=== PATIENT | female | born 1955 ===

== ENCOUNTER 2018-03-27 14:50 | Inpatient (IN) | payer MEDICAID ==
[2018-03-27] MEDS ORDERED: Albuterol-Ipratrop 3 mg / 0.5 (3 ml) UD IH STA (15:29)
[2018-03-27] MEDS ORDERED: Nitroglycerin 2% Ointment Foilpak UD TOP STA (15:33)
--- NOTE | 2018-03-27 15:37 | ED PDOC ---
Arrival/HPI - General Chief Complaint: Abdominal Pain Time Seen by Provider: 03/27/18 15:20 Historian: Patient, EMS - Critical Care Critical Care Minutes: 30 minutes - History of Present Illness Time/Duration: Other (last night) Symptom Onset: Gradual Symptom Course: Worsening Quality: Pressure, Tightness Severity Level: Severe Activities at Onset: Rest Associated Symptoms (Text): 03/27/18 15:35 Patient complains of severe worsening shortness of breath since last night accompanied by pressure-like epigastric abdominal pain. Patient believes this is related to a hernia. No diaphoresis. No dizziness or lightheadedness. No nausea or vomiting. She is in severe distress. She is tachypneic and tachycardic with accessory muscle use and retractions. Morbidly obese. Past Medical History - Infectious Disease Hx of Infectious Diseases: None - Tetanus Immunization Tetanus Immunization: Unknown - Cardiac Hx Cardiac Disorders: Yes Hx Congestive Heart Failure: Yes Hx Hypertension: Yes Hx Peripheral Edema: Yes - Pulmonary Hx Respiratory Disorders: Yes Other/Comment: CHF - Neurological Hx Neurological Disorder: No - HEENT Hx HEENT Disorder: No - Renal Hx Renal Disorder: No - Endocrine/Metabolic Hx Endocrine Disorders: Yes Hx Diabetes Mellitus Type 2: Yes - Hematological/Oncological Hx Blood Disorders: No - Integumentary Hx Dermatological Disorder: No - Musculoskeletal/Rheumatological Hx Musculoskeletal Disorders: Yes Hx Arthritis: Yes Hx Falls: Yes - Gastrointestinal Hx Gastrointestinal Disorders: No - Genitourinary/Gynecological Hx Genitourinary Disorders: No - Psychiatric Hx Psychophysiologic Disorder: Yes Hx Anxiety: Yes Hx Depression: Yes Hx Substance Use: No - Surgical History Hx Appendectomy: Yes Hx Cholecystectomy: Yes - Suicidal Assessment Feels Threatened In Home Enviroment: No Family/Social History - Physician Review Nursing Documentation Reviewed: Yes Family/Social History: Unknown Family HX Smoking Status: Former Smoker Hx Alcohol Use: No Hx Substance Use: No Allergies/Home Meds Allergies/Adverse Reactions: Allergies No Known Allergies Allergy (Verified 03/27/18 15:07) Home Medications: Home Meds Medication Instructions Recorded Confirmed Aspirin [Aspir 81] 81 mg PO DAILY 04/27/13 03/27/18 Carvedilol [Coreg] 25 mg PO BID 04/27/13 03/27/18 Potassium [Potassimin] 20 mg PO DAILY 04/27/13 03/27/18 Spironolactone 25 mg PO BID 04/27/13 03/27/18 Review of Systems - Review of Systems Systems not reviewed;Unavailable: Respiratory Distress Physical Exam Vital Signs Temp Pulse Resp BP Pulse Ox 03/27/18 17:45 87 18 172/96 H 95 03/27/18 17:17 92 H 155/94 H 03/27/18 16:50 18 173/108 H 03/27/18 15:53 193/125 H 03/27/18 15:09 98.6 F 103 H 23 175/126 H 90 L Temperature: Afebrile Blood Pressure: Hypertensive Pulse: Tachycardic Respiratory Rate: Tachypneic Appearance: Positive for: Non-Toxic, Ill-Appearing, Uncomfortable, Other (obese) Pain Distress: Mild Mental Status: Positive for: Alert and Oriented X 3 - Systems Exam Head: Present: Atraumatic, Normocephalic Pupils: Present: PERRL Extroacular Muscles: Present: EOMI Conjunctiva: Present: Normal Mouth: Present: Moist Mucous Membranes Pharnyx: No: ERYTHEMA, EXUDATE, TONSILS ENLARGED Respiratory/Chest: Present: Respiratory Distress, Accessory Muscle Use, Decreased Breath Sounds, Rales, Retracting, Rhonchi, Tachypneic Cardiovascular: Present: Regular Rate and Rhythm, Normal S1, S2, Tachycardic. No: Murmurs Abdomen: No: Tenderness, Distention, Peritoneal Signs, Rebound, Guarding Upper Extremity: Present: Normal Inspection. No: Cyanosis, Edema Lower Extremity: Present: Normal Inspection. No: Edema Neurological: Present: GCS=15, CN II-XII Intact, Speech Normal, Motor Func Grossly Intact Skin: Present: Warm, Dry, Normal Color. No: Rashes Psychiatric: Present: Alert, Oriented x 3, Normal Insight, Normal Concentration Medical Decision Making ED Course and Treatment: 03/27/18 15:37 EKG showed sinus tachycardia rate approximately 105 with LVH and no acute ST or T-wave changes 03/27/18 15:47 Patient adamantly refuses ABG. 03/27/18 18:[address] chest. She states she has had before and she is afraid. I discussed in detail with the patient that if she had a pulmonary embolus she could potentially from this problem. She does not care and still refuses the CT scan. I explained a VQ scan to her and she also refuses to have a VQ scan done. She is awake alert and able to make such a decision. - Lab Interpretations Lab Results: 03/27/18 16:08 03/27/18 16:08 Lab Results 03/27/18 16:15: Urine Color Yellow, Urine Appearance Clear, Urine pH 6.5, Ur Specific [place] 1.020, Urine Protein 100 H, Urine Glucose (UA) Negative, Urine Ketones Negative, Urine Blood Trace-intact H, Urine Nitrate Negative, Urine Bilirubin Negative, Urine Urobilinogen 0.2, Ur Leukocyte Esterase Negative, Urine RBC 1 - 3, Urine WBC 0 - 2, Ur Epithelial Cells 3 - 4, Urine Bacteria Few 03/27/18 16:08: Sodium 142, Potassium 4.3, Chloride 98, Carbon Dioxide 31, Anion Gap 16, BUN 15, Creatinine 0.7, Est GFR ( Amer) > 60, Est GFR (Non- Af Amer) > 60, Random Glucose 120 H, Calcium 9.6, Magnesium 2.1, Total Bilirubin 0.8, AST 30, ALT 27, Alkaline Phosphatase 71, Lactate Dehydrogenase 592, Total Creatine Kinase 52, Troponin I 0.03, NT-Pro-B Natriuret Pep 3940 H, Total Protein 8.2, Albumin 4.6, Globulin 3.6, Albumin/Globulin Ratio 1.3, Lipase 60 03/27/18 16:08: PT 12.1, INR 1.06, APTT 31.1, D-Dimer, Quantitative 1108 H 03/27/18 16:08: WBC 13.4 H, RBC 5.04, Hgb 15.2, Hct 45.7, MCV 90.7, MCH 30.2, MCHC 33.3, RDW 13.9, Plt Count 249, MPV 12.2 H, Gran % 78.4 H, Lymph % (Auto) 14.7 L, [place] % (Auto) 6.1 H, Eos % (Auto) 0.5 L, Baso % (Auto) 0.3, Gran # 10.50 H, Lymph # (Auto) 2.0, [place] # (Auto) 0.8 H, Eos # (Auto) 0.1, Baso # (Auto ) 0.04 - RAD Interpretation Radiology Orders: 03/27/18 15:29 CHEST PORTABLE [RAD] Stat Chest one view shows cardiomegaly and CHF. Bill Hiker: ED Physician - Medication Orders Current Medication Orders: Discontinued Medications Albuterol/Ipratropium (Duoneb 3 Mg/0.5 Mg (3 Ml) Ud) 3 ml IH STAT STA Stop: 03/27/18 15:30 Last Admin: 03/27/18 15:43 Dose: 3 ml Aspirin (Aspirin Chewable) 324 mg PO ONCE ONE Stop: 03/27/18 15:34 Last Admin: 03/27/18 15:43 Dose: Furosemide (Lasix) 60 mg IVP STAT STA Stop: 03/27/18 15:30 Last Admin: 03/27/18 15:53 Dose: 60 mg MAR Blood Pressure Document 03/27/18 15:53 SF (Rec: 03/27/18 15:53 SF [id number]) Blood Pressure Blood Pressure (100/60-150/90 mm Hg) 193/125 IVP Administration Document 03/27/18 15:53 SF (Rec: 03/27/18 15:53 SF [id number]) Charges for Administration # of IVP Administrations 1 Metoprolol Tartrate (Lopressor) 5 mg IVP STAT STA Stop: 03/27/18 16:50 Last Admin: 03/27/18 17:17 Dose: 5 mg IVP Administration Document 03/27/18 17:17 [facility] [place] (Rec: 03/27/18 17:17 [id number] Charges for Administration # of IVP Administrations 1 MAR Pulse and Blood Pressure Document 03/27/18 17:17 LM (Rec: 03/27/18 17:17 [id number]) Pulse Pulse Rate (60-90 beats/min) 92 Blood Pressure Blood Pressure (100/60-150/90 mm Hg) 155/94 Nitroglycerin (Nitro-Bid 2% Oint) 1 ea TOP STAT STA Stop: 03/27/18 15:34 Last Admin: 03/27/18 15:44 Dose: 1 ea Disposition/Present on Arrival - Present on Arrival Any Indicators Present on Arrival: No History of DVT/PE: No History of Uncontrolled Diabetes: No Urinary Catheter: No History of Decub. Ulcer: No History Surgical Site Infection Following: None - Disposition Have Diagnosis and Disposition been Completed?: Yes Diagnosis: Congestive heart failure, Hypertension, Chest pain, Elevated troponin, Acute dyspnea, Hypoxia, Tachycardia, Leukocytosis, Obesity Disposition: HOSPITALIZED Disposition Time: 16:55 Patient Plan: Admission, Telemetry Patient Problems: Current Active Problems Problem Status Onset Acute dyspnea Acute Chest pain Acute Congestive heart failure Acute Elevated troponin Acute Hypertension Acute Hypoxia Acute Leukocytosis Acute Obesity Acute Tachycardia Acute Condition: SERIOUS
[2018-03-27] MEDS ORDERED: Aspirin 325 mg EC Tablets PO ONE (15:41)
--- NOTE | 2018-03-27 15:48 | RAD ---
HISTORY: sob COMPARISON: No prior. FINDINGS: LUNGS: Technically limited due to patient body habitus. No infiltrate. PLEURA: No significant pleural effusion identified, no pneumothorax apparent. CARDIOVASCULAR: Normal. OSSEOUS STRUCTURES: No significant abnormalities. VISUALIZED UPPER ABDOMEN: Normal. OTHER FINDINGS: None. IMPRESSION: No active disease.
[2018-03-27 16:27] LABS: BASO # 0.04 K/mm3 (0.0-2.0); BASO % 0.3 % (0.0-3.0); EOS # 0.1 (0.0-0.7); EOS % 0.5 % (1.5-5.0); GRAN # 10.5 (1.4-6.5); GRAN % 78.4 % (50.0-68.0); HEMOGLOBIN 15.2 g/dL (12.0-16.0); LYMPH % 14.7 % (22.0-35.0); MEAN CELL VOLUME 90.7 fl (80.0-105.0); MEAN CORPUSCULAR HEMOGLOBIN 30.2 pg (25.0-35.0); MEAN CORPUSCULAR HGB CONC 33.3 g/dl (31.0-37.0); MEAN PLATELET VOLUME 12.2 fl (7.0-11.0); MONO # 0.8 (0.1-0.6); MONO % 6.1 % (1.0-6.0); RBC 5.04 10^6/uL (3.5-6.1); RED CELL DISTRIBUTION WIDTH 13.9 % (11.5-14.5); WHITE BLOOD COUNT 13.4 10^3/ul (4.5-11.0)
[2018-03-27 16:31] LABS: ALB/GLOB RATIO 1.3 (1.1-1.8); ALBUMIN 4.6 g/dL (3.0-4.8); CALCIUM 9.6 mg/dL (8.4-10.5); GFR AFRICAN-AMERICAN > 60; GFR NON-AFRICAN AMERICAN > 60; LIPASE 60 U/L (23-300)
[2018-03-27 16:32] LABS: INR 1.06 (0.93-1.08); PARTIAL THROMBOPLASTIN TIME 31.1 Seconds (25.1-36.5); PROTHROMBIN TIME 12.1 SECONDS (9.4-12.5)
[2018-03-27 16:34] LABS: ALT/SGPT 27 U/L (7-56); AST/SGOT 30 U/L (14-36); BLOOD UREA NITROGEN 15 mg/dL (7-21)
[2018-03-27 16:41] LABS: B-TYPE NATRIURETIC PEPTIDE 3940 pg/mL (0-450); TROPONIN I 0.03 ng/mL
[2018-03-27 16:43] LABS: PH,URINE 6.5 (4.7-8.0); URINE BILIRUBIN NEGATIVE (NEGATIVE); URINE BLOOD TRACE-INTACT (NEGATIVE); URINE GLUCOSE (UA) NEGATIVE (NEGATIVE); URINE LEUKOCYTE ESTERASE NEGATIVE Leu/uL (NEGATIVE); URINE PROTEIN 100 mg/dL (<30 mg/dL); URINE UROBILINOGEN 0.2 E.U./dL (<1 E.U./dL)
[2018-03-27 16:44] LABS: URINE APPEARANCE CLEAR (CLEAR); URINE COLOR YELLOW (YELLOW)
[2018-03-27] MEDS ORDERED: Metoprolol 1 mg/ml Inj IVP STA (16:49)
[2018-03-27 16:58] LABS: URINE BACTERIA FEW (NEG); URINE WBC 0 - 2 /hpf (0-6)
[2018-03-27] MEDS ORDERED: Iohexol 350 MG/100 ML VIAL ONE (17:25)
[2018-03-27 19:47] LABS: HDL CHOLESTEROL 43 mg/dL (29-60)
[2018-03-27 19:58] LABS: LDL CHOLESTEROL 113 mg/dL (0-129)
[2018-03-27 20:04] LABS: FREE T4 1.21 ng/dL (0.78-2.19)
--- NOTE | 2018-03-27 20:13 | CP.PCM.HP ---
<Cb Salazar - Last Filed: 03/27/18 19:24> History of Present Illness - History of Present Illness History of Present Illness: CC: Shortness of breath, chest pain HPI: Patient is a 62 yo F with PMH of HTN, DM, hypothyroidism, chronic systolic CHF, dilated cardiomyopathy, and TIA presents to the ED due to shortness of breath and chest pain for the past day. Patient states that the chest pain started last night around 9 pm last night, which is located mid-sternal, pressure-like, constant, but does not radiate. Patient denies prior occurrences or any inciting activities that caused the chest pain. Patient also complains of increasing shortness of breath during this period. At baseline, patient is unable to walk one block without becoming short of breath and requires 2 pillows at night to sleep. Patient is also complaining of a dry cough. Patient denies n/v/d, abdominal pain, fever, chills, LOMBARDI, dizziness, dysuria, hematuria, or heat/cold intolerance. PMD: Mihir Cardio: Althea PMH: HTN, DM, hypothyroidism, chronic systolic CHF, dilated cardiomyopathy, and TIA Surg: C-sections x4, appendectomy, tonsillectomy All: NKDA SH: Former smoker (3 cig/day for 15 yrs), quit 6 years ago; Denied EtOH or illicit drug use FHx: Mother, , h/o DM; Father, unknown Medications: Lasix 20 mg daily Venlafaxine 37.5 daily Ambien 5 mg HS Valsartan 160 mg daily Coreg 25 mg daily Present on Admission - Present on Admission Any Indicators Present on Admission: No Review of Systems - Review of Systems All systems: reviewed and no additional remarkable complaints except (12 point ROS reviewed and is negative other than what is stated in HPI.) Past Patient History - Infectious Disease Hx of Infectious Diseases: None - Tetanus Immunizations Tetanus Immunization: Unknown - Past Social History Smoking Status: Former Smoker - CARDIAC Hx Cardiac Disorders: Yes Hx Congestive Heart Failure: Yes Hx Hypertension: Yes Hx Peripheral Edema: Yes - PULMONARY Hx Respiratory Disorders: Yes Other/Comment: CHF - NEUROLOGICAL Hx Neurological Disorder: No - HEENT Hx HEENT Problems: No - RENAL Hx Chronic Kidney Disease: No - ENDOCRINE/METABOLIC Hx Endocrine Disorders: Yes Hx Diabetes Mellitus Type 2: Yes - HEMATOLOGICAL/ONCOLOGICAL Hx Blood Disorders: No - INTEGUMENTARY Hx Dermatological Problems: No - MUSCULOSKELETAL/RHEUMATOLOGICAL Hx Musculoskeletal Disorders: Yes Hx Arthritis: Yes Hx Falls: Yes - GASTROINTESTINAL Hx Gastrointestinal Disorders: No - GENITOURINARY/GYNECOLOGICAL Hx Genitourinary Disorders: No - PSYCHIATRIC Hx Psychophysiologic Disorder: Yes Hx Anxiety: Yes Hx Depression: Yes Hx Substance Use: No - SURGICAL HISTORY Hx Appendectomy: Yes Hx Cholecystectomy: Yes Meds Allergies/Adverse Reactions: Allergies Allergy/AdvReac Type Severity Reaction Status Date / Time No Known Allergies Allergy Verified 03/27/18 21:10 Physical Exam - Constitutional Appears: No Acute Distress - Head Exam Head Exam: ATRAUMATIC, NORMAL INSPECTION, NORMOCEPHALIC - Eye Exam Eye Exam: EOMI, Normal appearance, PERRL - ENT Exam ENT Exam: Mucous Membranes Moist, Normal Exam - Neck Exam Neck exam: Positive for: Normal Inspection - Respiratory Exam Respiratory Exam: Clear to Auscultation Bilateral. absent: Decreased Breath Sounds, Rales, Rhonchi, Wheezes - Cardiovascular Exam Cardiovascular Exam: RRR, +S1, +S2. absent: Bradycardia, Tachycardia, Diastolic murmur, Gallop, JVD, Rubs, Systolic Murmur Additional comments: LE edema 3+/4 - GI/Abdominal Exam GI & Abdominal Exam: Soft, Tenderness (epigastric). absent: Distended, Firm, Guarding, Mass, Rebound - Extremities Exam Extremities exam: Positive for: normal capillary refill, pedal edema, pedal pulses present. Negative for: joint swelling, tenderness - Back Exam Back exam: NORMAL INSPECTION - Neurological Exam Neurological exam: Alert, CN II-XII Intact, Oriented x3 - Psychiatric Exam Psychiatric exam: Normal Affect, Normal Mood - Skin Skin Exam: Dry, Intact, Normal Color, Warm Results - Vital Signs Recent Vital Signs: Last Vital Signs Temp 98.1 F 03/27/18 18:30 Pulse 85 03/27/18 18:30 Resp 18 03/27/18 18:30 BP 166/97 H 03/27/18 18:30 Pulse Ox 92 L 03/27/18 18:30 - Labs Result Diagrams: 03/27/18 16:08 03/27/18 16:08 Assessment & Plan - Assessment and Plan (Free Text) Assessment: 62 yo F with PMH of HTN, DM, hypothyroidism, dilated cardiomyopathy, and TIA presents to [facility] [place] for chest pain and shortness of breath. Admitted for evaluation and treatment for acute systolic CHF exacerbation. Plan: 1. Acute systolic CHF exacerbation - BNP 3940 - Pt currently refusing ABG - Echo (2012) showed EF of 27.9%, 4 chamber dilation, mild-mod MR/TR/AR - Echo ordered - Head of bed 30 degrees - Strict I's and O's - Daily weights - Lasix 40 mg IVP BID - Coreg 25 mg PO BID - Losartan 100 mg PO daily - Cardio consulted 2. Chest pain r/o ACS - EKG showed sinus tachycardia at rate of 105, LVH, no acute ST-T wave changes - CXR showed no active disease - Troponin 0.03, will trend x2 - AM EKG ordered - TSH, A1c, Lipid profile ordered - ASA 81 mg po daily - Cardio consulted 3. Elevated D-Dimer - D-Dimer 1108 - [place] Criteria 1.5 points, low risk for PE - Patient refusing CTA at this time 3. LE edema/swelling - Likely 2/2 to CHF - B/L LE venous duplex ordered to r/o DVT 4. HTN - Cont Losartan and Coreg 5. DM - Hold Metoformin - ISS-low - Accuchecks ACHS 6. H/o Hypothyroidism - Thyroid studies ordered GI/DVT PPx - Protonix - Heparin Pt seen and discussed in detail with Dr. Pack. Lars Salazar, PGY2 <Tere Pack - Last Filed: 03/28/18 16:25> Results - Vital Signs Recent Vital Signs: Last Vital Signs Temp 97.7 F 03/28/18 12:00 Pulse 68 03/28/18 14:00 Resp 18 03/28/18 12:00 BP 140/92 H 03/28/18 12:00 Pulse Ox 95 03/28/18 09:00 - Labs Result Diagrams: 03/28/18 04:20 03/28/18 04:20 Labs: Laboratory Results - last 24 hr 03/27/18 03/27/18 03/27/18 18:00 18:00 21:38 WBC RBC Hgb Hct MCV MCH MCHC RDW Plt Count MPV Sodium Potassium Chloride Carbon Dioxide Anion Gap BUN Creatinine Est GFR ( Amer) Est GFR (Non-Af Amer) POC Glucose (mg/dL) Random Glucose Calcium Phosphorus Magnesium Total Bilirubin AST ALT Alkaline Phosphatase Troponin I 0.05 D Total Protein Albumin Globulin Albumin/Globulin Ratio Triglycerides 150 Cholesterol 182 LDL Cholesterol Direct 113 HDL Cholesterol 43 Free T4 1.21 Total T3 1.12 TSH 3rd Generation 0.24 L 03/27/18 03/28/18 03/28/18 21:51 04:20 04:20 WBC 9.2 D RBC 4.92 Hgb 14.7 Hct 45.7 MCV 92.9 MCH 29.9 MCHC 32.2 RDW 14.4 Plt Count 206 MPV 12.1 H Sodium 143 Potassium 3.7 Chloride 98 Carbon Dioxide 37 H Anion Gap 12 BUN 16 Creatinine 0.7 Est GFR ( Amer) > 60 Est GFR (Non-Af Amer) > 60 POC Glucose (mg/dL) 172 H Random Glucose 121 H Calcium 9.4 Phosphorus 4.8 H Magnesium 2.0 Total Bilirubin 0.9 AST 24 ALT 33 Alkaline Phosphatase 60 Troponin I 0.05 Total Protein 7.5 Albumin 4.1 Globulin 3.4 Albumin/Globulin Ratio 1.2 Triglycerides Cholesterol LDL Cholesterol Direct HDL Cholesterol Free T4 Total T3 TSH 3rd Generation 03/28/18 03/28/18 07:31 11:27 WBC RBC Hgb Hct MCV MCH MCHC RDW Plt Count MPV Sodium Potassium Chloride Carbon Dioxide Anion Gap BUN Creatinine Est GFR ( Amer) Est GFR (Non-Af Amer) POC Glucose (mg/dL) 112 H 128 H Random Glucose Calcium Phosphorus Magnesium Total Bilirubin AST ALT Alkaline Phosphatase Troponin I Total Protein Albumin Globulin Albumin/Globulin Ratio Triglycerides Cholesterol LDL Cholesterol Direct HDL Cholesterol Free T4 Total T3 TSH 3rd Generation Attending/Attestation - Attestation I have personally seen and examined this patient.: Yes I have fully participated in the care of the patient.: Yes I have reviewed all pertinent clinical information: Yes Notes (Text): Patient seen and examined by me at 6:00PM 03/27/18 with resident at bedside. Case including physical assessment and plan discussed with resident. Agree with above with following additions/changes. Patient is a 62-year-old female with past medical history significant for essential hypertension, type 2 diabetes, hypothyroidism (patient is not taking any medications), chronic systolic CHF, dilated cardiomyopathy, and TIA the presents to emergency room with chest pain and shortness of breath. She states that she is feeling short of breath for approximately one month. She states that she is short of breath at rest and with exertion. She is only able to ambulate a short distance. She sleeps on 2 pillows and is unable to lie flat. Patient does not use home oxygen. She states that she started to have pressure- like midsternal chest pain last night. She states the pain is intermittent and does not radiate. She denies associated diaphoresis or nausea. No vomiting. Patient feels much better in the emergency room after receiving Lasix. She states that the oxygen via nasal cannula is also helping. No headaches or dizziness. No nausea, vomiting, or abdominal pain. No fevers or chills. No dysuria. No diarrhea or constipation. 14 point review of systems reviewed by me. Please see HPI. All other systems are negative. Home medications reviewed with patient by me. Physical exam: Gen: Patient is awake and alert sitting up in bed in no acute distress HEENT: Normocephalic atraumatic, extraocular muscles intact, pupils equal reactive, oropharynx is pink and moist, no pharyngeal erythema or exudate appreciated, neck is supple. Hearing grossly intact. Ears and nose externally unremarkable. Cardiovascular: Normal rhythm, normal S1-S2, no murmurs rubs or gallops appreciated Pulmonary: Normal respiratory effort. Decreased breath sounds. Scattered crackles. No rhonchi or wheezing appreciated Gastrointestinal: Soft, obese abdomen, positive mild epigastric tenderness, nondistended, positive bowel sounds all 4 quadrants, no guarding Musculoskeletal: Moves all extremities, no calf tenderness, no CVA tenderness Central nervous system: AAO 3 Dermatologic: Skin warm and dry Assessment and plan: Patient is a 62-year-old female that presented to emergency room with chest pain and shortness of breath. She found to have acute on current systolic CHF exacerbation and elevated d-dimer. 1. Acute on chronic systolic CHF exacerbation. 2-D echo in 2012 showed an EF of 27.9%. BNP elevated Repeat 2-D echo. Consult cardiology, follow-up recommendations. Strict I's and O's. Monitor daily weights. Place on Lasix 40 mg IV twice a day. Continue home spironolactone, Coreg and losartan. O2 via nasal cannula as needed. Monitor on telemetry. 2. Chest pain. Rule out acute coronary syndrome. Follow up 2-D echo. Heart aortic consult a follow-up recommendations. Continue aspirin and Coreg. Follow- up TSH, hemoglobin A1c, and lipid panel. Monitor serial troponins. Monitor on telemetry 3. Elevated d-dimer. Patient is refusing CTA. Importance of having this test done discussed at length with patient. Patient still refusing. We'll check lower extremity Dopplers to rule out DVT. 4. Bilateral lower extremity edema. Likely secondary to CHF. Placed on Lasix 40 mg IV twice a day. Follow-up lower extremity Dopplers to rule out DVT. 5. Essential hypertension. Continue Coreg and losartan. 6. Type 2 diabetes, [id number]. Place on insulin sliding scale. Diabetic Diet. Monitor Accu-Cheks. Patient counseled on diet and exercise. Follow-up hemoglobin A1c 7. History of hypothyroidism. Patient states that she stopped her medication because she did not want to take too many medications. Importance of compliance of medications discussed in detail with patient. Check TSH, free T4, and T3. 8. Leukocytosis. Likely reactive. No signs of infection. No indication for antibiotics. Follow up repeat labs in a.m. 9. GI and DVT prophylaxis. Protonix and heparin 5000 units subcutaneous every 8 hours 10. Patient is a full code Case was discussed in detail with the patient and electromedical service engineer regarding current diagnosis and treatment plan
[2018-03-27 20:18] LABS: T3 1.12 ng/mL (0.97-1.69)
[2018-03-27] MEDS: Insulin Reg-LOW-Coverage SC SCH (22:00)
[2018-03-27 22:16] VITALS: BMI 44.9
[2018-03-27] MEDS ORDERED: Pneumococcal 23-Valent Vaccine IM ONE (22:16)
[2018-03-28 04:45] LABS: HEMOGLOBIN 14.7 g/dL (12.0-16.0); MEAN CELL VOLUME 92.9 fl (80.0-105.0); MEAN CORPUSCULAR HEMOGLOBIN 29.9 pg (25.0-35.0); MEAN CORPUSCULAR HGB CONC 32.2 g/dl (31.0-37.0); MEAN PLATELET VOLUME 12.1 fl (7.0-11.0); RBC 4.92 10^6/uL (3.5-6.1); RED CELL DISTRIBUTION WIDTH 14.4 % (11.5-14.5); WHITE BLOOD COUNT 9.2 10^3/ul (4.5-11.0)
[2018-03-28 04:46] LABS: ALB/GLOB RATIO 1.2 (1.1-1.8); ALBUMIN 4.1 g/dL (3.0-4.8); ALT/SGPT 33 U/L (7-56); AST/SGOT 24 U/L (14-36); BLOOD UREA NITROGEN 16 mg/dL (7-21); CALCIUM 9.4 mg/dL (8.4-10.5); GFR AFRICAN-AMERICAN > 60; GFR NON-AFRICAN AMERICAN > 60
[2018-03-28 04:58] LABS: TROPONIN I 0.05 ng/mL
[2018-03-28] MEDS: Pantoprazole 40 mg EC Tab PO SCH (05:14)
[2018-03-28] MEDS: Insulin Reg-LOW-Coverage SC SCH ×4 (07:34→21:49)
--- NOTE | 2018-03-28 09:16 | CARD ---
APPROVED REPORT EKG Measurement Heart [id number] <Conclusion> Sinus tachycardia Biatrial enlargement Left axis deviation PRWP LVH STTW changes c/w ischemia No change
--- NOTE | 2018-03-28 16:27 | CP.PCM.PN ---
<Nena Yip L - Last Filed: 03/28/18 19:53> Subjective - Date & Time of Evaluation Date of Evaluation: 03/28/18 Time of Evaluation: 07:00 - Subjective Subjective: No acute events overnight. States that her chest pain and shortness of breath has improved. Denies abdominal pain, diarrhea/constipation, urinary urgency. Patient also expressed concern about CTA. States she cannot lie flat as this exacerbates her shortness of breath. Objective - Vital Signs/Intake and Output Vital Signs (last 24 hours): Temp Pulse Resp BP Pulse Ox 97.7 F 68 18 140/92 H 95 03/28/18 12:00 03/28/18 14:00 03/28/18 12:00 03/28/18 12:00 03/28/18 09:00 Intake and Output: 03/28/18 03/28/18 06:59 18:59 Intake Total 360 Balance 360 - Medications Medications: Current Medications Aspirin (Ecotrin) 81 mg PO DAILY [facility] Last Admin: 03/28/18 09:24 Dose: 81 mg Carvedilol (Coreg) 25 mg PO BID [facility] Last Admin: 03/28/18 09:24 Dose: 25 mg Furosemide (Lasix) 40 mg IVP BID [facility] Last Admin: 03/28/18 09:23 Dose: 40 mg Heparin Sodium (Porcine) (Heparin) 5,000 units SC Q8 [facility] PRN Reason: Protocol Last Admin: 03/28/18 14:54 Dose: 5,000 units Insulin Human Regular (Humulin R Low) 0 units SC ACHS [facility] PRN Reason: Protocol Last Admin: 03/28/18 11:43 Dose: Not Given Losartan Potassium (Cozaar) 100 mg PO DAILY [facility] Last Admin: 03/28/18 09:24 Dose: 100 mg Pantoprazole Sodium (Protonix Ec Tab) 40 mg PO 0600 [facility] Last Admin: 03/28/18 05:14 Dose: 40 mg Spironolactone (Aldactone) 25 mg PO DAILY [facility] - Labs Labs: 03/28/18 04:20 03/28/18 04:20 PT 12.1 SECONDS (9.4-12.5) 03/27/18 16:08 INR 1.06 (0.93-1.08) 03/27/18 16:08 APTT 31.1 Seconds (25.1-36.5) 03/27/18 16:08 - Additional Findings Additional findings: - Constitutional Appears: No Acute Distress - Head Exam Head Exam: ATRAUMATIC, NORMAL INSPECTION, NORMOCEPHALIC - Eye Exam Eye Exam: EOMI, Normal appearance, PERRL - ENT Exam ENT Exam: Mucous Membranes Moist, Normal Exam - Neck Exam Neck exam: Positive for: Normal Inspection - Respiratory Exam Respiratory Exam: Clear to Auscultation Bilateral. absent: Decreased Breath Sounds, Rales, Rhonchi, Wheezes - Cardiovascular Exam Cardiovascular Exam: RRR, +S1, +S2. absent: Bradycardia, Tachycardia, Diastolic murmur, Gallop, JVD, Rubs, Systolic Murmur Additional comments: LE edema 1+/4 - GI/Abdominal Exam GI & Abdominal Exam: Soft, Tenderness (epigastric). absent: Distended, Firm, Guarding, Mass, Rebound - Extremities Exam Extremities exam: Positive for: normal capillary refill, pedal edema, pedal pulses present. Negative for: joint swelling, tenderness - Back Exam Back exam: NORMAL INSPECTION - Neurological Exam Neurological exam: Alert, CN II-XII Intact, Oriented x3 - Psychiatric Exam Psychiatric exam: Normal Affect, Normal Mood - Skin Skin Exam: Dry, Intact, Normal Color, Warm Assessment and Plan - Assessment and Plan (Free Text) Assessment: Acute on chronic systolic CHF exacerbation - BNP 3940 - Echo (2012) showed EF of 27.9%, 4 chamber dilation, mild-mod MR/TR/AR - Echo results pending - Head of bed 30 degrees - Strict I's and O's - Daily weights - Lasix 40 mg IVP BID - Coreg 25 mg PO BID - Losartan 100 mg PO daily - Cardio consulted - Patient improving clinically Chest pain r/o ACS - Resolving - EKG showed sinus tachycardia at rate of 105, LVH, no acute ST-T wave changes - CXR showed no active disease - Troponin 0.05 x 2 - TSH low, T3/T4 normal - A1c ordered - Lipid profile normal - Continue ASA 81 mg po daily - Cardio consulted Elevated D-Dimer - D-Dimer 1108 - Wells Criteria 1.5 points, low risk for PE - Spoke to patient regarding importance of CTA. Still refusing at this time. Will attempt V/Q scan. LE edema/swelling - Resolving - Likely 2/2 to CHF - B/L LE venous duplex ordered to r/o DVT HTN - Continue Losartan and Coreg DM - POC glucose 112 this morning - Hold Metformin - ISS-low - Accuchecks ACHS Hypothyroidism - TSH low, T3/T4 normal GI/DVT PPx - Protonix - Heparin Patient seen and discussed with Dr. Ramone Yip PGY 1 <Tere Pack R - Last Filed: 03/28/18 21:07> Objective - Vital Signs/Intake and Output Vital Signs (last 24 hours): Temp Pulse Resp BP Pulse Ox 98.2 F 73 20 141/90 95 03/28/18 17:31 03/28/18 18:00 03/28/18 17:31 03/28/18 17:43 03/28/18 09:00 Intake and Output: 03/28/18 03/29/18 18:59 06:59 Intake Total 1180 Balance 1180 - Medications Medications: Current Medications Aspirin (Ecotrin) 81 mg PO DAILY [facility] Last Admin: 03/28/18 09:24 Dose: 81 mg Carvedilol (Coreg) 25 mg PO BID [facility] Last Admin: 03/28/18 17:43 Dose: 25 mg Furosemide (Lasix) 40 mg IVP BID [facility] Last Admin: 03/28/18 17:43 Dose: 40 mg Heparin Sodium (Porcine) (Heparin) 5,000 units SC Q8 [facility] PRN Reason: Protocol Last Admin: 03/28/18 14:54 Dose: 5,000 units Insulin Human Regular (Humulin R Low) 0 units SC ACHS [facility] PRN Reason: Protocol Last Admin: 03/28/18 17:13 Dose: Not Given Losartan Potassium (Cozaar) 100 mg PO DAILY [facility] Last Admin: 03/28/18 09:24 Dose: 100 mg Pantoprazole Sodium (Protonix Ec Tab) 40 mg PO 0600 [facility] Last Admin: 03/28/18 05:14 Dose: 40 mg Spironolactone (Aldactone) 25 mg PO DAILY [facility] - Labs Labs: 03/28/18 04:20 03/28/18 04:20 PT 12.1 SECONDS (9.4-12.5) 03/27/18 16:08 INR 1.06 (0.93-1.08) 03/27/18 16:08 APTT 31.1 Seconds (25.1-36.5) 07/06/18 16:08 Attending/Attestation - Attestation I have personally seen and examined this patient.: Yes I have fully participated in the care of the patient.: Yes I have reviewed all pertinent clinical information, including history, physical exam and plan: Yes Notes (Text): Patient seen and examined by me at 11:15AM with resident at bedside. Case including physical assessment and plan discussed with resident. Agree with above with following additions/changes. Patient states she is feeling better today. Shortness of breath improved. Patient states she feels like "the liquid has come off of me." Patient feels less swollen. Chest pain has resolved. Patient continues to refuse CTA of chest. Importance discussed again. Patient still refusing. No headaches or dizziness. No nausea, vomiting, or abdominal pain. No fevers or chills. No dysuria. No diarrhea or constipation. Physical exam: Gen: Patient is awake and alert sitting up in bed in no acute distress HEENT: Normocephalic atraumatic, extraocular muscles intact, pupils equal reactive, oropharynx is pink and moist, no pharyngeal erythema or exudate appreciated, neck is supple. Cardiovascular: Normal rhythm, normal S1-S2, no murmurs rubs or gallops appreciated, positive lower extremity pitting edema. Pulmonary: Normal respiratory effort. Decreased breath sounds. No rhonchi, rales , or wheezing appreciated Gastrointestinal: Soft, obese abdomen, nontender, nondistended, positive bowel sounds all 4 quadrants, no guarding Musculoskeletal: Moves all extremities, no calf tenderness, Central nervous system: AAO 3 Dermatologic: Skin warm and dry Assessment and plan: Patient is a 62-year-old female that presented to emergency room with chest pain and shortness of breath. She found to have acute on current systolic CHF exacerbation and elevated d-dimer. 1. Acute on chronic systolic CHF exacerbation. Improving. Pending 2-D echo results. Cardiology consulted, recommendations appreciated. Patient refusing cardiac cath. Continue strict I's and O's. Continue to monitor daily weights. Continue Lasix 40 mg IV twice a day. Continue spironolactone, Coreg and losartan. O2 via nasal cannula as needed. Continue to monitor on telemetry 2. Chest pain. Rule out acute coronary syndrome. 2d echo results pending. Troponins within normal limits. Cardiology following, recommendations appreciated. Patient refusing cardiac cath. Continue aspirin and Coreg. TSH within normal limits. hemoglobin A1c pending. Lipid panel within normal limits. Continue to monitor on telemetry 3. Elevated d-dimer. Patient continues to refuse CTA. Importance of having this test done discussed again at length with patient. Patient still refusing. Pending lower extremity Dopplers results to rule out DVT. 4. Bilateral lower extremity edema. Likely secondary to CHF. Improving. Continue Lasix 40 mg IV twice a day. Follow-up lower extremity Doppler results. 5. Essential hypertension. Continue Coreg and losartan. 6. Type 2 diabetes, [id number]. Continue insulin sliding scale. Continue diabetic diet. Cotinue to monitor Accu-Cheks. Patient counseled on diet and exercise. Follow-up hemoglobin A1c 7. History of hypothyroidism. Patient states that she stopped her medication because she did not want to take too many medications. Importance of compliance of medications discussed in detail with patient. Check TSH and Free T4 within normal limits. 8. Leukocytosis. Resolved. Likely reactive. 9. GI and DVT prophylaxis. Protonix and heparin 5000 units subcutaneous every 8 hours 10. Patient is a full code Case was discussed in detail with the patient and director medical economics regarding current diagnosis and treatment plan
--- NOTE | 2018-03-28 20:32 | CON ---
DATE: 03/28/2018 CARDIOLOGY CONSULTATION REASON FOR CONSULTATION: Exacerbation of congestive heart failure. HISTORY OF PRESENT ILLNESS: The patient is a 62-year-old female who presented because of shortness of breath and bilateral leg swelling. The patient is being followed by a truck jumper at , who advised her cardiac catheterization, but she refused. The patient is unaware of any history of heart attack in the past. SOCIAL HISTORY: The patient is a former smoker. MEDICATIONS: Coreg 25 mg once a day, Cozaar 100 mg once a day, aspirin 81 mg once a day, heparin 5000 units subcutaneous every 8 hours, Lasix 40 mg intravenous twice a day, Protonix 40 mg p.o. once a day. REVIEW OF SYSTEMS: No fever or chills. The patient complained of productive cough. PHYSICAL EXAMINATION: GENERAL: The patient is a middle-aged female who is mildly tachypneic, but does not appear to be in acute distress. VITAL SIGNS: Blood pressure 141/81, heart rate 66, respirations 18, temperature 98. HEENT: Normocephalic. CHEST: Bibasilar rales. HEART: S1 and S2 regular. ABDOMEN: Mild ascites. EXTREMITIES: 2+ pitting edema. DIAGNOSTIC STUDIES: EKG revealed sinus tachycardia at rate 104, biatrial enlargement, left axis deviation, poor R wave progression, ST-T wave changes consistent with ischemia. Chest x-ray revealed cardiomegaly, right lower lobe infiltrate. Preliminary review of the echocardiographic study revealed severely depressed ejection fraction which was measured at 20%. LABORATORY DATA: Today's hemoglobin and hematocrit, white count and platelet count are within normal limit. Today's SMA-7 is within normal limits except for glucose of 121 and carbon dioxide of 37. Three sets of troponins are 0.03, 0.05, and 0.05. ProBNP is 3940. Lipid profile is within normal limit. TSH level is 0.24. ASSESSMENT: 1. Exacerbation of congestive heart failure. 2. Consider right lower lobe pneumonia. 3. Hypertension. 4. Morbid obesity. RECOMMENDATIONS: Continue IV Lasix at 40 mg twice a day, subcutaneous heparin 5000 units every 8 hours, Cozaar 100 mg once a day, Coreg 25 mg twice a day. I will start Aldactone at 25 mg orally once a day. The patient refuses the idea of cardiac catheterization. Marcial Rice MD [facility] # [id number]
[2018-03-29] MEDS: Pantoprazole 40 mg EC Tab PO SCH (05:00)
[2018-03-29 06:07] LABS: HEMOGLOBIN 14.3 g/dL (12.0-16.0); MEAN CORPUSCULAR HEMOGLOBIN 29.4 pg (25.0-35.0); MEAN CORPUSCULAR HGB CONC 32.3 g/dl (31.0-37.0); MEAN PLATELET VOLUME 11.9 fl (7.0-11.0); RBC 4.87 10^6/uL (3.5-6.1); RED CELL DISTRIBUTION WIDTH 13.8 % (11.5-14.5); WHITE BLOOD COUNT 8.5 10^3/ul (4.5-11.0)
[2018-03-29 06:24] LABS: ALB/GLOB RATIO 1.2 (1.1-1.8); ALT/SGPT 33 U/L (7-56); AST/SGOT 29 U/L (14-36); BLOOD UREA NITROGEN 21 mg/dL (7-21); CALCIUM 8.7 mg/dL (8.4-10.5); GFR AFRICAN-AMERICAN > 60; GFR NON-AFRICAN AMERICAN > 60
[2018-03-29] MEDS: Insulin Reg-LOW-Coverage SC SCH ×4 (07:30→21:17)
--- NOTE | 2018-03-29 08:22 | CARD ---
APPROVED REPORT EXAM: Two-dimensional and M-mode echocardiogram with Doppler and color Doppler. Other Information Quality : FairRhythm : INDICATION Congestive Heart Failure 2D DIMENSIONS IVSd1.2 (0.7-1.1cm)LVDd6.2 (3.9-5.9cm) PWd1.2 (0.7-1.1cm)LVDs5.6 (2.5-4.0cm) FS (%) 9.5 %LVEF (%)20.0 (>50%) M-Mode DIMENSIONS Left Atrium (MM)4.70 (2.5-4.0cm)Aortic Root3.20 (2.2-3.7cm) Aortic Cusp Exc.1.60 (1.5-2.0cm) Aortic Valve AoV Peak Yackpmaj314.0cm/Tim P 1/2 [id number] Mitral Valve MV E Wccfzlbp75.8cm/sMV A Gtjgbixb50.5cm/sE/A ratio1.2 TDI Lateral E' Peak V4.14cm/sMedial E' Peak V3.14cm/sE/Lateral E'23.1 E/Medial E'30.5 Tricuspid Valve TR Peak Iqnekqbo085mn/sRAP [id number] Peak Gr.41mmHg [id number] LEFT VENTRICLE The Left Ventricle is moderately dilated. There is normal left ventricular wall thickness. Left ventricle systolic function is severely impaired. The Ejection Fraction is -20%. There is severe global hypokinesis. RIGHT VENTRICLE The right ventricle is normal size. ATRIA The left atrium is moderately dilated. The right atrium is borderline dilated. The interatrial septum is intact with no evidence for an atrial septal defect. AORTIC VALVE The aortic valve is normal in structure. There is moderate aortic regurgitation. MITRAL VALVE The mitral valve is normal in structure. Mitral regurgitation is mild. TRICUSPID VALVE The tricuspid valve is normal in structure. There is mild tricuspid regurgitation. There is moderate pulmonary hypertension. PULMONIC VALVE The pulmonic valve is not well visualized. GREAT VESSELS The aortic root is normal in size. PERICARDIAL EFFUSION There is no pericardial effusion. <Conclusion> The Left Ventricle is moderately dilated. There is normal left ventricular wall thickness. Left ventricle systolic function is severely impaired. The Ejection Fraction is -20%. There is severe global hypokinesis. There is moderate aortic regurgitation. Mitral regurgitation is mild. There is mild tricuspid regurgitation. There is moderate pulmonary hypertension.
--- NOTE | 2018-03-29 13:52 | RAD ---
HISTORY: Pneumonia. COMPARISON: 03/27/2018. TECHNIQUE: Chest PA and lateral FINDINGS: LUNGS: No active pulmonary disease. PLEURA: No significant pleural effusion identified. No pneumothorax apparent. CARDIOVASCULAR: Cardiomegaly. No evidence of acute, significant cardiovascular disease. OSSEOUS STRUCTURES: No significant abnormalities. VISUALIZED UPPER ABDOMEN: Normal. OTHER FINDINGS: None. IMPRESSION: No active disease. No significant interval change compared to the prior examination(s).
--- NOTE | 2018-03-29 14:04 | CP.PCM.PN ---
<Nena Yip L - Last Filed: 03/29/18 15:21> Subjective - Date & Time of Evaluation Date of Evaluation: 03/29/18 Time of Evaluation: 07:00 - Subjective Subjective: No acute events overnight. Patient resting comfortably this morning. States continuous improvement in shortness of breath. Admit to some epigastric discomfort which is associated with meals. She also states a sensation of food being "stuck." Denies chest pain, N/V, changes in bowel movements, urinary urgency. Objective - Vital Signs/Intake and Output Vital Signs (last 24 hours): Temp Pulse Resp BP Pulse Ox 98.2 F 69 17 124/80 97 03/29/18 12:00 03/29/18 12:00 03/29/18 12:00 03/29/18 12:00 03/29/18 05:48 Intake and Output: 03/29/18 03/29/18 06:59 18:59 Intake Total 1560 Balance 1560 - Medications Medications: Current Medications Aspirin (Ecotrin) 81 mg PO DAILY [facility] Last Admin: 03/29/18 10:14 Dose: 81 mg Carvedilol (Coreg) 25 mg PO BID [facility] Last Admin: 03/29/18 10:14 Dose: 25 mg Furosemide (Lasix) 40 mg IVP BID [facility] Last Admin: 03/29/18 10:13 Dose: 40 mg Heparin Sodium (Porcine) (Heparin) 5,000 units SC Q8 [facility] PRN Reason: Protocol Last Admin: 03/29/18 05:01 Dose: Not Given Insulin Human Regular (Humulin R Low) 0 units SC ACHS [facility] PRN Reason: Protocol Last Admin: 03/29/18 11:33 Dose: Not Given Losartan Potassium (Cozaar) 100 mg PO DAILY [facility] Last Admin: 03/29/18 10:14 Dose: 100 mg Pantoprazole Sodium (Protonix Ec Tab) 40 mg PO 0600 [facility] Last Admin: 03/29/18 05:00 Dose: 40 mg Spironolactone (Aldactone) 25 mg PO DAILY [facility] Last Admin: 03/29/18 10:14 Dose: 25 mg - Labs Labs: 03/29/18 06:00 03/29/18 06:00 PT 12.1 SECONDS (9.4-12.5) 03/27/18 16:08 INR 1.06 (0.93-1.08) 03/27/18 16:08 APTT 31.1 Seconds (25.1-36.5) 03/27/18 16:08 - Additional Findings Additional findings: - Constitutional Appears: No Acute Distress - Head Exam Head Exam: ATRAUMATIC, NORMAL INSPECTION, NORMOCEPHALIC - Eye Exam Eye Exam: EOMI, Normal appearance, PERRL - ENT Exam ENT Exam: Mucous Membranes Moist, Normal Exam - Neck Exam Neck exam: Positive for: Normal Inspection - Respiratory Exam Respiratory Exam: Bibasilar crackles. absent: Decreased Breath Sounds, Rales, Rhonchi, Wheezes - Cardiovascular Exam Cardiovascular Exam: RRR, +S1, +S2. absent: Bradycardia, Tachycardia, Diastolic murmur, Gallop, JVD, Rubs, Systolic Murmur Additional comments: LE edema 1+/4 - GI/Abdominal Exam GI & Abdominal Exam: Soft, Tenderness (epigastric). absent: Distended, Firm, Guarding, Mass, Rebound - Extremities Exam Extremities exam: Positive for: normal capillary refill, pedal edema, pedal pulses present. Negative for: joint swelling, tenderness - Back Exam Back exam: NORMAL INSPECTION - Neurological Exam Neurological exam: Alert, CN II-XII Intact, Oriented x3 - Psychiatric Exam Psychiatric exam: Normal Affect, Normal Mood - Skin Skin Exam: Dry, Intact, Normal Color, Warm Assessment and Plan - Assessment and Plan (Free Text) Assessment: Patient is a 62 yo female admitted for workup and management of SOB likely secondary to acute systolic CHF, chest pain. Plan: Acute on chronic systolic CHF exacerbation - BNP 3940 - ECHO shows EF 20%, severe global hypokinesis, mild MR/TR, mod AR/pulmonary hypertension - ECHO from 2012 showed EF 27.9%, 4 chamber dilation, mild-mod MR/TR/AR - Head of bed 30 degrees - Strict I's and O's - Daily weights - Lasix 40 mg IVP BID - Coreg 25 mg PO BID - Losartan 100 mg PO daily - Cardio consulted. Recommended continuation of lasix, heparin, cozaar, and coreg and addition of aldactone - Patient improving clinically - Physical therapy consulted Chest pain r/o ACS - Resolving - EKG showed sinus tachycardia at rate of 105, LVH, no acute ST-T wave changes - CXR showed no active disease - Troponin 0.05 x 2 - TSH low, T3/T4 normal - A1c 6.6 - Lipid profile normal - Continue ASA 81 mg po daily - Cardio consulted. Recs appreciated. Per Dr. Barton statin is not indicated at this time. Elevated D-Dimer - D-Dimer 1108 - Wells Criteria 1.5 points, low risk for PE - Spoke to patient regarding importance of CTA. Still refusing at this time. Will attempt V/Q scan. Epigastric pain - Likely due to gastroesophageal reflux disease - GI consulted, Dr. Vang - Continue protonix LE edema/swelling - Resolving - Likely 2/2 to CHF - B/L LE venous duplex shows negative DVT bilaterally HTN - Continue losartan, coreg, lasix, cozaar, aldactone DM - POC glucose 119 this morning - Hold Metformin - ISS-low - Accuchecks ACHS Hypothyroidism - TSH low, T3/T4 normal GI/DVT PPx - Protonix - Heparin Patient seen and discussed with Dr. Ramone Yip PGY 1 <Tere Pack R - Last Filed: 03/29/18 16:33> Objective - Vital Signs/Intake and Output Vital Signs (last 24 hours): Temp Pulse Resp BP Pulse Ox 98.2 F 69 17 124/80 97 03/29/18 12:00 03/29/18 12:00 03/29/18 12:00 03/29/18 12:00 03/29/18 05:48 Intake and Output: 03/29/18 03/29/18 06:59 18:59 Intake Total 1560 Balance 1560 - Medications Medications: Current Medications Aspirin (Ecotrin) 81 mg PO DAILY [facility] Last Admin: 03/29/18 10:14 Dose: 81 mg Carvedilol (Coreg) 25 mg PO BID [facility] Last Admin: 03/29/18 10:14 Dose: 25 mg Furosemide (Lasix) 40 mg IVP BID [facility] Last Admin: 03/29/18 10:13 Dose: 40 mg Heparin Sodium (Porcine) (Heparin) 5,000 units SC Q8 [facility] PRN Reason: Protocol Last Admin: 03/29/18 14:10 Dose: Not Given Insulin Human Regular (Humulin R Low) 0 units SC ACHS [facility] PRN Reason: Protocol Last Admin: 03/29/18 11:33 Dose: Not Given Losartan Potassium (Cozaar) 100 mg PO DAILY [facility] Last Admin: 03/29/18 10:14 Dose: 100 mg Pantoprazole Sodium (Protonix Ec Tab) 40 mg PO 0600 [facility] Last Admin: 03/29/18 05:00 Dose: 40 mg Spironolactone (Aldactone) 25 mg PO DAILY [facility] Last Admin: 03/29/18 10:14 Dose: 25 mg - Labs Labs: 03/29/18 06:00 03/29/18 06:00 PT 12.1 SECONDS (9.4-12.5) 03/27/18 16:08 INR 1.06 (0.93-1.08) 03/27/18 16:08 APTT 31.1 Seconds (25.1-36.5) 03/27/18 16:08 Attending/Attestation - Attestation I have personally seen and examined this patient.: Yes I have fully participated in the care of the patient.: Yes I have reviewed all pertinent clinical information, including history, physical exam and plan: Yes Notes (Text): Patient seen and examined by me at 09:30AM with resident at bedside. Case including physical assessment and plan discussed with resident. Agree with above with following additions/changes. Patient states she is feeling okay. States she was unable to sleep overnight. Patient states that she normally sleeps during the day. Shortness of breath improved. Patient states that she is feeling chest pressure and points to her epigastric region whenever she eats. She states she feels like "the food is not going all the way down." Patient denies chest pain. Patient continues to refuse CTA of chest. No headaches or dizziness. No nausea, vomiting, or abdominal pain. No fevers or chills. No dysuria. No diarrhea or constipation. Physical exam: Gen: Patient is awake and alert sitting up in bed in no acute distress HEENT: Normocephalic atraumatic, extraocular muscles intact, pupils equal reactive, oropharynx is pink and moist, no pharyngeal erythema or exudate appreciated, neck is supple. Cardiovascular: Normal rhythm, normal S1-S2, no murmurs rubs or gallops appreciated, improved lower extremity pitting edema. Pulmonary: Normal respiratory effort. Decreased breath sounds. No rhonchi or wheezing appreciated. Mild crackles at bases. Gastrointestinal: Soft, obese abdomen, nontender, nondistended, positive bowel sounds all 4 quadrants, no guarding Musculoskeletal: Moves all extremities, no calf tenderness Central nervous system: AAO 3 Dermatologic: Skin warm and dry Assessment and plan: Patient is a 62-year-old female that presented to emergency room with chest pain and shortness of breath. She found to have acute on current systolic CHF exacerbation and elevated d-dimer. 1. Acute on chronic systolic CHF exacerbation. Continues to improve. 2-D echo per merchandising consultant shows left ventricle moderately dilated, left ventricular systolic function severely impaired, ejection fraction approximately 20%, severe global hypokinesis, moderate pulmonary hypertension. Cardiology following , recommendations appreciated. Patient refusing cardiac cath. Continue strict I' s and O's. Continue to monitor daily weights. Continue Lasix 40 mg IV twice a day. Continue spironolactone, Coreg and losartan. O2 via nasal cannula as needed. Continue to monitor on telemetry 2. Dysphagia. Patient complaining of chest pressure after eating food. Feels the food is not going all the way down. GI consult, follow-up recommendations. Continue Protonix. 3. Chest pain. 2-D echo as above. Troponins within normal limits. Cardiology following, recommendations appreciated. Patient refusing cardiac cath. Continue aspirin and Coreg. TSH slightly low, however free T4 and total T3 within normal limits. Hemoglobin A1c 6.6. Lipid panel within normal limits. Continue to monitor on telemetry 4. Elevated d-dimer. Patient continues to refuse CTA. Pending lower extremity Dopplers results to rule out DVT. 5. Bilateral lower extremity edema. Likely secondary to CHF. Improving. Continue Lasix 40 mg IV twice a day. Follow-up lower extremity Doppler results. 6. Essential hypertension. Continue Coreg and losartan. 7. Type 2 diabetes, [id number]. Continue insulin sliding scale. Continue diabetic diet. Continue to monitor Accu-Cheks. Patient counseled on diet and exercise. Hemoglobin A1c 6.6 8. History of hypothyroidism. Patient states that she stopped her medication because she did not want to take too many medications. Importance of compliance of medications discussed in detail with patient. TSH slightly low, however free T4 and total T3 within normal limits. 9. Leukocytosis. Resolved. Likely reactive. 10. GI and DVT prophylaxis. Protonix and heparin 5000 units subcutaneous every 8 hours 11. Patient is a full code Case was discussed in detail with the patient and emergency medical service coordinator regarding current diagnosis and treatment plan
--- NOTE | 2018-03-29 15:47 | PN ---
DATE: 03/29/2018 FOLLOWUP SUBJECTIVE: The patient's shortness of breath and leg swelling have improved. PHYSICAL EXAMINATION: VITAL SIGNS: Blood pressure 124/80, heart rate 69, temperature 98.2, respirations 17. HEENT: Normocephalic. CHEST: Minimal basal rhonchi. HEART: S1 and S2 regular. ABDOMEN: Soft. EXTREMITIES: Improved leg edema. LABORATORY DATA: Today's hemoglobin and hematocrit, white count and platelet count are within normal limit. Today's SMA-7 is within normal limit except for glucose of 126, chloride 95, CO2 of 35. Echocardiography study revealed ejection fraction was measured at 20% with severe global hypokinesis, moderate aortic insufficiency and moderate pulmonary hypertension. ASSESSMENT: 1. Cardiomyopathy. 2. Right lower lobe pneumonia. 3. Hypertension. 4. Morbid obesity. RECOMMENDATIONS: Continue Aldactone 25 mg once a day, Coreg 25 mg twice a day, Cozaar 100 mg once a day, aspirin 81 mg once a day, subcutaneous heparin 5000 units every 8 hours, Lasix 40 mg intravenously twice a day. The patient was advised cardiac catheterization; however, at this time she refuses this idea. Marcial Rice MD
[2018-03-30] MEDS: Pantoprazole 40 mg EC Tab PO SCH (05:30)
[2018-03-30 05:37] VITALS: O2SAT 95
[2018-03-30 06:20] LABS: HEMOGLOBIN 15.5 g/dL (12.0-16.0); MEAN CELL VOLUME 90.7 fl (80.0-105.0); MEAN CORPUSCULAR HGB CONC 33.1 g/dl (31.0-37.0); MEAN PLATELET VOLUME 12.1 fl (7.0-11.0); RBC 5.16 10^6/uL (3.5-6.1); RED CELL DISTRIBUTION WIDTH 13.7 % (11.5-14.5); WHITE BLOOD COUNT 8.2 10^3/ul (4.5-11.0)
[2018-03-30 06:37] LABS: ALB/GLOB RATIO 1.2 (1.1-1.8); ALBUMIN 4.3 g/dL (3.0-4.8); ALT/SGPT 30 U/L (7-56); AST/SGOT 26 U/L (14-36); BLOOD UREA NITROGEN 22 mg/dL (7-21); CALCIUM 9.1 mg/dL (8.4-10.5); GFR AFRICAN-AMERICAN > 60; GFR NON-AFRICAN AMERICAN > 60
--- NOTE | 2018-03-30 07:06 | CP.PCM.CON ---
<Valdemar Dueñas - Last Filed: 03/30/18 09:48> History of Present Illness - History of Present Illness History of Present Illness: PGY-4 GI Fellow Consult Note Mrs. Gómez is a 62 yo Hisp Female with h/o Systolic CHF, HTN, DM, Hypothyroid admitted for decompensated CHF. GI consulted for sensation of items stuck in throat when swallowing. Patient states that about a year ago she noticed that she intermittently feels as though certain pills are "slow to move" in her throat when swallowing. When asked about certain pills she reports that she feels as though potassium causes her some occasional trouble. However, she denies any trouble with swallowing food or water. She cannot identify any precipitating or alleviating factors.Furthermore, she states that she has not felt the sensation of any pills getting stuck for the last several days. She denies any h/o food impaction, EGDs/CSPY, melena, hematochezia nor weight loss. 12 point ROS negative other than stated above MHx Systolic CHF, Dilated Cardiomyopathy (with last EF 20%) DM2 HTN HLD Hypothyroid TIA SurgHx Appendectomy, Tonsillectomy, C-sectionx4 Meds Zolpidem Venlafaxine Valsartan Furosemide Carvedilol ASA FamHx M: DM SocHx: Former smoker, Denied EtOH and Illicits All: NKDA Past Patient History - Infectious Disease Hx of Infectious Diseases: None - Tetanus Immunizations Tetanus Immunization: Unknown - Past Social History Smoking Status: Former Smoker - CARDIAC Hx Cardiac Disorders: Yes Hx Circulatory Problems: Yes Hx Congestive Heart Failure: Yes Hx Hypertension: Yes Hx Peripheral Edema: Yes - PULMONARY Hx Respiratory Disorders: Yes (USED TO SMOKE CIGARETTES 3 CIG A DAY FOR 15 YRS.) - NEUROLOGICAL Hx Neurological Disorder: No - HEENT Hx HEENT Problems: No - RENAL Hx Chronic Kidney Disease: No - ENDOCRINE/METABOLIC Hx Endocrine Disorders: Yes Hx Diabetes Mellitus Type 2: Yes - HEMATOLOGICAL/ONCOLOGICAL Hx Blood Disorders: No - INTEGUMENTARY Hx Dermatological Problems: No - MUSCULOSKELETAL/RHEUMATOLOGICAL Hx Musculoskeletal Disorders: Yes Hx Arthritis: Yes Hx Falls: Yes - GASTROINTESTINAL Hx Gastrointestinal Disorders: Yes (APPENDECTOMY,TONSILLECTOMY) Hx Gall Bladder Disease: Yes (CHOLEYCYSTECTOMY) - GENITOURINARY/GYNECOLOGICAL Hx Genitourinary Disorders: No - PSYCHIATRIC Hx Psychophysiologic Disorder: Yes Hx Anxiety: Yes Hx Depression: Yes Hx Substance Use: No - SURGICAL HISTORY Hx Surgeries: Yes (TONSILLECTOMY,C SECTIONS X 4) Hx Appendectomy: Yes Hx Cholecystectomy: Yes Meds Allergies/Adverse Reactions: Allergies Allergy/AdvReac Type Severity Reaction Status Date / Time No Known Allergies Allergy Verified 03/27/18 21:10 - Medications Medications: Current Medications Aspirin (Ecotrin) 81 mg PO DAILY [facility] Last Admin: 03/29/18 10:14 Dose: 81 mg Carvedilol (Coreg) 25 mg PO BID [facility] Last Admin: 03/29/18 17:24 Dose: 25 mg Furosemide (Lasix) 40 mg IVP BID [facility] Last Admin: 03/29/18 17:24 Dose: 40 mg Heparin Sodium (Porcine) (Heparin) 5,000 units SC Q8 [facility] PRN Reason: Protocol Last Admin: 03/30/18 05:26 Dose: Not Given Insulin Human Regular (Humulin R Low) 0 units SC ACHS [facility] PRN Reason: Protocol Last Admin: 03/29/18 21:17 Dose: Not Given Losartan Potassium (Cozaar) 100 mg PO DAILY [facility] Last Admin: 03/29/18 10:14 Dose: 100 mg Pantoprazole Sodium (Protonix Ec Tab) 40 mg PO 0600 [facility] Last Admin: 03/30/18 05:30 Dose: 40 mg Spironolactone (Aldactone) 25 mg PO DAILY [facility] Last Admin: 03/29/18 10:14 Dose: 25 mg Physical Exam - Constitutional Appears: No Acute Distress, Chronically Ill - Head Exam Head Exam: ATRAUMATIC, NORMOCEPHALIC - Eye Exam Eye Exam: EOMI. absent: Scleral icterus - ENT Exam ENT Exam: Mucous Membranes Dry, Normal External Ear Exam - Neck Exam Additional comments: Soft, round palpable mass under R mandible (chronic for years per pt) - Respiratory Exam Respiratory Exam: Clear to Auscultation Bilateral. absent: Accessory Muscle Use , Prolonged Expiratory Phase - Cardiovascular Exam Cardiovascular Exam: RRR. absent: Systolic Murmur - GI/Abdominal Exam GI & Abdominal Exam: Normal Bowel Sounds, Soft. absent: Bruit, Distended, Firm , Guarding, Rigid, Tenderness - Rectal Exam Rectal Exam: Deferred - Neurological Exam Neurological exam: Alert, CN II-XII Intact, Oriented x3 - Psychiatric Exam Psychiatric exam: Normal Affect, Normal Mood - Skin Skin Exam: Dry, Normal Color Results - Vital Signs Recent Vital Signs: Last Vital Signs Temp 98.0 F 03/30/18 05:36 Pulse 75 03/30/18 05:36 Resp 20 03/30/18 05:36 BP 123/81 03/30/18 05:36 Pulse Ox 95 03/30/18 05:36 - Labs Result Diagrams: 03/30/18 05:30 03/30/18 05:30 Labs: Laboratory Results - last 24 hr 03/27/18 03/28/18 03/29/18 18:00 21:44 07:26 WBC RBC Hgb Hct MCV MCH MCHC RDW Plt Count MPV Sodium Potassium Chloride Carbon Dioxide Anion Gap BUN Creatinine Est GFR ( Amer) Est GFR (Non-Af Amer) POC Glucose (mg/dL) 141 H 119 H Random Glucose Hemoglobin A1c 6.6 H Calcium Phosphorus Magnesium Total Bilirubin AST ALT Alkaline Phosphatase Total Protein Albumin Globulin Albumin/Globulin Ratio 03/29/18 03/29/18 03/29/18 11:16 15:52 21:13 WBC RBC Hgb Hct MCV MCH MCHC RDW Plt Count MPV Sodium Potassium Chloride Carbon Dioxide Anion Gap BUN Creatinine Est GFR ( Amer) Est GFR (Non-Af Amer) POC Glucose (mg/dL) 96 99 111 H Random Glucose Hemoglobin A1c Calcium Phosphorus Magnesium Total Bilirubin AST ALT Alkaline Phosphatase Total Protein Albumin Globulin Albumin/Globulin Ratio 03/30/18 03/30/18 05:30 05:30 WBC 8.2 RBC 5.16 Hgb 15.5 Hct 46.8 MCV 90.7 MCH 30.0 MCHC 33.1 RDW 13.7 Plt Count 243 MPV 12.1 H Sodium 143 Potassium 3.8 Chloride 95 L Carbon Dioxide 39 H Anion Gap 13 BUN 22 H Creatinine 0.9 Est GFR ( Amer) > 60 Est GFR (Non-Af Amer) > 60 POC Glucose (mg/dL) Random Glucose 122 H Hemoglobin A1c Calcium 9.1 Phosphorus 4.2 Magnesium 2.0 Total Bilirubin 0.8 AST 26 ALT 30 Alkaline Phosphatase 64 Total Protein 8.0 Albumin 4.3 Globulin 3.7 Albumin/Globulin Ratio 1.2 Assessment & Plan - Assessment and Plan (Free Text) Assessment: 62 yo Hisp Female with Systolic CHF, HTN, DM complaining of intermittent sensation of pills getting stuck with swallowing. Intermittent Dysphagia: Pt gestures to area around suprasternal notch suggestive of upper esophageal dysphagia. However, pt denies any symptoms with food or water but rather with pills that are known to be larger and difficult to swallow such as potassium pills. Reassuringly, pt denies any h/o weight loss , melena nor hematochezia. Symtoms possible related to candidada esophagitis given pt a diabetic. Plan: Continue to treat decompensated CHF as you are No acute indications for EGD at this time as pt tolerated PO w/o difficulty Plan to see patient as outpatient with Dr. Vang Pt seen and examined with Dr. Vang <Alejandro Vang - Last Filed: 03/30/18 19:05> Results - Vital Signs Recent Vital Signs: Last Vital Signs Temp 98.2 F 03/30/18 12:00 Pulse 75 03/30/18 12:00 Resp 19 03/30/18 12:00 BP 126/87 03/30/18 12:00 Pulse Ox 95 03/30/18 05:36 - Labs Result Diagrams: 03/30/18 05:30 03/30/18 05:30 Labs: Laboratory Results - last 24 hr 03/29/18 03/29/18 03/30/18 15:52 21:13 05:30 WBC 8.2 RBC 5.16 Hgb 15.5 Hct 46.8 MCV 90.7 MCH 30.0 MCHC 33.1 RDW 13.7 Plt Count 243 MPV 12.1 H Sodium Potassium Chloride Carbon Dioxide Anion Gap BUN Creatinine Est GFR ( Amer) Est GFR (Non-Af Amer) POC Glucose (mg/dL) 99 111 H Random Glucose Calcium Phosphorus Magnesium Total Bilirubin AST ALT Alkaline Phosphatase Total Protein Albumin Globulin Albumin/Globulin Ratio 03/30/18 03/30/18 05:30 11:13 WBC RBC Hgb Hct MCV MCH MCHC RDW Plt Count MPV Sodium 143 Potassium 3.8 Chloride 95 L Carbon Dioxide 39 H Anion Gap 13 BUN 22 H Creatinine 0.9 Est GFR ( Amer) > 60 Est GFR (Non-Af Amer) > 60 POC Glucose (mg/dL) 107 Random Glucose 122 H Calcium 9.1 Phosphorus 4.2 Magnesium 2.0 Total Bilirubin 0.8 AST 26 ALT 30 Alkaline Phosphatase 64 Total Protein 8.0 Albumin 4.3 Globulin 3.7 Albumin/Globulin Ratio 1.2 Attending/Attestation - Attestation I have personally seen and examined this patient.: Yes I have fully participated in the care of the patient.: Yes I have reviewed all pertinent clinical information: Yes Notes (Text): 03/30/18 19:04 This is a 62 year old Female with Systolic CHF, HTN, DM complaining of intermittent sensation of pills getting stuck with swallowing intermittently. May have component of lisa due to DM - can get outpatient EGD once cardiac issues have resolved.
--- NOTE | 2018-03-30 07:53 | CP.PCM.PN ---
Objective - Vital Signs/Intake and Output Vital Signs (last 24 hours): Temp Pulse Resp BP Pulse Ox 98.0 F 75 20 123/81 95 03/30/18 05:36 03/30/18 05:36 03/30/18 05:36 03/30/18 05:36 03/30/18 05:36 Intake and Output: 03/30/18 03/30/18 06:59 18:59 Intake Total 360 Output Total 1200 Balance -840 - Medications Medications: Current Medications Aspirin (Ecotrin) 81 mg PO DAILY [facility] Last Admin: 03/29/18 10:14 Dose: 81 mg Carvedilol (Coreg) 25 mg PO BID [facility] Last Admin: 03/29/18 17:24 Dose: 25 mg Furosemide (Lasix) 40 mg IVP BID [facility] Last Admin: 03/29/18 17:24 Dose: 40 mg Heparin Sodium (Porcine) (Heparin) 5,000 units SC Q8 [facility] PRN Reason: Protocol Last Admin: 03/30/18 05:26 Dose: Not Given Insulin Human Regular (Humulin R Low) 0 units SC ACHS [facility] PRN Reason: Protocol Last Admin: 03/29/18 21:17 Dose: Not Given Losartan Potassium (Cozaar) 100 mg PO DAILY [facility] Last Admin: 03/29/18 10:14 Dose: 100 mg Pantoprazole Sodium (Protonix Ec Tab) 40 mg PO 0600 [facility] Last Admin: 03/30/18 05:30 Dose: 40 mg Spironolactone (Aldactone) 25 mg PO DAILY [facility] Last Admin: 03/29/18 10:14 Dose: 25 mg - Labs Labs: 03/30/18 05:30 03/30/18 05:30 PT 12.1 SECONDS (9.4-12.5) 03/27/18 16:08 INR 1.06 (0.93-1.08) 03/27/18 16:08 APTT 31.1 Seconds (25.1-36.5) 03/27/18 16:08
[2018-03-30] MEDS: Insulin Reg-LOW-Coverage SC SCH ×2 (08:24→12:35)
--- NOTE | 2018-03-30 09:37 | US ---
HISTORY: Leg pain and swelling. Evaluate for DVT PHYSICIAN(S): Dom Mcfarland MD. TECHNIQUE: Duplex sonography and color-flow Doppler with graded compression were used to evaluate the deep venous systems of both lower extremities. The lower femoral veins and tibial veins are not well seen due to body habitus and edema. FINDINGS: The visualized deep venous systems of both lower extremities are sonographically normal and compressible. Normal wave forms and augmentation are seen. There is no sonographic evidence for deep venous thrombosis in the visualized segments of both lower extremities. IMPRESSION: No sonographic evidence for deep venous thrombosis in the visualized segments of both lower extremities. Very limited study.
[2018-03-30 12:33] VITALS: BP 126/87; PULSE 75; RESP 19; TEMP 98.2
[2018-03-30] MEDS ORDERED: Potassium Chloride 20 mEq ER Tab PO ONE (13:00)
--- NOTE | 2018-03-30 13:13 | CP.PCM.DIS ---
Addendum entered and electronically signed by Nena Yip DO 03/30/18 19:36: On discharge exam, patient physical is as follows: - Constitutional Appears: No Acute Distress - Head Exam Head Exam: ATRAUMATIC, NORMAL INSPECTION, NORMOCEPHALIC - Eye Exam Eye Exam: EOMI, Normal appearance, PERRL - ENT Exam ENT Exam: Mucous Membranes Moist, Normal Exam - Neck Exam Neck exam: Positive for: Normal Inspection - Respiratory Exam Respiratory Exam: Clear to auscultation bilaterally. absent: Decreased Breath Sounds, Rales, Rhonchi, Wheezes - Cardiovascular Exam Cardiovascular Exam: RRR, +S1, +S2. absent: Bradycardia, Tachycardia, Diastolic murmur, Gallop, JVD, Rubs, Systolic Murmur - GI/Abdominal Exam GI & Abdominal Exam: Soft, nontender with no organomegaly. absent: Distended, Firm, Guarding, Mass, Rebound - Extremities Exam Extremities exam: Positive for: normal capillary refill, pedal edema, pedal pulses present. Negative for: joint swelling, tenderness - Back Exam Back exam: NORMAL INSPECTION - Neurological Exam Neurological exam: Alert, CN II-XII Intact, Oriented x3 - Psychiatric Exam Psychiatric exam: Normal Affect, Normal Mood - Skin Skin Exam: Dry, Intact, Normal Color, Warm Original Note: <Nena Yip - Last Filed: 03/30/18 19:22> Provider - Provider Date of Admission: 03/27/18 16:50 Attending physician: Oracio Rubalcava MD Primary care physician: Nancy Ash DO Time Spent in preparation of Discharge (in minutes): 45 Diagnosis - Discharge Diagnosis (1) Acute exacerbation of CHF (congestive heart failure) Status: Acute Priority: High (2) Chest pain Status: Resolved Priority: High (3) History of diabetes mellitus Status: Chronic Priority: Medium (4) History of hypertension Status: Chronic Priority: Medium (5) History of hypothyroidism Status: Chronic Priority: Medium (6) History of TIA (transient ischemic attack) Status: Resolved Priority: Medium Hospital Course - Lab Results Lab Results: Most Recent Lab Values WBC 8.2 10^3/ul (4.5-11.0) 03/30/18 05:30 RBC 5.16 10^6/uL (3.5-6.1) 03/30/18 05:30 Hgb 15.5 g/dL (12.0-16.0) 03/30/18 05:30 Hct 46.8 % (36.0-48.0) 03/30/18 05:30 MCV 90.7 fl (80.0-105.0) 03/30/18 05:30 MCH 30.0 pg (25.0-35.0) 03/30/18 05:30 MCHC 33.1 g/dl (31.0-37.0) 03/30/18 05:30 RDW 13.7 % (11.5-14.5) 03/30/18 05:30 Plt Count 243 10^3/uL (120.0-450.0) 03/30/18 05:30 MPV 12.1 fl (7.0-11.0) H 03/30/18 05:30 Gran % 78.4 % (50.0-68.0) H 03/27/18 16:08 Lymph % (Auto) 14.7 % (22.0-35.0) L 03/27/18 16:08 [place] % (Auto) 6.1 % (1.0-6.0) H 03/27/18 16:08 Eos % (Auto) 0.5 % (1.5-5.0) L 03/27/18 16:08 Baso % (Auto) 0.3 % (0.0-3.0) 03/27/18 16:08 Gran # 10.50 (1.4-6.5) H 03/27/18 16:08 Lymph # (Auto) 2.0 (1.2-3.4) 03/27/18 16:08 [place] # (Auto) 0.8 (0.1-0.6) H 03/27/18 16:08 Eos # (Auto) 0.1 (0.0-0.7) 03/27/18 16:08 Baso # (Auto) 0.04 K/mm3 (0.0-2.0) 03/27/18 16:08 PT 12.1 SECONDS (9.4-12.5) 03/27/18 16:08 INR 1.06 (0.93-1.08) 03/27/18 16:08 APTT 31.1 Seconds (25.1-36.5) 03/27/18 16:08 D-Dimer, Quantitative 1108 ng/mL (0-243) H 03/27/18 16:08 Sodium 143 mmol/L (132-148) 03/30/18 05:30 Potassium 3.8 mmol/L (3.6-5.0) 03/30/18 05:30 Chloride 95 mmol/L (98-107) L 03/30/18 05:30 Carbon Dioxide 39 mmol/L (21-33) H 03/30/18 05:30 Anion Gap 13 (10-20) 03/30/18 05:30 BUN 22 mg/dL (7-21) H 03/30/18 05:30 Creatinine 0.9 mg/dl (0.7-1.2) 03/30/18 05:30 Est GFR ( Amer) > 60 03/30/18 05:30 Est GFR (Non-Af Amer) > 60 03/30/18 05:30 POC Glucose (mg/dL) 107 mg/dL (65-110) 03/30/18 11:13 Random Glucose 122 mg/dL (70-110) H 03/30/18 05:30 Hemoglobin A1c 6.6 % (4.2-6.5) H 03/27/18 18:00 Calcium 9.1 mg/dL (8.4-10.5) 03/30/18 05:30 Phosphorus 4.2 mg/dL (2.5-4.5) 03/30/18 05:30 Magnesium 2.0 mg/dL (1.7-2.2) 03/30/18 05:30 Total Bilirubin 0.8 mg/dL (0.2-1.3) 03/30/18 05:30 AST 26 U/L (14-36) 03/30/18 05:30 ALT 30 U/L (7-56) 03/30/18 05:30 Alkaline Phosphatase 64 U/L (38-126) 03/30/18 05:30 Lactate Dehydrogenase 592 U/L (333-699) 03/27/18 16:08 Total Creatine Kinase 52 U/L (35-230) 03/27/18 16:08 Troponin I 0.05 ng/mL 03/28/18 04:20 NT-Pro-B Natriuret Pep 3940 pg/mL (0-450) H 03/27/18 16:08 Total Protein 8.0 g/dL (5.8-8.3) 03/30/18 05:30 Albumin 4.3 g/dL (3.0-4.8) 03/30/18 05:30 Globulin 3.7 gm/dL 03/30/18 05:30 Albumin/Globulin Ratio 1.2 (1.1-1.8) 03/30/18 05:30 Triglycerides 150 mg/dL (35-160) 03/27/18 18:00 Cholesterol 182 mg/dL (130-200) 03/27/18 18:00 LDL Cholesterol Direct 113 mg/dL (0-129) 03/27/18 18:00 HDL Cholesterol 43 mg/dL (29-60) 03/27/18 18:00 Lipase 60 U/L (23-300) 03/27/18 16:08 Free T4 1.21 ng/dL (0.78-2.19) 03/27/18 18:00 Total T3 1.12 ng/mL (0.97-1.69) 03/27/18 18:00 TSH 3rd Generation 0.24 mIU/mL (0.46-4.68) L 03/27/18 18:00 Urine Color Yellow (YELLOW) 03/27/18 16:15 Urine Appearance Clear (CLEAR) 03/27/18 16:15 Urine pH 6.5 (4.7-8.0) 03/27/18 16:15 Ur Specific [place] 1.020 (1.005-1.035) 03/27/18 16:15 Urine Protein 100 mg/dL (<30 mg/dL) H 03/27/18 16:15 Urine Glucose (UA) Negative mg/dL (NEGATIVE) 03/27/18 16:15 Urine Ketones Negative mg/dL (NEGATIVE) 03/27/18 16:15 Urine Blood Trace-intact (NEGATIVE) H 03/27/18 16:15 Urine Nitrate Negative (NEGATIVE) 03/27/18 16:15 Urine Bilirubin Negative (NEGATIVE) 03/27/18 16:15 Urine Urobilinogen 0.2 E.U./dL (<1 E.U./dL) 03/27/18 16:15 Ur Leukocyte Esterase Negative Tio/uL (NEGATIVE) 03/27/18 16:15 Urine RBC 1 - 3 /hpf (0-2) 03/27/18 16:15 Urine WBC 0 - 2 /hpf (0-6) 03/27/18 16:15 Ur Epithelial Cells 3 - 4 /hpf (0-5) 03/27/18 16:15 Urine Bacteria Few (NEG) 03/27/18 16:15 - Hospital Course Hospital Course: 62 yo F with PMH of HTN, DM, hypothyroidism, dilated cardiomyopathy, and TIA presents to [facility] for chest pain and shortness of breath. She was admitted for evaluation and treatment for acute systolic CHF exacerbation in addition to her chest pain and elevated d-dimer on labs. She was treated with Lasix 40 mg IVP BID, Coreg 25 mg PO BID, Losartan 100 mg PO dailly. Cardiology was consulted. Echocardiogram was ordered which showed global hypokinesis, EF of 20%, moderate AR, mild MR/TR, right ventricular systolic pressure of 51. Cardiac catheterization was offered however patient refused. Aldactone and low dose of digoxin were started in addition to patient's home medications. To rule out ACS, patient had EKG done in ED which showed sinus tachy at rate of 105, LVH, no acute ST-T wave changes. Troponins were 0.05 x2. CXR showed no active disease. TSH was low, T3/T4 were normal. Hgba1c was 6.6. Lipid profile within normal limits. Per cardiology consult, statin was not indicated at this time. The patient also had an elevated d-dimer level of 1108. Per Well's criteria of 1.5 points, there was low risk for PE. Venous dopplers were negative for DVT bilaterally. The patient was advised on importance of CTA; however patient refused imaging. Patient also complained of epigastric discomfort during her admission. GI was consulted, stated no acute indications for EGD at the time as patient tolerated oral intake without difficulty. Patient was advised to follow up outpatient with Dr. Vang. Patient was medically optimized for discharge and advised to take medications as instructed and asked to follow up with her PMD within a week. Patient was also advised to come back to the ED if symptoms return. Discharge Exam - Head Exam Head Exam: ATRAUMATIC, NORMOCEPHALIC Discharge Plan - Discharge Medications Prescriptions: Digoxin [Lanoxin] 0.25 mg PO 1400 14 Days tab Spironolactone [Aldactone] 25 mg PO DAILY 14 Days tab - Follow Up Plan Condition: SERIOUS Disposition: HOME/ ROUTINE Instructions: Heart Failure, Adult, Chest Pain Additional Instructions: Patient Instructions: Take medications as prescribed. You have been started digoxin and aldactone. Follow up with primary care physician Dr. Ash and fancy needleworker Dr. Wesley within three to five days from discharge. Return to the emergency room for evaluation of intractable headache, fever, chills, dizziness, chest pain, shortness of breath, abdominal pain, nausea, vomiting, diarrhea, constipation, and urinary symptoms. Referrals: Alejandro Vang MD [Medical Doctor] - Brandt Wesley MD [Medical Doctor] - Nancy Ash DO [Primary Care Provider] - <Oracio Rubalcava - Last Filed: 03/31/18 14:15> Provider - Provider Date of Admission: 03/27/18 16:50 Attending physician: Oracio Rubalcava MD Primary care physician: Nancy Ash DO Hospital Course - Lab Results Lab Results: Most Recent Lab Values WBC 8.2 10^3/ul (4.5-11.0) 03/30/18 05:30 RBC 5.16 10^6/uL (3.5-6.1) 03/30/18 05:30 Hgb 15.5 g/dL (12.0-16.0) 03/30/18 05:30 Hct 46.8 % (36.0-48.0) 03/30/18 05:30 MCV 90.7 fl (80.0-105.0) 03/30/18 05:30 MCH 30.0 pg (25.0-35.0) 03/30/18 05:30 MCHC 33.1 g/dl (31.0-37.0) 03/30/18 05:30 RDW 13.7 % (11.5-14.5) 03/30/18 05:30 Plt Count 243 10^3/uL (120.0-450.0) 03/30/18 05:30 MPV 12.1 fl (7.0-11.0) H 03/30/18 05:30 Gran % 78.4 % (50.0-68.0) H 03/27/18 16:08 Lymph % (Auto) 14.7 % (22.0-35.0) L 03/27/18 16:08 [place] % (Auto) 6.1 % (1.0-6.0) H 03/27/18 16:08 Eos % (Auto) 0.5 % (1.5-5.0) L 03/27/18 16:08 Baso % (Auto) 0.3 % (0.0-3.0) 03/27/18 16:08 Gran # 10.50 (1.4-6.5) H 03/27/18 16:08 Lymph # (Auto) 2.0 (1.2-3.4) 03/27/18 16:08 [place] # (Auto) 0.8 (0.1-0.6) H 03/27/18 16:08 Eos # (Auto) 0.1 (0.0-0.7) 03/27/18 16:08 Baso # (Auto) 0.04 K/mm3 (0.0-2.0) 03/27/18 16:08 PT 12.1 SECONDS (9.4-12.5) 03/27/18 16:08 INR 1.06 (0.93-1.08) 03/27/18 16:08 APTT 31.1 Seconds (25.1-36.5) 03/27/18 16:08 D-Dimer, Quantitative 1108 ng/mL (0-243) H 03/27/18 16:08 Sodium 143 mmol/L (132-148) 03/30/18 05:30 Potassium 3.8 mmol/L (3.6-5.0) 03/30/18 05:30 Chloride 95 mmol/L (98-107) L 03/30/18 05:30 Carbon Dioxide 39 mmol/L (21-33) H 03/30/18 05:30 Anion Gap 13 (10-20) 03/30/18 05:30 BUN 22 mg/dL (7-21) H 03/30/18 05:30 Creatinine 0.9 mg/dl (0.7-1.2) 03/30/18 05:30 Est GFR ( Amer) > 60 03/30/18 05:30 Est GFR (Non-Af Amer) > 60 03/30/18 05:30 POC Glucose (mg/dL) 107 mg/dL (65-110) 03/30/18 11:13 Random Glucose 122 mg/dL (70-110) H 03/30/18 05:30 Hemoglobin A1c 6.6 % (4.2-6.5) H 03/27/18 18:00 Calcium 9.1 mg/dL (8.4-10.5) 03/30/18 05:30 Phosphorus 4.2 mg/dL (2.5-4.5) 03/30/18 05:30 Magnesium 2.0 mg/dL (1.7-2.2) 03/30/18 05:30 Total Bilirubin 0.8 mg/dL (0.2-1.3) 03/30/18 05:30 AST 26 U/L (14-36) 03/30/18 05:30 ALT 30 U/L (7-56) 03/30/18 05:30 Alkaline Phosphatase 64 U/L (38-126) 03/30/18 05:30 Lactate Dehydrogenase 592 U/L (333-699) 03/27/18 16:08 Total Creatine Kinase 52 U/L (35-230) 03/27/18 16:08 Troponin I 0.05 ng/mL 03/28/18 04:20 NT-Pro-B Natriuret Pep 3940 pg/mL (0-450) H 03/27/18 16:08 Total Protein 8.0 g/dL (5.8-8.3) 03/30/18 05:30 Albumin 4.3 g/dL (3.0-4.8) 03/30/18 05:30 Globulin 3.7 gm/dL 03/30/18 05:30 Albumin/Globulin Ratio 1.2 (1.1-1.8) 03/30/18 05:30 Triglycerides 150 mg/dL (35-160) 03/27/18 18:00 Cholesterol 182 mg/dL (130-200) 03/27/18 18:00 LDL Cholesterol Direct 113 mg/dL (0-129) 03/27/18 18:00 HDL Cholesterol 43 mg/dL (29-60) 03/27/18 18:00 Lipase 60 U/L (23-300) 03/27/18 16:08 Free T4 1.21 ng/dL (0.78-2.19) 03/27/18 18:00 Total T3 1.12 ng/mL (0.97-1.69) 03/27/18 18:00 TSH 3rd Generation 0.24 mIU/mL (0.46-4.68) L 03/27/18 18:00 Urine Color Yellow (YELLOW) 03/27/18 16:15 Urine Appearance Clear (CLEAR) 03/27/18 16:15 Urine pH 6.5 (4.7-8.0) 03/27/18 16:15 Ur Specific [place] 1.020 (1.005-1.035) 03/27/18 16:15 Urine Protein 100 mg/dL (<30 mg/dL) H 03/27/18 16:15 Urine Glucose (UA) Negative mg/dL (NEGATIVE) 03/27/18 16:15 Urine Ketones Negative mg/dL (NEGATIVE) 03/27/18 16:15 Urine Blood Trace-intact (NEGATIVE) H 03/27/18 16:15 Urine Nitrate Negative (NEGATIVE) 03/27/18 16:15 Urine Bilirubin Negative (NEGATIVE) 03/27/18 16:15 Urine Urobilinogen 0.2 E.U./dL (<1 E.U./dL) 03/27/18 16:15 Ur Leukocyte Esterase Negative Tio/uL (NEGATIVE) 03/27/18 16:15 Urine RBC 1 - 3 /hpf (0-2) 03/27/18 16:15 Urine WBC 0 - 2 /hpf (0-6) 03/27/18 16:15 Ur Epithelial Cells 3 - 4 /hpf (0-5) 03/27/18 16:15 Urine Bacteria Few (NEG) 03/27/18 16:15 Attending/Attestation - Attestation I have personally seen and examined this patient.: Yes I have fully participated in the care of the patient.: Yes I have reviewed all pertinent clinical information, including history, physical exam and plan: Yes Notes (Text): 03/31/18 14:07 Attending note; Patient seen and examined with resident. Denies any chest pain, shortness of breath. No signs of volume overload noted. Patient is a 62-year-old female admitted with shortness of breath. 1. Acute on chronic systolic CHF exacerbation. Resolved. Currently no shortness of breath. Ambulating without difficulty. Leg swelling improved. Echo showed left ventricle moderately dilated, left ventricular systolic function severely impaired, ejection fraction approximately 20%, severe global hypokinesis, moderate pulmonary hypertension. Cardiology evaluation appreciated. Patient refusing cardiac cath. 2. Dysphagia. Patient complaining of chest pressure after eating food. GI evaluation appreciated. Continue Protonix. Follow-up with Dr. Vang as outpatient. 3. Elevated d-dimer. Patient continues to refuse CTA. Doppler is negative for DVT. Patient is not tachycardic or hypoxic now. Low WElls score. 4. Essential hypertension. Continue Coreg and losartan. Started on digoxin and Aldactone. 5. Elevated blood sugar with hemoglobin A1c of 6.6. Started on carbohydrate restricted diet. She will be discharged home today. Patient wants to follow-up with her primary fancy needleworker Dr. Schmidt. Case was discussed in detail with the patient regarding current diagnosis and treatment plan. Upon discharge the patient will follow-up with PMD Dr. Ash. 03/31/18 14:15
[2018-03-30] MEDS ORDERED: Digoxin 250 mcg (0.25 mg) Tab PO SCH (14:00)
[2018-03-30 14:11] VITALS: PULSE 72
--- NOTE | 2018-03-30 16:49 | PN ---
DATE: 03/30/2018 REASON FOR THE CONSULTATION AND FOLLOWUP: Cardiac evaluation, cardiomyopathy, admitted with right lower lobe pneumonia, hypertension and morbid obesity. SUBJECTIVE: The patient denies any chest pain, shortness of breath or any palpitation. OBJECTIVE: GENERAL: Not in any apparent distress. VITAL SIGNS: Temperature afebrile, heart rate 89, blood pressure 121/67. HEENT: PERRLA. Extraocular muscles intact. NECK: Supple. No carotid bruit. No thyromegaly. CHEST: Clear to auscultation. HEART: S1 and S2 regular. ABDOMEN: Soft. EXTREMITIES: Clubbing and cyanosis negative. LABORATORY DATA: Blood workup as follows: WBC 8.2, hemoglobin 15.3, hematocrit 46.8, platelet count 243. Chemistry shows sodium 143, potassium , chloride 95, carbon dioxide 39, anion gap of 13, BUN 22, creatinine 0.9. IMPRESSION: A 62-year-old female with past medical history of cardiomyopathy, hypertension, admitted with right lower lobe pneumonia, morbid obesity. The patient is being followed by Dr. Wesley. Cardiac catheterization was offered by them, but the patient refused cardiac catheterization. Discussed this morning, again the patient does not want cardiac catheterization. Treat medically. Upon discharge, the patient will follow up with Dr. Wesley. Continue carvedilol 25 mg twice a day, continue Aldactone 25 mg daily, continue baby aspirin, continue deep venous thrombosis prophylaxis, continue Lasix. Start low dose of angiotensin-converting enzyme as blood pressure and kidney function is tolerated. As mentioned, the patient had echocardiography on 03/28/2018 that shows ejection fraction 20%, left ventricular systolic function severely impaired. Moderately dilated left ventricle, inferior global hypokinesis, moderate aortic regurgitation, mild mitral regurgitation, mild tricuspid regurgitation, right ventricular systolic pressure of 51. Discussed in length with the patient that coronary anatomy because of severely decreased left ventricular function, the patient does not want cardiac catheterization. It was offered also by Dr. Wesley. So, we will adjust the medication and upon discharge, the patient will be followed with Dr. Wesley. In the interim, continue spironolactone, continue diuretics, continue losartan, angiotensin receptor [place] inhibitor, continue Coreg, continue baby aspirin. We will add low dose of digoxin and discontinue telemetry. The patient is okay to be discharged. Upon followup, the patient will be followed up with Dr. Wesley. Thank you, Dr. Maldonado, for providing us the opportunity in taking care of the patient, Bren Gómez. Lizz Harrell MD
== END 2018-03-30 16:45 | disposition home or self-care (01) | DRG 127 ==
LOC: ED 14:50 → ERH 16:50 → 2RNO 18:29 → 2RSO 03-28 06:44
PROVIDERS: ADMIT Hospitalist; ATTEND Internal Medicine
DX: I11.0 Hypertensive heart disease with heart failure (principal); I42.0 Dilated cardiomyopathy; I08.3 Combined rheumatic disorders of mitral, aortic and tricuspid valves; I50.23 Acute on chronic systolic (congestive) heart failure; E03.9 Hypothyroidism, unspecified; E11.9 Type 2 diabetes mellitus without complications; I27.20 Pulmonary hypertension, unspecified; R13.10 Dysphagia, unspecified; E66.01 Morbid (severe) obesity due to excess calories; E78.5 Hyperlipidemia, unspecified; Z86.73 Personal history of transient ischemic attack (TIA), and cerebral infarction without residual deficits; Z79.82 Long term (current) use of aspirin; Z87.891 Personal history of nicotine dependence

== ENCOUNTER 2018-06-25 09:03 | Inpatient (IN) | payer MEDICAID ==
[2018-06-25 09:03] VITALS: PULSE 72
[2018-06-25] MEDS ORDERED: Amiodarone 150 mg/D5W 100 ml 150 MG/100 ML BAG IVPB ONE (09:16)
[2018-06-25] MEDS ORDERED: Amiodarone 360 mg/D5W 200 ml 360 MG/200 ML BAG IV ONE ×2 (09:20→15:00)
[2018-06-25 09:26] LABS: BASO # 0.02 K/mm3 (0.0-2.0); BASO % 0.2 % (0.0-3.0); EOS # 0.1 (0.0-0.7); GRAN # 7.57 (1.4-6.5); GRAN % 65.1 % (50.0-68.0); HEMOGLOBIN 15.3 g/dL (12.0-16.0); LYMPH # 3.3 (1.2-3.4); MEAN CELL VOLUME 93.9 fl (80.0-105.0); MEAN CORPUSCULAR HEMOGLOBIN 30.1 pg (25.0-35.0); MEAN CORPUSCULAR HGB CONC 32.1 g/dl (31.0-37.0); MEAN PLATELET VOLUME 12.3 fl (7.0-11.0); MONO # 0.7 (0.1-0.6); MONO % 5.7 % (1.0-6.0); RBC 5.08 10^6/uL (3.5-6.1); RED CELL DISTRIBUTION WIDTH 14.2 % (11.5-14.5); WHITE BLOOD COUNT 11.6 10^3/ul (4.5-11.0)
[2018-06-25 09:33] LABS: INR 1.1; PARTIAL THROMBOPLASTIN TIME 27.3 Seconds (25.1-36.5); PROTHROMBIN TIME 12.7 SECONDS (9.4-12.5)
[2018-06-25 09:35] LABS: ALB/GLOB RATIO 1.2 (1.1-1.8); ALBUMIN 4.3 g/dL (3.0-4.8); ALT/SGPT 31 U/L (7-56); AST/SGOT 32 U/L (14-36); BLOOD UREA NITROGEN 21 mg/dL (7-21); CALCIUM 9.1 mg/dL (8.4-10.5); GFR NON-AFRICAN AMERICAN > 60
[2018-06-25 09:37] LABS: ARTERIAL BLOOD GAS HEMOGLOBIN 14.2 g/dL (11.7-17.4); ARTERIAL BLOOD GAS O2 CAPACITY 19.1 mL/dl (16-24); ARTERIAL BLOOD GAS O2 CONTENT 16.8 ML/dl (15-23); ARTERIAL BLOOD GAS PCO2 55 mm/Hg (35-45); ARTERIAL BLOOD GAS PH 7.23 (7.35-7.45); ARTERIAL BLOOD GAS TCO2 24.7 mmol.L (22-28)
[2018-06-25 09:48] LABS: B-TYPE NATRIURETIC PEPTIDE 5280 pg/mL (0-450); TROPONIN I 0.05 ng/mL
--- NOTE | 2018-06-25 09:55 | ED PDOC ---
Arrival/HPI - General Chief Complaint: Cardiac Arrest Time Seen by Provider: 06/25/18 09:12 Historian: Patient (patient called ems complaining of chest pain prior to cardi ac arrest), Family, EMS - Critical Care Critical Care Minutes: 90 minutes - History of Present Illness Narrative History of Present Illness (Text): 62 y/o F w/PMH of diabetes, HTN, COPD and atrial fibrillation brought into the ED via ambulance after witnessed cardiac arrest prior to arrival. Per EMS, the patient was on the bus when she felt unwell and dyspneic, sustaining a syncopal episode. She was found to be in an initial rhythm of PEA with compressions started immediately. Epinephrine was given and an IO was placed in the right tibia. She was also given 4 aspirin and intubated prior to arrival. After 2 minutes of CPR and one round of epinephrine give, ROSC was obtained. A more complete HPI was unable to be obtained due to patient's clinical condition Time/Duration: Prior to Arrival Symptom Onset: Sudden Symptom Course: Unchanged Severity Level: Severe Context: Passenger Past Medical History - Provider Review Nursing Documentation Reviewed: Yes - Travel History Have you recently traveled outside [place] w/in the past 3 mons?: No - Infectious Disease Hx of Infectious Diseases: None - Tetanus Immunization Tetanus Immunization: Unknown - Cardiac Hx Congestive Heart Failure: Yes Hx Hypertension: Yes - Pulmonary Hx Respiratory Disorders: Yes (USED TO SMOKE CIGARETTES 3 CIG A DAY FOR 15 YRS.) - Neurological HX Cerebrovascular Accident: Yes (TIA) - HEENT Hx HEENT Disorder: No - Renal Hx Renal Disorder: No - Endocrine/Metabolic Hx Diabetes Mellitus Type 2: Yes Hx Hypothyroidism: Yes - Hematological/Oncological Hx Blood Disorders: No - Integumentary Hx Dermatological Disorder: No - Musculoskeletal/Rheumatological Hx Arthritis: Yes - Gastrointestinal Hx Gastrointestinal Disorders: Yes (APPENDECTOMY,TONSILLECTOMY) Hx Gall Bladder Disease: Yes (CHOLEYCYSTECTOMY) - Genitourinary/Gynecological Hx Genitourinary Disorders: No - Psychiatric Hx Psychophysiologic Disorder: Yes Hx Anxiety: Yes Hx Depression: Yes Hx Substance Use: No - Surgical History Hx Appendectomy: Yes Hx Cholecystectomy: Yes - Suicidal Assessment Feels Threatened In Home Enviroment: No Family/Social History - Physician Review Nursing Documentation Reviewed: Yes Family/Social History: No Known Family HX Smoking Status: Former Smoker Hx Alcohol Use: No Hx Substance Use: No Allergies/Home Meds Allergies/Adverse Reactions: Allergies No Known Allergies Allergy (Verified 06/25/18 14:47) Home Medications: Home Meds Medication Instructions Recorded Confirmed RX: Aspirin [Aspir 81] 81 mg PO DAILY 04/27/13 03/27/18 RX: Carvedilol [Coreg] 25 mg PO BID 04/27/13 03/27/18 RX: Furosemide [Lasix] 40 mg PO DAILY 03/27/18 03/27/18 RX: Valsartan [Diovan] 160 mg PO DAILY 03/27/18 03/27/18 RX: Venlafaxine [Effexor] 37.5 mg PO DAILY 03/27/18 03/27/18 RX: Zolpidem [Ambien] 5 mg PO HS 03/27/18 03/27/18 Review of Systems - Physician Review All systems were reviewed & negative as marked: Yes - Review of Systems Respiratory: SOB (Family notes pt has been feeling unwell for last couple of days with SOB). absent: Normal Cardiovascular: Chest Pain (As per EMS, pt called complaining of chest pain prior to cardiac arrest). absent: Normal Endocrine: Diaphoresis (As per EMS, pt diaphoretic). absent: Normal Physical Exam - Physical Exam Narrative Physical Exam (Text): PE limited due to patient's condition. Physical Exam Limitations: Clinical Condition Vital Signs Reviewed: Yes Vital Signs Temp Pulse Resp BP Pulse Ox 06/25/18 09:35 65 20 112/69 98 06/25/18 09:20 98.6 F 75 20 139/103 H 98 06/25/18 09:05 91 H 20 139/103 H 97 Blood Pressure: Hypertensive (at 139/103) Pulse: Tachycardic (at 91) Respiratory Rate: Normal Appearance: Positive for: Other (Intubated. Sedated. ) Mental Status: Positive for: other (Intubated). No: Alert and Oriented X 3 Finger Stick Blood Glucose: 284 - Systems Exam Head: Present: Atraumatic, Other (Intubated) Pupils: Present: Sluggish Conjunctiva: Present: Normal Respiratory/Chest: Present: Clear to Auscultation (equal breath sounds bilaterally), Good Air Exchange. No: Respiratory Distress, Accessory Muscle Use Cardiovascular: Present: Peripheal Pulses Present, Tachycardic Abdomen: No: Tenderness, Distention, Peritoneal Signs Back: Present: Normal Inspection Upper Extremity: Present: Normal Inspection. No: Cyanosis, Edema Lower Extremity: Present: Other (IO in right tibia ). No: Normal Inspection, Edema Neurological: Present: Other (Intubated & sedated) Skin: Present: Warm, Dry, Normal Color. No: Rashes Psychiatric: No: Alert, Oriented x 3 Medical Decision Making ED Course and Treatment: 06/25/18 10:08 Impression: 62 year old female who was brought in to the emergency department via ambulance after witnessed cardiac arrest prior to arrival, PEA. Differential Diagnosis included but are not limited to: - PE - STEMI - Intracranial hemorrhage - Hyperkalemia Plan: -- ABG -- CT of cervical spine w/o contrast -- CT of chest, abd, pelvis w/IV contrast only -- CT of head w/o contrast -- EKG -- Labs -- Initiation of Hypothermia protocol --Cardiology consult -- CBC (with differential) -- Partial thromboplastin -- Prothrombin time -- Nexterone -- Urinalysis -- Reassess and disposition Prior Visits: Notes and results from previous visits were reviewed. Patient was last seen in the emergency department on 03/27/18 for severe worsening shortness of breath since the previous night, accompanied by pressure-like epigastric abdominal pain. Attempt at cardiac catherization was pursued, but patient adamantly refused at this time. She was discharged form the hospital on 03/30/18, diagnosed with acute on chronic CHF with ejection fraction of 20%. Progress Notes: 06/25/18 09:09 Dr. Harrell(interventional cardiology) at the bedside who requests CTH to be performed prior to transfer to the laboratory animal caretaker. He requests another [facility] to be called once patient has a repeat EKG performed. Spoke to Dr. Shi(environmental remediation consultant)who requests patient to be worked up and to update him on the results. Spoke to family who states patient has been feeling unwell for last couple of days with shortness of breath. CTH performed & reviewed by me showing no evidence of intracranial hemorrhage. CT c/a/p pending. Discussed case with Dr. Harrell who requests patient to be brought to the laboratory animal caretaker and to [facility]act [facility]. 06/25/18 12:[address] Fernandez(hospitalist) who accepts the patient under his service. Will initiate hypothermia protocol with ice packs and cooled IVF fluids per environmental remediation consultant request. -- - Critical Care Critical Care Minutes: 75 minutes - Lab Interpretations Lab Results: 06/25/18 09:15 06/25/18 09:15 Lab Results 06/25/18 09:16: pCO2 55 H, pO2 53.0 L, HCO3 23.0, ABG pH 7.23 L, ABG Total CO2 24.7, ABG O2 Saturation 88.0 L, ABG O2 Content 16.8, ABG Base Excess -5.3 L, ABG Hemoglobin 14.2, ABG Carboxyhemoglobin 3.4 H, POC ABG HHb (Measured) 11.5 H, ABG Methemoglobin 0.5, ABG O2 Capacity 19.1, Hgb O2 Saturation 84.5 L, FiO2 50.0 06/25/18 09:15: Sodium 139, Potassium 3.9, Chloride 99, Carbon Dioxide 24, Anion Gap 19, BUN 21, Creatinine 0.9, Est GFR ( Amer) > 60, Est GFR (Non-Af Amer) > 60, Random Glucose 291 H, Calcium 9.1, Total Bilirubin 0.7, AST 32, ALT 31, Alkaline Phosphatase 79, Troponin I Pending, NT-Pro-B Natriuret Pep Pending, Total Protein 7.8, Albumin 4.3, Globulin 3.5, Albumin/Globulin Ratio 1.2 06/25/18 09:15: PT 12.7 H, INR 1.10, APTT 27.3 06/25/18 09:15: WBC 11.6 H D, RBC 5.08, Hgb 15.3, Hct 47.7, MCV 93.9 D, MCH 30.1, MCHC 32.1, RDW 14.2, Plt Count 213, MPV 12.3 H, Gran % 65.1, Lymph % (Auto) 28.0, [place] % (Auto) 5.7, Eos % (Auto) 1.0 L, Baso % (Auto) 0.2, Gran # 7.57 H, Lymph # (Auto) 3.3, [place] # (Auto) 0.7 H, Eos # (Auto) 0.1, Baso # (Auto) 0.02 - RAD Interpretation Narrative RAD Interpretations (Text): CT of chest, abd, pelvis reviewed by radiologist, shows: Dictator : Edi Nicholas MD Report Date : 06/25/2018 11:38:02 FINDINGS: CT CHEST WITH CONTRAST: LUNGS: There is dense consolidation and atelectasis in the left upper lobe medially. There is volume loss with mild mediastinal shift to the left. There is no obvious endobronchial lesion. Minimal consolidation is seen at both lung bases posteriorly. MEDIASTINUM: Unremarkable. Normal caliber aorta and pulmonary arterial trunk. No aortic dissection. Moderate to severe cardiomegaly there is vascular crowding around the left hilum. There is no evidence of pulmonary embolus or aortic dissection. Findings were discussed with Dr. Reed. LYMPH NODES: Unremarkable. PLEURA: Unremarkable. No pneumothorax. No pleural fluid. BONES: Unremarkable. OTHER FINDINGS: None. CT ABDOMEN AND PELVIS: LIVER: Unremarkable. No gross lesion or ductal dilatation. GALLBLADDER AND BILE DUCTS: There is some fluid around the gallbladder. Possible cholecystitis. PANCREAS: Unremarkable. No gross lesion or ductal dilatation. SPLEEN: Unremarkable. ADRENALS: Unremarkable. No mass. KIDNEYS AND URETERS: Unremarkable. No hydronephrosis. No solid mass. VASCULATURE: Unremarkable. No aortic aneurysm. BOWEL: Unremarkable. No obstruction. No gross mural thickening. APPENDIX: Normal appendix. PERITONEUM: Unremarkable. No free fluid. No free air. LYMPH NODES: Unremarkable. No enlarged lymph nodes. BLADDER: Unremarkable. REPRODUCTIVE: Unremarkable. BONES: No acute fracture. OTHER FINDINGS: None. IMPRESSION: Left upper lobe atelectasis and consolidation with volume loss in the left lung. No evidence of pulmonary embolus or dissection. Fluid surrounding the gallbladder, possible cholecystitis. CT of head reviewed by radiologist, shows: Dictator : Edi Nicholas MD Report Date : 06/25/2018 11:53:08 FINDINGS: HEMORRHAGE: No intracranial hemorrhage. BRAIN: No mass effect or edema. No atrophy or chronic microvascular ischemic changes. VENTRICLES: Unremarkable. No hydrocephalus. CALVARIUM: Unremarkable. PARANASAL SINUSES: Unremarkable as visualized. No significant inflammatory changes. MASTOID AIR CELLS: Unremarkable as visualized. No inflammatory changes. OTHER FINDINGS: None. IMPRESSION: No acute findings X-Ray of chest reviewed by radiologist, shows: Dictator : Mendy Ruffin MD Report Date : 06/25/2018 10:25:32 FINDINGS: Endotracheal tube terminates 3.5 cm proximal to the alexandra. LUNGS: There is diffuse haziness in the right lung. There is multifocal linear atelectasis in the right lung. PLEURA: No significant pleural effusion identified, no pneumothorax apparent. CARDIOVASCULAR: Again seen is severe cardiomegaly OSSEOUS STRUCTURES: No significant abnormalities. VISUALIZED UPPER ABDOMEN: Normal. OTHER FINDINGS: None. IMPRESSION: Severe cardiomegaly and layering pleural effusions/pulmonary edema in the right lung. CT of cervical spine reviewed by radiologist, shows: Dictator : Edi Nicholas MD Report Date : 06/25/2018 11:55:27 FINDINGS: VERTEBRAE: No fracture. Normal alignment. No destructive bony lesion. DISCS/SPINAL CANAL/NEURAL FORAMINA: No significant central canal or neural foraminal stenosis. Discs heights are grossly preserved. PARASPINAL SOFT TISSUES: Unremarkable. OTHER FINDINGS: None. IMPRESSION: No acute findings. Radiology Orders: 06/25/18 09:14 CHEST PORTABLE [RAD] Stat 06/25/18 09:16 CERVICAL SPINE W/O CONTRAST [CT] Stat HEAD W/O CONTRAST [CT] Stat 06/25/18 09:29 CHEST,ABD,PEL W/IV CONT ONLY [CT] Stat Education Associate: Radiologist - EKG Interpretation EKG Interpretation (Text): 06/25/18 EKG 1: Rhythm: Sinus Tachycardia Rate:[address] depressions seen V5-V6. Interpretation: T-wave inversions in V2, V5, V6, Lead I and AVL. EKG 2: Rate : 103 BPM Rhythm : Sinus tachycardia Interpretation : ST depressions in V4-V6. T-wave inversions in AVL. Left axis deviation. EKG 3: EKG: Ordered, reviewed, and independently interpreted the EKG. Rate : 75 BPM Interpretation : Normal sinus rhythm. Prolonged QT waves. T-wave inversion in AVL. Interpreted by ED Physician: Yes Type: 12 lead EKG - Medication Orders Current Medication Orders: Discontinued Medications Amiodarone HCl/Dextrose (Nexterone 150 Mg In Dextrose 100 Ml (Premix)) 150 mg in 100 mls @ 600 mls/hr IVPB ONCE ONE; Protocol Stop: 06/25/18 09:25 Last Admin: 06/25/18 09:20 Dose: 600 mls/hr eMAR Start Stop Document 06/25/18 09:20 VIC (Rec: 06/25/18 09:34 VIC [id number]) Intravenous Solution Start Date 06/25/18 Start Time 09:20 End Date 06/25/18 End time 09:30 Total Infusion Time 10 - Scribe Statement The provider has reviewed the documentation as recorded by the Scribe Jacinda Hays All medical record entries made by the Scribe were at my direction and person ally dictated by me. I have reviewed the chart and agree that the record accurately reflects my personal performance of the history, physical exam, medical decision making, and the department course for this patient. I have also personally directed, reviewed, and agree with the discharge instructions and disposition. Disposition/Present on Arrival - Present on Arrival Any Indicators Present on Arrival: No History of DVT/PE: No History of Uncontrolled Diabetes: No Urinary Catheter: No History of Decub. Ulcer: No History Surgical Site Infection Following: None - Disposition Have Diagnosis and Disposition been Completed?: Yes Diagnosis: Cardiopulmonary arrest with successful resuscitation Disposition: HOSPITALIZED Disposition Time: 12:10 Patient Plan: Admission, ICU Condition: CRITICAL
--- NOTE | 2018-06-25 10:27 | RAD ---
Date of service: 06/25/2018 HISTORY: Cardiac arrest, ETT placement COMPARISON: 03/29/2018 FINDINGS: Endotracheal tube terminates 3.5 cm proximal to the alexandra. LUNGS: There is diffuse haziness in the right lung. There is multifocal linear atelectasis in the right lung. PLEURA: No significant pleural effusion identified, no pneumothorax apparent. CARDIOVASCULAR: Again seen is severe cardiomegaly OSSEOUS STRUCTURES: No significant abnormalities. VISUALIZED UPPER ABDOMEN: Normal. OTHER FINDINGS: None. IMPRESSION: Severe cardiomegaly and layering pleural effusions/pulmonary edema in the right lung.
[2018-06-25] MEDS ORDERED: Propofol 10 mg/ml 1,000 MG/100 ML VIAL ONE (11:14)
[2018-06-25] MEDS ORDERED: Heparin25000 units/250ml 1/2NS 25,000 UNITS/250 ML BAG IV SCH (11:30)
--- NOTE | 2018-06-25 11:40 | CT ---
Date of service: 06/25/2018 PROCEDURE: CT Chest, Abdomen and Pelvis with intravenous contrast HISTORY: s/p cardiac arrest COMPARISON: None available. TECHNIQUE: IV dose administered: 150 cc of Omni 350 Radiation dose: Total exam DLP = 1715 mGy-cm. This CT exam was performed using one or more of the following dose reduction techniques: Automated exposure control, adjustment of the mA and/or kV according to patient size, and/or use of iterative reconstruction technique. FINDINGS: CT CHEST WITH CONTRAST: LUNGS: There is dense consolidation and atelectasis in the left upper lobe medially. There is volume loss with mild mediastinal shift to the left. There is no obvious endobronchial lesion. Minimal consolidation is seen at both lung bases posteriorly. MEDIASTINUM: Unremarkable. Normal caliber aorta and pulmonary arterial trunk. No aortic dissection. Moderate to severe cardiomegaly there is vascular crowding around the left hilum. There is no evidence of pulmonary embolus or aortic dissection. Findings were discussed with Dr. Reed. LYMPH NODES: Unremarkable. PLEURA: Unremarkable. No pneumothorax. No pleural fluid. BONES: Unremarkable. OTHER FINDINGS: None. CT ABDOMEN AND PELVIS: LIVER: Unremarkable. No gross lesion or ductal dilatation. GALLBLADDER AND BILE DUCTS: There is some fluid around the gallbladder. Possible cholecystitis. PANCREAS: Unremarkable. No gross lesion or ductal dilatation. SPLEEN: Unremarkable. ADRENALS: Unremarkable. No mass. KIDNEYS AND URETERS: Unremarkable. No hydronephrosis. No solid mass. VASCULATURE: Unremarkable. No aortic aneurysm. BOWEL: Unremarkable. No obstruction. No gross mural thickening. APPENDIX: Normal appendix. PERITONEUM: Unremarkable. No free fluid. No free air. LYMPH NODES: Unremarkable. No enlarged lymph nodes. BLADDER: Unremarkable. REPRODUCTIVE: Unremarkable. BONES: No acute fracture. OTHER FINDINGS: None. IMPRESSION: Left upper lobe atelectasis and consolidation with volume loss in the left lung. No evidence of pulmonary embolus or dissection. Fluid surrounding the gallbladder, possible cholecystitis.
[2018-06-25 11:41] LABS: URINE BILIRUBIN NEGATIVE (NEGATIVE); URINE BLOOD MODERATE (NEGATIVE); URINE GLUCOSE (UA) 100 mg/dL (NEGATIVE); URINE LEUKOCYTE ESTERASE NEGATIVE Leu/uL (NEGATIVE); URINE PROTEIN >=300 mg/dL (<30 mg/dL); URINE UROBILINOGEN 0.2 E.U./dL (<1 E.U./dL)
[2018-06-25 11:42] LABS: URINE APPEARANCE CLEAR (CLEAR); URINE COLOR YELLOW (YELLOW)
[2018-06-25] MEDS: levETIRAcetam 500mg IVPB 500 MG/100 ML BAG IVPB SCH ×2 (11:42→21:51)
[2018-06-25] MEDS: DOBUTamine 500mg/250ml D5W 500 MG/250 ML BAG IV PRN (11:43)
[2018-06-25] MEDS: Propofol 10 mg/ml 1,000 MG/100 ML VIAL IV PRN ×2 (11:44→21:46)
[2018-06-25] MEDS ORDERED: cefTRIAXone 1 gm 1 GM/100 ML BAG IVPB SCH (11:45)
[2018-06-25 11:53] LABS: URINE BACTERIA MANY (NEG); URINE FINE GRANULAR CAST 0 - 2 /hpf (0-2); URINE HYALINE CAST 0 - 2 /hpf; URINE RBC 20 - 25 /hpf (0-2)
[2018-06-25 11:54] LABS: URINE AMORPHOUS SEDIMENT FEW; URINE COARSE GRANULAR CAST TRACE /hpf (0-2)
--- NOTE | 2018-06-25 11:54 | CT ---
Date of service: 06/25/2018 PROCEDURE: CT HEAD WITHOUT CONTRAST. HISTORY: s/p cardiac arrest COMPARISON: None available. TECHNIQUE: Axial computed tomography images were obtained through the head/brain without intravenous contrast. Radiation dose: Total exam DLP = 987 mGy-cm. This CT exam was performed using one or more of the following dose reduction techniques: Automated exposure control, adjustment of the mA and/or kV according to patient size, and/or use of iterative reconstruction technique. FINDINGS: HEMORRHAGE: No intracranial hemorrhage. BRAIN: No mass effect or edema. No atrophy or chronic microvascular ischemic changes. VENTRICLES: Unremarkable. No hydrocephalus. CALVARIUM: Unremarkable. PARANASAL SINUSES: Unremarkable as visualized. No significant inflammatory changes. MASTOID AIR CELLS: Unremarkable as visualized. No inflammatory changes. OTHER FINDINGS: None. IMPRESSION: No acute findings
--- NOTE | 2018-06-25 11:58 | CT ---
Date of service: 06/25/2018 PROCEDURE: CT Cervical Spine without contrast HISTORY: s/p cardiac arrest COMPARISON: None available. TECHNIQUE: Axial computed tomography images were obtained of the cervical spine without the use of intravenous contrast. Coronal and sagittal reformatted images were created and reviewed. Radiation dose: Total exam DLP = 635 mGy-cm. This CT exam was performed using one or more of the following dose reduction techniques: Automated exposure control, adjustment of the mA and/or kV according to patient size, and/or use of iterative reconstruction technique. FINDINGS: VERTEBRAE: No fracture. Normal alignment. No destructive bony lesion. DISCS/SPINAL CANAL/NEURAL FORAMINA: No significant central canal or neural foraminal stenosis. Discs heights are grossly preserved. PARASPINAL SOFT TISSUES: Unremarkable. OTHER FINDINGS: None. IMPRESSION: No acute findings
[2018-06-25 12:05] LABS: ARTERIAL BLOOD GAS HCO3 24.9 mmol/L (21-28); ARTERIAL BLOOD GAS O2 SAT 94.6 % (95-98); ARTERIAL BLOOD GAS PCO2 53 mm/Hg (35-45); ARTERIAL BLOOD GAS PH 7.28 (7.35-7.45); ARTERIAL BLOOD GAS TCO2 26.5 mmol.L (22-28)
--- NOTE | 2018-06-25 12:36 | RAD ---
Date of service: 06/25/2018 HISTORY: NGT placement COMPARISON: No prior. FINDINGS: LUNGS: Left upper lobe infiltrate. PLEURA: No significant pleural effusion identified, no pneumothorax apparent. CARDIOVASCULAR: Normal. OSSEOUS STRUCTURES: No significant abnormalities. VISUALIZED UPPER ABDOMEN: Normal. OTHER FINDINGS: None. IMPRESSION: Endotracheal tube and nasogastric tube in satisfactory position
--- NOTE | 2018-06-25 13:06 | CP.PCM.HP ---
Addendum entered and electronically signed by SaeedFionaDO 06/25/18 16:46: Under plan Flagyl was discontinued Heparin currently on hold Valsartan Dc'ed; Waqar intitaited Nimbex started Original Note: <Fiona Tipton - Last Filed: 06/25/18 15:21> History of Present Illness - History of Present Illness History of Present Illness: PGY-1 H&P for Dr. Fernandez's service HPI: Patient is a 62 yo female with PMH of systolic CHF, HTN, DM, COPD, AFib who presents to hospital s/p cardiac arrest. Patient currently sedated/intubated making information difficult to obtain. Most information was collected by chart review. Patient was at home when she experienced chest pain and called EMS. By the time of arrival of EMS patient was noted to be pulseless and diaphoretic. Patient was found to have PEA. Patient was given 4 aspirins and CPR was started. ROSC was obtained after 2 minutes of chest compressions and patient was intubat ed in the field. No epinephrine was obtained. 12 point ROS unable to collect as patient is sedated/intubated s/p cardiac arrest. PMH: HTN, DM, hypothyroidism, chronic systolic CHF, dilated cardiomyopathy, and TIA Surg: C-sections x4, appendectomy, tonsillectomy All: NKDA SH: Former smoker (3 cig/day for 15 yrs), quit 6 years ago; Denied EtOH or illicit drug use FHx: Mother, , h/o DM; Father, unknown Medications: Lasix 20 mg daily, Venlafaxine 37.5 daily, Ambien 5 mg HS, Valsartan 160 mg daily, Coreg 25 mg daily PMD: Mihir Cardio: [place] Present on Admission - Present on Admission Any Indicators Present on Admission: No Review of Systems - Review of Systems Review of Systems: 12 point ROS limited as patient sedated/intubated Past Patient History - Infectious Disease Hx of Infectious Diseases: None - Tetanus Immunizations Tetanus Immunization: Unknown - Past Social History Smoking Status: Former Smoker - CARDIAC Hx Congestive Heart Failure: Yes Hx Hypertension: Yes - PULMONARY Hx Respiratory Disorders: Yes (USED TO SMOKE CIGARETTES 3 CIG A DAY FOR 15 YRS.) - NEUROLOGICAL HX Cerebrovascular Accident: Yes (TIA) - HEENT Hx HEENT Problems: No - RENAL Hx Chronic Kidney Disease: No - ENDOCRINE/METABOLIC Hx Diabetes Mellitus Type 2: Yes Hx Hypothyroidism: Yes - HEMATOLOGICAL/ONCOLOGICAL Hx Blood Disorders: No - INTEGUMENTARY Hx Dermatological Problems: No - MUSCULOSKELETAL/RHEUMATOLOGICAL Hx Arthritis: Yes - GASTROINTESTINAL Hx Gastrointestinal Disorders: Yes (APPENDECTOMY,TONSILLECTOMY) Hx Gall Bladder Disease: Yes (CHOLEYCYSTECTOMY) - GENITOURINARY/GYNECOLOGICAL Hx Genitourinary Disorders: No - PSYCHIATRIC Hx Psychophysiologic Disorder: Yes Hx Anxiety: Yes Hx Depression: Yes Hx Substance Use: No - SURGICAL HISTORY Hx Appendectomy: Yes Hx Cholecystectomy: Yes Meds Allergies/Adverse Reactions: Allergies Allergy/AdvReac Type Severity Reaction Status Date / Time No Known Allergies Allergy Verified 06/25/18 14:47 Physical Exam - Constitutional Appears: Non-toxic, No Acute Distress - Head Exam Head Exam: NORMAL INSPECTION, NORMOCEPHALIC - Eye Exam Eye Exam: EOMI, Normal appearance. absent: Nystagmus, Scleral icterus - ENT Exam ENT Exam: Mucous Membranes Moist - Respiratory Exam Respiratory Exam: Clear to Auscultation Bilateral, NORMAL BREATHING PATTERN. absent: Rales, Rhonchi, Wheezes - Cardiovascular Exam Cardiovascular Exam: REGULAR RHYTHM, +S1, +S2 - GI/Abdominal Exam GI & Abdominal Exam: Normal Bowel Sounds. absent: Firm, Rigid - Extremities Exam Extremities exam: Positive for: normal inspection, pedal edema - Neurological Exam Additional comments: patient sedated and intubated slight gag reflex - Skin Skin Exam: Intact, Normal Color Results - Vital Signs Recent Vital Signs: Last Vital Signs Temp 98.6 F 06/25/18 09:20 Pulse 88 06/25/18 12:30 Resp 20 06/25/18 12:30 BP 149/108 H 06/25/18 12:30 Pulse Ox 98 06/25/18 12:30 - Labs Result Diagrams: 06/25/18 09:15 06/25/18 09:15 Labs: Laboratory Results - last 24 hr 06/25/18 06/25/18 06/25/18 09:15 09:15 09:15 WBC 11.6 H D RBC 5.08 Hgb 15.3 Hct 47.7 MCV 93.9 D MCH 30.1 MCHC 32.1 RDW 14.2 Plt Count 213 MPV 12.3 H Gran % 65.1 Lymph % (Auto) 28.0 [place] % (Auto) 5.7 Eos % (Auto) 1.0 L Baso % (Auto) 0.2 Gran # 7.57 H Lymph # (Auto) 3.3 [place] # (Auto) 0.7 H Eos # (Auto) 0.1 Baso # (Auto) 0.02 PT 12.7 H INR 1.10 APTT 27.3 pCO2 pO2 HCO3 ABG pH ABG Total CO2 ABG O2 Saturation ABG O2 Content ABG Base Excess ABG Hemoglobin ABG Carboxyhemoglobin POC ABG HHb (Measured) ABG Methemoglobin ABG O2 Capacity ABG Potassium Hgb O2 Saturation Glucose Lactate Mechanical Rate FiO2 Tidal Volume PEEP Sodium 139 Potassium 3.9 Chloride 99 Carbon Dioxide 24 Anion Gap 19 BUN 21 Creatinine 0.9 Est GFR ( Amer) > 60 Est GFR (Non-Af Amer) > 60 Random Glucose 291 H Calcium 9.1 Total Bilirubin 0.7 AST 32 ALT 31 Alkaline Phosphatase 79 Troponin I 0.05 NT-Pro-B Natriuret Pep 5280 H Total Protein 7.8 Albumin 4.3 Globulin 3.5 Albumin/Globulin Ratio 1.2 Arterial Blood Potassium Urine Color Urine Appearance Urine pH Ur Specific [place] Urine Protein Urine Glucose (UA) Urine Ketones Urine Blood Urine Nitrate Urine Bilirubin Urine Urobilinogen Ur Leukocyte Esterase Urine RBC Urine WBC Ur Epithelial Cells Amorphous Sediment Urine Bacteria Hyaline Casts Fine Granular Casts Coarse Granular Casts Urine Other 06/25/18 06/25/18 06/25/18 09:16 11:21 12:02 WBC RBC Hgb Hct MCV MCH MCHC RDW Plt Count MPV Gran % Lymph % (Auto) [place] % (Auto) Eos % (Auto) Baso % (Auto) Gran # Lymph # (Auto) [place] # (Auto) Eos # (Auto) Baso # (Auto) PT INR APTT pCO2 55 H 53 H pO2 53.0 L 66.0 L HCO3 23.0 24.9 ABG pH 7.23 L 7.28 L ABG Total CO2 24.7 26.5 ABG O2 Saturation 88.0 L 94.6 L ABG O2 Content 16.8 ABG Base Excess -5.3 L -2.6 L ABG Hemoglobin 14.2 ABG Carboxyhemoglobin 3.4 H POC ABG HHb (Measured) 11.5 H ABG Methemoglobin 0.5 ABG O2 Capacity 19.1 ABG Potassium 4.2 Hgb O2 Saturation 84.5 L Glucose 284 H Lactate 2.2 H Mechanical Rate 20 FiO2 50.0 100.0 Tidal Volume 400 PEEP 5 Sodium 134.0 Potassium Chloride 101.0 Carbon Dioxide Anion Gap BUN Creatinine Est GFR ( Amer) Est GFR (Non-Af Amer) Random Glucose Calcium Total Bilirubin AST ALT Alkaline Phosphatase Troponin I NT-Pro-B Natriuret Pep Total Protein Albumin Globulin Albumin/Globulin Ratio Arterial Blood Potassium 4.2 Urine Color Yellow Urine Appearance Clear Urine pH 6.0 Ur Specific [place] 1.020 Urine Protein >=300 H Urine Glucose (UA) 100 H Urine Ketones Negative Urine Blood Moderate H Urine Nitrate Negative Urine Bilirubin Negative Urine Urobilinogen 0.2 Ur Leukocyte Esterase Negative Urine RBC 20 - 25 Urine WBC 1 - 3 Ur Epithelial Cells 6 - 8 Amorphous Sediment Few Urine Bacteria Many Hyaline Casts 0 - 2 Fine Granular Casts 0 - 2 Coarse Granular Casts Trace H Urine Other Uyeast Assessment & Plan - Assessment and Plan (Free Text) Assessment: Patient is a 62 yo female with PMH of systolic CHF, HTN, DM, COPD, AFib who presents to hospital s/p cardiac arrest. Patient currently intubated/sedated. Cardiac cath pending Plan: Cardiac Arrest Cardio Consult- Dr. Harrell- recommendations appreciated Neuro Consult- Dr. Yee- Video EEG am; MRI brain; Aspirin 325mg rectally; likely anoxic brain injury ICU consult- Dr. Lopez- Keppra 500mg EKG- sinus tachycardia with T wave inversions CT head no acute findings Cardiac Cath pending Dobutamine; Heparin drip Patient intubated with ET tube; NG tube; Propofol drip; ABG shows primary respiratory acidosis Aspirin 81 NG NS @ 100mls/hr Lipitor 80mg Dig level pending; Echo pending Cholecystitis ID consulted- Dr. Savage- recommendations appreciated CT abd/pelvis- Possible cholecystitis Cxray- severe cardiomegaly, layering pleural effusions/pulmonary edema in the right lung Bedside U/S pending Zosyn and Flagyl Aspiration Pneumonia ID consulted- recs appreciated Zosyn and Flagyl PNA studies pending Bcx, Ucx, Sputum cx pending Leukocytosis noted; Repeat CMP in AM HTN Coreg 25mg NG daily Valsartan 160mg NG daily DM2 ISS low dose ACHS Hx of COPD Patient currently vented RR- 16; TV- 400; Peep- 5; FiO2- 50 PPx GI ppx- Protonix 40mg IVP daily DVT ppx- Heparin Drip <Lizz Fernandez - Last Filed: 06/26/18 07:46> Results - Vital Signs Recent Vital Signs: Last Vital Signs Temp 92.8 F L 06/26/18 06:18 Pulse 58 L 06/26/18 06:18 Resp 20 06/26/18 06:54 BP 181/112 H 06/26/18 06:16 Pulse Ox 100 06/26/18 06:54 - Labs Result Diagrams: 06/26/18 05:30 06/26/18 00:05 Labs: Laboratory Results - last 24 hr 06/25/18 06/25/18 06/25/18 09:15 09:15 09:15 WBC 11.6 H D RBC 5.08 Hgb 15.3 Hct 47.7 MCV 93.9 D MCH 30.1 MCHC 32.1 RDW 14.2 Plt Count 213 MPV 12.3 H Gran % 65.1 Lymph % (Auto) 28.0 [place] % (Auto) 5.7 Eos % (Auto) 1.0 L Baso % (Auto) 0.2 Gran # 7.57 H Lymph # (Auto) 3.3 [place] # (Auto) 0.7 H Eos # (Auto) 0.1 Baso # (Auto) 0.02 PT 12.7 H INR 1.10 APTT 27.3 pCO2 pO2 HCO3 ABG pH ABG Total CO2 ABG O2 Saturation ABG O2 Content ABG Base Excess ABG Hemoglobin ABG Carboxyhemoglobin POC ABG HHb (Measured) ABG Methemoglobin ABG O2 Capacity ABG Potassium VBG pH VBG pCO2 VBG HCO3 VBG Total CO2 VBG O2 Sat (Calc) VBG Base Excess VBG Potassium Hgb O2 Saturation Glucose Lactate Mechanical Rate FiO2 Tidal Volume PEEP Sodium 139 Potassium 3.9 Chloride 99 Carbon Dioxide 24 Anion Gap 19 BUN 21 Creatinine 0.9 Est GFR ( Amer) > 60 Est GFR (Non-Af Amer) > 60 POC Glucose (mg/dL) Random Glucose 291 H Calcium 9.1 Phosphorus Magnesium Total Bilirubin 0.7 AST 32 ALT 31 Alkaline Phosphatase 79 Troponin I 0.05 NT-Pro-B Natriuret Pep 5280 H Total Protein 7.8 Albumin 4.3 Globulin 3.5 Albumin/Globulin Ratio 1.2 Procalcitonin Arterial Blood Potassium Venous Blood Potassium Urine Color Urine Appearance Urine pH Ur Specific [place] Urine Protein Urine Glucose (UA) Urine Ketones Urine Blood Urine Nitrate Urine Bilirubin Urine Urobilinogen Ur Leukocyte Esterase Urine RBC Urine WBC Ur Epithelial Cells Amorphous Sediment Urine Bacteria Hyaline Casts Fine Granular Casts Coarse Granular Casts Urine Other Digoxin 06/25/18 06/25/18 06/25/18 09:16 11:21 12:02 WBC RBC Hgb Hct MCV MCH MCHC RDW Plt Count MPV Gran % Lymph % (Auto) [place] % (Auto) Eos % (Auto) Baso % (Auto) Gran # Lymph # (Auto) [place] # (Auto) Eos # (Auto) Baso # (Auto) PT INR APTT pCO2 55 H 53 H pO2 53.0 L 66.0 L HCO3 23.0 24.9 ABG pH 7.23 L 7.28 L ABG Total CO2 24.7 26.5 ABG O2 Saturation 88.0 L 94.6 L ABG O2 Content 16.8 ABG Base Excess -5.3 L -2.6 L ABG Hemoglobin 14.2 ABG Carboxyhemoglobin 3.4 H POC ABG HHb (Measured) 11.5 H ABG Methemoglobin 0.5 ABG O2 Capacity 19.1 ABG Potassium 4.2 VBG pH VBG pCO2 VBG HCO3 VBG Total CO2 VBG O2 Sat (Calc) VBG Base Excess VBG Potassium Hgb O2 Saturation 84.5 L Glucose 284 H Lactate 2.2 H Mechanical Rate 20 FiO2 50.0 100.0 Tidal Volume 400 PEEP 5 Sodium 134.0 Potassium Chloride 101.0 Carbon Dioxide Anion Gap BUN Creatinine Est GFR ( Amer) Est GFR (Non-Af Amer) POC Glucose (mg/dL) Random Glucose Calcium Phosphorus Magnesium Total Bilirubin AST ALT Alkaline Phosphatase Troponin I NT-Pro-B Natriuret Pep Total Protein Albumin Globulin Albumin/Globulin Ratio Procalcitonin Arterial Blood Potassium 4.2 Venous Blood Potassium Urine Color Yellow Urine Appearance Clear Urine pH 6.0 Ur Specific [place] 1.020 Urine Protein >=300 H Urine Glucose (UA) 100 H Urine Ketones Negative Urine Blood Moderate H Urine Nitrate Negative Urine Bilirubin Negative Urine Urobilinogen 0.2 Ur Leukocyte Esterase Negative Urine RBC 20 - 25 Urine WBC 1 - 3 Ur Epithelial Cells 6 - 8 Amorphous Sediment Few Urine Bacteria Many Hyaline Casts 0 - 2 Fine Granular Casts 0 - 2 Coarse Granular Casts Trace H Urine Other Uyeast Digoxin 06/25/18 06/25/18 06/25/18 13:33 16:15 16:50 WBC RBC Hgb Hct MCV MCH MCHC RDW Plt Count MPV Gran % Lymph % (Auto) [place] % (Auto) Eos % (Auto) Baso % (Auto) Gran # Lymph # (Auto) [place] # (Auto) Eos # (Auto) Baso # (Auto) PT INR APTT pCO2 42 pO2 62.0 L HCO3 26.6 ABG pH 7.41 ABG Total CO2 27.9 ABG O2 Saturation 94.5 L ABG O2 Content ABG Base Excess 1.7 ABG Hemoglobin ABG Carboxyhemoglobin POC ABG HHb (Measured) ABG Methemoglobin ABG O2 Capacity ABG Potassium 3.3 L VBG pH VBG pCO2 VBG HCO3 VBG Total CO2 VBG O2 Sat (Calc) VBG Base Excess VBG Potassium Hgb O2 Saturation Glucose 134 H Lactate 1.4 Mechanical Rate 30 FiO2 80.0 Tidal Volume 400 PEEP 10 Sodium 137.0 Potassium Chloride 103.0 Carbon Dioxide Anion Gap BUN Creatinine Est GFR ( Amer) Est GFR (Non-Af Amer) POC Glucose (mg/dL) 184 H Random Glucose Calcium Phosphorus Magnesium Total Bilirubin AST ALT Alkaline Phosphatase Troponin I NT-Pro-B Natriuret Pep Total Protein Albumin Globulin Albumin/Globulin Ratio Procalcitonin 0.22 Arterial Blood Potassium 3.3 L Venous Blood Potassium Urine Color Urine Appearance Urine pH Ur Specific [place] Urine Protein Urine Glucose (UA) Urine Ketones Urine Blood Urine Nitrate Urine Bilirubin Urine Urobilinogen Ur Leukocyte Esterase Urine RBC Urine WBC Ur Epithelial Cells Amorphous Sediment Urine Bacteria Hyaline Casts Fine Granular Casts Coarse Granular Casts Urine Other Digoxin 06/25/18 06/25/18 06/25/18 16:50 16:50 16:50 WBC RBC Hgb Hct MCV MCH MCHC RDW Plt Count MPV Gran % Lymph % (Auto) [place] % (Auto) Eos % (Auto) Baso % (Auto) Gran # Lymph # (Auto) [place] # (Auto) Eos # (Auto) Baso # (Auto) PT INR APTT pCO2 pO2 52 HCO3 ABG pH ABG Total CO2 ABG O2 Saturation ABG O2 Content ABG Base Excess ABG Hemoglobin ABG Carboxyhemoglobin POC ABG HHb (Measured) ABG Methemoglobin ABG O2 Capacity ABG Potassium VBG pH 7.39 VBG pCO2 47.0 VBG HCO3 28.5 H VBG Total CO2 29.9 H VBG O2 Sat (Calc) 89.4 H VBG Base Excess 2.8 H VBG Potassium 3.6 Hgb O2 Saturation Glucose 136 H Lactate 1.6 Mechanical Rate FiO2 21.0 Tidal Volume PEEP Sodium 138.0 138 Potassium 3.7 Chloride 101.0 101 Carbon Dioxide 26 Anion Gap 15 BUN 22 H Creatinine 0.9 Est GFR ( Amer) > 60 Est GFR (Non-Af Amer) > 60 POC Glucose (mg/dL) Random Glucose 138 H Calcium 9.0 Phosphorus 3.6 Magnesium 1.9 Total Bilirubin 0.6 AST 38 H ALT 39 Alkaline Phosphatase 69 Troponin I 0.08 D NT-Pro-B Natriuret Pep Total Protein 7.5 Albumin 4.2 Globulin 3.3 Albumin/Globulin Ratio 1.2 Procalcitonin Arterial Blood Potassium Venous Blood Potassium 3.6 Urine Color Urine Appearance Urine pH Ur Specific [place] Urine Protein Urine Glucose (UA) Urine Ketones Urine Blood Urine Nitrate Urine Bilirubin Urine Urobilinogen Ur Leukocyte Esterase Urine RBC Urine WBC Ur Epithelial Cells Amorphous Sediment Urine Bacteria Hyaline Casts Fine Granular Casts Coarse Granular Casts Urine Other Digoxin < 0.4 L 06/25/18 06/25/18 06/25/18 17:32 21:21 22:40 WBC 15.5 H D RBC 4.70 Hgb 14.3 Hct 42.5 MCV 90.4 D MCH 30.4 MCHC 33.6 RDW 14.2 Plt Count 99 L MPV 12.8 H Gran % 87.3 H Lymph % (Auto) 5.6 L [place] % (Auto) 7.0 H Eos % (Auto) 0.0 L Baso % (Auto) 0.1 Gran # 13.50 H Lymph # (Auto) 0.9 L [place] # (Auto) 1.1 H Eos # (Auto) 0.0 Baso # (Auto) 0.01 PT INR APTT pCO2 pO2 HCO3 ABG pH ABG Total CO2 ABG O2 Saturation ABG O2 Content ABG Base Excess ABG Hemoglobin ABG Carboxyhemoglobin POC ABG HHb (Measured) ABG Methemoglobin ABG O2 Capacity ABG Potassium VBG pH VBG pCO2 VBG HCO3 VBG Total CO2 VBG O2 Sat (Calc) VBG Base Excess VBG Potassium Hgb O2 Saturation Glucose Lactate Mechanical Rate FiO2 Tidal Volume PEEP Sodium Potassium Chloride Carbon Dioxide Anion Gap BUN Creatinine Est GFR ( Amer) Est GFR (Non-Af Amer) POC Glucose (mg/dL) 130 H 135 H Random Glucose Calcium Phosphorus Magnesium Total Bilirubin AST ALT Alkaline Phosphatase Troponin I NT-Pro-B Natriuret Pep Total Protein Albumin Globulin Albumin/Globulin Ratio Procalcitonin Arterial Blood Potassium Venous Blood Potassium Urine Color Urine Appearance Urine pH Ur Specific [place] Urine Protein Urine Glucose (UA) Urine Ketones Urine Blood Urine Nitrate Urine Bilirubin Urine Urobilinogen Ur Leukocyte Esterase Urine RBC Urine WBC Ur Epithelial Cells Amorphous Sediment Urine Bacteria Hyaline Casts Fine Granular Casts Coarse Granular Casts Urine Other Digoxin 06/25/18 06/26/18 06/26/18 23:22 00:05 03:37 WBC RBC Hgb Hct MCV MCH MCHC RDW Plt Count MPV Gran % Lymph % (Auto) [place] % (Auto) Eos % (Auto) Baso % (Auto) Gran # Lymph # (Auto) [place] # (Auto) Eos # (Auto) Baso # (Auto) PT INR APTT pCO2 pO2 HCO3 ABG pH ABG Total CO2 ABG O2 Saturation ABG O2 Content ABG Base Excess ABG Hemoglobin ABG Carboxyhemoglobin POC ABG HHb (Measured) ABG Methemoglobin ABG O2 Capacity ABG Potassium VBG pH VBG pCO2 VBG HCO3 VBG Total CO2 VBG O2 Sat (Calc) VBG Base Excess VBG Potassium Hgb O2 Saturation Glucose Lactate Mechanical Rate FiO2 Tidal Volume PEEP Sodium 137 Potassium 3.8 Chloride 97 L Carbon Dioxide 29 Anion Gap 15 BUN 20 Creatinine 0.8 Est GFR ( Amer) > 60 Est GFR (Non-Af Amer) > 60 POC Glucose (mg/dL) 150 H 132 H Random Glucose 134 H Calcium 8.8 Phosphorus 4.6 H Magnesium 1.8 Total Bilirubin AST ALT Alkaline Phosphatase Troponin I NT-Pro-B Natriuret Pep Total Protein Albumin Globulin Albumin/Globulin Ratio Procalcitonin Arterial Blood Potassium Venous Blood Potassium Urine Color Urine Appearance Urine pH Ur Specific [place] Urine Protein Urine Glucose (UA) Urine Ketones Urine Blood Urine Nitrate Urine Bilirubin Urine Urobilinogen Ur Leukocyte Esterase Urine RBC Urine WBC Ur Epithelial Cells Amorphous Sediment Urine Bacteria Hyaline Casts Fine Granular Casts Coarse Granular Casts Urine Other Digoxin 06/26/18 06/26/18 06/26/18 05:29 05:30 06:00 WBC 17.9 H RBC 4.90 Hgb 15.1 Hct 44.7 MCV 91.2 MCH 30.8 MCHC 33.8 RDW 14.3 Plt Count 180 MPV 12.5 H Gran % 84.5 H Lymph % (Auto) 4.2 L [place] % (Auto) 11.2 H Eos % (Auto) 0.0 L Baso % (Auto) 0.1 Gran # 15.17 H Lymph # (Auto) 0.8 L [place] # (Auto) 2.0 H Eos # (Auto) 0.0 Baso # (Auto) 0.01 PT INR APTT pCO2 29 L pO2 151.0 H HCO3 22.6 ABG pH 7.50 H ABG Total CO2 23.5 ABG O2 Saturation 99.7 H ABG O2 Content 21.8 ABG Base Excess 0.6 ABG Hemoglobin 15.8 ABG Carboxyhemoglobin 1.5 POC ABG HHb (Measured) 0.3 ABG Methemoglobin 1.1 ABG O2 Capacity 21.9 ABG Potassium VBG pH VBG pCO2 VBG HCO3 VBG Total CO2 VBG O2 Sat (Calc) VBG Base Excess VBG Potassium Hgb O2 Saturation 97.1 Glucose Lactate Mechanical Rate FiO2 80.0 Tidal Volume PEEP Sodium Potassium Chloride Carbon Dioxide Anion Gap BUN Creatinine Est GFR ( Amer) Est GFR (Non-Af Amer) POC Glucose (mg/dL) 161 H Random Glucose Calcium Phosphorus Magnesium Total Bilirubin AST ALT Alkaline Phosphatase Troponin I NT-Pro-B Natriuret Pep Total Protein Albumin Globulin Albumin/Globulin Ratio Procalcitonin Arterial Blood Potassium Venous Blood Potassium Urine Color Urine Appearance Urine pH Ur Specific [place] Urine Protein Urine Glucose (UA) Urine Ketones Urine Blood Urine Nitrate Urine Bilirubin Urine Urobilinogen Ur Leukocyte Esterase Urine RBC Urine WBC Ur Epithelial Cells Amorphous Sediment Urine Bacteria Hyaline Casts Fine Granular Casts Coarse Granular Casts Urine Other Digoxin Attending/Attestation - Attestation I have personally seen and examined this patient.: Yes I have fully participated in the care of the patient.: Yes I have reviewed all pertinent clinical information: Yes Notes (Text): 06/26/18 07:37 Medical record note made by the resident after discussion with my direction and input after the patient was personally seen and examined by me. I have reviewed the chart and agree that the record accurately reflects by personal performance of the history, physical exam, data review, and medical decision-making, in the course for the patient. I have also personally directed the plan of care. 62 yrs old female with PMH of CHF with systolic dysfunction EF 17%, HTN, DM, COPD,Proxysmal AF and Obesity with SP Cardiac arrest, SP CPR by EMS.Patient is intubated. EKG showed LVH with ST changes.CT scan of head is negative for acute infarct or bleeding.Chest CT showed Possible Pneumonia. Patient has been evaluated by Cardiology and is scheduled to go for cardiac cath, on ASA/Metoprolol/Statin and IV heparin. Patient is On IV antibiotics for possible Aspiration Pneumonia.Patient is going to be started on Hypothermic Protocol. Case was discussed with ICU attending. Prognosis is guarded. 06/26/18 07:40
[2018-06-25] MEDS: Insulin Reg-MEDIUM-Coverage SC SCH ×3 (13:55→21:51)
[2018-06-25] MEDS ORDERED: Insulin Regular 1 UNITS/0.01 ML ML ONE (13:56)
[2018-06-25] MEDS ORDERED: Lidocaine 2% PF (10 ml) Amp ONE (14:31)
[2018-06-25] MEDS ORDERED: Heparin 2,000 ML IV ONE (14:32)
[2018-06-25] MEDS ORDERED: Eptifibatide 20 mg/10mL Inj IVP ONE (14:32)
[2018-06-25] MEDS ORDERED: Iodixanol 320 MG/ML 200 ML BOTTLE IV ONE (14:32)
[2018-06-25] MEDS ORDERED: Iohexol 350mgl/ml 50 ML ONE (14:32)
[2018-06-25] MEDS ORDERED: Iodixanol 320 MG/ML 100 ML BOTTLE IV ONE (14:32)
--- NOTE | 2018-06-25 14:32 | CP.PCM.CON ---
History of Present Illness - History of Present Illness History of Present Illness: Neurology consult dictated. Chart reviewed and patient examined. A/P: Patient is on diprivan and currently only has a brisk gag, no corneals, no gag, no dolls eyes. She is not posturing at this time. no gtc activity noted. She may have and most likely does have anoxic brain injury. Plan: 1. video eeg am. 2. MRI brain when stable, as she may have had a massive stroke in addition. 3. aspirin 325 mg po rectally. Thank you for consulting neurology Dr. jimenez Past Patient History - Infectious Disease Hx of Infectious Diseases: None - Tetanus Immunizations Tetanus Immunization: Unknown - Past Social History Smoking Status: Former Smoker - CARDIAC Hx Congestive Heart Failure: Yes Hx Hypertension: Yes - PULMONARY Hx Respiratory Disorders: Yes (USED TO SMOKE CIGARETTES 3 CIG A DAY FOR 15 YRS.) - NEUROLOGICAL HX Cerebrovascular Accident: Yes (TIA) - HEENT Hx HEENT Problems: No - RENAL Hx Chronic Kidney Disease: No - ENDOCRINE/METABOLIC Hx Diabetes Mellitus Type 2: Yes Hx Hypothyroidism: Yes - HEMATOLOGICAL/ONCOLOGICAL Hx Blood Disorders: No - INTEGUMENTARY Hx Dermatological Problems: No - MUSCULOSKELETAL/RHEUMATOLOGICAL Hx Arthritis: Yes - GASTROINTESTINAL Hx Gastrointestinal Disorders: Yes (APPENDECTOMY,TONSILLECTOMY) Hx Gall Bladder Disease: Yes (CHOLEYCYSTECTOMY) - GENITOURINARY/GYNECOLOGICAL Hx Genitourinary Disorders: No - PSYCHIATRIC Hx Psychophysiologic Disorder: Yes Hx Anxiety: Yes Hx Depression: Yes Hx Substance Use: No - SURGICAL HISTORY Hx Appendectomy: Yes Hx Cholecystectomy: Yes Meds Allergies/Adverse Reactions: Allergies Allergy/AdvReac Type Severity Reaction Status Date / Time No Known Allergies Allergy Verified 06/25/18 11:37 - Medications Medications: Current Medications Atorvastatin Calcium (Lipitor) 80 mg PO DIN LYNDA Dobutamine HCl/Dextrose (Dobutamine/Dextrose 5% 500mg/250ml) 500 mg in 250 mls @ 7.62 mls/hr IV .Q24H PRN; Protocol PRN Reason: TITRATE PER PROTOCOL Last Admin: 06/25/18 11:43 Dose: 2 mcg/kg/min, 7.62 mls/hr Propofol (Diprivan) 1,000 mg in 100 mls @ 3.81 mls/hr IV .Q24H PRN; Protocol PRN Reason: TITRATE PER MD ORDER Last Admin: 06/25/18 11:44 Dose: 5 mcg/kg/min, 3.81 mls/hr Heparin Sodium/Sodium Chloride (Heparin 28842 Units/250ml 1/2 Normal Saline) 25,000 units in 250 mls @ 15.241 mls/hr IV .[id number] LYNDA; Protocol Last Admin: 06/25/18 11:30 Dose: Not Given Levetiracetam (Keppra 500mg Ivpb) 500 mg in 100 mls @ 400 mls/hr IVPB Q12 LYNDA Last Admin: 06/25/18 11:42 Dose: 400 mls/hr Ceftriaxone Sodium (Rocephin 1 Gram Ivpb) 1 gm in 100 mls @ 100 mls/hr IVPB DAILY LYNDA; Protocol Last Admin: 06/25/18 12:31 Dose: 100 mls/hr Doxycycline Hyclate 100 mg/ (Sodium Chloride) 100 mls @ 100 mls/hr IVPB Q12 LYNDA; Protocol Last Admin: 06/25/18 13:28 Dose: 100 mls/hr Insulin Human Regular (Humulin R Med) 0 units SC Q2H LYNDA; Protocol Last Admin: 06/25/18 13:55 Dose: 1 unit Pantoprazole Sodium (Protonix Inj) 40 mg IVP DAILY LYNDA Last Admin: 06/25/18 12:31 Dose: 40 mg Results - Vital Signs Recent Vital Signs: Last Vital Signs Temp 98.6 F 06/25/18 09:20 Pulse 83 06/25/18 13:30 Resp 20 06/25/18 13:30 BP 159/107 H 06/25/18 13:30 Pulse Ox 96 06/25/18 13:30 - Labs Result Diagrams: 06/25/18 09:15 06/25/18 09:15 Labs: Laboratory Results - last 24 hr 06/25/18 06/25/18 06/25/18 09:15 09:15 09:15 WBC 11.6 H D RBC 5.08 Hgb 15.3 Hct 47.7 MCV 93.9 D MCH 30.1 MCHC 32.1 RDW 14.2 Plt Count 213 MPV 12.3 H Gran % 65.1 Lymph % (Auto) 28.0 Pope % (Auto) 5.7 Eos % (Auto) 1.0 L Baso % (Auto) 0.2 Gran # 7.57 H Lymph # (Auto) 3.3 Pope # (Auto) 0.7 H Eos # (Auto) 0.1 Baso # (Auto) 0.02 PT 12.7 H INR 1.10 APTT 27.3 pCO2 pO2 HCO3 ABG pH ABG Total CO2 ABG O2 Saturation ABG O2 Content ABG Base Excess ABG Hemoglobin ABG Carboxyhemoglobin POC ABG HHb (Measured) ABG Methemoglobin ABG O2 Capacity ABG Potassium Hgb O2 Saturation Glucose Lactate Mechanical Rate FiO2 Tidal Volume PEEP Sodium 139 Potassium 3.9 Chloride 99 Carbon Dioxide 24 Anion Gap 19 BUN 21 Creatinine 0.9 Est GFR ( Amer) > 60 Est GFR (Non-Af Amer) > 60 POC Glucose (mg/dL) Random Glucose 291 H Calcium 9.1 Total Bilirubin 0.7 AST 32 ALT 31 Alkaline Phosphatase 79 Troponin I 0.05 NT-Pro-B Natriuret Pep 5280 H Total Protein 7.8 Albumin 4.3 Globulin 3.5 Albumin/Globulin Ratio 1.2 Arterial Blood Potassium Urine Color Urine Appearance Urine pH Ur Specific [place] Urine Protein Urine Glucose (UA) Urine Ketones Urine Blood Urine Nitrate Urine Bilirubin Urine Urobilinogen Ur Leukocyte Esterase Urine RBC Urine WBC Ur Epithelial Cells Amorphous Sediment Urine Bacteria Hyaline Casts Fine Granular Casts Coarse Granular Casts Urine Other 06/25/18 06/25/18 06/25/18 09:16 11:21 12:02 WBC RBC Hgb Hct MCV MCH MCHC RDW Plt Count MPV Gran % Lymph % (Auto) Pope % (Auto) Eos % (Auto) Baso % (Auto) Gran # Lymph # (Auto) Pope # (Auto) Eos # (Auto) Baso # (Auto) PT INR APTT pCO2 55 H 53 H pO2 53.0 L 66.0 L HCO3 23.0 24.9 ABG pH 7.23 L 7.28 L ABG Total CO2 24.7 26.5 ABG O2 Saturation 88.0 L 94.6 L ABG O2 Content 16.8 ABG Base Excess -5.3 L -2.6 L ABG Hemoglobin 14.2 ABG Carboxyhemoglobin 3.4 H POC ABG HHb (Measured) 11.5 H ABG Methemoglobin 0.5 ABG O2 Capacity 19.1 ABG Potassium 4.2 Hgb O2 Saturation 84.5 L Glucose 284 H Lactate 2.2 H Mechanical Rate 20 FiO2 50.0 100.0 Tidal Volume 400 PEEP 5 Sodium 134.0 Potassium Chloride 101.0 Carbon Dioxide Anion Gap BUN Creatinine Est GFR ( Amer) Est GFR (Non-Af Amer) POC Glucose (mg/dL) Random Glucose Calcium Total Bilirubin AST ALT Alkaline Phosphatase Troponin I NT-Pro-B Natriuret Pep Total Protein Albumin Globulin Albumin/Globulin Ratio Arterial Blood Potassium 4.2 Urine Color Yellow Urine Appearance Clear Urine pH 6.0 Ur Specific [place] 1.020 Urine Protein >=300 H Urine Glucose (UA) 100 H Urine Ketones Negative Urine Blood Moderate H Urine Nitrate Negative Urine Bilirubin Negative Urine Urobilinogen 0.2 Ur Leukocyte Esterase Negative Urine RBC 20 - 25 Urine WBC 1 - 3 Ur Epithelial Cells 6 - 8 Amorphous Sediment Few Urine Bacteria Many Hyaline Casts 0 - 2 Fine Granular Casts 0 - 2 Coarse Granular Casts Trace H Urine Other Uyeast 06/25/18 13:33 WBC RBC Hgb Hct MCV MCH MCHC RDW Plt Count MPV Gran % Lymph % (Auto) Pope % (Auto) Eos % (Auto) Baso % (Auto) Gran # Lymph # (Auto) Pope # (Auto) Eos # (Auto) Baso # (Auto) PT INR APTT pCO2 pO2 HCO3 ABG pH ABG Total CO2 ABG O2 Saturation ABG O2 Content ABG Base Excess ABG Hemoglobin ABG Carboxyhemoglobin POC ABG HHb (Measured) ABG Methemoglobin ABG O2 Capacity ABG Potassium Hgb O2 Saturation Glucose Lactate Mechanical Rate FiO2 Tidal Volume PEEP Sodium Potassium Chloride Carbon Dioxide Anion Gap BUN Creatinine Est GFR ( Amer) Est GFR (Non-Af Amer) POC Glucose (mg/dL) 184 H Random Glucose Calcium Total Bilirubin AST ALT Alkaline Phosphatase Troponin I NT-Pro-B Natriuret Pep Total Protein Albumin Globulin Albumin/Globulin Ratio Arterial Blood Potassium Urine Color Urine Appearance Urine pH Ur Specific [place] Urine Protein Urine Glucose (UA) Urine Ketones Urine Blood Urine Nitrate Urine Bilirubin Urine Urobilinogen Ur Leukocyte Esterase Urine RBC Urine WBC Ur Epithelial Cells Amorphous Sediment Urine Bacteria Hyaline Casts Fine Granular Casts Coarse Granular Casts Urine Other
[2018-06-25] MEDS ORDERED: Midazolam 2 MG/2 ML VIAL ONE (14:40)
[2018-06-25 15:22] VITALS: BMI 40.9
[2018-06-25] MEDS ORDERED: Influenza Vaccine 60 mcg/0.5 mL SYR (4YR UP) IM ONE (15:22)
[2018-06-25] MEDS ORDERED: Pneumococcal 23-Valent Vaccine IM ONE (15:22)
--- NOTE | 2018-06-25 15:27 | CARD ---
APPROVED REPORT Date of service: 06/25/2018 EKG Measurement Heart [id number] <Conclusion> Normal sinus rhythm Left atrial enlargement Left axis deviation Left ventricular hypertrophy with repolarization abnormality Prolonged QT Abnormal ECG
[2018-06-25] MEDS ORDERED: Sodium Chloride 0.9% 1,000 ML IV SCH ×2 (15:45→15:56)
[2018-06-25] MEDS ORDERED: Piperacillin/Tazobact 3.375 gm 100 ML IVPB STA (15:58)
[2018-06-25] MEDS ORDERED: metroNIDAZOLE IV 500 mg/100 ml 500 MG/100 ML BAG IVPB SCH (16:00)
--- NOTE | 2018-06-25 16:03 | CARD ---
APPROVED REPORT Date of service: 06/25/2018 EKG Measurement Heart [id number] [id number] <Conclusion> Sinus tachycardia Biatrial enlargement Left axis deviation Left ventricular hypertrophy with repolarization abnormality Abnormal ECG
[2018-06-25] MEDS ORDERED: Cisatracurium Besylate 200 MG in Sodium Chloride 0.9% 250 ML IV PRN (16:05)
[2018-06-25] MEDS ORDERED: Insulin Reg-LOW-Coverage SC SCH (16:30)
[2018-06-25 16:51] LABS: ARTERIAL BLOOD GAS HCO3 26.6 mmol/L (21-28); ARTERIAL BLOOD GAS O2 SAT 94.5 % (95-98); ARTERIAL BLOOD GAS PCO2 42 mm/Hg (35-45); ARTERIAL BLOOD GAS PH 7.41 (7.35-7.45); ARTERIAL BLOOD GAS TCO2 27.9 mmol.L (22-28)
[2018-06-25 16:55] LABS: VENOUS BLOOD GAS BASE EXCESS 2.8 mmol/L (0.0-2.0); VENOUS BLOOD GAS PO2 52 mm/Hg (30-55); VENOUS BLOOD PH 7.39 (7.32-7.43)
--- NOTE | 2018-06-25 16:58 | CPOSTOP ---
DATE: 06/25/2018 CARDIOVASCULAR LAB POST PROCEDURE NOTE DICTATING PHYSICIAN: Lizz Harrell MD FIBER ARTIST: Michelle reproduction technician. TYPE OF ANESTHESIA: The patient is on ventilator, on propofol drip. PRE-PROCEDURE DIAGNOSES: Cardiogenic shock, rule out ST-segment myocardial infarction, the patient collapsed, possible ventricular tachycardia and ventricular fibrillation. PROCEDURE PERFORMED: Left heart catheterization. FINDINGS: 1. Mild nonobstructive coronary artery disease, limited only to mid circumflex 60%-70%. 2. Severely decreased LV function, ejection fraction 15%-20%. FINAL DIAGNOSIS: Nonischemic cardiomyopathy. VASCULAR ACCESS SITE: Right femoral groin. CLOSURE DEVICE: Angio-Seal. TOTAL RADIATION DOSE: 6123.5 milligray unit. TOTAL FLUORO TIME: 1.8 minute. Lizz Harrell MD
[2018-06-25 17:10] LABS: ALB/GLOB RATIO 1.2 (1.1-1.8); ALBUMIN 4.2 g/dL (3.0-4.8); ALT/SGPT 39 U/L (7-56); AST/SGOT 38 U/L (14-36); BLOOD UREA NITROGEN 22 mg/dL (7-21); GFR NON-AFRICAN AMERICAN > 60
[2018-06-25 17:16] LABS: TROPONIN I 0.08 ng/mL
--- NOTE | 2018-06-25 17:26 | CARD ---
APPROVED REPORT Date of service: 06/25/2018 EXAM: Two-dimensional and M-mode echocardiogram with Doppler and color Doppler. INDICATION CARDIAC ARREST 2D DIMENSIONS Left Atrium (2D)5.7 (1.6-4.0cm)IVSd1.4 (0.7-1.1cm) LVDd7.0 (3.9-5.9cm)PWd1.4 (0.7-1.1cm) LVDs6.4 (2.5-4.0cm)FS (%) 8.1 % LVEF (%)17.1 (>50%) M-Mode DIMENSIONS Aortic Root2.80 (2.2-3.7cm)Aortic Cusp Exc.2.10 (1.5-2.0cm) Aortic Valve AoV Peak Hzxrhkwm814.0cm/Flakita Peak GR.7mmHg Mitral Valve MV E Yykdxtaf33.0cm/sMV A Asouztte60.4cm/sE/A ratio1.2 TDI E/Lateral E'0.0E/Medial E'0.0 Tricuspid Valve TR Peak Fepcfbhz677se/sRAP [id number] Peak Gr.56mmHg [id number] LEFT VENTRICLE The Left Ventricle is severely dilated. There is mild concentric left ventricular hypertrophy. The systolic function is severely impaired. There is global hypokinesis of the left ventricle. Transmitral Doppler flow pattern is Grade I-abnormal relaxation pattern. No left ventricle thrombus noted on this study. RIGHT VENTRICLE The right ventricle is mildly dilated. There is normal right ventricular wall thickness. Systolic function is moderately reduced. ATRIA The left atrium is severely dilated. The right atrium is moderately dilated. AORTIC VALVE The aortic valve is mildly thickened. There is moderate aortic regurgitation. There is no aortic valvular stenosis. MITRAL VALVE The mitral valve is mildly thickened. Mitral regurgitation is moderate. There is no mitral valve stenosis. TRICUSPID VALVE The tricuspid valve is normal in structure. There is moderate tricuspid regurgitation. There is severe pulmonary hypertension. PULMONIC VALVE The pulmonary valve is normal in structure. There is no pulmonic valvular regurgitation. GREAT VESSELS The aortic root is normal in size. The IVC is dilated. PERICARDIAL EFFUSION There is no pericardial effusion. <Conclusion> The Left Ventricle is severely dilated. There is mild concentric left ventricular hypertrophy. The systolic function is severely impaired. There is global hypokinesis of the left ventricle. Transmitral Doppler flow pattern is Grade I-abnormal relaxation pattern. No left ventricle thrombus noted on this study. There is moderate aortic regurgitation. Mitral regurgitation is moderate. There is moderate tricuspid regurgitation. There is severe pulmonary hypertension.
--- NOTE | 2018-06-25 18:46 | CARD ---
APPROVED REPORT Date of service: 06/25/2018 Procedure(s) performed: Left Heart Catheterization HISTORY The patient is a 62 year-old female with a history of : most recent EF: 20%. (EF Method: Echocardiogram), previous CHF, previous CVA remote >= 2 weeks, diabetes mellitus with oral treatment , hypertension , cerebrovascular disease , Admitted after Cardiac arrest S/p Intubated, Vt/ Vfib, Resuusscitaed, intubated initial EKG on tele tranmission ST elevation as Per ER Physician, Brought to Senior Instrumentation Engineer as Code STEMI after CT scan of Head and Chest.. INDICATION The indication(s) include : STEMI . CASE TECHNIQUE The patient was brought salvage to the Cardiac Catheterization Laboratory in a fasting state and was prepped and draped in a sterile manner. The right femoral groin was infiltrated with 2% Lidocaine subcutaneous anesthesia. A 6 Fr x 11 cm Nupur sheath was inserted into the right femoral artery without difficulty. Coronary angiography was performed using coronary diagnostic catheters. The left coronary system was accessed and visualized with a Diagnostic , 6F JL4 CATH DXT 100 CM catheter. The right coronary system was accessed and visualized with a Diagnostic ,6F JR 4 CATH DXT 100 CM catheter. The left ventricle was accessed and visualized with a 6F PIGTAIL 145 CATH DXT 110 CM catheter. Left ventricular/Aortic Valve gradient assessed on pullback. Left ventriculogram was performed in T[place] projection. Closure device was deployed with a 6 Fr Angio-Seal without any complications. The patient tolerated the procedure well and there were no complications associated with the procedure. Vessel Analysis The patient's coronary anatomy is right dominant. The left main coronary artery is a large size vessel with intimal irregularities and without significant stenosis. The left main bifurcates to the left anterior descending and circumflex. The left anterior descending artery is a large size vessel with diffuse calcification noted throughout this vessel and without significant stenosis. The first diagonal branch is a small size vessel with diffuse calcification noted throughout this vessel and without significant stenosis. The second diagonal branch is a small size vessel with diffuse calcification noted throughout this vessel and without significant stenosis. The circumflex artery is a large size vessel with diffuse calcification noted throughout this vessel and without significant stenosis. There is a 60-70% stenosis in the mid segment. The first obtuse marginal branch is a small size vessel with diffuse calcification noted throughout this vessel and without significant stenosis. The second obtuse marginal branch is a medium size vessel with diffuse calcification noted throughout this vessel and without significant stenosis. The right coronary artery is a medium size vessel with diffuse calcification noted throughout this vessel and without significant stenosis. There is a 30-40% stenosis in the mid segment. The right posterior descending artery is a medium size vessel with diffuse calcification noted throughout this vessel and without significant stenosis. The right posterolateral branch is a medium size vessel with diffuse calcification noted throughout this vessel and without significant stenosis. Left Ventricle The left ventricle is enlarged in size with severely decreased contractility. Non-Ischemic cardiomyopathy. The left ventricular ejection fraction is estimated to be 15-20%. The left ventricular end diastolic pressure is 30 mmHg. Conclusion Non obstructive CAD limited to Mid Cx 60-70% very large calibre vessel Non ishemic CMP EF-15-20%, EDP-30 mmof hg Recommendations Aggressive Medical Therapy Weight Loss Reduction Program Neuro Eval, wean off Vent as tolerated Once stable Consider AICD in 3-6 months if EF remains less than 35%. Consider EP Eval if Neurogically remains intact. Cc; Lizz Fernandez MD
[2018-06-25] MEDS ORDERED: Amiodarone 360 mg/D5W 200 ml 360 MG/200 ML BAG IV SCH (19:45)
--- NOTE | 2018-06-25 21:55 | PCM.EEG ---
Electroencephalogram Report - Electroencephalogram Report Procedure Date: 06/25/18 Interpretation: Video EEg so far is flat, with no normal rhythms, no seizures, no interictal epileptiform dischages, no seizures. There is no normal background, just ekg artifact. Impression: EEG for >6 hours showing no normal cerebral activity. This could be a reflection of deep sedation , or be secondary to profound anoxic encephalopathy.
[2018-06-25] MEDS: metroNIDAZOLE IV 500 mg/100 ml 500 MG/100 ML BAG IVPB SCH (22:03)
[2018-06-25 23:13] LABS: BASO # 0.01 K/mm3 (0.0-2.0); BASO % 0.1 % (0.0-3.0); GRAN # 13.5 (1.4-6.5); GRAN % 87.3 % (50.0-68.0); HEMOGLOBIN 14.3 g/dL (12.0-16.0); LYMPH # 0.9 (1.2-3.4); LYMPH % 5.6 % (22.0-35.0); MEAN CELL VOLUME 90.4 fl (80.0-105.0); MEAN CORPUSCULAR HEMOGLOBIN 30.4 pg (25.0-35.0); MEAN CORPUSCULAR HGB CONC 33.6 g/dl (31.0-37.0); MEAN PLATELET VOLUME 12.8 fl (7.0-11.0); MONO # 1.1 (0.1-0.6); RBC 4.7 10^6/uL (3.5-6.1); RED CELL DISTRIBUTION WIDTH 14.2 % (11.5-14.5); WHITE BLOOD COUNT 15.5 10^3/ul (4.5-11.0)
--- NOTE | 2018-06-25 23:32 | CON ---
DATE: 06/25/2018 HISTORY OF PRESENT ILLNESS: This is a 62-year-old lady, ex-smoker, with severe left ventricular systolic dysfunction, hypertension, who first presented to [facility] ER after witnessed cardiac arrest. Initially, the patient was at her home and called EMS due to her abrupt onset of chest pain. No more history about quality, location, aggravating or alleviating factors of the chest pain available, as the patient now is intubated and unresponsive. As per available records, cardiac arrest rhythm was non shockable. The patient had ROSC within a few minutes after initiation of CPR and epinephrine. The patient received aspirin on the field prior to collapsing and losing pulse. As per family members at bedside, the patient was feeling unwell with shortness of breath for a few days prior to the episode. Upon admission to ER, the patient had dennis CT of the entire body, which revealed no acute intracranial pathology and no cervical fracture. CT chest showed left upper lobe and lingular atelectasis with some bibasilar consolidation. No PE was observed. No intra-abdominal catastrophe was followed; however, some pericholecystic fluid with some gallbladder dilatation was found. Of note, no LFT abnormalities or bilirubinemia was also found on the patient's labs. No fever, no leukocytosis reported. No nausea, no vomiting, no diarrhea, no constipation. PAST MEDICAL HISTORY: Hypertension, COPD, atrial fibrillation, diabetes mellitus, left ventricular systolic dysfunction. FAMILY HISTORY: Noncontributory. SOCIAL HISTORY: The patient is ex-smoker; however, no alcohol or illicit drug abuse. ALLERGIES: NKDA. MEDICATIONS AT HOME: Ambien, Effexor, Diovan, spironolactone, Lasix, digoxin, Coreg, aspirin. REVIEW OF SYSTEMS: Review of 12-organ system other than mentioned in history of present illness is negative. PHYSICAL EXAMINATION: VITAL SIGNS: Blood pressure 146/86, heart rate 68, respiratory rate 20, oxygen saturation 96%. ENT: Head and neck atraumatic. LUNGS: Decreased breath sounds bilaterally. HEART: Regular rate and rhythm. S1, S2 distant. ABDOMEN: Soft, nontender, nondistended. MUSCULOSKELETAL: Trace bilateral pedal and ankle edema. NEUROLOGICAL: The patient is not moving all extremities. Some myoclonic movement noted. PSYCHIATRIC: The patient is not responsive to painful or touch stimuli. LABORATORY DATA: WBC 11.6, hemoglobin 15.3, platelet count 213. Eosinophils 1. Sodium 139, potassium 3.9, chloride 99, carbon dioxide 24, BUN 21, creatinine 0.9, glucose 291. ProBNP 5280. Troponin 0.05, albumin 4.3. INR 1.10. ABG showed pH 7.23, pCO2 55, pO2 53. Chest x-ray showed severe cardiomegaly, pleural effusion/pulmonary edema in the right lung. ASSESSMENT AND PLAN: This is a 62-year-old lady who presented with cardiac arrest with non-shockable rhythm with return of spontaneous circulation within a few minutes after initiation of advanced cardiac life support/cardiopulmonary resuscitation with subsequent druze of relative hemodynamic stability. Neuro: CT head did not reveal any intracranial pathology. No intracerebral hemorrhage. Myoclonic movements of the tongue suspicious for anoxic brain injury. The patient will be started on propofol, Keppra. Neurology consult will be called. Continuous EEG monitoring started. We will proceed with therapeutic hypothermia protocol, maintaining temperature between 34 -36 degrees Celsius. Pulmonary: The patient has some left upper and mid lobe atelectasis of unclear etiology. No endobronchial lesion observed on the CT scan (discussed with Dr. Smith). We will proceed with protective lung ventilation strategy, maintaining tidal volume 4-8 mL per predicted body weight and plateau pressure less than 30 cm of water to avoid ventilator induced lung injury. We will waork with higher PEEP/FiO2 ratio, which hopefully allow to open up NOVA and Lingula. We will continue with conservative fluid (after hypothermia protocol completes, otherwise IVF will continue to compensate for autodiuresis during hypothermia phase) and oxygen management. Daily sedation and weaning vacation. Head of bed elevated >35 degrees. Oral hygiene. Maintain ph 7.35-7.45 Cardiovascular: The patient experienced cardiac arrest. Bedside echocardiogram revealed significantly depressed ejection fraction (?10%) which is worse comparing with previous echocardiogram done in March this year (20%). We will proceed with formal echocardiogram to better visualize and assess right and left ventricle. Cardiology, Dr. Harrell, is on board and we will proceed with cardiac catheterization. The patient will be started on dobutamine, aspirin and Plavix, statins will be initiated. Afterload reduction will be provided with positive pressure ventilation as well as propofol. Once weaned off of ionotropic support, beta-blockers will be considered. GI: The patient will be n.p.o until completion of hypothermia phase. GI prophylaxis will be instituted. ID: The patient had some pericholecystic fluid and mild leukocytosis. We will proceed with therapeutic hypothermia. We will be having lower threshold for initiation of empiric antibiotics. I will start with ceftriaxone. Blood, urine, sputum culture will be sent. Urine for Legionella and streptococcal antigen will be sent as well. Procalcitonin will be ordered. ID consult will be requested. Endocrine: We will proceed with Accu-Chek every 2 hours with medium protocol coverage. We will maintain blood glucose within 140-180 range according to NICE sugar trial. We will proceed with therapeutic hypothermia. Maintain euvolemia, euglycemia, normothermia and oxygen saturation more than 90%. ccm time 40 min Steve Reed MD GARETH
[2018-06-26 01:04] LABS: BLOOD UREA NITROGEN 20 mg/dL (7-21); CALCIUM 8.8 mg/dL (8.4-10.5); GFR NON-AFRICAN AMERICAN > 60
--- NOTE | 2018-06-26 01:46 | CON ---
DATE: 06/25/2018 SERVICE: Cardiology. REASON FOR CONSULTATION: Elevation for code STEMI. BRIEF CLINICAL HISTORY: This is a 62-year-old female with past medical history significant for congestive heart failure, possibly hypertension, diabetes, COPD, history of paroxysmal atrial fibrillation who presented to the hospital status post cardiac arrest, intubated, brought here. According to ER physician, initial EKG looks like one aftershock with ST elevation. The patient was resuscitated for approximately, JULIETA was in 4 to 10 minutes or may be less as per ER physician. I was called to evaluate for code STEMI and take to the pathology laboratory director. The patient was intubated. No further information obtained. Only the information obtained from the chart or from the daughter who was not much aware of the details of the patient. She does not know who is the primary care physician and know what the current medications at that time. PAST MEDICAL HISTORY: Significant for hypertension, diabetes, possibly COPD, and CHF. On previous consultation, the patient was seen by Dr. Rice. At that time, they found that the patient has a history of CHF, history of hypertension, history of morbid obesity. The patient is being followed by [facility] calibration engineer and cath was advised as per daughter, but the patient refused. Previous electronic record shows that the patient has a history of diabetes, hypertension, hypothyroidism, chronic systolic dysfunction, heart failure. SOCIAL HISTORY: Denies any smoking. Denies any history of alcohol abuse. PAST SURGICAL HISTORY: Significant for , appendectomy, tonsillectomy. ALLERGIES: NO KNOWN DRUG ALLERGY. CURRENT MEDICATIONS: The patient was taking Ambien, Effexor, valsartan, Diovan, spironolactone, Lasix, digoxin, carvedilol, and aspirin. PREVIOUS CARDIAC WORKUP: The patient had echocardiography, 03/28/2018 that revealed moderately dilated left ventricle, ejection fraction 20%, severe global hypokinesis, moderate aortic regurgitation, mild mitral regurgitation, mild tricuspid regurgitation, moderate pulmonary hypertension. REVIEW OF SYSTEMS: As per HPI. PHYSICAL EXAMINATION VITAL SIGNS: As follows: Height of the patient 5 feet 6 inches, weight of the patient 253 pounds, body mass index 40.9 kg per sq m. Rest of the vitals: Temperature afebrile, heart rate 74, blood pressure 150/90. HEENT: PERRLA. Extraocular muscles intact. NECK: Supple. No carotid bruit or thyromegaly. CHEST: Clear to auscultation. HEART: S1 and S2 regular. ABDOMEN: Soft. EXTREMITIES: Clubbing and cyanosis negative. LABORATORY DATA: WBC 11.6, hemoglobin 15.3, hematocrit 47.7, platelet count 213. Chemistry shows sodium 139, potassium 3.9, chloride 99, carbon dioxide 24, anion gap of 19, BUN 21, creatinine 0.9. BNP 5280. Troponin 0.01. EKG showed normal sinus, left atrial enlargement, left axis deviation. No acute ST-T changes noted. IMPRESSION: A 62-year-old female with possibly history of diabetes, hypertension, hyperlipidemia, cardiomyopathy, admitted after collapse, initial transmitted EKG according to ER physician, looks like ST elevation, who was revived and now the patient is JULIETA, awaiting to go CAT scan. Discussed with the family, agreed. We will proceed for cardiac catheterization with code ST-elevation myocardial infarction, but we will get a CAT scan of the chest and CAT scan of the head. Discussed with occ ther, Dr. Reed. Agreed to do the CAT scan before we take to the pathology laboratory director. Should the patient with intracerebral bleed, we will not give anticoagulation if needed during the catheterization and angioplasty. Further management depending upon the cardiac catheterization and after the CAT scan of the head and chest will done. Overall, the patient's condition is critical, prognosis is extremely guarded. We will follow with you. Thank you, Dr. Fernandez, for providing us the opportunity in taking care of the patient, Bren Gómez. Lizz Harrell MD
--- NOTE | 2018-06-26 02:31 | CON ---
DATE: 06/24/2018 NEUROLOGY CONSULT NOTE HISTORY OF PRESENT ILLNESS: A 62-year-old woman who complained of chest pain at approximately 8 o'clock this morning. She has a past medical history of diabetes, hypertension, COPD, in atrial fibrillation. She was brought into the emergency room via ambulance after she was found down on the ground, noted to be in cardiac arrest, TIA and intubated on the field. EMS notes that the patient complained of chest pain, was speaking clearly and upon EMS arrival patient went to cardiac arrest. After EMS patient was diaphoretic. Vital signs on initial presentation were 129/108 blood pressure, pulse rate 88, respiratory rate 20, O2 sat 98, but that up from 80% when she first tried. She was intubated, given CPR and given four aspirin in the filed. After starting to make the CPR pulse was started. Patient was placed on sedation. Neurology consult was called. Apparently the family says the patient was short of breath for several days before presentation. No further history is noted. REVIEW OF SYSTEMS: Not possible secondary to the patient's level of consciousness. PAST MEDICAL HISTORY: TIA in the past, diabetes type 2, hypothyroidism, hypertension. PAST SURGICAL HISTORY: Appendectomy, tonsillectomy, cholecystectomy. FAMILY HISTORY: Patient is , has several children. SOCIAL HISTORY: Use to smoke three cigarettes a day for 15 years. Alcohol use is not known. ALLERGIES: THERE ARE NO KNOWN DRUG ALLERGIES. PHYSICAL EXAMINATION: GENERAL: On exam, patient is intubated and sedated. She has reactive pupils, 2 mm, diminished to light. There is no doll's eyes. There is no corneal. However, on trying to lift a gag, the patient did move her arms bilaterally; however, she was not posturing, reflexes are 2+ in upper and lower bilaterally, there is spontaneous movement, there is verbal output. MEDICATIONS: She is on following medications at home. Aspirin 81 mg daily, carvedilol 25 mg twice a day, Lasix 40 mg daily, Diovan 160 mg daily, Tamoxifen 37.5 mg daily, Ambien 5 mg every night. LABORATORY DATA: Patient is currently going to cardiac cath. CAT scan of the head is normal with no stroke or hemorrhage noted. Chest x-ray shows no findings. IMPRESSION: This is a 62-year-old woman status post cardiac arrest, anoxic encephalopathy. At present, there is no clinical seizure activity noted. She is moving to gag reflex, and there is no posturing noted. However, she is on sedation at present. Currently, she is going for cardiac catheterization. It is possible that she still does have anoxic encephalopathy. PLAN: 1. Video EEG 24 hours in the morning. 2. Continue aspirin. 3. MRI of the brain when patient is stable. Thank you for consulting Neurology. Jazmyne Yee MD
[2018-06-26] MEDS: metroNIDAZOLE IV 500 mg/100 ml 500 MG/100 ML BAG IVPB SCH ×3 (05:45→21:09)
[2018-06-26] MEDS: Insulin Reg-MEDIUM-Coverage SC SCH ×12 (05:47→23:12)
[2018-06-26 06:18] LABS: ARTERIAL BLOOD GAS HCO3 22.6 mmol/L (21-28); ARTERIAL BLOOD GAS HEMOGLOBIN 15.8 g/dL (11.7-17.4); ARTERIAL BLOOD GAS O2 CAPACITY 21.9 mL/dl (16-24); ARTERIAL BLOOD GAS O2 CONTENT 21.8 ML/dl (15-23); ARTERIAL BLOOD GAS O2 SAT 99.7 % (95-98); ARTERIAL BLOOD GAS PCO2 29 mm/Hg (35-45); ARTERIAL BLOOD GAS TCO2 23.5 mmol.L (22-28)
[2018-06-26 06:32] LABS: BASO # 0.01 K/mm3 (0.0-2.0); BASO % 0.1 % (0.0-3.0); GRAN # 15.17 (1.4-6.5); GRAN % 84.5 % (50.0-68.0); HEMOGLOBIN 15.1 g/dL (12.0-16.0); LYMPH # 0.8 (1.2-3.4); LYMPH % 4.2 % (22.0-35.0); MEAN CELL VOLUME 91.2 fl (80.0-105.0); MEAN CORPUSCULAR HEMOGLOBIN 30.8 pg (25.0-35.0); MEAN CORPUSCULAR HGB CONC 33.8 g/dl (31.0-37.0); MEAN PLATELET VOLUME 12.5 fl (7.0-11.0); MONO % 11.2 % (1.0-6.0); PLATELET COUNT 180 10^3/uL (120.0-450.0); RED CELL DISTRIBUTION WIDTH 14.3 % (11.5-14.5); WHITE BLOOD COUNT 17.9 10^3/ul (4.5-11.0)
[2018-06-26 07:40] LABS: ALB/GLOB RATIO 1.1 (1.1-1.8); ALBUMIN 3.7 g/dL (3.0-4.8); ALT/SGPT 28 U/L (7-56); AST/SGOT 60 U/L (14-36); BLOOD UREA NITROGEN 18 mg/dL (7-21); CALCIUM 8.2 mg/dL (8.4-10.5); GFR NON-AFRICAN AMERICAN > 60; HDL CHOLESTEROL 35 mg/dL (29-60); LDL CHOLESTEROL 71 mg/dL (0-129)
[2018-06-26 08:04] LABS: BAND 3 % (0-2); LYMPHOCYTE 7 % (22.0-35.0); MONOCYTE 1 % (1.0-6.0); NEUTROPHIL 89 % (50.0-70.0); PLATELET ESTIMATE NORMAL (NORMAL)
[2018-06-26] MEDS: Cefepime IV 2 gm in NS 2 GM/100 ML BAG IVPB SCH ×3 (09:00→21:09)
[2018-06-26] MEDS: levETIRAcetam 500mg IVPB 500 MG/100 ML BAG IVPB SCH ×2 (09:12→21:10)
--- NOTE | 2018-06-26 09:38 | RAD ---
Date of service: 06/25/2018 HISTORY: hypoxemia COMPARISON: Earlier same day FINDINGS: LUNGS: Left upper lobe infiltrate unchanged. PLEURA: No significant pleural effusion identified, no pneumothorax apparent. CARDIOVASCULAR: Severe cardiomegaly OSSEOUS STRUCTURES: No significant abnormalities. VISUALIZED UPPER ABDOMEN: Normal. OTHER FINDINGS: Endotracheal and nasogastric tubes in satisfactory position IMPRESSION: No change in left upper lobe infiltrate
[2018-06-26] MEDS: Propofol 10 mg/ml 1,000 MG/100 ML VIAL IV PRN (09:44)
--- NOTE | 2018-06-26 09:55 | RAD ---
Date of service: 06/26/2018 HISTORY: Intubated COMPARISON: 06/25/2018 FINDINGS: LUNGS: Resolution of previously seen left upper lobe infiltrate. PLEURA: No significant pleural effusion identified, no pneumothorax apparent. CARDIOVASCULAR: Moderate cardiomegaly OSSEOUS STRUCTURES: No significant abnormalities. VISUALIZED UPPER ABDOMEN: Normal. OTHER FINDINGS: Endotracheal and nasogastric tube in satisfactory position IMPRESSION: Resolution of left upper lobe infiltrate
[2018-06-26] MEDS ORDERED: cefTRIAXone 1 gm 1 GM/100 ML BAG IVPB SCH (10:00)
[2018-06-26] MEDS ORDERED: Midazolam 100 mg/100ml in NS 100 MG/100 ML SOL IV PRN (10:06)
[2018-06-26] MEDS: Fentanyl 1000mcg/100ml NS 1,000 MCG/100 ML BAG IV PRN ×2 (11:24→23:23)
--- NOTE | 2018-06-26 11:42 | CP.CCUPN ---
<Rajesh Vasquez - Last Filed: 06/26/18 12:43> CCU Subjective - Physician Review Subjective (Free Text): Rajesh Vasquez DO, PGY-1 ICU Progress Note for Dr. Galicia Patient is a 62 year old female with PMH of DM2, HTN, COPD, and chronic AFib who presented to ED following witnessed syncopal episode and cardiac arrest. The initial rhythm was found to be PEA. Compressions were started immediately per EMS. After 2 minutes of compressions and single dose of epinephrine, ROSC was a chieved. She was subsequently admitted to ICU for further management. Cooling protocol and continuous EEG were started in ICU. CCU Objective - Vital Signs / Intake & Output Vital Signs (Last 4 hours): Vital Signs Temp Pulse BP Pulse Ox 06/26/18 11:00 92.1 F L 83 116/85 91 L 06/26/18 10:59 95/57 L 06/26/18 10:56 91.8 F L 69 95/57 L 94 L 06/26/18 10:50 91.4 F L 65 95 06/26/18 10:48 91.2 F L 70 90/54 L 95 06/26/18 10:45 91.0 F L 67 86/54 L 94 L 06/26/18 10:40 90.7 F L 66 95 06/26/18 10:37 90.5 F L 65 88/49 L 95 06/26/18 10:30 90.0 F L 72 89/41 L 94 L 06/26/18 10:20 89.4 F L 61 96 06/26/18 10:15 89.1 F L 62 97/47 L 95 06/26/18 10:10 88.7 F L 62 96 06/26/18 10:00 88.3 F L 63 98/34 L 96 06/26/18 09:50 87.8 F L 57 L 96 06/26/18 09:45 87.6 F L 60 103/56 L 96 06/26/18 09:40 87.3 F L 102/71 95 06/26/18 09:30 86.9 F L 57 L 91/65 L 93 L 06/26/18 09:20 86.7 F L 93 L 06/26/18 09:15 86.5 F L 54 L 97/68 L 94 L 06/26/18 09:10 86.5 F L 53 L 95 06/26/18 09:05 86.4 F L 53 L 105/76 97 06/26/18 09:00 86.4 F L 90 L 06/26/18 08:50 86.4 F L 96 06/26/18 08:45 143/78 06/26/18 08:44 86.4 F L 94 L 06/26/18 08:40 86.5 F L 49 L 95 06/26/18 08:30 137/86 06/26/18 08:29 86.7 F L 51 L 95 06/26/18 08:20 86.9 F L 48 L 98 06/26/18 08:15 143/95 H 06/26/18 08:14 87.1 F L 47 L 97 06/26/18 08:10 87.3 F L 45 L 97 06/26/18 08:02 87.6 F L 45 L 145/84 96 06/26/18 08:01 87.8 F L 47 L 182/87 H 97 06/26/18 08:00 87.8 F L 47 L 94 L 06/26/18 07:50 88.2 F L 48 L 97 06/26/18 07:46 88.3 F L 47 L 163/97 H 98 06/26/18 07:45 88.5 F L 47 L 06/26/18 07:40 88.7 F L 47 L 97 Intake and Output (Last 8hrs): Intake & Output 06/25/18 06/26/18 06/26/18 22:59 06:59 14:59 Intake Total 100 475 221 Output Total 80 2020 Balance 20 -1545 221 Intake: IV 100 475 221 Right Hand 400 Oral 0 Output: Urine 80 1900 2-way Urethral 80 1900 Stool 120 Other: # Bowel Movements 0 - Physical Exam Head: Positive for: Atraumatic, Other (Intubated) Pupils: Positive for: Non-Reactive Conjunctiva: Positive for: Normal Mouth: Positive for: Moist Mucous Membranes Respiratory/Chest: Positive for: Clear to Auscultation, Good Air Exchange. Negative for: Respiratory Distress, Accessory Muscle Use, Wheezes, Rales, Rhonchi Cardiovascular: Positive for: Peripheal Pulses Present, Bradycardic. Negative for: Murmurs, Rub, Gallop Abdomen: Negative for: Distention, Mass/Organomegaly Upper Extremity: Positive for: Normal Inspection. Negative for: Cyanosis, Edema Lower Extremity: Positive for: Normal Inspection. Negative for: Edema Neurological: Positive for: Other (Gag, Doll's eyes, corneal, and pupillary reflexes all absent) Skin: Positive for: Warm, Dry, Normal Color. Negative for: Rashes - Medications Active Medications: Active Medications Generic Name Dose Route Start Last Admin Trade Name Freq PRN Reason Stop Dose Admin Amiodarone HCl 400 mg 06/26/18 10:00 06/26/18 09:13 Cordarone PO 06/28/18 23:59 Not Given TID [facility] Amiodarone HCl 200 mg 06/29/18 10:00 Cordarone PO DAILY [facility] Aspirin 81 mg 06/26/18 06:00 06/26/18 10:56 Aspirin Chewable NG 81 mg DAILY LYNDA Administration Atorvastatin Calcium 80 mg 06/25/18 17:00 Lipitor NG DIN LYNDA Gemfibrozil 600 mg 06/26/18 10:15 06/26/18 10:59 Lopid PO 600 mg BID LYNDA Administration Heparin Sodium (Porcine) 5,000 units 06/25/18 20:00 06/26/18 05:44 Heparin SC 5,000 units Q8 LYNDA Administration Protocol Dobutamine HCl/Dextrose 500 mg in 250 mls @ 7.62 mls/hr 06/25/18 11:18 06/26/18 07:50 Dobutamine/Dextrose 5% 500mg/250ml IV 4 mcg/kg/min .Q24H PRN 15.241 mls/hr TITRATE PER PROTOCOL Titration Protocol 2 MCG/KG/MIN Heparin Sodium/Sodium Chloride 25,000 units in 250 mls @ 15.241 mls/hr 06/25/18 11:30 06/25/18 11:30 Heparin 22322 Units/250ml 1/2 Normal Saline IV Not Given .[id number] LYNDA Protocol 12 UNITS/KG/HR Levetiracetam 500 mg in 100 mls @ 400 mls/hr 06/25/18 11:30 06/26/18 09:12 Keppra 500mg Ivpb IVPB 400 mls/hr Q12 LYNDA Administration Cisatracurium Besylate 200 mg/ 270 mls @ 4.66 mls/hr 06/25/18 16:05 06/26/18 07:00 Sodium Chloride IV 0.5 mcg/kg/min .Q24H PRN 4.66 mls/hr TITRATE PER MD ORDER Titration Protocol 0.5 MCG/KG/MIN Acetaminophen 1,000 mg in 100 mls @ 400 mls/hr 06/25/18 16:16 Ofirmev IVPB 06/27/18 16:17 Q6H PRN for T>100F Doxycycline Hyclate 100 mg/ 100 mls @ 100 mls/hr 06/25/18 22:00 06/26/18 10:45 Sodium Chloride IVPB 100 mls/hr Q12 LYNDA Administration Protocol Metronidazole 500 mg in 100 mls @ 100 mls/hr 06/25/18 22:00 06/26/18 05:45 Flagyl IVPB 100 mls/hr Q8 LYNDA Administration Protocol Amiodarone HCl/Dextrose 360 mg in 200 mls @ 16.667 mls/hr 06/25/18 19:45 06/25/18 21:53 Nexterone 360 Mg In D5w 200 Ml (Premix) IV 16.667 mls/hr .Q12H LYNDA Administration Protocol 0.5 MG/MIN Cefepime HCl 2 gm in 100 mls @ 100 mls/hr 06/26/18 08:00 06/26/18 09:00 Maxipime 2gm IVPB 07/01/18 08:01 100 mls/hr Q8 LYNDA Administration Protocol Fentanyl Citrate 1,000 mcg in 100 mls @ 10 mls/hr 06/26/18 10:05 06/26/18 11:24 Fentanyl Citrate/Sodium Chloride 1 Mg/100 Ml IV 100 mcg/hr .Q10H PRN 10 mls/hr TITRATE PER MD ORDER Administration Protocol 100 MCG/HR Midazolam 100 mg/100ml in NS 100 mg in 100 mls @ 1 mls/hr 06/26/18 10:06 06/26/18 11:00 Midazolam 100 Mg/100ml In Ns IV 1 mg/hr .Q24H PRN 1 mls/hr Sedation Administration Protocol 1 MG/HR Insulin Human Regular 0 units 06/25/18 13:00 06/26/18 07:26 Humulin R Med SC Not Given Q2H LYNDA Protocol Pantoprazole Sodium 40 mg 06/25/18 11:30 06/26/18 09:12 Protonix Inj IVP 40 mg DAILY LYNDA Administration - Patient Studies Lab Studies: Lab Studies 06/26/18 06/26/18 06/26/18 Range/Units 07:33 06:00 05:30 WBC (4.5-11.0) 10^3/ul RBC (3.5-6.1) 10^6/uL Hgb (12.0-16.0) g/dL Hct (36.0-48.0) % MCV (80.0-105.0) fl MCH (25.0-35.0) pg MCHC (31.0-37.0) g/dl RDW (11.5-14.5) % Plt Count (120.0-450.0) 10^3/uL MPV (7.0-11.0) fl Gran % (50.0-68.0) % Lymph % (Auto) (22.0-35.0) % [place] % (Auto) (1.0-6.0) % Eos % (Auto) (1.5-5.0) % Baso % (Auto) (0.0-3.0) % Gran # (1.4-6.5) Lymph # (Auto) (1.2-3.4) [place] # (Auto) (0.1-0.6) Eos # (Auto) (0.0-0.7) Baso # (Auto) (0.0-2.0) K/mm3 Neutrophils % (Manual) (50.0-70.0) % Band Neutrophils % (0-2) % Lymphocytes % (Manual) (22.0-35.0) % Monocytes % (Manual) (1.0-6.0) % Platelet Evaluation (NORMAL) pCO2 29 L (35-45) mm/Hg pO2 151.0 H (80-100) mm/Hg HCO3 22.6 (21-28) mmol/L ABG pH 7.50 H (7.35-7.45) ABG Total CO2 23.5 (22-28) mmol.L ABG O2 Saturation 99.7 H (95-98) % ABG O2 Content 21.8 (15-23) ML/dl ABG Base Excess 0.6 (-2.0-3.0) mmol/L ABG Hemoglobin 15.8 (11.7-17.4) g/dL ABG Carboxyhemoglobin 1.5 (0.5-1.5) % POC ABG HHb (Measured) 0.3 (0-5) % ABG Methemoglobin 1.1 (0.0-3.0) % ABG O2 Capacity 21.9 (16-24) mL/dl ABG Potassium (3.6-5.2) mmol/L VBG pH (7.32-7.43) VBG pCO2 (40-60) VBG HCO3 (21-28) mmol/l VBG Total CO2 (22-28) mmol.L VBG O2 Sat (Calc) (40-65) % VBG Base Excess (0.0-2.0) mmol/L VBG Potassium (3.6-5.2) mmol/L Hgb O2 Saturation 97.1 (95.0-98.0) % Sodium 133 (132-148) mmol/L Chloride 97 L (98-107) mmol/L Glucose (65-105) mg/dl Lactate (0.7-2.1) mmol/L Mechanical Rate FiO2 80.0 % Tidal Volume PEEP Potassium 3.8 (3.6-5.0) mmol/L Carbon Dioxide 26 (21-33) mmol/L Anion Gap 15 (10-20) BUN 18 (7-21) mg/dL Creatinine 0.7 (0.7-1.2) mg/dl Est GFR ( Amer) > 60 Est GFR (Non-Af Amer) > 60 POC Glucose (mg/dL) 195 H (65-110) mg/dL Random Glucose 134 H (70-110) mg/dL Calcium 8.2 L (8.4-10.5) mg/dL Phosphorus 3.6 (2.5-4.5) mg/dL Magnesium 1.7 (1.7-2.2) mg/dL Total Bilirubin 1.3 (0.2-1.3) mg/dL AST 60 H D (14-36) U/L ALT 28 (7-56) U/L Alkaline Phosphatase 62 (38-126) U/L Troponin I ng/mL Total Protein 7.3 (5.8-8.3) g/dL Albumin 3.7 (3.0-4.8) g/dL Globulin 3.5 gm/dL Albumin/Globulin Ratio 1.1 (1.1-1.8) Triglycerides 1994 H (35-160) mg/dL Cholesterol 160 (130-200) mg/dL LDL Cholesterol Direct 71 (0-129) mg/dL HDL Cholesterol 35 (29-60) mg/dL Procalcitonin (0.19-0.49) NG/ML Arterial Blood Potassium (3.6-5.2) mmol/L Venous Blood Potassium (3.6-5.2) mmol/L Urine Color (YELLOW) Urine Appearance (CLEAR) Urine pH (4.7-8.0) Ur Specific [place] (1.005-1.035) Urine Protein (<30 mg/dL) mg/dL Urine Glucose (UA) (NEGATIVE) mg/dL Urine Ketones (NEGATIVE) mg/dL Urine Blood (NEGATIVE) Urine Nitrate (NEGATIVE) Urine Bilirubin (NEGATIVE) Urine Urobilinogen (<1 E.U./dL) E.U./dL Ur Leukocyte Esterase (NEGATIVE) Tio/uL Urine RBC (0-2) /hpf Urine WBC (0-6) /hpf Ur Epithelial Cells (0-5) /hpf Amorphous Sediment Urine Bacteria (NEG) Hyaline Casts /hpf Fine Granular Casts (0-2) /hpf Coarse Granular Casts (0-2) /hpf Urine Other Digoxin (0.8-2.0) ng/mL 06/26/18 06/26/18 06/26/18 Range/Units 05:30 05:29 03:37 WBC 17.9 H (4.5-11.0) 10^3/ul RBC 4.90 (3.5-6.1) 10^6/uL Hgb 15.1 (12.0-16.0) g/dL Hct 44.7 (36.0-48.0) % MCV 91.2 (80.0-105.0) fl MCH 30.8 (25.0-35.0) pg MCHC 33.8 (31.0-37.0) g/dl RDW 14.3 (11.5-14.5) % Plt Count 180 (120.0-450.0) 10^3/uL MPV 12.5 H (7.0-11.0) fl Gran % 84.5 H (50.0-68.0) % Lymph % (Auto) 4.2 L (22.0-35.0) % [place] % (Auto) 11.2 H (1.0-6.0) % Eos % (Auto) 0.0 L (1.5-5.0) % Baso % (Auto) 0.1 (0.0-3.0) % Gran # 15.17 H (1.4-6.5) Lymph # (Auto) 0.8 L (1.2-3.4) [place] # (Auto) 2.0 H (0.1-0.6) Eos # (Auto) 0.0 (0.0-0.7) Baso # (Auto) 0.01 (0.0-2.0) K/mm3 Neutrophils % (Manual) 89 H (50.0-70.0) % Band Neutrophils % 3 H (0-2) % Lymphocytes % (Manual) 7 L (22.0-35.0) % Monocytes % (Manual) 1 (1.0-6.0) % Platelet Evaluation Normal (NORMAL) pCO2 (35-45) mm/Hg pO2 (80-100) mm/Hg HCO3 (21-28) mmol/L ABG pH (7.35-7.45) ABG Total CO2 (22-28) mmol.L ABG O2 Saturation (95-98) % ABG O2 Content (15-23) ML/dl ABG Base Excess (-2.0-3.0) mmol/L ABG Hemoglobin (11.7-17.4) g/dL ABG Carboxyhemoglobin (0.5-1.5) % POC ABG HHb (Measured) (0-5) % ABG Methemoglobin (0.0-3.0) % ABG O2 Capacity (16-24) mL/dl ABG Potassium (3.6-5.2) mmol/L VBG pH (7.32-7.43) VBG pCO2 (40-60) VBG HCO3 (21-28) mmol/l VBG Total CO2 (22-28) mmol.L VBG O2 Sat (Calc) (40-65) % VBG Base Excess (0.0-2.0) mmol/L VBG Potassium (3.6-5.2) mmol/L Hgb O2 Saturation (95.0-98.0) % Sodium (132-148) mmol/L Chloride (98-107) mmol/L Glucose (65-105) mg/dl Lactate (0.7-2.1) mmol/L Mechanical Rate FiO2 % Tidal Volume PEEP Potassium (3.6-5.0) mmol/L Carbon Dioxide (21-33) mmol/L Anion Gap (10-20) BUN (7-21) mg/dL Creatinine (0.7-1.2) mg/dl Est GFR ( Amer) Est GFR (Non-Af Amer) POC Glucose (mg/dL) 161 H 132 H (65-110) mg/dL Random Glucose (70-110) mg/dL Calcium (8.4-10.5) mg/dL Phosphorus (2.5-4.5) mg/dL Magnesium (1.7-2.2) mg/dL Total Bilirubin (0.2-1.3) mg/dL AST (14-36) U/L ALT (7-56) U/L Alkaline Phosphatase (38-126) U/L Troponin I ng/mL Total Protein (5.8-8.3) g/dL Albumin (3.0-4.8) g/dL Globulin gm/dL Albumin/Globulin Ratio (1.1-1.8) Triglycerides (35-160) mg/dL Cholesterol (130-200) mg/dL LDL Cholesterol Direct (0-129) mg/dL HDL Cholesterol (29-60) mg/dL Procalcitonin (0.19-0.49) NG/ML Arterial Blood Potassium (3.6-5.2) mmol/L Venous Blood Potassium (3.6-5.2) mmol/L Urine Color (YELLOW) Urine Appearance (CLEAR) Urine pH (4.7-8.0) Ur Specific [place] (1.005-1.035) Urine Protein (<30 mg/dL) mg/dL Urine Glucose (UA) (NEGATIVE) mg/dL Urine Ketones (NEGATIVE) mg/dL Urine Blood (NEGATIVE) Urine Nitrate (NEGATIVE) Urine Bilirubin (NEGATIVE) Urine Urobilinogen (<1 E.U./dL) E.U./dL Ur Leukocyte Esterase (NEGATIVE) Tio/uL Urine RBC (0-2) /hpf Urine WBC (0-6) /hpf Ur Epithelial Cells (0-5) /hpf Amorphous Sediment Urine Bacteria (NEG) Hyaline Casts /hpf Fine Granular Casts (0-2) /hpf Coarse Granular Casts (0-2) /hpf Urine Other Digoxin (0.8-2.0) ng/mL 06/26/18 06/25/18 06/25/18 Range/Units 00:05 23:22 22:40 WBC 15.5 H D (4.5-11.0) 10^3/ul RBC 4.70 (3.5-6.1) 10^6/uL Hgb 14.3 (12.0-16.0) g/dL Hct 42.5 (36.0-48.0) % MCV 90.4 D (80.0-105.0) fl MCH 30.4 (25.0-35.0) pg MCHC 33.6 (31.0-37.0) g/dl RDW 14.2 (11.5-14.5) % Plt Count 99 L (120.0-450.0) 10^3/uL MPV 12.8 H (7.0-11.0) fl Gran % 87.3 H (50.0-68.0) % Lymph % (Auto) 5.6 L (22.0-35.0) % [place] % (Auto) 7.0 H (1.0-6.0) % Eos % (Auto) 0.0 L (1.5-5.0) % Baso % (Auto) 0.1 (0.0-3.0) % Gran # 13.50 H (1.4-6.5) Lymph # (Auto) 0.9 L (1.2-3.4) [place] # (Auto) 1.1 H (0.1-0.6) Eos # (Auto) 0.0 (0.0-0.7) Baso # (Auto) 0.01 (0.0-2.0) K/mm3 Neutrophils % (Manual) (50.0-70.0) % Band Neutrophils % (0-2) % Lymphocytes % (Manual) (22.0-35.0) % Monocytes % (Manual) (1.0-6.0) % Platelet Evaluation (NORMAL) pCO2 (35-45) mm/Hg pO2 (80-100) mm/Hg HCO3 (21-28) mmol/L ABG pH (7.35-7.45) ABG Total CO2 (22-28) mmol.L ABG O2 Saturation (95-98) % ABG O2 Content (15-23) ML/dl ABG Base Excess (-2.0-3.0) mmol/L ABG Hemoglobin (11.7-17.4) g/dL ABG Carboxyhemoglobin (0.5-1.5) % POC ABG HHb (Measured) (0-5) % ABG Methemoglobin (0.0-3.0) % ABG O2 Capacity (16-24) mL/dl ABG Potassium (3.6-5.2) mmol/L VBG pH (7.32-7.43) VBG pCO2 (40-60) VBG HCO3 (21-28) mmol/l VBG Total CO2 (22-28) mmol.L VBG O2 Sat (Calc) (40-65) % VBG Base Excess (0.0-2.0) mmol/L VBG Potassium (3.6-5.2) mmol/L Hgb O2 Saturation (95.0-98.0) % Sodium 137 (132-148) mmol/L Chloride 97 L (98-107) mmol/L Glucose (65-105) mg/dl Lactate (0.7-2.1) mmol/L Mechanical Rate FiO2 % Tidal Volume PEEP Potassium 3.8 (3.6-5.0) mmol/L Carbon Dioxide 29 (21-33) mmol/L Anion Gap 15 (10-20) BUN 20 (7-21) mg/dL Creatinine 0.8 (0.7-1.2) mg/dl Est GFR ( Amer) > 60 Est GFR (Non-Af Amer) > 60 POC Glucose (mg/dL) 150 H (65-110) mg/dL Random Glucose 134 H (70-110) mg/dL Calcium 8.8 (8.4-10.5) mg/dL Phosphorus 4.6 H (2.5-4.5) mg/dL Magnesium 1.8 (1.7-2.2) mg/dL Total Bilirubin (0.2-1.3) mg/dL AST (14-36) U/L ALT (7-56) U/L Alkaline Phosphatase (38-126) U/L Troponin I ng/mL Total Protein (5.8-8.3) g/dL Albumin (3.0-4.8) g/dL Globulin gm/dL Albumin/Globulin Ratio (1.1-1.8) Triglycerides (35-160) mg/dL Cholesterol (130-200) mg/dL LDL Cholesterol Direct (0-129) mg/dL HDL Cholesterol (29-60) mg/dL Procalcitonin (0.19-0.49) NG/ML Arterial Blood Potassium (3.6-5.2) mmol/L Venous Blood Potassium (3.6-5.2) mmol/L Urine Color (YELLOW) Urine Appearance (CLEAR) Urine pH (4.7-8.0) Ur Specific [place] (1.005-1.035) Urine Protein (<30 mg/dL) mg/dL Urine Glucose (UA) (NEGATIVE) mg/dL Urine Ketones (NEGATIVE) mg/dL Urine Blood (NEGATIVE) Urine Nitrate (NEGATIVE) Urine Bilirubin (NEGATIVE) Urine Urobilinogen (<1 E.U./dL) E.U./dL Ur Leukocyte Esterase (NEGATIVE) Tio/uL Urine RBC (0-2) /hpf Urine WBC (0-6) /hpf Ur Epithelial Cells (0-5) /hpf Amorphous Sediment Urine Bacteria (NEG) Hyaline Casts /hpf Fine Granular Casts (0-2) /hpf Coarse Granular Casts (0-2) /hpf Urine Other Digoxin (0.8-2.0) ng/mL 06/25/18 06/25/18 06/25/18 Range/Units 21:21 17:32 16:50 WBC (4.5-11.0) 10^3/ul RBC (3.5-6.1) 10^6/uL Hgb (12.0-16.0) g/dL Hct (36.0-48.0) % MCV (80.0-105.0) fl MCH (25.0-35.0) pg MCHC (31.0-37.0) g/dl RDW (11.5-14.5) % Plt Count (120.0-450.0) 10^3/uL MPV (7.0-11.0) fl Gran % (50.0-68.0) % Lymph % (Auto) (22.0-35.0) % [place] % (Auto) (1.0-6.0) % Eos % (Auto) (1.5-5.0) % Baso % (Auto) (0.0-3.0) % Gran # (1.4-6.5) Lymph # (Auto) (1.2-3.4) [place] # (Auto) (0.1-0.6) Eos # (Auto) (0.0-0.7) Baso # (Auto) (0.0-2.0) K/mm3 Neutrophils % (Manual) (50.0-70.0) % Band Neutrophils % (0-2) % Lymphocytes % (Manual) (22.0-35.0) % Monocytes % (Manual) (1.0-6.0) % Platelet Evaluation (NORMAL) pCO2 (35-45) mm/Hg pO2 (80-100) mm/Hg HCO3 (21-28) mmol/L ABG pH (7.35-7.45) ABG Total CO2 (22-28) mmol.L ABG O2 Saturation (95-98) % ABG O2 Content (15-23) ML/dl ABG Base Excess (-2.0-3.0) mmol/L ABG Hemoglobin (11.7-17.4) g/dL ABG Carboxyhemoglobin (0.5-1.5) % POC ABG HHb (Measured) (0-5) % ABG Methemoglobin (0.0-3.0) % ABG O2 Capacity (16-24) mL/dl ABG Potassium (3.6-5.2) mmol/L VBG pH (7.32-7.43) VBG pCO2 (40-60) VBG HCO3 (21-28) mmol/l VBG Total CO2 (22-28) mmol.L VBG O2 Sat (Calc) (40-65) % VBG Base Excess (0.0-2.0) mmol/L VBG Potassium (3.6-5.2) mmol/L Hgb O2 Saturation (95.0-98.0) % Sodium 138 (132-148) mmol/L Chloride 101 (98-107) mmol/L Glucose (65-105) mg/dl Lactate (0.7-2.1) mmol/L Mechanical Rate FiO2 % Tidal Volume PEEP Potassium 3.7 (3.6-5.0) mmol/L Carbon Dioxide 26 (21-33) mmol/L Anion Gap 15 (10-20) BUN 22 H (7-21) mg/dL Creatinine 0.9 (0.7-1.2) mg/dl Est GFR ( Amer) > 60 Est GFR (Non-Af Amer) > 60 POC Glucose (mg/dL) 135 H 130 H (65-110) mg/dL Random Glucose 138 H (70-110) mg/dL Calcium 9.0 (8.4-10.5) mg/dL Phosphorus 3.6 (2.5-4.5) mg/dL Magnesium 1.9 (1.7-2.2) mg/dL Total Bilirubin 0.6 (0.2-1.3) mg/dL AST 38 H (14-36) U/L ALT 39 (7-56) U/L Alkaline Phosphatase 69 (38-126) U/L Troponin I 0.08 D ng/mL Total Protein 7.5 (5.8-8.3) g/dL Albumin 4.2 (3.0-4.8) g/dL Globulin 3.3 gm/dL Albumin/Globulin Ratio 1.2 (1.1-1.8) Triglycerides (35-160) mg/dL Cholesterol (130-200) mg/dL LDL Cholesterol Direct (0-129) mg/dL HDL Cholesterol (29-60) mg/dL Procalcitonin (0.19-0.49) NG/ML Arterial Blood Potassium (3.6-5.2) mmol/L Venous Blood Potassium (3.6-5.2) mmol/L Urine Color (YELLOW) Urine Appearance (CLEAR) Urine pH (4.7-8.0) Ur Specific [place] (1.005-1.035) Urine Protein (<30 mg/dL) mg/dL Urine Glucose (UA) (NEGATIVE) mg/dL Urine Ketones (NEGATIVE) mg/dL Urine Blood (NEGATIVE) Urine Nitrate (NEGATIVE) Urine Bilirubin (NEGATIVE) Urine Urobilinogen (<1 E.U./dL) E.U./dL Ur Leukocyte Esterase (NEGATIVE) Tio/uL Urine RBC (0-2) /hpf Urine WBC (0-6) /hpf Ur Epithelial Cells (0-5) /hpf Amorphous Sediment Urine Bacteria (NEG) Hyaline Casts /hpf Fine Granular Casts (0-2) /hpf Coarse Granular Casts (0-2) /hpf Urine Other Digoxin (0.8-2.0) ng/mL 06/25/18 06/25/18 06/25/18 Range/Units 16:50 16:50 16:50 WBC (4.5-11.0) 10^3/ul RBC (3.5-6.1) 10^6/uL Hgb (12.0-16.0) g/dL Hct (36.0-48.0) % MCV (80.0-105.0) fl MCH (25.0-35.0) pg MCHC (31.0-37.0) g/dl RDW (11.5-14.5) % Plt Count (120.0-450.0) 10^3/uL MPV (7.0-11.0) fl Gran % (50.0-68.0) % Lymph % (Auto) (22.0-35.0) % [place] % (Auto) (1.0-6.0) % Eos % (Auto) (1.5-5.0) % Baso % (Auto) (0.0-3.0) % Gran # (1.4-6.5) Lymph # (Auto) (1.2-3.4) [place] # (Auto) (0.1-0.6) Eos # (Auto) (0.0-0.7) Baso # (Auto) (0.0-2.0) K/mm3 Neutrophils % (Manual) (50.0-70.0) % Band Neutrophils % (0-2) % Lymphocytes % (Manual) (22.0-35.0) % Monocytes % (Manual) (1.0-6.0) % Platelet Evaluation (NORMAL) pCO2 (35-45) mm/Hg pO2 52 (80-100) mm/Hg HCO3 (21-28) mmol/L ABG pH (7.35-7.45) ABG Total CO2 (22-28) mmol.L ABG O2 Saturation (95-98) % ABG O2 Content (15-23) ML/dl ABG Base Excess (-2.0-3.0) mmol/L ABG Hemoglobin (11.7-17.4) g/dL ABG Carboxyhemoglobin (0.5-1.5) % POC ABG HHb (Measured) (0-5) % ABG Methemoglobin (0.0-3.0) % ABG O2 Capacity (16-24) mL/dl ABG Potassium (3.6-5.2) mmol/L VBG pH 7.39 (7.32-7.43) VBG pCO2 47.0 (40-60) VBG HCO3 28.5 H (21-28) mmol/l VBG Total CO2 29.9 H (22-28) mmol.L VBG O2 Sat (Calc) 89.4 H (40-65) % VBG Base Excess 2.8 H (0.0-2.0) mmol/L VBG Potassium 3.6 (3.6-5.2) mmol/L Hgb O2 Saturation (95.0-98.0) % Sodium 138.0 (132-148) mmol/L Chloride 101.0 (98-107) mmol/L Glucose 136 H (65-105) mg/dl Lactate 1.6 (0.7-2.1) mmol/L Mechanical Rate FiO2 21.0 % Tidal Volume PEEP Potassium (3.6-5.0) mmol/L Carbon Dioxide (21-33) mmol/L Anion Gap (10-20) BUN (7-21) mg/dL Creatinine (0.7-1.2) mg/dl Est GFR ( Amer) Est GFR (Non-Af Amer) POC Glucose (mg/dL) (65-110) mg/dL Random Glucose (70-110) mg/dL Calcium (8.4-10.5) mg/dL Phosphorus (2.5-4.5) mg/dL Magnesium (1.7-2.2) mg/dL Total Bilirubin (0.2-1.3) mg/dL AST (14-36) U/L ALT (7-56) U/L Alkaline Phosphatase (38-126) U/L Troponin I ng/mL Total Protein (5.8-8.3) g/dL Albumin (3.0-4.8) g/dL Globulin gm/dL Albumin/Globulin Ratio (1.1-1.8) Triglycerides (35-160) mg/dL Cholesterol (130-200) mg/dL LDL Cholesterol Direct (0-129) mg/dL HDL Cholesterol (29-60) mg/dL Procalcitonin 0.22 (0.19-0.49) NG/ML Arterial Blood Potassium (3.6-5.2) mmol/L Venous Blood Potassium 3.6 (3.6-5.2) mmol/L Urine Color (YELLOW) Urine Appearance (CLEAR) Urine pH (4.7-8.0) Ur Specific [place] (1.005-1.035) Urine Protein (<30 mg/dL) mg/dL Urine Glucose (UA) (NEGATIVE) mg/dL Urine Ketones (NEGATIVE) mg/dL Urine Blood (NEGATIVE) Urine Nitrate (NEGATIVE) Urine Bilirubin (NEGATIVE) Urine Urobilinogen (<1 E.U./dL) E.U./dL Ur Leukocyte Esterase (NEGATIVE) Tio/uL Urine RBC (0-2) /hpf Urine WBC (0-6) /hpf Ur Epithelial Cells (0-5) /hpf Amorphous Sediment Urine Bacteria (NEG) Hyaline Casts /hpf Fine Granular Casts (0-2) /hpf Coarse Granular Casts (0-2) /hpf Urine Other Digoxin < 0.4 L (0.8-2.0) ng/mL 06/25/18 06/25/18 06/25/18 Range/Units 16:15 13:33 12:02 WBC (4.5-11.0) 10^3/ul RBC (3.5-6.1) 10^6/uL Hgb (12.0-16.0) g/dL Hct (36.0-48.0) % MCV (80.0-105.0) fl MCH (25.0-35.0) pg MCHC (31.0-37.0) g/dl RDW (11.5-14.5) % Plt Count (120.0-450.0) 10^3/uL MPV (7.0-11.0) fl Gran % (50.0-68.0) % Lymph % (Auto) (22.0-35.0) % [place] % (Auto) (1.0-6.0) % Eos % (Auto) (1.5-5.0) % Baso % (Auto) (0.0-3.0) % Gran # (1.4-6.5) Lymph # (Auto) (1.2-3.4) [place] # (Auto) (0.1-0.6) Eos # (Auto) (0.0-0.7) Baso # (Auto) (0.0-2.0) K/mm3 Neutrophils % (Manual) (50.0-70.0) % Band Neutrophils % (0-2) % Lymphocytes % (Manual) (22.0-35.0) % Monocytes % (Manual) (1.0-6.0) % Platelet Evaluation (NORMAL) pCO2 42 53 H (35-45) mm/Hg pO2 62.0 L 66.0 L (80-100) mm/Hg HCO3 26.6 24.9 (21-28) mmol/L ABG pH 7.41 7.28 L (7.35-7.45) ABG Total CO2 27.9 26.5 (22-28) mmol.L ABG O2 Saturation 94.5 L 94.6 L (95-98) % ABG O2 Content (15-23) ML/dl ABG Base Excess 1.7 -2.6 L (-2.0-3.0) mmol/L ABG Hemoglobin (11.7-17.4) g/dL ABG Carboxyhemoglobin (0.5-1.5) % POC ABG HHb (Measured) (0-5) % ABG Methemoglobin (0.0-3.0) % ABG O2 Capacity (16-24) mL/dl ABG Potassium 3.3 L 4.2 (3.6-5.2) mmol/L VBG pH (7.32-7.43) VBG pCO2 (40-60) VBG HCO3 (21-28) mmol/l VBG Total CO2 (22-28) mmol.L VBG O2 Sat (Calc) (40-65) % VBG Base Excess (0.0-2.0) mmol/L VBG Potassium (3.6-5.2) mmol/L Hgb O2 Saturation (95.0-98.0) % Sodium 137.0 134.0 (132-148) mmol/L Chloride 103.0 101.0 (98-107) mmol/L Glucose 134 H 284 H (65-105) mg/dl Lactate 1.4 2.2 H (0.7-2.1) mmol/L Mechanical Rate 30 20 FiO2 80.0 100.0 % Tidal Volume 400 400 PEEP 10 5 Potassium (3.6-5.0) mmol/L Carbon Dioxide (21-33) mmol/L Anion Gap (10-20) BUN (7-21) mg/dL Creatinine (0.7-1.2) mg/dl Est GFR ( Amer) Est GFR (Non-Af Amer) POC Glucose (mg/dL) 184 H (65-110) mg/dL Random Glucose (70-110) mg/dL Calcium (8.4-10.5) mg/dL Phosphorus (2.5-4.5) mg/dL Magnesium (1.7-2.2) mg/dL Total Bilirubin (0.2-1.3) mg/dL AST (14-36) U/L ALT (7-56) U/L Alkaline Phosphatase (38-126) U/L Troponin I ng/mL Total Protein (5.8-8.3) g/dL Albumin (3.0-4.8) g/dL Globulin gm/dL Albumin/Globulin Ratio (1.1-1.8) Triglycerides (35-160) mg/dL Cholesterol (130-200) mg/dL LDL Cholesterol Direct (0-129) mg/dL HDL Cholesterol (29-60) mg/dL Procalcitonin (0.19-0.49) NG/ML Arterial Blood Potassium 3.3 L 4.2 (3.6-5.2) mmol/L Venous Blood Potassium (3.6-5.2) mmol/L Urine Color (YELLOW) Urine Appearance (CLEAR) Urine pH (4.7-8.0) Ur Specific [place] (1.005-1.035) Urine Protein (<30 mg/dL) mg/dL Urine Glucose (UA) (NEGATIVE) mg/dL Urine Ketones (NEGATIVE) mg/dL Urine Blood (NEGATIVE) Urine Nitrate (NEGATIVE) Urine Bilirubin (NEGATIVE) Urine Urobilinogen (<1 E.U./dL) E.U./dL Ur Leukocyte Esterase (NEGATIVE) Tio/uL Urine RBC (0-2) /hpf Urine WBC (0-6) /hpf Ur Epithelial Cells (0-5) /hpf Amorphous Sediment Urine Bacteria (NEG) Hyaline Casts /hpf Fine Granular Casts (0-2) /hpf Coarse Granular Casts (0-2) /hpf Urine Other Digoxin (0.8-2.0) ng/mL 06/25/18 Range/Units 11:21 WBC (4.5-11.0) 10^3/ul RBC (3.5-6.1) 10^6/uL Hgb (12.0-16.0) g/dL Hct (36.0-48.0) % MCV (80.0-105.0) fl MCH (25.0-35.0) pg MCHC (31.0-37.0) g/dl RDW (11.5-14.5) % Plt Count (120.0-450.0) 10^3/uL MPV (7.0-11.0) fl Gran % (50.0-68.0) % Lymph % (Auto) (22.0-35.0) % [place] % (Auto) (1.0-6.0) % Eos % (Auto) (1.5-5.0) % Baso % (Auto) (0.0-3.0) % Gran # (1.4-6.5) Lymph # (Auto) (1.2-3.4) [place] # (Auto) (0.1-0.6) Eos # (Auto) (0.0-0.7) Baso # (Auto) (0.0-2.0) K/mm3 Neutrophils % (Manual) (50.0-70.0) % Band Neutrophils % (0-2) % Lymphocytes % (Manual) (22.0-35.0) % Monocytes % (Manual) (1.0-6.0) % Platelet Evaluation (NORMAL) pCO2 (35-45) mm/Hg pO2 (80-100) mm/Hg HCO3 (21-28) mmol/L ABG pH (7.35-7.45) ABG Total CO2 (22-28) mmol.L ABG O2 Saturation (95-98) % ABG O2 Content (15-23) ML/dl ABG Base Excess (-2.0-3.0) mmol/L ABG Hemoglobin (11.7-17.4) g/dL ABG Carboxyhemoglobin (0.5-1.5) % POC ABG HHb (Measured) (0-5) % ABG Methemoglobin (0.0-3.0) % ABG O2 Capacity (16-24) mL/dl ABG Potassium (3.6-5.2) mmol/L VBG pH (7.32-7.43) VBG pCO2 (40-60) VBG HCO3 (21-28) mmol/l VBG Total CO2 (22-28) mmol.L VBG O2 Sat (Calc) (40-65) % VBG Base Excess (0.0-2.0) mmol/L VBG Potassium (3.6-5.2) mmol/L Hgb O2 Saturation (95.0-98.0) % Sodium (132-148) mmol/L Chloride (98-107) mmol/L Glucose (65-105) mg/dl Lactate (0.7-2.1) mmol/L Mechanical Rate FiO2 % Tidal Volume PEEP Potassium (3.6-5.0) mmol/L Carbon Dioxide (21-33) mmol/L Anion Gap (10-20) BUN (7-21) mg/dL Creatinine (0.7-1.2) mg/dl Est GFR ( Amer) Est GFR (Non-Af Amer) POC Glucose (mg/dL) (65-110) mg/dL Random Glucose (70-110) mg/dL Calcium (8.4-10.5) mg/dL Phosphorus (2.5-4.5) mg/dL Magnesium (1.7-2.2) mg/dL Total Bilirubin (0.2-1.3) mg/dL AST (14-36) U/L ALT (7-56) U/L Alkaline Phosphatase (38-126) U/L Troponin I ng/mL Total Protein (5.8-8.3) g/dL Albumin (3.0-4.8) g/dL Globulin gm/dL Albumin/Globulin Ratio (1.1-1.8) Triglycerides (35-160) mg/dL Cholesterol (130-200) mg/dL LDL Cholesterol Direct (0-129) mg/dL HDL Cholesterol (29-60) mg/dL Procalcitonin (0.19-0.49) NG/ML Arterial Blood Potassium (3.6-5.2) mmol/L Venous Blood Potassium (3.6-5.2) mmol/L Urine Color Yellow (YELLOW) Urine Appearance Clear (CLEAR) Urine pH 6.0 (4.7-8.0) Ur Specific [place] 1.020 (1.005-1.035) Urine Protein >=300 H (<30 mg/dL) mg/dL Urine Glucose (UA) 100 H (NEGATIVE) mg/dL Urine Ketones Negative (NEGATIVE) mg/dL Urine Blood Moderate H (NEGATIVE) Urine Nitrate Negative (NEGATIVE) Urine Bilirubin Negative (NEGATIVE) Urine Urobilinogen 0.2 (<1 E.U./dL) E.U./dL Ur Leukocyte Esterase Negative (NEGATIVE) Tio/uL Urine RBC 20 - 25 (0-2) /hpf Urine WBC 1 - 3 (0-6) /hpf Ur Epithelial Cells 6 - 8 (0-5) /hpf Amorphous Sediment Few Urine Bacteria Many (NEG) Hyaline Casts 0 - 2 /hpf Fine Granular Casts 0 - 2 (0-2) /hpf Coarse Granular Casts Trace H (0-2) /hpf Urine Other Uyeast Digoxin (0.8-2.0) ng/mL Laboratory Results - last 24 hr 06/25/18 06/25/18 06/25/18 11:21 12:02 13:33 WBC RBC Hgb Hct MCV MCH MCHC RDW Plt Count MPV Gran % Lymph % (Auto) [place] % (Auto) Eos % (Auto) Baso % (Auto) Gran # Lymph # (Auto) [place] # (Auto) Eos # (Auto) Baso # (Auto) Neutrophils % (Manual) Band Neutrophils % Lymphocytes % (Manual) Monocytes % (Manual) Platelet Evaluation pCO2 53 H pO2 66.0 L HCO3 24.9 ABG pH 7.28 L ABG Total CO2 26.5 ABG O2 Saturation 94.6 L ABG O2 Content ABG Base Excess -2.6 L ABG Hemoglobin ABG Carboxyhemoglobin POC ABG HHb (Measured) ABG Methemoglobin ABG O2 Capacity ABG Potassium 4.2 VBG pH VBG pCO2 VBG HCO3 VBG Total CO2 VBG O2 Sat (Calc) VBG Base Excess VBG Potassium Hgb O2 Saturation Sodium 134.0 Chloride 101.0 Glucose 284 H Lactate 2.2 H Mechanical Rate 20 FiO2 100.0 Tidal Volume 400 PEEP 5 Potassium Carbon Dioxide Anion Gap BUN Creatinine Est GFR ( Amer) Est GFR (Non-Af Amer) POC Glucose (mg/dL) 184 H Random Glucose Calcium Phosphorus Magnesium Total Bilirubin AST ALT Alkaline Phosphatase Troponin I Total Protein Albumin Globulin Albumin/Globulin Ratio Triglycerides Cholesterol LDL Cholesterol Direct HDL Cholesterol Procalcitonin Arterial Blood Potassium 4.2 Venous Blood Potassium Urine Color Yellow Urine Appearance Clear Urine pH 6.0 Ur Specific [place] 1.020 Urine Protein >=300 H Urine Glucose (UA) 100 H Urine Ketones Negative Urine Blood Moderate H Urine Nitrate Negative Urine Bilirubin Negative Urine Urobilinogen 0.2 Ur Leukocyte Esterase Negative Urine RBC 20 - 25 Urine WBC 1 - 3 Ur Epithelial Cells 6 - 8 Amorphous Sediment Few Urine Bacteria Many Hyaline Casts 0 - 2 Fine Granular Casts 0 - 2 Coarse Granular Casts Trace H Urine Other Uyeast Digoxin 06/25/18 06/25/18 06/25/18 16:15 16:50 16:50 WBC RBC Hgb Hct MCV MCH MCHC RDW Plt Count MPV Gran % Lymph % (Auto) [place] % (Auto) Eos % (Auto) Baso % (Auto) Gran # Lymph # (Auto) [place] # (Auto) Eos # (Auto) Baso # (Auto) Neutrophils % (Manual) Band Neutrophils % Lymphocytes % (Manual) Monocytes % (Manual) Platelet Evaluation pCO2 42 pO2 62.0 L 52 HCO3 26.6 ABG pH 7.41 ABG Total CO2 27.9 ABG O2 Saturation 94.5 L ABG O2 Content ABG Base Excess 1.7 ABG Hemoglobin ABG Carboxyhemoglobin POC ABG HHb (Measured) ABG Methemoglobin ABG O2 Capacity ABG Potassium 3.3 L VBG pH 7.39 VBG pCO2 47.0 VBG HCO3 28.5 H VBG Total CO2 29.9 H VBG O2 Sat (Calc) 89.4 H VBG Base Excess 2.8 H VBG Potassium 3.6 Hgb O2 Saturation Sodium 137.0 138.0 Chloride 103.0 101.0 Glucose 134 H 136 H Lactate 1.4 1.6 Mechanical Rate 30 FiO2 80.0 21.0 Tidal Volume 400 PEEP 10 Potassium Carbon Dioxide Anion Gap BUN Creatinine Est GFR ( Amer) Est GFR (Non-Af Amer) POC Glucose (mg/dL) Random Glucose Calcium Phosphorus Magnesium Total Bilirubin AST ALT Alkaline Phosphatase Troponin I Total Protein Albumin Globulin Albumin/Globulin Ratio Triglycerides Cholesterol LDL Cholesterol Direct HDL Cholesterol Procalcitonin 0.22 Arterial Blood Potassium 3.3 L Venous Blood Potassium 3.6 Urine Color Urine Appearance Urine pH Ur Specific [place] Urine Protein Urine Glucose (UA) Urine Ketones Urine Blood Urine Nitrate Urine Bilirubin Urine Urobilinogen Ur Leukocyte Esterase Urine RBC Urine WBC Ur Epithelial Cells Amorphous Sediment Urine Bacteria Hyaline Casts Fine Granular Casts Coarse Granular Casts Urine Other Digoxin 06/25/18 06/25/18 06/25/18 16:50 16:50 17:32 WBC RBC Hgb Hct MCV MCH MCHC RDW Plt Count MPV Gran % Lymph % (Auto) [place] % (Auto) Eos % (Auto) Baso % (Auto) Gran # Lymph # (Auto) [place] # (Auto) Eos # (Auto) Baso # (Auto) Neutrophils % (Manual) Band Neutrophils % Lymphocytes % (Manual) Monocytes % (Manual) Platelet Evaluation pCO2 pO2 HCO3 ABG pH ABG Total CO2 ABG O2 Saturation ABG O2 Content ABG Base Excess ABG Hemoglobin ABG Carboxyhemoglobin POC ABG HHb (Measured) ABG Methemoglobin ABG O2 Capacity ABG Potassium VBG pH VBG pCO2 VBG HCO3 VBG Total CO2 VBG O2 Sat (Calc) VBG Base Excess VBG Potassium Hgb O2 Saturation Sodium 138 Chloride 101 Glucose Lactate Mechanical Rate FiO2 Tidal Volume PEEP Potassium 3.7 Carbon Dioxide 26 Anion Gap 15 BUN 22 H Creatinine 0.9 Est GFR ( Amer) > 60 Est GFR (Non-Af Amer) > 60 POC Glucose (mg/dL) 130 H Random Glucose 138 H Calcium 9.0 Phosphorus 3.6 Magnesium 1.9 Total Bilirubin 0.6 AST 38 H ALT 39 Alkaline Phosphatase 69 Troponin I 0.08 D Total Protein 7.5 Albumin 4.2 Globulin 3.3 Albumin/Globulin Ratio 1.2 Triglycerides Cholesterol LDL Cholesterol Direct HDL Cholesterol Procalcitonin Arterial Blood Potassium Venous Blood Potassium Urine Color Urine Appearance Urine pH Ur Specific [place] Urine Protein Urine Glucose (UA) Urine Ketones Urine Blood Urine Nitrate Urine Bilirubin Urine Urobilinogen Ur Leukocyte Esterase Urine RBC Urine WBC Ur Epithelial Cells Amorphous Sediment Urine Bacteria Hyaline Casts Fine Granular Casts Coarse Granular Casts Urine Other Digoxin < 0.4 L 06/25/18 06/25/18 06/25/18 21:21 22:40 23:22 WBC 15.5 H D RBC 4.70 Hgb 14.3 Hct 42.5 MCV 90.4 D MCH 30.4 MCHC 33.6 RDW 14.2 Plt Count 99 L MPV 12.8 H Gran % 87.3 H Lymph % (Auto) 5.6 L [place] % (Auto) 7.0 H Eos % (Auto) 0.0 L Baso % (Auto) 0.1 Gran # 13.50 H Lymph # (Auto) 0.9 L [place] # (Auto) 1.1 H Eos # (Auto) 0.0 Baso # (Auto) 0.01 Neutrophils % (Manual) Band Neutrophils % Lymphocytes % (Manual) Monocytes % (Manual) Platelet Evaluation pCO2 pO2 HCO3 ABG pH ABG Total CO2 ABG O2 Saturation ABG O2 Content ABG Base Excess ABG Hemoglobin ABG Carboxyhemoglobin POC ABG HHb (Measured) ABG Methemoglobin ABG O2 Capacity ABG Potassium VBG pH VBG pCO2 VBG HCO3 VBG Total CO2 VBG O2 Sat (Calc) VBG Base Excess VBG Potassium Hgb O2 Saturation Sodium Chloride Glucose Lactate Mechanical Rate FiO2 Tidal Volume PEEP Potassium Carbon Dioxide Anion Gap BUN Creatinine Est GFR ( Amer) Est GFR (Non-Af Amer) POC Glucose (mg/dL) 135 H 150 H Random Glucose Calcium Phosphorus Magnesium Total Bilirubin AST ALT Alkaline Phosphatase Troponin I Total Protein Albumin Globulin Albumin/Globulin Ratio Triglycerides Cholesterol LDL Cholesterol Direct HDL Cholesterol Procalcitonin Arterial Blood Potassium Venous Blood Potassium Urine Color Urine Appearance Urine pH Ur Specific [place] Urine Protein Urine Glucose (UA) Urine Ketones Urine Blood Urine Nitrate Urine Bilirubin Urine Urobilinogen Ur Leukocyte Esterase Urine RBC Urine WBC Ur Epithelial Cells Amorphous Sediment Urine Bacteria Hyaline Casts Fine Granular Casts Coarse Granular Casts Urine Other Digoxin 06/26/18 06/26/18 06/26/18 00:05 03:37 05:29 WBC RBC Hgb Hct MCV MCH MCHC RDW Plt Count MPV Gran % Lymph % (Auto) [place] % (Auto) Eos % (Auto) Baso % (Auto) Gran # Lymph # (Auto) [place] # (Auto) Eos # (Auto) Baso # (Auto) Neutrophils % (Manual) Band Neutrophils % Lymphocytes % (Manual) Monocytes % (Manual) Platelet Evaluation pCO2 pO2 HCO3 ABG pH ABG Total CO2 ABG O2 Saturation ABG O2 Content ABG Base Excess ABG Hemoglobin ABG Carboxyhemoglobin POC ABG HHb (Measured) ABG Methemoglobin ABG O2 Capacity ABG Potassium VBG pH VBG pCO2 VBG HCO3 VBG Total CO2 VBG O2 Sat (Calc) VBG Base Excess VBG Potassium Hgb O2 Saturation Sodium 137 Chloride 97 L Glucose Lactate Mechanical Rate FiO2 Tidal Volume PEEP Potassium 3.8 Carbon Dioxide 29 Anion Gap 15 BUN 20 Creatinine 0.8 Est GFR ( Amer) > 60 Est GFR (Non-Af Amer) > 60 POC Glucose (mg/dL) 132 H 161 H Random Glucose 134 H Calcium 8.8 Phosphorus 4.6 H Magnesium 1.8 Total Bilirubin AST ALT Alkaline Phosphatase Troponin I Total Protein Albumin Globulin Albumin/Globulin Ratio Triglycerides Cholesterol LDL Cholesterol Direct HDL Cholesterol Procalcitonin Arterial Blood Potassium Venous Blood Potassium Urine Color Urine Appearance Urine pH Ur Specific [place] Urine Protein Urine Glucose (UA) Urine Ketones Urine Blood Urine Nitrate Urine Bilirubin Urine Urobilinogen Ur Leukocyte Esterase Urine RBC Urine WBC Ur Epithelial Cells Amorphous Sediment Urine Bacteria Hyaline Casts Fine Granular Casts Coarse Granular Casts Urine Other Digoxin 06/26/18 06/26/18 06/26/18 05:30 05:30 06:00 WBC 17.9 H RBC 4.90 Hgb 15.1 Hct 44.7 MCV 91.2 MCH 30.8 MCHC 33.8 RDW 14.3 Plt Count 180 MPV 12.5 H Gran % 84.5 H Lymph % (Auto) 4.2 L [place] % (Auto) 11.2 H Eos % (Auto) 0.0 L Baso % (Auto) 0.1 Gran # 15.17 H Lymph # (Auto) 0.8 L [place] # (Auto) 2.0 H Eos # (Auto) 0.0 Baso # (Auto) 0.01 Neutrophils % (Manual) 89 H Band Neutrophils % 3 H Lymphocytes % (Manual) 7 L Monocytes % (Manual) 1 Platelet Evaluation Normal pCO2 29 L pO2 151.0 H HCO3 22.6 ABG pH 7.50 H ABG Total CO2 23.5 ABG O2 Saturation 99.7 H ABG O2 Content 21.8 ABG Base Excess 0.6 ABG Hemoglobin 15.8 ABG Carboxyhemoglobin 1.5 POC ABG HHb (Measured) 0.3 ABG Methemoglobin 1.1 ABG O2 Capacity 21.9 ABG Potassium VBG pH VBG pCO2 VBG HCO3 VBG Total CO2 VBG O2 Sat (Calc) VBG Base Excess VBG Potassium Hgb O2 Saturation 97.1 Sodium 133 Chloride 97 L Glucose Lactate Mechanical Rate FiO2 80.0 Tidal Volume PEEP Potassium 3.8 Carbon Dioxide 26 Anion Gap 15 BUN 18 Creatinine 0.7 Est GFR ( Amer) > 60 Est GFR (Non-Af Amer) > 60 POC Glucose (mg/dL) Random Glucose 134 H Calcium 8.2 L Phosphorus 3.6 Magnesium 1.7 Total Bilirubin 1.3 AST 60 H D ALT 28 Alkaline Phosphatase 62 Troponin I Total Protein 7.3 Albumin 3.7 Globulin 3.5 Albumin/Globulin Ratio 1.1 Triglycerides 1994 H Cholesterol 160 LDL Cholesterol Direct 71 HDL Cholesterol 35 Procalcitonin Arterial Blood Potassium Venous Blood Potassium Urine Color Urine Appearance Urine pH Ur Specific [place] Urine Protein Urine Glucose (UA) Urine Ketones Urine Blood Urine Nitrate Urine Bilirubin Urine Urobilinogen Ur Leukocyte Esterase Urine RBC Urine WBC Ur Epithelial Cells Amorphous Sediment Urine Bacteria Hyaline Casts Fine Granular Casts Coarse Granular Casts Urine Other Digoxin 06/26/18 07:33 WBC RBC Hgb Hct MCV MCH MCHC RDW Plt Count MPV Gran % Lymph % (Auto) [place] % (Auto) Eos % (Auto) Baso % (Auto) Gran # Lymph # (Auto) [place] # (Auto) Eos # (Auto) Baso # (Auto) Neutrophils % (Manual) Band Neutrophils % Lymphocytes % (Manual) Monocytes % (Manual) Platelet Evaluation pCO2 pO2 HCO3 ABG pH ABG Total CO2 ABG O2 Saturation ABG O2 Content ABG Base Excess ABG Hemoglobin ABG Carboxyhemoglobin POC ABG HHb (Measured) ABG Methemoglobin ABG O2 Capacity ABG Potassium VBG pH VBG pCO2 VBG HCO3 VBG Total CO2 VBG O2 Sat (Calc) VBG Base Excess VBG Potassium Hgb O2 Saturation Sodium Chloride Glucose Lactate Mechanical Rate FiO2 Tidal Volume PEEP Potassium Carbon Dioxide Anion Gap BUN Creatinine Est GFR ( Amer) Est GFR (Non-Af Amer) POC Glucose (mg/dL) 195 H Random Glucose Calcium Phosphorus Magnesium Total Bilirubin AST ALT Alkaline Phosphatase Troponin I Total Protein Albumin Globulin Albumin/Globulin Ratio Triglycerides Cholesterol LDL Cholesterol Direct HDL Cholesterol Procalcitonin Arterial Blood Potassium Venous Blood Potassium Urine Color Urine Appearance Urine pH Ur Specific [place] Urine Protein Urine Glucose (UA) Urine Ketones Urine Blood Urine Nitrate Urine Bilirubin Urine Urobilinogen Ur Leukocyte Esterase Urine RBC Urine WBC Ur Epithelial Cells Amorphous Sediment Urine Bacteria Hyaline Casts Fine Granular Casts Coarse Granular Casts Urine Other Digoxin EKG/Cardiology Studies: Cardiology / EKG Studies 06/25/18 10:56 EKG [ELECTROCARDIOGRAM] Stat Comment: Reason For Exam: CARDIAC ARREST 06/25/18 14:31 EKG [ELECTROCARDIOGRAM] Stat Comment: Reason For Exam: CARDAC ARREST 06/25/18 23:49 EKG [ELECTROCARDIOGRAM] Stat Comment: Reason For Exam: code freeze Does Patient Have a Pacemaker?: No PERFORMING PHYSICIAN/PROVIDER:: Lizz Harrell Fingerstick Blood Sugar Results: 195 Review of Systems - Review of Systems Systems not reviewed;Unavailable: Intubated Critical Care Progress Note - Ventilator Checklist Head of Bed 30 Degrees: Yes Daily Sedation Vacation: Yes Daily Assessment of Readiness to Wean: Yes Daily Spontaneous Breathing Trial: Yes PUD Prophalyxis: Yes DVT Prophylaxis: Yes - Vent Settings MODE:: PRVC TIDAL VOLUME:: 400 RESP RATE:: 15 FIO2:: 50 PEEP:: 15 - Extremities/Vascular Does the Patient have a Central Venous Catheter?: No Assessment/Plan - Assessment and Plan (Free Text) Assessment: 62 yo F with PMH of DM2, HTN, COPD, and chronic AFib presented in [facility] via [facility] with ROSC achieved after 2 minutes of CPR and one dose of epinephrine. Patient now with no activity on EEG, non-responsive, and reflexes absent. Plan: Neuro: -Patient is currently non-responsive to sternal rub, trapezius pinch -Doll's eyes, gag, corneal, and pupillary reflexes all absent -Likely has significant anoxic brain injury -Patient is currently on cooling protocol -Per neurology, no activity thus far on EEG -Continue cooling protocol, maintain temp < 95 -F/u neurology recs Cardio: -Currently RRR, normotensive -PCI shortly after arrival in ED showed no significant stenosis, no stents were placed -LVEF found to be between 15-20% on cath -On continuous amiodarone and dobutamine -Patient has hx of AFib -Cardiac arrest likely 2/2 arrhythmia -F/u cardiology recs Pulm: -Intubated and sedated with fentanyl, versed -CTA b/l -D/c propofol due to severe hypertriglyceridemia -Vent Settings: TV 400 RR 15 PEEP 15 O2 50 -Protective lung ventilation strategy -Keep head of bed elevated to 30 degrees -Aspiration pxns -Daily ABG, CXR GI: -NPO on vent -NG in place, no suction needed, may use for meds -Consider tube feedings if needed /Nephro: -BUN/Cr stable -UOP adequate -Continue to monitor -Maintain euvolemia Endocrine: -Maintain euglycemia -Patient has hx of DM2 -ISS as needed ID: -Afebrile -Leukocytosis likely reactionary -F/u blood, urine cx, urine legionella results -On empiric cefepime and flagyl -ID following, recs appreciated Heme/Onc: -H/H stable at 15.1/44.7 -No signs of HD compromise -Continue monitoring H/H DVT/GI PPX: Protonix and lovenox Full Code Monitor in MICU Case and plan reviewed and discussed with my attending Dr. Frida Vasquez, DO IM Resident PGY-1 <Kenyon Galicia - Last Filed: 06/26/18 13:18> CCU Objective - Vital Signs / Intake & Output Vital Signs (Last 4 hours): Vital Signs Temp Pulse BP Pulse Ox 06/26/18 12:30 125/82 06/26/18 12:29 95.2 F L 73 97 06/26/18 12:20 95.2 F L 75 97 06/26/18 12:15 128/74 06/26/18 12:14 95.0 F L 73 97 06/26/18 12:10 95.0 F L 74 97 06/26/18 12:00 132/90 06/26/18 11:59 94.8 F L 97 06/26/18 11:50 94.5 F L 96 06/26/18 11:45 94.5 F L 139/94 H 98 06/26/18 11:40 94.3 F L 77 100 06/26/18 11:37 94.1 F L 91 L 06/26/18 11:30 93.9 F L 73 130/82 100 06/26/18 11:26 93.7 F L 89 119/89 100 06/26/18 11:24 93.7 F L 90 06/26/18 11:20 93.6 F L 94 H 99 06/26/18 11:16 93.4 F L 85 159/92 H 98 06/26/18 11:10 92.8 F L 72 90 L 06/26/18 11:00 92.1 F L 83 116/85 91 L 06/26/18 10:59 95/57 L 06/26/18 10:56 91.8 F L 69 95/57 L 94 L 06/26/18 10:50 91.4 F L 65 95 06/26/18 10:48 91.2 F L 70 90/54 L 95 06/26/18 10:45 91.0 F L 67 86/54 L 94 L 06/26/18 10:40 90.7 F L 66 95 06/26/18 10:37 90.5 F L 65 88/49 L 95 06/26/18 10:30 90.0 F L 72 89/41 L 94 L 06/26/18 10:20 89.4 F L 61 96 06/26/18 10:15 89.1 F L 62 97/47 L 95 06/26/18 10:10 88.7 F L 62 96 06/26/18 10:00 88.3 F L 63 98/34 L 96 06/26/18 09:50 87.8 F L 57 L 96 06/26/18 09:45 87.6 F L 60 103/56 L 96 06/26/18 09:40 87.3 F L 102/71 95 06/26/18 09:30 86.9 F L 57 L 91/65 L 93 L 06/26/18 09:20 86.7 F L 93 L 06/26/18 09:15 86.5 F L 54 L 97/68 L 94 L Intake and Output (Last 8hrs): Intake & Output 06/25/18 06/26/18 06/26/18 22:59 06:59 14:59 Intake Total 100 475 226 Output Total 80 2019 Balance 20 -154 226 Intake: IV 100 475 226 Right Hand 400 Oral 0 Output: Urine 80 1900 2-way Urethral 80 1900 Stool 120 Other: # Bowel Movements 0 - Medications Active Medications: Active Medications Generic Name Dose Route Start Last Admin Trade Name Freq PRN Reason Stop Dose Admin Amiodarone HCl 400 mg 06/26/18 10:00 06/26/18 09:13 Cordarone PO 06/28/18 23:59 Not Given TID [facility] Amiodarone HCl 200 mg 06/29/18 10:00 Cordarone PO DAILY [facility] Aspirin 81 mg 06/26/18 06:00 06/26/18 10:56 Aspirin Chewable NG 81 mg DAILY LYNDA Administration Atorvastatin Calcium 80 mg 06/25/18 17:00 Lipitor NG DIN [facility] Gemfibrozil 600 mg 06/26/18 10:15 06/26/18 10:59 Lopid PO 600 mg BID LYNDA Administration Heparin Sodium (Porcine) 5,000 units 06/25/18 20:00 06/26/18 05:44 Heparin SC 5,000 units Q8 LYNDA Administration Protocol Dobutamine HCl/Dextrose 500 mg in 250 mls @ 7.62 mls/hr 06/25/18 11:18 06/26/18 07:50 Dobutamine/Dextrose 5% 500mg/250ml IV 4 mcg/kg/min .Q24H PRN 15.241 mls/hr TITRATE PER PROTOCOL Titration Protocol 2 MCG/KG/MIN Heparin Sodium/Sodium Chloride 25,000 units in 250 mls @ 15.241 mls/hr 06/25/18 11:30 06/25/18 11:30 Heparin 78726 Units/250ml 1/2 Normal Saline IV Not Given .[id number] [facility] Protocol 12 UNITS/KG/HR Levetiracetam 500 mg in 100 mls @ 400 mls/hr 06/25/18 11:30 06/26/18 09:12 Keppra 500mg Ivpb IVPB 400 mls/hr Q12 LYNDA Administration Cisatracurium Besylate 200 mg/ 270 mls @ 4.66 mls/hr 06/25/18 16:05 06/26/18 07:00 Sodium Chloride IV 0.5 mcg/kg/min .Q24H PRN 4.66 mls/hr TITRATE PER MD ORDER Titration Protocol 0.5 MCG/KG/MIN Acetaminophen 1,000 mg in 100 mls @ 400 mls/hr 06/25/18 16:16 Ofirmev IVPB 06/27/18 16:17 Q6H PRN for T>100F Doxycycline Hyclate 100 mg/ 100 mls @ 100 mls/hr 06/25/18 22:00 06/26/18 10:45 Sodium Chloride IVPB 100 mls/hr Q12 LYNDA Administration Protocol Metronidazole 500 mg in 100 mls @ 100 mls/hr 06/25/18 22:00 06/26/18 05:45 Flagyl IVPB 100 mls/hr Q8 LYNDA Administration Protocol Amiodarone HCl/Dextrose 360 mg in 200 mls @ 16.667 mls/hr 06/25/18 19:45 06/25/18 21:53 Nexterone 360 Mg In D5w 200 Ml (Premix) IV 16.667 mls/hr .Q12H LYNDA Administration Protocol 0.5 MG/MIN Cefepime HCl 2 gm in 100 mls @ 100 mls/hr 06/26/18 08:00 06/26/18 09:00 Maxipime 2gm IVPB 07/01/18 08:01 100 mls/hr Q8 LYNDA Administration Protocol Fentanyl Citrate 1,000 mcg in 100 mls @ 10 mls/hr 06/26/18 10:05 06/26/18 13:07 Fentanyl Citrate/Sodium Chloride 1 Mg/100 Ml IV 40 mcg/hr .Q10H PRN 4 mls/hr TITRATE PER MD ORDER Titration Protocol 100 MCG/HR Midazolam 100 mg/100ml in NS 100 mg in 100 mls @ 1 mls/hr 06/26/18 10:06 06/26/18 11:30 Midazolam 100 Mg/100ml In Ns IV 2 mg/hr .Q24H PRN 2 mls/hr Sedation Titration Protocol 1 MG/HR Insulin Human Regular 0 units 06/25/18 13:00 06/26/18 11:56 Humulin R Med SC 3 unit Q2H LYNDA Administration Protocol Pantoprazole Sodium 40 mg 06/25/18 11:30 06/26/18 09:12 Protonix Inj IVP 40 mg DAILY LYNDA Administration - Patient Studies Lab Studies: Microbiology Studies 06/25/18 12:45 Blood Culture - Preliminary Blood-Venous NO GROWTH AFTER 24 HOURS 06/25/18 12:33 Blood Culture - Preliminary Blood-Venous NO GROWTH AFTER 24 HOURS Lab Studies 06/26/18 06/26/18 06/26/18 Range/Units 11:41 10:45 07:33 WBC (4.5-11.0) 10^3/ul RBC (3.5-6.1) 10^6/uL Hgb (12.0-16.0) g/dL Hct (36.0-48.0) % MCV (80.0-105.0) fl MCH (25.0-35.0) pg MCHC (31.0-37.0) g/dl RDW (11.5-14.5) % Plt Count (120.0-450.0) 10^3/uL MPV (7.0-11.0) fl Gran % (50.0-68.0) % Lymph % (Auto) (22.0-35.0) % [place] % (Auto) (1.0-6.0) % Eos % (Auto) (1.5-5.0) % Baso % (Auto) (0.0-3.0) % Gran # (1.4-6.5) Lymph # (Auto) (1.2-3.4) [place] # (Auto) (0.1-0.6) Eos # (Auto) (0.0-0.7) Baso # (Auto) (0.0-2.0) K/mm3 Neutrophils % (Manual) (50.0-70.0) % Band Neutrophils % (0-2) % Lymphocytes % (Manual) (22.0-35.0) % Monocytes % (Manual) (1.0-6.0) % Platelet Evaluation (NORMAL) pCO2 (35-45) mm/Hg pO2 (80-100) mm/Hg HCO3 (21-28) mmol/L ABG pH (7.35-7.45) ABG Total CO2 (22-28) mmol.L ABG O2 Saturation (95-98) % ABG O2 Content (15-23) ML/dl ABG Base Excess (-2.0-3.0) mmol/L ABG Hemoglobin (11.7-17.4) g/dL ABG Carboxyhemoglobin (0.5-1.5) % POC ABG HHb (Measured) (0-5) % ABG Methemoglobin (0.0-3.0) % ABG O2 Capacity (16-24) mL/dl ABG Potassium (3.6-5.2) mmol/L VBG pH (7.32-7.43) VBG pCO2 (40-60) VBG HCO3 (21-28) mmol/l VBG Total CO2 (22-28) mmol.L VBG O2 Sat (Calc) (40-65) % VBG Base Excess (0.0-2.0) mmol/L VBG Potassium (3.6-5.2) mmol/L Hgb O2 Saturation (95.0-98.0) % Sodium (132-148) mmol/L Chloride (98-107) mmol/L Glucose (65-105) mg/dl Lactate (0.7-2.1) mmol/L Mechanical Rate FiO2 % Tidal Volume PEEP Potassium (3.6-5.0) mmol/L Carbon Dioxide (21-33) mmol/L Anion Gap (10-20) BUN (7-21) mg/dL Creatinine (0.7-1.2) mg/dl Est GFR ( Amer) Est GFR (Non-Af Amer) POC Glucose (mg/dL) 214 H 195 H (65-110) mg/dL Random Glucose (70-110) mg/dL Hemoglobin A1c (4.2-6.5) % Calcium (8.4-10.5) mg/dL Phosphorus (2.5-4.5) mg/dL Magnesium (1.7-2.2) mg/dL Total Bilirubin (0.2-1.3) mg/dL AST (14-36) U/L ALT (7-56) U/L Alkaline Phosphatase (38-126) U/L Troponin I ng/mL Total Protein (5.8-8.3) g/dL Albumin (3.0-4.8) g/dL Globulin gm/dL Albumin/Globulin Ratio (1.1-1.8) Triglycerides (35-160) mg/dL Cholesterol (130-200) mg/dL LDL Cholesterol Direct (0-129) mg/dL HDL Cholesterol (29-60) mg/dL Lipase 89 (23-300) U/L Procalcitonin (0.19-0.49) NG/ML Arterial Blood Potassium (3.6-5.2) mmol/L Venous Blood Potassium (3.6-5.2) mmol/L Digoxin (0.8-2.0) ng/mL 06/26/18 06/26/18 06/26/18 Range/Units 06:00 05:30 05:30 WBC (4.5-11.0) 10^3/ul RBC (3.5-6.1) 10^6/uL Hgb (12.0-16.0) g/dL Hct (36.0-48.0) % MCV (80.0-105.0) fl MCH (25.0-35.0) pg MCHC (31.0-37.0) g/dl RDW (11.5-14.5) % Plt Count (120.0-450.0) 10^3/uL MPV (7.0-11.0) fl Gran % (50.0-68.0) % Lymph % (Auto) (22.0-35.0) % [place] % (Auto) (1.0-6.0) % Eos % (Auto) (1.5-5.0) % Baso % (Auto) (0.0-3.0) % Gran # (1.4-6.5) Lymph # (Auto) (1.2-3.4) [place] # (Auto) (0.1-0.6) Eos # (Auto) (0.0-0.7) Baso # (Auto) (0.0-2.0) K/mm3 Neutrophils % (Manual) (50.0-70.0) % Band Neutrophils % (0-2) % Lymphocytes % (Manual) (22.0-35.0) % Monocytes % (Manual) (1.0-6.0) % Platelet Evaluation (NORMAL) pCO2 29 L (35-45) mm/Hg pO2 151.0 H (80-100) mm/Hg HCO3 22.6 (21-28) mmol/L ABG pH 7.50 H (7.35-7.45) ABG Total CO2 23.5 (22-28) mmol.L ABG O2 Saturation 99.7 H (95-98) % ABG O2 Content 21.8 (15-23) ML/dl ABG Base Excess 0.6 (-2.0-3.0) mmol/L ABG Hemoglobin 15.8 (11.7-17.4) g/dL ABG Carboxyhemoglobin 1.5 (0.5-1.5) % POC ABG HHb (Measured) 0.3 (0-5) % ABG Methemoglobin 1.1 (0.0-3.0) % ABG O2 Capacity 21.9 (16-24) mL/dl ABG Potassium (3.6-5.2) mmol/L VBG pH (7.32-7.43) VBG pCO2 (40-60) VBG HCO3 (21-28) mmol/l VBG Total CO2 (22-28) mmol.L VBG O2 Sat (Calc) (40-65) % VBG Base Excess (0.0-2.0) mmol/L VBG Potassium (3.6-5.2) mmol/L Hgb O2 Saturation 97.1 (95.0-98.0) % Sodium 133 (132-148) mmol/L Chloride 97 L (98-107) mmol/L Glucose (65-105) mg/dl Lactate (0.7-2.1) mmol/L Mechanical Rate FiO2 80.0 % Tidal Volume PEEP Potassium 3.8 (3.6-5.0) mmol/L Carbon Dioxide 26 (21-33) mmol/L Anion Gap 15 (10-20) BUN 18 (7-21) mg/dL Creatinine 0.7 (0.7-1.2) mg/dl Est GFR ( Amer) > 60 Est GFR (Non-Af Amer) > 60 POC Glucose (mg/dL) (65-110) mg/dL Random Glucose 134 H (70-110) mg/dL Hemoglobin A1c 6.5 (4.2-6.5) % Calcium 8.2 L (8.4-10.5) mg/dL Phosphorus 3.6 (2.5-4.5) mg/dL Magnesium 1.7 (1.7-2.2) mg/dL Total Bilirubin 1.3 (0.2-1.3) mg/dL AST 60 H D (14-36) U/L ALT 28 (7-56) U/L Alkaline Phosphatase 62 (38-126) U/L Troponin I ng/mL Total Protein 7.3 (5.8-8.3) g/dL Albumin 3.7 (3.0-4.8) g/dL Globulin 3.5 gm/dL Albumin/Globulin Ratio 1.1 (1.1-1.8) Triglycerides 1994 H (35-160) mg/dL Cholesterol 160 (130-200) mg/dL LDL Cholesterol Direct 71 (0-129) mg/dL HDL Cholesterol 35 (29-60) mg/dL Lipase (23-300) U/L Procalcitonin (0.19-0.49) NG/ML Arterial Blood Potassium (3.6-5.2) mmol/L Venous Blood Potassium (3.6-5.2) mmol/L Digoxin (0.8-2.0) ng/mL 06/26/18 06/26/18 06/26/18 Range/Units 05:30 05:29 03:37 WBC 17.9 H (4.5-11.0) 10^3/ul RBC 4.90 (3.5-6.1) 10^6/uL Hgb 15.1 (12.0-16.0) g/dL Hct 44.7 (36.0-48.0) % MCV 91.2 (80.0-105.0) fl MCH 30.8 (25.0-35.0) pg MCHC 33.8 (31.0-37.0) g/dl RDW 14.3 (11.5-14.5) % Plt Count 180 (120.0-450.0) 10^3/uL MPV 12.5 H (7.0-11.0) fl Gran % 84.5 H (50.0-68.0) % Lymph % (Auto) 4.2 L (22.0-35.0) % [place] % (Auto) 11.2 H (1.0-6.0) % Eos % (Auto) 0.0 L (1.5-5.0) % Baso % (Auto) 0.1 (0.0-3.0) % Gran # 15.17 H (1.4-6.5) Lymph # (Auto) 0.8 L (1.2-3.4) [place] # (Auto) 2.0 H (0.1-0.6) Eos # (Auto) 0.0 (0.0-0.7) Baso # (Auto) 0.01 (0.0-2.0) K/mm3 Neutrophils % (Manual) 89 H (50.0-70.0) % Band Neutrophils % 3 H (0-2) % Lymphocytes % (Manual) 7 L (22.0-35.0) % Monocytes % (Manual) 1 (1.0-6.0) % Platelet Evaluation Normal (NORMAL) pCO2 (35-45) mm/Hg pO2 (80-100) mm/Hg HCO3 (21-28) mmol/L ABG pH (7.35-7.45) ABG Total CO2 (22-28) mmol.L ABG O2 Saturation (95-98) % ABG O2 Content (15-23) ML/dl ABG Base Excess (-2.0-3.0) mmol/L ABG Hemoglobin (11.7-17.4) g/dL ABG Carboxyhemoglobin (0.5-1.5) % POC ABG HHb (Measured) (0-5) % ABG Methemoglobin (0.0-3.0) % ABG O2 Capacity (16-24) mL/dl ABG Potassium (3.6-5.2) mmol/L VBG pH (7.32-7.43) VBG pCO2 (40-60) VBG HCO3 (21-28) mmol/l VBG Total CO2 (22-28) mmol.L VBG O2 Sat (Calc) (40-65) % VBG Base Excess (0.0-2.0) mmol/L VBG Potassium (3.6-5.2) mmol/L Hgb O2 Saturation (95.0-98.0) % Sodium (132-148) mmol/L Chloride (98-107) mmol/L Glucose (65-105) mg/dl Lactate (0.7-2.1) mmol/L Mechanical Rate FiO2 % Tidal Volume PEEP Potassium (3.6-5.0) mmol/L Carbon Dioxide (21-33) mmol/L Anion Gap (10-20) BUN (7-21) mg/dL Creatinine (0.7-1.2) mg/dl Est GFR ( Amer) Est GFR (Non-Af Amer) POC Glucose (mg/dL) 161 H 132 H (65-110) mg/dL Random Glucose (70-110) mg/dL Hemoglobin A1c (4.2-6.5) % Calcium (8.4-10.5) mg/dL Phosphorus (2.5-4.5) mg/dL Magnesium (1.7-2.2) mg/dL Total Bilirubin (0.2-1.3) mg/dL AST (14-36) U/L ALT (7-56) U/L Alkaline Phosphatase (38-126) U/L Troponin I ng/mL Total Protein (5.8-8.3) g/dL Albumin (3.0-4.8) g/dL Globulin gm/dL Albumin/Globulin Ratio (1.1-1.8) Triglycerides (35-160) mg/dL Cholesterol (130-200) mg/dL LDL Cholesterol Direct (0-129) mg/dL HDL Cholesterol (29-60) mg/dL Lipase (23-300) U/L Procalcitonin (0.19-0.49) NG/ML Arterial Blood Potassium (3.6-5.2) mmol/L Venous Blood Potassium (3.6-5.2) mmol/L Digoxin (0.8-2.0) ng/mL 06/26/18 06/25/18 06/25/18 Range/Units 00:05 23:22 22:40 WBC 15.5 H D (4.5-11.0) 10^3/ul RBC 4.70 (3.5-6.1) 10^6/uL Hgb 14.3 (12.0-16.0) g/dL Hct 42.5 (36.0-48.0) % MCV 90.4 D (80.0-105.0) fl MCH 30.4 (25.0-35.0) pg MCHC 33.6 (31.0-37.0) g/dl RDW 14.2 (11.5-14.5) % Plt Count 99 L (120.0-450.0) 10^3/uL MPV 12.8 H (7.0-11.0) fl Gran % 87.3 H (50.0-68.0) % Lymph % (Auto) 5.6 L (22.0-35.0) % [place] % (Auto) 7.0 H (1.0-6.0) % Eos % (Auto) 0.0 L (1.5-5.0) % Baso % (Auto) 0.1 (0.0-3.0) % Gran # 13.50 H (1.4-6.5) Lymph # (Auto) 0.9 L (1.2-3.4) [place] # (Auto) 1.1 H (0.1-0.6) Eos # (Auto) 0.0 (0.0-0.7) Baso # (Auto) 0.01 (0.0-2.0) K/mm3 Neutrophils % (Manual) (50.0-70.0) % Band Neutrophils % (0-2) % Lymphocytes % (Manual) (22.0-35.0) % Monocytes % (Manual) (1.0-6.0) % Platelet Evaluation (NORMAL) pCO2 (35-45) mm/Hg pO2 (80-100) mm/Hg HCO3 (21-28) mmol/L ABG pH (7.35-7.45) ABG Total CO2 (22-28) mmol.L ABG O2 Saturation (95-98) % ABG O2 Content (15-23) ML/dl ABG Base Excess (-2.0-3.0) mmol/L ABG Hemoglobin (11.7-17.4) g/dL ABG Carboxyhemoglobin (0.5-1.5) % POC ABG HHb (Measured) (0-5) % ABG Methemoglobin (0.0-3.0) % ABG O2 Capacity (16-24) mL/dl ABG Potassium (3.6-5.2) mmol/L VBG pH (7.32-7.43) VBG pCO2 (40-60) VBG HCO3 (21-28) mmol/l VBG Total CO2 (22-28) mmol.L VBG O2 Sat (Calc) (40-65) % VBG Base Excess (0.0-2.0) mmol/L VBG Potassium (3.6-5.2) mmol/L Hgb O2 Saturation (95.0-98.0) % Sodium 137 (132-148) mmol/L Chloride 97 L (98-107) mmol/L Glucose (65-105) mg/dl Lactate (0.7-2.1) mmol/L Mechanical Rate FiO2 % Tidal Volume PEEP Potassium 3.8 (3.6-5.0) mmol/L Carbon Dioxide 29 (21-33) mmol/L Anion Gap 15 (10-20) BUN 20 (7-21) mg/dL Creatinine 0.8 (0.7-1.2) mg/dl Est GFR ( Amer) > 60 Est GFR (Non-Af Amer) > 60 POC Glucose (mg/dL) 150 H (65-110) mg/dL Random Glucose 134 H (70-110) mg/dL Hemoglobin A1c (4.2-6.5) % Calcium 8.8 (8.4-10.5) mg/dL Phosphorus 4.6 H (2.5-4.5) mg/dL Magnesium 1.8 (1.7-2.2) mg/dL Total Bilirubin (0.2-1.3) mg/dL AST (14-36) U/L ALT (7-56) U/L Alkaline Phosphatase (38-126) U/L Troponin I ng/mL Total Protein (5.8-8.3) g/dL Albumin (3.0-4.8) g/dL Globulin gm/dL Albumin/Globulin Ratio (1.1-1.8) Triglycerides (35-160) mg/dL Cholesterol (130-200) mg/dL LDL Cholesterol Direct (0-129) mg/dL HDL Cholesterol (29-60) mg/dL Lipase (23-300) U/L Procalcitonin (0.19-0.49) NG/ML Arterial Blood Potassium (3.6-5.2) mmol/L Venous Blood Potassium (3.6-5.2) mmol/L Digoxin (0.8-2.0) ng/mL 06/25/18 06/25/18 06/25/18 Range/Units 21:21 17:32 16:50 WBC (4.5-11.0) 10^3/ul RBC (3.5-6.1) 10^6/uL Hgb (12.0-16.0) g/dL Hct (36.0-48.0) % MCV (80.0-105.0) fl MCH (25.0-35.0) pg MCHC (31.0-37.0) g/dl RDW (11.5-14.5) % Plt Count (120.0-450.0) 10^3/uL MPV (7.0-11.0) fl Gran % (50.0-68.0) % Lymph % (Auto) (22.0-35.0) % [place] % (Auto) (1.0-6.0) % Eos % (Auto) (1.5-5.0) % Baso % (Auto) (0.0-3.0) % Gran # (1.4-6.5) Lymph # (Auto) (1.2-3.4) [place] # (Auto) (0.1-0.6) Eos # (Auto) (0.0-0.7) Baso # (Auto) (0.0-2.0) K/mm3 Neutrophils % (Manual) (50.0-70.0) % Band Neutrophils % (0-2) % Lymphocytes % (Manual) (22.0-35.0) % Monocytes % (Manual) (1.0-6.0) % Platelet Evaluation (NORMAL) pCO2 (35-45) mm/Hg pO2 (80-100) mm/Hg HCO3 (21-28) mmol/L ABG pH (7.35-7.45) ABG Total CO2 (22-28) mmol.L ABG O2 Saturation (95-98) % ABG O2 Content (15-23) ML/dl ABG Base Excess (-2.0-3.0) mmol/L ABG Hemoglobin (11.7-17.4) g/dL ABG Carboxyhemoglobin (0.5-1.5) % POC ABG HHb (Measured) (0-5) % ABG Methemoglobin (0.0-3.0) % ABG O2 Capacity (16-24) mL/dl ABG Potassium (3.6-5.2) mmol/L VBG pH (7.32-7.43) VBG pCO2 (40-60) VBG HCO3 (21-28) mmol/l VBG Total CO2 (22-28) mmol.L VBG O2 Sat (Calc) (40-65) % VBG Base Excess (0.0-2.0) mmol/L VBG Potassium (3.6-5.2) mmol/L Hgb O2 Saturation (95.0-98.0) % Sodium 138 (132-148) mmol/L Chloride 101 (98-107) mmol/L Glucose (65-105) mg/dl Lactate (0.7-2.1) mmol/L Mechanical Rate FiO2 % Tidal Volume PEEP Potassium 3.7 (3.6-5.0) mmol/L Carbon Dioxide 26 (21-33) mmol/L Anion Gap 15 (10-20) BUN 22 H (7-21) mg/dL Creatinine 0.9 (0.7-1.2) mg/dl Est GFR ( Amer) > 60 Est GFR (Non-Af Amer) > 60 POC Glucose (mg/dL) 135 H 130 H (65-110) mg/dL Random Glucose 138 H (70-110) mg/dL Hemoglobin A1c (4.2-6.5) % Calcium 9.0 (8.4-10.5) mg/dL Phosphorus 3.6 (2.5-4.5) mg/dL Magnesium 1.9 (1.7-2.2) mg/dL Total Bilirubin 0.6 (0.2-1.3) mg/dL AST 38 H (14-36) U/L ALT 39 (7-56) U/L Alkaline Phosphatase 69 (38-126) U/L Troponin I 0.08 D ng/mL Total Protein 7.5 (5.8-8.3) g/dL Albumin 4.2 (3.0-4.8) g/dL Globulin 3.3 gm/dL Albumin/Globulin Ratio 1.2 (1.1-1.8) Triglycerides (35-160) mg/dL Cholesterol (130-200) mg/dL LDL Cholesterol Direct (0-129) mg/dL HDL Cholesterol (29-60) mg/dL Lipase (23-300) U/L Procalcitonin (0.19-0.49) NG/ML Arterial Blood Potassium (3.6-5.2) mmol/L Venous Blood Potassium (3.6-5.2) mmol/L Digoxin (0.8-2.0) ng/mL 06/25/18 06/25/18 06/25/18 Range/Units 16:50 16:50 16:50 WBC (4.5-11.0) 10^3/ul RBC (3.5-6.1) 10^6/uL Hgb (12.0-16.0) g/dL Hct (36.0-48.0) % MCV (80.0-105.0) fl MCH (25.0-35.0) pg MCHC (31.0-37.0) g/dl RDW (11.5-14.5) % Plt Count (120.0-450.0) 10^3/uL MPV (7.0-11.0) fl Gran % (50.0-68.0) % Lymph % (Auto) (22.0-35.0) % [place] % (Auto) (1.0-6.0) % Eos % (Auto) (1.5-5.0) % Baso % (Auto) (0.0-3.0) % Gran # (1.4-6.5) Lymph # (Auto) (1.2-3.4) [place] # (Auto) (0.1-0.6) Eos # (Auto) (0.0-0.7) Baso # (Auto) (0.0-2.0) K/mm3 Neutrophils % (Manual) (50.0-70.0) % Band Neutrophils % (0-2) % Lymphocytes % (Manual) (22.0-35.0) % Monocytes % (Manual) (1.0-6.0) % Platelet Evaluation (NORMAL) pCO2 (35-45) mm/Hg pO2 52 (80-100) mm/Hg HCO3 (21-28) mmol/L ABG pH (7.35-7.45) ABG Total CO2 (22-28) mmol.L ABG O2 Saturation (95-98) % ABG O2 Content (15-23) ML/dl ABG Base Excess (-2.0-3.0) mmol/L ABG Hemoglobin (11.7-17.4) g/dL ABG Carboxyhemoglobin (0.5-1.5) % POC ABG HHb (Measured) (0-5) % ABG Methemoglobin (0.0-3.0) % ABG O2 Capacity (16-24) mL/dl ABG Potassium (3.6-5.2) mmol/L VBG pH 7.39 (7.32-7.43) VBG pCO2 47.0 (40-60) VBG HCO3 28.5 H (21-28) mmol/l VBG Total CO2 29.9 H (22-28) mmol.L VBG O2 Sat (Calc) 89.4 H (40-65) % VBG Base Excess 2.8 H (0.0-2.0) mmol/L VBG Potassium 3.6 (3.6-5.2) mmol/L Hgb O2 Saturation (95.0-98.0) % Sodium 138.0 (132-148) mmol/L Chloride 101.0 (98-107) mmol/L Glucose 136 H (65-105) mg/dl Lactate 1.6 (0.7-2.1) mmol/L Mechanical Rate FiO2 21.0 % Tidal Volume PEEP Potassium (3.6-5.0) mmol/L Carbon Dioxide (21-33) mmol/L Anion Gap (10-20) BUN (7-21) mg/dL Creatinine (0.7-1.2) mg/dl Est GFR ( Amer) Est GFR (Non-Af Amer) POC Glucose (mg/dL) (65-110) mg/dL Random Glucose (70-110) mg/dL Hemoglobin A1c (4.2-6.5) % Calcium (8.4-10.5) mg/dL Phosphorus (2.5-4.5) mg/dL Magnesium (1.7-2.2) mg/dL Total Bilirubin (0.2-1.3) mg/dL AST (14-36) U/L ALT (7-56) U/L Alkaline Phosphatase (38-126) U/L Troponin I ng/mL Total Protein (5.8-8.3) g/dL Albumin (3.0-4.8) g/dL Globulin gm/dL Albumin/Globulin Ratio (1.1-1.8) Triglycerides (35-160) mg/dL Cholesterol (130-200) mg/dL LDL Cholesterol Direct (0-129) mg/dL HDL Cholesterol (29-60) mg/dL Lipase (23-300) U/L Procalcitonin 0.22 (0.19-0.49) NG/ML Arterial Blood Potassium (3.6-5.2) mmol/L Venous Blood Potassium 3.6 (3.6-5.2) mmol/L Digoxin < 0.4 L (0.8-2.0) ng/mL 06/25/18 06/25/18 Range/Units 16:15 13:33 WBC (4.5-11.0) 10^3/ul RBC (3.5-6.1) 10^6/uL Hgb (12.0-16.0) g/dL Hct (36.0-48.0) % MCV (80.0-105.0) fl MCH (25.0-35.0) pg MCHC (31.0-37.0) g/dl RDW (11.5-14.5) % Plt Count (120.0-450.0) 10^3/uL MPV (7.0-11.0) fl Gran % (50.0-68.0) % Lymph % (Auto) (22.0-35.0) % [place] % (Auto) (1.0-6.0) % Eos % (Auto) (1.5-5.0) % Baso % (Auto) (0.0-3.0) % Gran # (1.4-6.5) Lymph # (Auto) (1.2-3.4) [place] # (Auto) (0.1-0.6) Eos # (Auto) (0.0-0.7) Baso # (Auto) (0.0-2.0) K/mm3 Neutrophils % (Manual) (50.0-70.0) % Band Neutrophils % (0-2) % Lymphocytes % (Manual) (22.0-35.0) % Monocytes % (Manual) (1.0-6.0) % Platelet Evaluation (NORMAL) pCO2 42 (35-45) mm/Hg pO2 62.0 L (80-100) mm/Hg HCO3 26.6 (21-28) mmol/L ABG pH 7.41 (7.35-7.45) ABG Total CO2 27.9 (22-28) mmol.L ABG O2 Saturation 94.5 L (95-98) % ABG O2 Content (15-23) ML/dl ABG Base Excess 1.7 (-2.0-3.0) mmol/L ABG Hemoglobin (11.7-17.4) g/dL ABG Carboxyhemoglobin (0.5-1.5) % POC ABG HHb (Measured) (0-5) % ABG Methemoglobin (0.0-3.0) % ABG O2 Capacity (16-24) mL/dl ABG Potassium 3.3 L (3.6-5.2) mmol/L VBG pH (7.32-7.43) VBG pCO2 (40-60) VBG HCO3 (21-28) mmol/l VBG Total CO2 (22-28) mmol.L VBG O2 Sat (Calc) (40-65) % VBG Base Excess (0.0-2.0) mmol/L VBG Potassium (3.6-5.2) mmol/L Hgb O2 Saturation (95.0-98.0) % Sodium 137.0 (132-148) mmol/L Chloride 103.0 (98-107) mmol/L Glucose 134 H (65-105) mg/dl Lactate 1.4 (0.7-2.1) mmol/L Mechanical Rate 30 FiO2 80.0 % Tidal Volume 400 PEEP 10 Potassium (3.6-5.0) mmol/L Carbon Dioxide (21-33) mmol/L Anion Gap (10-20) BUN (7-21) mg/dL Creatinine (0.7-1.2) mg/dl Est GFR ( Amer) Est GFR (Non-Af Amer) POC Glucose (mg/dL) 184 H (65-110) mg/dL Random Glucose (70-110) mg/dL Hemoglobin A1c (4.2-6.5) % Calcium (8.4-10.5) mg/dL Phosphorus (2.5-4.5) mg/dL Magnesium (1.7-2.2) mg/dL Total Bilirubin (0.2-1.3) mg/dL AST (14-36) U/L ALT (7-56) U/L Alkaline Phosphatase (38-126) U/L Troponin I ng/mL Total Protein (5.8-8.3) g/dL Albumin (3.0-4.8) g/dL Globulin gm/dL Albumin/Globulin Ratio (1.1-1.8) Triglycerides (35-160) mg/dL Cholesterol (130-200) mg/dL LDL Cholesterol Direct (0-129) mg/dL HDL Cholesterol (29-60) mg/dL Lipase (23-300) U/L Procalcitonin (0.19-0.49) NG/ML Arterial Blood Potassium 3.3 L (3.6-5.2) mmol/L Venous Blood Potassium (3.6-5.2) mmol/L Digoxin (0.8-2.0) ng/mL Laboratory Results - last 24 hr 06/25/18 06/25/18 06/25/18 13:33 16:15 16:50 WBC RBC Hgb Hct MCV MCH MCHC RDW Plt Count MPV Gran % Lymph % (Auto) [place] % (Auto) Eos % (Auto) Baso % (Auto) Gran # Lymph # (Auto) [place] # (Auto) Eos # (Auto) Baso # (Auto) Neutrophils % (Manual) Band Neutrophils % Lymphocytes % (Manual) Monocytes % (Manual) Platelet Evaluation pCO2 42 pO2 62.0 L HCO3 26.6 ABG pH 7.41 ABG Total CO2 27.9 ABG O2 Saturation 94.5 L ABG O2 Content ABG Base Excess 1.7 ABG Hemoglobin ABG Carboxyhemoglobin POC ABG HHb (Measured) ABG Methemoglobin ABG O2 Capacity ABG Potassium 3.3 L VBG pH VBG pCO2 VBG HCO3 VBG Total CO2 VBG O2 Sat (Calc) VBG Base Excess VBG Potassium Hgb O2 Saturation Sodium 137.0 Chloride 103.0 Glucose 134 H Lactate 1.4 Mechanical Rate 30 FiO2 80.0 Tidal Volume 400 PEEP 10 Potassium Carbon Dioxide Anion Gap BUN Creatinine Est GFR ( Amer) Est GFR (Non-Af Amer) POC Glucose (mg/dL) 184 H Random Glucose Hemoglobin A1c Calcium Phosphorus Magnesium Total Bilirubin AST ALT Alkaline Phosphatase Troponin I Total Protein Albumin Globulin Albumin/Globulin Ratio Triglycerides Cholesterol LDL Cholesterol Direct HDL Cholesterol Lipase Procalcitonin 0.22 Arterial Blood Potassium 3.3 L Venous Blood Potassium Digoxin 06/25/18 06/25/18 06/25/18 16:50 16:50 16:50 WBC RBC Hgb Hct MCV MCH MCHC RDW Plt Count MPV Gran % Lymph % (Auto) [place] % (Auto) Eos % (Auto) Baso % (Auto) Gran # Lymph # (Auto) [place] # (Auto) Eos # (Auto) Baso # (Auto) Neutrophils % (Manual) Band Neutrophils % Lymphocytes % (Manual) Monocytes % (Manual) Platelet Evaluation pCO2 pO2 52 HCO3 ABG pH ABG Total CO2 ABG O2 Saturation ABG O2 Content ABG Base Excess ABG Hemoglobin ABG Carboxyhemoglobin POC ABG HHb (Measured) ABG Methemoglobin ABG O2 Capacity ABG Potassium VBG pH 7.39 VBG pCO2 47.0 VBG HCO3 28.5 H VBG Total CO2 29.9 H VBG O2 Sat (Calc) 89.4 H VBG Base Excess 2.8 H VBG Potassium 3.6 Hgb O2 Saturation Sodium 138.0 138 Chloride 101.0 101 Glucose 136 H Lactate 1.6 Mechanical Rate FiO2 21.0 Tidal Volume PEEP Potassium 3.7 Carbon Dioxide 26 Anion Gap 15 BUN 22 H Creatinine 0.9 Est GFR ( Amer) > 60 Est GFR (Non-Af Amer) > 60 POC Glucose (mg/dL) Random Glucose 138 H Hemoglobin A1c Calcium 9.0 Phosphorus 3.6 Magnesium 1.9 Total Bilirubin 0.6 AST 38 H ALT 39 Alkaline Phosphatase 69 Troponin I 0.08 D Total Protein 7.5 Albumin 4.2 Globulin 3.3 Albumin/Globulin Ratio 1.2 Triglycerides Cholesterol LDL Cholesterol Direct HDL Cholesterol Lipase Procalcitonin Arterial Blood Potassium Venous Blood Potassium 3.6 Digoxin < 0.4 L 06/25/18 06/25/18 06/25/18 17:32 21:21 22:40 WBC 15.5 H D RBC 4.70 Hgb 14.3 Hct 42.5 MCV 90.4 D MCH 30.4 MCHC 33.6 RDW 14.2 Plt Count 99 L MPV 12.8 H Gran % 87.3 H Lymph % (Auto) 5.6 L [place] % (Auto) 7.0 H Eos % (Auto) 0.0 L Baso % (Auto) 0.1 Gran # 13.50 H Lymph # (Auto) 0.9 L [place] # (Auto) 1.1 H Eos # (Auto) 0.0 Baso # (Auto) 0.01 Neutrophils % (Manual) Band Neutrophils % Lymphocytes % (Manual) Monocytes % (Manual) Platelet Evaluation pCO2 pO2 HCO3 ABG pH ABG Total CO2 ABG O2 Saturation ABG O2 Content ABG Base Excess ABG Hemoglobin ABG Carboxyhemoglobin POC ABG HHb (Measured) ABG Methemoglobin ABG O2 Capacity ABG Potassium VBG pH VBG pCO2 VBG HCO3 VBG Total CO2 VBG O2 Sat (Calc) VBG Base Excess VBG Potassium Hgb O2 Saturation Sodium Chloride Glucose Lactate Mechanical Rate FiO2 Tidal Volume PEEP Potassium Carbon Dioxide Anion Gap BUN Creatinine Est GFR ( Amer) Est GFR (Non-Af Amer) POC Glucose (mg/dL) 130 H 135 H Random Glucose Hemoglobin A1c Calcium Phosphorus Magnesium Total Bilirubin AST ALT Alkaline Phosphatase Troponin I Total Protein Albumin Globulin Albumin/Globulin Ratio Triglycerides Cholesterol LDL Cholesterol Direct HDL Cholesterol Lipase Procalcitonin Arterial Blood Potassium Venous Blood Potassium Digoxin 06/25/18 06/26/18 06/26/18 23:22 00:05 03:37 WBC RBC Hgb Hct MCV MCH MCHC RDW Plt Count MPV Gran % Lymph % (Auto) [place] % (Auto) Eos % (Auto) Baso % (Auto) Gran # Lymph # (Auto) [place] # (Auto) Eos # (Auto) Baso # (Auto) Neutrophils % (Manual) Band Neutrophils % Lymphocytes % (Manual) Monocytes % (Manual) Platelet Evaluation pCO2 pO2 HCO3 ABG pH ABG Total CO2 ABG O2 Saturation ABG O2 Content ABG Base Excess ABG Hemoglobin ABG Carboxyhemoglobin POC ABG HHb (Measured) ABG Methemoglobin ABG O2 Capacity ABG Potassium VBG pH VBG pCO2 VBG HCO3 VBG Total CO2 VBG O2 Sat (Calc) VBG Base Excess VBG Potassium Hgb O2 Saturation Sodium 137 Chloride 97 L Glucose Lactate Mechanical Rate FiO2 Tidal Volume PEEP Potassium 3.8 Carbon Dioxide 29 Anion Gap 15 BUN 20 Creatinine 0.8 Est GFR ( Amer) > 60 Est GFR (Non-Af Amer) > 60 POC Glucose (mg/dL) 150 H 132 H Random Glucose 134 H Hemoglobin A1c Calcium 8.8 Phosphorus 4.6 H Magnesium 1.8 Total Bilirubin AST ALT Alkaline Phosphatase Troponin I Total Protein Albumin Globulin Albumin/Globulin Ratio Triglycerides Cholesterol LDL Cholesterol Direct HDL Cholesterol Lipase Procalcitonin Arterial Blood Potassium Venous Blood Potassium Digoxin 06/26/18 06/26/18 06/26/18 05:29 05:30 05:30 WBC 17.9 H RBC 4.90 Hgb 15.1 Hct 44.7 MCV 91.2 MCH 30.8 MCHC 33.8 RDW 14.3 Plt Count 180 MPV 12.5 H Gran % 84.5 H Lymph % (Auto) 4.2 L [place] % (Auto) 11.2 H Eos % (Auto) 0.0 L Baso % (Auto) 0.1 Gran # 15.17 H Lymph # (Auto) 0.8 L [place] # (Auto) 2.0 H Eos # (Auto) 0.0 Baso # (Auto) 0.01 Neutrophils % (Manual) 89 H Band Neutrophils % 3 H Lymphocytes % (Manual) 7 L Monocytes % (Manual) 1 Platelet Evaluation Normal pCO2 pO2 HCO3 ABG pH ABG Total CO2 ABG O2 Saturation ABG O2 Content ABG Base Excess ABG Hemoglobin ABG Carboxyhemoglobin POC ABG HHb (Measured) ABG Methemoglobin ABG O2 Capacity ABG Potassium VBG pH VBG pCO2 VBG HCO3 VBG Total CO2 VBG O2 Sat (Calc) VBG Base Excess VBG Potassium Hgb O2 Saturation Sodium 133 Chloride 97 L Glucose Lactate Mechanical Rate FiO2 Tidal Volume PEEP Potassium 3.8 Carbon Dioxide 26 Anion Gap 15 BUN 18 Creatinine 0.7 Est GFR ( Amer) > 60 Est GFR (Non-Af Amer) > 60 POC Glucose (mg/dL) 161 H Random Glucose 134 H Hemoglobin A1c Calcium 8.2 L Phosphorus 3.6 Magnesium 1.7 Total Bilirubin 1.3 AST 60 H D ALT 28 Alkaline Phosphatase 62 Troponin I Total Protein 7.3 Albumin 3.7 Globulin 3.5 Albumin/Globulin Ratio 1.1 Triglycerides 1994 H Cholesterol 160 LDL Cholesterol Direct 71 HDL Cholesterol 35 Lipase Procalcitonin Arterial Blood Potassium Venous Blood Potassium Digoxin 06/26/18 06/26/18 06/26/18 05:30 06:00 07:33 WBC RBC Hgb Hct MCV MCH MCHC RDW Plt Count MPV Gran % Lymph % (Auto) [place] % (Auto) Eos % (Auto) Baso % (Auto) Gran # Lymph # (Auto) [place] # (Auto) Eos # (Auto) Baso # (Auto) Neutrophils % (Manual) Band Neutrophils % Lymphocytes % (Manual) Monocytes % (Manual) Platelet Evaluation pCO2 29 L pO2 151.0 H HCO3 22.6 ABG pH 7.50 H ABG Total CO2 23.5 ABG O2 Saturation 99.7 H ABG O2 Content 21.8 ABG Base Excess 0.6 ABG Hemoglobin 15.8 ABG Carboxyhemoglobin 1.5 POC ABG HHb (Measured) 0.3 ABG Methemoglobin 1.1 ABG O2 Capacity 21.9 ABG Potassium VBG pH VBG pCO2 VBG HCO3 VBG Total CO2 VBG O2 Sat (Calc) VBG Base Excess VBG Potassium Hgb O2 Saturation 97.1 Sodium Chloride Glucose Lactate Mechanical Rate FiO2 80.0 Tidal Volume PEEP Potassium Carbon Dioxide Anion Gap BUN Creatinine Est GFR ( Amer) Est GFR (Non-Af Amer) POC Glucose (mg/dL) 195 H Random Glucose Hemoglobin A1c 6.5 Calcium Phosphorus Magnesium Total Bilirubin AST ALT Alkaline Phosphatase Troponin I Total Protein Albumin Globulin Albumin/Globulin Ratio Triglycerides Cholesterol LDL Cholesterol Direct HDL Cholesterol Lipase Procalcitonin Arterial Blood Potassium Venous Blood Potassium Digoxin 06/26/18 06/26/18 10:45 11:41 WBC RBC Hgb Hct MCV MCH MCHC RDW Plt Count MPV Gran % Lymph % (Auto) [place] % (Auto) Eos % (Auto) Baso % (Auto) Gran # Lymph # (Auto) [place] # (Auto) Eos # (Auto) Baso # (Auto) Neutrophils % (Manual) Band Neutrophils % Lymphocytes % (Manual) Monocytes % (Manual) Platelet Evaluation pCO2 pO2 HCO3 ABG pH ABG Total CO2 ABG O2 Saturation ABG O2 Content ABG Base Excess ABG Hemoglobin ABG Carboxyhemoglobin POC ABG HHb (Measured) ABG Methemoglobin ABG O2 Capacity ABG Potassium VBG pH VBG pCO2 VBG HCO3 VBG Total CO2 VBG O2 Sat (Calc) VBG Base Excess VBG Potassium Hgb O2 Saturation Sodium Chloride Glucose Lactate Mechanical Rate FiO2 Tidal Volume PEEP Potassium Carbon Dioxide Anion Gap BUN Creatinine Est GFR ( Amer) Est GFR (Non-Af Amer) POC Glucose (mg/dL) 214 H Random Glucose Hemoglobin A1c Calcium Phosphorus Magnesium Total Bilirubin AST ALT Alkaline Phosphatase Troponin I Total Protein Albumin Globulin Albumin/Globulin Ratio Triglycerides Cholesterol LDL Cholesterol Direct HDL Cholesterol Lipase 89 Procalcitonin Arterial Blood Potassium Venous Blood Potassium Digoxin EKG/Cardiology Studies: Cardiology / EKG Studies 06/25/18 14:31 EKG [ELECTROCARDIOGRAM] Stat Comment: Reason For Exam: CARDAC ARREST 06/25/18 23:49 EKG [ELECTROCARDIOGRAM] Stat Comment: Reason For Exam: code freeze Does Patient Have a Pacemaker?: No PERFORMING PHYSICIAN/PROVIDER:: Lizz Harrell Assessment/Plan - Assessment and Plan (Free Text) Plan: Patient seen and examined on rounds with resident, agree with note with following additions/exceptions: Patient is 62yo female with PMHx of DM2, HTN, COPD, and chronic AFib, mobird obesity, presented s/p PEA cardiac arrest in the field, unclear down time, and CPR time, intubated Patient was taken to cath, NICM, no stents placed CT PE protocol negative for PE Currently intubated sedated, on Fentanyl, Propofol, on hypothermic protocol Cardiology, Neurology following, ID following On exam difficult to assess neurological function due to sedation Labs, imaging, chart reviewed CXR today with diffuse biletaral opacities, rule out Pulm edema, ARDS Cardiac Arrest NICM DM HTN COPD Afib Morbid Obesity r/o PNA, pulm edema Recommend: - cont with vent support, low tidal volume ventilation, decrease RR to 20, FiO2 to 50% - repeat ABG - Lasix IV diuresis - Cont with Dobutamine, Amio drip - follow up ECHO - follow up cardiology - switch Propofol to Fentanyl Versed, triglycerides 1900 - check Lipase, start Lopid, May need insulin drip - follow neurology, VEEG - hypothermic protocol, goal temp 34 C - reasses neurological function after hypothermic protocol concludes - Adequate sedation - FS control - GI ppx - DVT ppx - Monitor in MICU Prognosis is extremely poor Critical care time 45 minutes
--- NOTE | 2018-06-26 12:37 | PCM.VEEG ---
Video EEG - Procedure Start Date: 06/25/18 Start Time: 17:50 End Date: 06/26/18 End Time: 07:10 Technical Summary: DATA ACQUISITION: This was a multichannel inpatient video-EEG, a minimum of 22 channels were uti lized, performed in accordance with recommendations specified by the [place] [employer] (Pepe Pederson et al. ACNS Guideline 1: Minimum Technical Requirements for Performing Clinical Electroencephalography. Journal of Clinical Neurophysiology 2016;33:303-7). The 10-20 electrode placement system was utilized in accordance with guidelines detailed by the International Federation of Clinical Neurophysiology (Antonino Perkins et al. The Ten-Twenty Electrode System of the International Federation. Recommendations for the Practice of Clinical Neurophysiology: Guidelines of the International Federation of Clinical Physiology 1999; EEG Suppl. 52.). DATA REVIEW / SPIKE DETECTION / DIGITAL ANALYSIS: The entire EEG was scanned and reviewed. Synchronized audio and video recording were reviewed at the time of each alarm and whenever an abnormality or suspicious activity was noted. The entire recording was analyzed utilizing an automated digital spike and seizure analysis program and all automatic spike and seizure detections were manually reviewed. A compressed spectral array was displayed and reviewed alongside the raw EEG tracings. In addition, further analysis of the EEG was performed when abnormalities were identified, including montage changes, dipole source localization, and frequency band identification. Video portion of the study is necessary to correlate abnormal EEG activity with clinical behavior. This study was attended 24 hours per day. - Interpretation Description of the study: 62 y/o woman s/p cardiac arrest, working diagnosis non convulsive status epilepticus. EEG Finding during wakefulness: On the entire study was not discernible awake EEG background, the EEG showed diffuse bilateral attenuation with frequencies in the 4 to 5 Hz. Drowsiness was not seen. There was intermittent bifrontal rhythmic delta slowing at 3 to 4 Hz lasting 3 to 6 seconds mainly seen during drowsiness occasionally during wakefulness. EEG Finding during sleep: Normal sleep architecture was not seen. Interictal non-epileptiform abnormalities: None Interictal epileptiform abnormalities: None Ictal epileptiform abnormalities: None Induction procedures: None - Impression Impression: IMPRESSION: This was an abnormal video EEG, monitoring study, due to the presence of: 1- Severe background slowing/attenuation . No seizures, not in status epilepticus. INTERPRETATION: This findings are in keeping with a moderate to sever non specific diffuse disturbance of cortical activity. This is in keeping with a diffuse wallis matter dysfunction. The findings do not suggest a specific etiology
--- NOTE | 2018-06-26 13:24 | CP.PCM.PN ---
Addendum entered and electronically signed by Fiona Tipton DO 06/26/18 13:54: Doxy 100mg Started 10-4 day 2 Flagyl 500mg Started 10-4 day 2 Cefepime 2gm Started 10-5 day 1 Original Note: <Fiona Tipton - Last Filed: 06/26/18 13:34> Subjective - Date & Time of Evaluation Date of Evaluation: 06/26/18 Time of Evaluation: 09:30 - Subjective Subjective: PGY-1 Medicine Progress Note for Dr. Fernandez's service Patient seen and examined at bedside. Patient sedated and intubated. 12 point ROS due to patient clinical condition. Objective - Vital Signs/Intake and Output Vital Signs (last 24 hours): Temp Pulse Resp BP Pulse Ox 95.2 F L 74 20 126/81 98 06/26/18 13:14 06/26/18 13:14 06/26/18 06:54 06/26/18 13:15 06/26/18 13:14 Intake and Output: 06/26/18 06/26/18 06:59 18:59 Intake Total 575 226 Output Total 2100 Balance -1525 226 - Medications Medications: Current Medications Amiodarone HCl (Cordarone) 400 mg PO TID [facility] Stop: 06/28/18 23:59 Last Admin: 06/26/18 09:13 Dose: Not Given Amiodarone HCl (Cordarone) 200 mg PO DAILY [facility] Aspirin (Aspirin Chewable) 81 mg NG DAILY [facility] Last Admin: 06/26/18 10:56 Dose: 81 mg Atorvastatin Calcium (Lipitor) 80 mg NG DIN [facility] Gemfibrozil (Lopid) 600 mg PO BID [facility] Last Admin: 06/26/18 10:59 Dose: 600 mg Heparin Sodium (Porcine) (Heparin) 5,000 units SC Q8 [facility]; Protocol Last Admin: 06/26/18 05:44 Dose: 5,000 units Dobutamine HCl/Dextrose (Dobutamine/Dextrose 5% 500mg/250ml) 500 mg in 250 mls @ 7.62 mls/hr IV .Q24H PRN; Protocol PRN Reason: TITRATE PER PROTOCOL Last Titration: 06/26/18 07:50 Dose: 4 mcg/kg/min, 15.241 mls/hr Heparin Sodium/Sodium Chloride (Heparin 71824 Units/250ml 1/2 Normal Saline) 25,000 units in 250 mls @ 15.241 mls/hr IV .[id number] LYNDA; Protocol Last Admin: 06/25/18 11:30 Dose: Not Given Levetiracetam (Keppra 500mg Ivpb) 500 mg in 100 mls @ 400 mls/hr IVPB Q12 LYNDA Last Admin: 06/26/18 09:12 Dose: 400 mls/hr Cisatracurium Besylate 200 mg/ (Sodium Chloride) 270 mls @ 4.66 mls/hr IV .Q24H PRN; Protocol PRN Reason: TITRATE PER MD ORDER Last Titration: 06/26/18 07:00 Dose: 0.5 mcg/kg/min, 4.66 mls/hr Acetaminophen (Ofirmev) 1,000 mg in 100 mls @ 400 mls/hr IVPB Q6H PRN PRN Reason: for T>100F Stop: 06/27/18 16:17 Doxycycline Hyclate 100 mg/ (Sodium Chloride) 100 mls @ 100 mls/hr IVPB Q12 LYNDA; Protocol Last Admin: 06/26/18 10:45 Dose: 100 mls/hr Metronidazole (Flagyl) 500 mg in 100 mls @ 100 mls/hr IVPB Q8 [facility]YNDA; Protocol Last Admin: 06/26/18 05:45 Dose: 100 mls/hr Amiodarone HCl/Dextrose (Nexterone 360 Mg In D5w 200 Ml (Premix)) 360 mg in 200 mls @ 16.667 mls/hr IV .Q12H LYNDA; Protocol Last Admin: 06/25/18 21:53 Dose: 16.667 mls/hr Cefepime HCl (Maxipime 2gm) 2 gm in 100 mls @ 100 mls/hr IVPB Q8 LYNDA; Protocol Stop: 07/01/18 08:01 Last Admin: 06/26/18 09:00 Dose: 100 mls/hr Fentanyl Citrate (Fentanyl Citrate/Sodium Chloride 1 Mg/100 Ml) 1,000 mcg in 100 mls @ 10 mls/hr IV .Q10H PRN; Protocol PRN Reason: TITRATE PER MD ORDER Last Titration: 06/26/18 13:07 Dose: 40 mcg/hr, 4 mls/hr Midazolam 100 mg/100ml in NS (Midazolam 100 Mg/100ml In Ns) 100 mg in 100 mls @ 1 mls/hr IV .Q24H PRN; Protocol PRN Reason: Sedation Last Titration: 06/26/18 11:30 Dose: 2 mg/hr, 2 mls/hr Insulin Human Regular (Humulin R Med) 0 units SC Q2H LYNDA; Protocol Last Admin: 06/26/18 11:56 Dose: 3 unit Pantoprazole Sodium (Protonix Inj) 40 mg IVP DAILY LYN[facility] Last Admin: 06/26/18 09:12 Dose: 40 mg - Labs Labs: 06/26/18 05:30 06/26/18 05:30 PT 12.7 SECONDS (9.4-12.5) H 06/25/18 09:15 INR 1.10 06/25/18 09:15 APTT 27.3 Seconds (25.1-36.5) 06/25/18 09:15 - Constitutional Appears: No Acute Distress - Head Exam Head Exam: NORMAL INSPECTION, NORMOCEPHALIC - Respiratory Exam Additional comments: patient intubated with ET tube NG tube in place - Cardiovascular Exam Cardiovascular Exam: Bradycardia, REGULAR RHYTHM, +S1, +S2 - GI/Abdominal Exam GI & Abdominal Exam: Soft, Normal Bowel Sounds. absent: Distended, Firm, Tenderness - Exam Additional comments: shah cather in place - Neurological Exam Neurological Exam: absent: Alert, Awake - Skin Skin Exam: Intact, Normal Color Assessment and Plan - Assessment and Plan (Free Text) Assessment: Patient is a 62 yo female with PMH of systolic CHF, HTN, DM, COPD, AFib who presents to hospital s/p cardiac arrest. Patient currently intubated/sedated. Cardiac cath showed no thrombus, mild nonobstructive CAD only in mid circumflex 60-70%; EF 15-20%; CT chest showed aspiration pneumonia; PNA studies pending Plan: Cardiac Arrest Cardio Consult- Dr. Harrell- Cardiac cath performed- showing mild CAD and EF of 10- 15% Neuro Consult- Dr. Yee- Video EEG inconclusive study; anoxic brain injury vs siezures (less likely) ICU consult- Dr. Lopez- Keppra 500mg for seizure ppx EKG- sinus tachycardia with T wave inversions Patient intubated with ET tube; NG tube; Propofol drip; ABG shows primary respiratory acidosis CT head no acute findings Dobutamine drip; Amiodarone 200mg po daily; Amiodarone drip Aspirin 81 NG Venous dopplers pending Aspiration Pneumonia ID consulted- recs appreciated Cefepime, Flagyl, Doxycycline for empiric coverage 06-26-18 Cxray shows resolution of upper lobe infiltrate PNA studies pending Bcx, Ucx, Sputum cx pending Leukocytosis trending up; Repeat CMP in AM Hypertriglycredemia Lopoid 600mg po bid HTN Normotensive continue to monitor DM2 ISS low dose ACHS Hx of COPD Patient currently vented on Versed RR- 16; TV- 400; Peep- 5; FiO2- 50 PPx GI ppx- Protonix 40mg IVP daily DVT ppx- Heparin 5000 units sc Medical Management discussed with Dr. Fernandez PGY-1 Fiona Tipton <Lizz Fernandez - Last Filed: 06/27/18 19:09> Objective - Vital Signs/Intake and Output Vital Signs (last 24 hours): Temp Pulse Resp BP Pulse Ox 100.6 F H 107 H 20 98/48 L 96 06/27/18 18:25 06/27/18 18:22 06/27/18 17:55 06/27/18 18:22 06/27/18 17:55 Intake and Output: 06/27/18 06/28/18 18:59 06:59 Intake Total 958 Output Total 1150 Balance -192 - Medications Medications: Current Medications Amiodarone HCl (Cordarone) 400 mg PO TID [facility] Stop: 06/28/18 23:59 Last Admin: 06/27/18 18:22 Dose: 400 mg Amiodarone HCl (Cordarone) 200 mg PO DAILY [facility] Aspirin (Aspirin Chewable) 81 mg NG DAILY [facility] Last Admin: 06/27/18 11:30 Dose: 81 mg Atorvastatin Calcium (Lipitor) 80 mg NG DIN [facility] Last Admin: 06/27/18 17:34 Dose: 80 mg Furosemide (Lasix) 40 mg IVP BID [facility] Last Admin: 06/27/18 17:38 Dose: 40 mg Gemfibrozil (Lopid) 600 mg PO BID [facility] Last Admin: 06/27/18 17:37 Dose: 600 mg Heparin Sodium (Porcine) (Heparin) 5,000 units SC Q8 [facility]; Protocol Last Admin: 06/27/18 13:48 Dose: 5,000 units Heparin Sodium/Sodium Chloride (Heparin 48177 Units/250ml 1/2 Normal Saline) 25,000 units in 250 mls @ 15.241 mls/hr IV .[id number] LYNDA; Protocol Last Admin: 06/25/18 11:30 Dose: Not Given Cisatracurium Besylate 200 mg/ (Sodium Chloride) 270 mls @ 4.66 mls/hr IV .Q24H PRN; Protocol PRN Reason: TITRATE PER MD ORDER Last Titration: 06/27/18 07:30 Dose: 0 mcg/kg/min, 0 mls/hr Doxycycline Hyclate 100 mg/ (Sodium Chloride) 100 mls @ 100 mls/hr IVPB Q12 [facility]YN[facility]; Protocol Last Admin: 06/27/18 12:56 Dose: 100 mls/hr Metronidazole (Flagyl) 500 mg in 100 mls @ 100 mls/hr IVPB Q8 [facility]; Protocol Last Admin: 06/27/18 13:48 Dose: 100 mls/hr Cefepime HCl (Maxipime 2gm) 2 gm in 100 mls @ 100 mls/hr IVPB Q8 [facility]; Protocol Stop: 07/01/18 08:01 Last Admin: 06/27/18 17:39 Dose: 100 mls/hr Vancomycin HCl (Vancomycin 1gm) 1 gm in 250 mls @ 167 mls/hr IVPB Q12H [facility]; Protocol Last Admin: 06/27/18 12:58 Dose: 167 mls/hr Dobutamine HCl/Dextrose (Dobutamine/Dextrose 5% 500mg/250ml) 500 mg in 250 mls @ 17.25 mls/hr IV .[id number] PRN; Protocol PRN Reason: TITRATE PER PROTOCOL Last Titration: 06/27/18 15:35 Dose: 5 mcg/kg/min, 17.25 mls/hr Midazolam 100 mg/100ml in NS (Midazolam 100 Mg/100ml In Ns) 100 mg in 100 mls @ 5 mls/hr IV .Q20H PRN; Protocol PRN Reason: Sedation Last Admin: 06/27/18 15:00 Dose: 5 mg/hr, 5 mls/hr Levetiracetam 1,500 mg/ Sodium (Chloride) 115 mls @ 460 mls/hr IV Q12 [facility] Insulin Human Regular (Humulin R Med) 0 units SC Q6H [facility]YN[facility]; Protocol Last Admin: 06/27/18 17:38 Dose: Not Given Magnesium Oxide (Mag-Ox) 400 mg PO BID [facility] Stop: 06/28/18 23:59 Last Admin: 06/27/18 17:36 Dose: 400 mg Pantoprazole Sodium (Protonix Inj) 40 mg IVP DAILY [facility] Last Admin: 06/27/18 10:00 Dose: 40 mg - Labs Labs: 06/27/18 06:30 06/27/18 06:30 PT 12.7 SECONDS (9.4-12.5) H 06/25/18 09:15 INR 1.10 06/25/18 09:15 APTT 27.3 Seconds (25.1-36.5) 06/25/18 09:15 Attending/Attestation - Attestation I have personally seen and examined this patient.: Yes I have fully participated in the care of the patient.: Yes I have reviewed all pertinent clinical information, including history, physical exam and plan: Yes Notes (Text): 06/27/18 19:09 Medical record note made by the resident after discussion with my direction and input after the patient was personally seen and examined by me. I have reviewed the chart and agree that the record accurately reflects by personal performance of the history, physical exam, data review, and medical decision-making, in the course for the patient. I have also personally directed the plan of care.
--- NOTE | 2018-06-26 14:04 | CARD ---
APPROVED REPORT Date of service: 06/26/2018 EKG Measurement Heart [id number] <Conclusion> Sinus tachycardia Left axis deviation Left ventricular hypertrophy with repolarization abnormality Abnormal ECG
--- NOTE | 2018-06-26 14:18 | PN ---
DATE: 06/26/2018 REASON FOR CONSULTATION AND FOLLOWUP: Rule out code STEMI, status post collapse, VFib arrest, status post intubated, status post cardiac catheterization. SUBJECTIVE: The patient remains intubated, minimal reflex, not responded to verbal stimuli, not significant gag reflex either, cannot rule out anoxic encephalopathy. PHYSICAL EXAMINATION VITAL SIGNS: Temperature 86.7, hypothermic, on cooling blanket and hypothermia protocol; heart rate , blood pressure 137/86. HEENT: PERRLA. Extraocular muscles are intact. NECK: Supple. No carotid bruits or thyromegaly. CHEST: Clear to auscultation. HEART: S1 and S2, regular. ABDOMEN: Soft. EXTREMITIES: Clubbing and cyanosis negative. LABORATORY DATA: Blood workup; WBC 17.9, hemoglobin 15.3, hematocrit 44.7, and platelet count 180. Chemistry; sodium of 132, potassium 3.8, chloride 97, carbon dioxide 26, anion gap of 15. BUN 18 and creatinine 0.7. IMPRESSION: Status post collapse, status post ventricular tachycardia, ventricular fibrillation arrest, status post intubated, rule out anoxic encephalopathy, status post cardiac catheterization, nonobstructive coronary artery disease, only circumflex has 60% to 70% stenosis, severely decreased left ventricular function, ejection fraction 15% to 20% which was the same as two months ago, rule out anoxic encephalopathy, discussed with the family. RECOMMENDATION: Continue supportive care. I will ask also Dr. Nuñez to look from EP point of view. Continue amiodarone mg until this morning and then we will start 400 mg p.o. t.i.d. for 3 days, followed by 200 mg daily. Continue DVT prophylaxis. Discussed with Dr. Reed. Does not need any heparin therapy because no significant CAD, no evidence of ID. We will follow with you. Overall, the patient's condition is critical. Long-term prognosis is extremely poor. Lizz Harrell MD
--- NOTE | 2018-06-26 14:29 | CARD ---
APPROVED REPORT Date of service: 06/25/2018 EKG Measurement Heart [id number] [id number] <Conclusion> Normal sinus rhythm Possible Left atrial enlargement Left ventricular hypertrophy with repolarization abnormality Prolonged QT Abnormal ECG
[2018-06-26] MEDS: DOBUTamine 500mg/250ml D5W 500 MG/250 ML BAG IV PRN (15:04)
--- NOTE | 2018-06-26 15:25 | RAD ---
Date of service: 06/26/2018 HISTORY: pulmonary edema COMPARISON: Earlier same day FINDINGS: LUNGS: There is no significant change in the pattern of perihilar pulmonary edema. PLEURA: No significant pleural effusion identified, no pneumothorax apparent. CARDIOVASCULAR: Cardiomegaly and vascular congestion OSSEOUS STRUCTURES: No significant abnormalities. VISUALIZED UPPER ABDOMEN: Normal. OTHER FINDINGS: Endotracheal and nasogastric tubes in satisfactory position IMPRESSION: No significant change in the pattern of pulmonary edema
--- NOTE | 2018-06-26 15:34 | CP.PCM.PN ---
<Myla Quiñones - Last Filed: 06/26/18 15:31> Subjective - Date & Time of Evaluation Date of Evaluation: 06/26/18 Time of Evaluation: 15:31 - Subjective Subjective: Myla Quiñones, PGY2, Neurology Progress Note for Dr Zavala: Patient seen and examined at bedside. No acute events overnight. Patient remains intubated, unresponsive, on hypothermia protocol, on Versed drip. Propofol drip discontinued this AM. Does not open eyes spontaneously or with stimulation, does not move extremities. ROS limited as patient is intubated. Objective - Vital Signs/Intake and Output Vital Signs (last 24 hours): Temp Pulse Resp BP Pulse Ox 94.1 F L 70 20 131/73 98 06/26/18 14:29 06/26/18 15:04 06/26/18 06:54 06/26/18 15:04 06/26/18 14:29 Intake and Output: 06/26/18 06/26/18 06:59 18:59 Intake Total 575 332 Output Total 2100 Balance -1525 332 - Medications Medications: Current Medications Amiodarone HCl (Cordarone) 400 mg PO TID [facility] Stop: 06/28/18 23:59 Last Admin: 06/26/18 15:00 Dose: 400 mg Amiodarone HCl (Cordarone) 200 mg PO DAILY [facility] Aspirin (Aspirin Chewable) 81 mg NG DAILY [facility] Last Admin: 06/26/18 10:56 Dose: 81 mg Atorvastatin Calcium (Lipitor) 80 mg NG DIN [facility] Gemfibrozil (Lopid) 600 mg PO BID [facility] Last Admin: 06/26/18 10:59 Dose: 600 mg Heparin Sodium (Porcine) (Heparin) 5,000 units SC Q8 [facility]; Protocol Last Admin: 06/26/18 14:22 Dose: 5,000 units Dobutamine HCl/Dextrose (Dobutamine/Dextrose 5% 500mg/250ml) 500 mg in 250 mls @ 7.62 mls/hr IV .Q24H PRN; Protocol PRN Reason: TITRATE PER PROTOCOL Last Admin: 06/26/18 15:04 Dose: 4 mcg/kg/min, 15.241 mls/hr Heparin Sodium/Sodium Chloride (Heparin 34627 Units/250ml 1/2 Normal Saline) 25,000 units in 250 mls @ 15.241 mls/hr IV .[id number] [facility]; Protocol Last Admin: 06/25/18 11:30 Dose: Not Given Levetiracetam (Keppra 500mg Ivpb) 500 mg in 100 mls @ 400 mls/hr IVPB Q12 [facility] Last Admin: 06/26/18 09:12 Dose: 400 mls/hr Cisatracurium Besylate 200 mg/ (Sodium Chloride) 270 mls @ 4.66 mls/hr IV .Q24H PRN; Protocol PRN Reason: TITRATE PER MD ORDER Last Titration: 06/26/18 07:00 Dose: 0.5 mcg/kg/min, 4.66 mls/hr Acetaminophen (Ofirmev) 1,000 mg in 100 mls @ 400 mls/hr IVPB Q6H PRN PRN Reason: for T>100F Stop: 06/27/18 16:17 Doxycycline Hyclate 100 mg/ (Sodium Chloride) 100 mls @ 100 mls/hr IVPB Q12 [facility]; Protocol Last Admin: 06/26/18 10:45 Dose: 100 mls/hr Metronidazole (Flagyl) 500 mg in 100 mls @ 100 mls/hr IVPB Q8 [facility]; Protocol Last Admin: 06/26/18 14:22 Dose: 100 mls/hr Amiodarone HCl/Dextrose (Nexterone 360 Mg In D5w 200 Ml (Premix)) 360 mg in 200 mls @ 16.667 mls/hr IV .Q12H [facility]; Protocol Last Admin: 06/25/18 21:53 Dose: 16.667 mls/hr Cefepime HCl (Maxipime 2gm) 2 gm in 100 mls @ 100 mls/hr IVPB Q8 [facility]; Protocol Stop: 07/01/18 08:01 Last Admin: 06/26/18 14:22 Dose: 100 mls/hr Fentanyl Citrate (Fentanyl Citrate/Sodium Chloride 1 Mg/100 Ml) 1,000 mcg in 100 mls @ 10 mls/hr IV .Q10H PRN; Protocol PRN Reason: TITRATE PER MD ORDER Last Titration: 06/26/18 14:40 Dose: 60 mcg/hr, 6 mls/hr Midazolam 100 mg/100ml in NS (Midazolam 100 Mg/100ml In Ns) 100 mg in 100 mls @ 1 mls/hr IV .Q24H PRN; Protocol PRN Reason: Sedation Last Titration: 06/26/18 11:30 Dose: 2 mg/hr, 2 mls/hr Insulin Human Regular (Humulin R Med) 0 units SC Q2H [facility]; Protocol Last Admin: 06/26/18 14:00 Dose: 1 unit Pantoprazole Sodium (Protonix Inj) 40 mg IVP DAILY [facility] Last Admin: 06/26/18 09:12 Dose: 40 mg - Labs Labs: 06/26/18 05:30 06/26/18 05:30 PT 12.7 SECONDS (9.4-12.5) H 06/25/18 09:15 INR 1.10 06/25/18 09:15 APTT 27.3 Seconds (25.1-36.5) 06/25/18 09:15 - Constitutional Appears: Toxic - Head Exam Head Exam: ATRAUMATIC, NORMOCEPHALIC - Eye Exam Eye Exam: PERRL (sluggish reaction to light b/l). absent: Conjunctival injection, Nystagmus, Scleral icterus - ENT Exam Additional comments: intubated - Respiratory Exam Respiratory Exam: Clear to Ausculation Bilateral - Cardiovascular Exam Cardiovascular Exam: RRR, +S1, +S2. absent: Murmur - GI/Abdominal Exam GI & Abdominal Exam: Soft, Hypoactive Bowel Sounds. absent: Organomegaly - Extremities Exam Extremities Exam: absent: Pedal Edema - Neurological Exam Neurological Exam: Altered Additional comments: Does not respond to verbal, painful stimuli, not to sternal rub. No corneals, gag, pupillary reaction to light, dolls eyes. - Skin Skin Exam: Mottled Assessment and Plan - Assessment and Plan (Free Text) Assessment: 62 year old female with PMH of systolic CHF with EF 15-20%, HTN, DM, COPD, AFib, presents s/p cardiac arrest. Cardiac cath showed nonobstructive CAD. Neurology consulted for anoxic brain injury: - Video EEG was abnormal due to the presence of severe background slowing/attenuation. No seizures, not in status epilepticus. - will continue EEG for now. - C/w Keppra 500 mg IV q12 - neuro checks - C/w ICU management - Monitor - guarded prognosis Case discussed with Dr Zavala. <Allen Zavala - Last Filed: 06/27/18 11:45> Objective - Vital Signs/Intake and Output Vital Signs (last 24 hours): Temp Pulse Resp BP Pulse Ox 97.9 F 100 H 40 H 107/63 91 L 06/27/18 09:00 06/27/18 09:00 06/27/18 08:26 06/27/18 09:00 06/27/18 09:00 Intake and Output: 06/27/18 06/27/18 06:59 18:59 Intake Total 1410 0 Output Total 2310 Balance -900 0 - Medications Medications: Current Medications Amiodarone HCl (Cordarone) 400 mg PO TID [facility] Stop: 06/28/18 23:59 Last Admin: 06/26/18 21:06 Dose: 400 mg Amiodarone HCl (Cordarone) 200 mg PO DAILY [facility] Aspirin (Aspirin Chewable) 81 mg NG DAILY [facility] Last Admin: 06/26/18 19:50 Dose: 81 mg Atorvastatin Calcium (Lipitor) 80 mg NG DIN [facility] Last Admin: 06/26/18 18:06 Dose: 80 mg Furosemide (Lasix) 40 mg IVP BID [facility] Gemfibrozil (Lopid) 600 mg PO BID [facility] Last Admin: 06/26/18 18:07 Dose: 600 mg Heparin Sodium (Porcine) (Heparin) 5,000 units SC Q8 [facility]; Protocol Last Admin: 06/27/18 05:06 Dose: 5,000 units Heparin Sodium/Sodium Chloride (Heparin 36183 Units/250ml 1/2 Normal Saline) 25,000 units in 250 mls @ 15.241 mls/hr IV .[id number] [facility]DA; Protocol Last Admin: 06/25/18 11:30 Dose: Not Given Cisatracurium Besylate 200 mg/ (Sodium Chloride) 270 mls @ 4.66 mls/hr IV .Q24H PRN; Protocol PRN Reason: TITRATE PER MD ORDER Last Titration: 06/27/18 07:30 Dose: 0 mcg/kg/min, 0 mls/hr Acetaminophen (Ofirmev) 1,000 mg in 100 mls @ 400 mls/hr IVPB Q6H PRN PRN Reason: for T>100F Stop: 06/27/18 16:17 Doxycycline Hyclate 100 mg/ (Sodium Chloride) 100 mls @ 100 mls/hr IVPB Q12 [facility]; Protocol Last Admin: 06/26/18 21:25 Dose: 100 mls/hr Metronidazole (Flagyl) 500 mg in 100 mls @ 100 mls/hr IVPB Q8 [facility]; Protocol Last Admin: 06/27/18 05:07 Dose: 100 mls/hr Cefepime HCl (Maxipime 2gm) 2 gm in 100 mls @ 100 mls/hr IVPB Q8 [facility]; Protocol Stop: 07/01/18 08:01 Last Admin: 06/27/18 05:03 Dose: 100 mls/hr Fentanyl Citrate (Fentanyl Citrate/Sodium Chloride 1 Mg/100 Ml) 1,000 mcg in 100 mls @ 10 mls/hr IV .Q10H PRN; Protocol PRN Reason: TITRATE PER MD ORDER Last Titration: 06/27/18 07:30 Dose: 0 mcg/hr, 0 mls/hr Vancomycin HCl (Vancomycin 1gm) 1 gm in 250 mls @ 167 mls/hr IVPB Q12H [facility]YNDA; P rotocol Last Admin: 06/26/18 21:47 Dose: 167 mls/hr Dobutamine HCl/Dextrose (Dobutamine/Dextrose 5% 500mg/250ml) 500 mg in 250 mls @ 17.25 mls/hr IV .[id number] PRN; Protocol PRN Reason: TITRATE PER PROTOCOL Levetiracetam (Keppra 1000mg/100ml Ns) 100 mls @ 460 mls/hr IV Q12 [facility] Midazolam 100 mg/100ml in NS (Midazolam 100 Mg/100ml In Ns) 100 mg in 100 mls @ 5 mls/hr IV .Q20H PRN; Protocol PRN Reason: Sedation Insulin Human Regular (Humulin R Med) 0 units SC Q2H [facility]; Protocol Last Admin: 06/27/18 08:23 Dose: Not Given Magnesium Oxide (Mag-Ox) 400 mg PO BID [facility] Stop: 06/28/18 23:59 Pantoprazole Sodium (Protonix Inj) 40 mg IVP DAILY [facility] Last Admin: 06/26/18 09:12 Dose: 40 mg - Labs Labs: 06/27/18 06:30 06/26/18 05:30 PT 12.7 SECONDS (9.4-12.5) H 06/25/18 09:15 INR 1.10 06/25/18 09:15 APTT 27.3 Seconds (25.1-36.5) 06/25/18 09:15 Attending/Attestation - Attestation I have personally seen and examined this patient.: Yes I have fully participated in the care of the patient.: Yes I have reviewed all pertinent clinical information, including history, physical exam and plan: Yes Notes (Text): 06/27/18 11:44 I agree with the assessment and plan. EEG shows evidence of diffuse dysfunction secondary to anoxic brain injury. Very poor prognosis.
--- NOTE | 2018-06-26 21:31 | CP.PCM.CON ---
History of Present Illness - History of Present Illness History of Present Illness: 62 year old female with PMH of chronic CHF, HTN, DM, COPD, atrial fibrillation, morbid obesity with BMI 40 was brought in to [facility] after the patient suffered cardiorespiratory arrest. She was apparently at home when she started complainin g of chest pain and then suddenly became unresponsive. Apparently EMS found diaphoretic and pulseless. She was resuscitated and intubated in the field. She is now in the ICU on the ventilator. The patient is unresponsive to tactile or verbal stimuli. She was found to have leukocytosis and CXR and CT scan was suggestive of bibasilar consolidation. Full ROS is unobtainable since the patient is unresponsive. Infectious Diseases consult is requested to further evaluate and manage. Review of Systems - Review of Systems Systems not reviewed;Unavailable: Altered Mental Status Past Patient History - Infectious Disease Hx of Infectious Diseases: None - Tetanus Immunizations Tetanus Immunization: Unknown - Past Social History Smoking Status: Former Smoker - CARDIAC Hx Congestive Heart Failure: Yes Hx Hypertension: Yes - PULMONARY Hx Respiratory Disorders: Yes (USED TO SMOKE CIGARETTES 3 CIG A DAY FOR 15 YRS.) - NEUROLOGICAL HX Cerebrovascular Accident: Yes (TIA) - HEENT Hx HEENT Problems: No - RENAL Hx Chronic Kidney Disease: No - ENDOCRINE/METABOLIC Hx Diabetes Mellitus Type 2: Yes Hx Hypothyroidism: Yes - HEMATOLOGICAL/ONCOLOGICAL Hx Blood Disorders: No - INTEGUMENTARY Hx Dermatological Problems: No - MUSCULOSKELETAL/RHEUMATOLOGICAL Hx Arthritis: Yes - GASTROINTESTINAL Hx Gastrointestinal Disorders: Yes (APPENDECTOMY,TONSILLECTOMY) Hx Gall Bladder Disease: Yes (CHOLEYCYSTECTOMY) - GENITOURINARY/GYNECOLOGICAL Hx Genitourinary Disorders: No - PSYCHIATRIC Hx Psychophysiologic Disorder: Yes Hx Anxiety: Yes Hx Depression: Yes Hx Substance Use: No - SURGICAL HISTORY Hx Appendectomy: Yes Hx Cholecystectomy: Yes Meds Allergies/Adverse Reactions: Allergies Allergy/AdvReac Type Severity Reaction Status Date / Time No Known Allergies Allergy Verified 06/25/18 14:47 - Medications Medications: Current Medications Amiodarone HCl (Cordarone) 400 mg PO TID [facility] Stop: 06/28/18 23:59 Last Admin: 06/26/18 21:06 Dose: 400 mg Amiodarone HCl (Cordarone) 200 mg PO DAILY [facility] Aspirin (Aspirin Chewable) 81 mg NG DAILY [facility] Last Admin: 06/26/18 19:50 Dose: 81 mg Atorvastatin Calcium (Lipitor) 80 mg NG DIN [facility] Last Admin: 06/26/18 18:06 Dose: 80 mg Gemfibrozil (Lopid) 600 mg PO BID [facility] Last Admin: 06/26/18 18:07 Dose: 600 mg Heparin Sodium (Porcine) (Heparin) 5,000 units SC Q8 [facility]; Protocol Last Admin: 06/26/18 21:08 Dose: 5,000 units Dobutamine HCl/Dextrose (Dobutamine/Dextrose 5% 500mg/250ml) 500 mg in 250 mls @ 7.62 mls/hr IV .Q24H PRN; Protocol PRN Reason: TITRATE PER PROTOCOL Last Admin: 06/26/18 15:04 Dose: 4 mcg/kg/min, 15.241 mls/hr Heparin Sodium/Sodium Chloride (Heparin 75387 Units/250ml 1/2 Normal Saline) 25,000 units in 250 mls @ 15.241 mls/hr IV .[id number] [facility]; Protocol Last Admin: 06/25/18 11:30 Dose: Not Given Levetiracetam (Keppra 500mg Ivpb) 500 mg in 100 mls @ 400 mls/hr IVPB Q12 [facility] Last Admin: 06/26/18 21:10 Dose: 400 mls/hr Cisatracurium Besylate 200 mg/ (Sodium Chloride) 270 mls @ 4.66 mls/hr IV .Q24H PRN; Protocol PRN Reason: TITRATE PER MD ORDER Last Titration: 06/26/18 07:00 Dose: 0.5 mcg/kg/min, 4.66 mls/hr Acetaminophen (Ofirmev) 1,000 mg in 100 mls @ 400 mls/hr IVPB Q6H PRN PRN Reason: for T>100F Stop: 06/27/18 16:17 Doxycycline Hyclate 100 mg/ (Sodium Chloride) 100 mls @ 100 mls/hr IVPB Q12 [facility]; Protocol Last Admin: 06/26/18 10:45 Dose: 100 mls/hr Metronidazole (Flagyl) 500 mg in 100 mls @ 100 mls/hr IVPB Q8 [facility]; Protocol Last Admin: 06/26/18 21:09 Dose: 100 mls/hr Cefepime HCl (Maxipime 2gm) 2 gm in 100 mls @ 100 mls/hr IVPB Q8 [facility]; Protocol Stop: 07/01/18 08:01 Last Admin: 06/26/18 21:09 Dose: 100 mls/hr Fentanyl Citrate (Fentanyl Citrate/Sodium Chloride 1 Mg/100 Ml) 1,000 mcg in 100 mls @ 10 mls/hr IV .Q10H PRN; Protocol PRN Reason: TITRATE PER MD ORDER Last Titration: 06/26/18 16:44 Dose: 70 mcg/hr, 7 mls/hr Midazolam 100 mg/100ml in NS (Midazolam 100 Mg/100ml In Ns) 100 mg in 100 mls @ 1 mls/hr IV .Q24H PRN; Protocol PRN Reason: Sedation Last Titration: 06/26/18 11:30 Dose: 2 mg/hr, 2 mls/hr Vancomycin HCl (Vancomycin 1gm) 1 gm in 250 mls @ 167 mls/hr IVPB Q12H [facility]; Protocol Insulin Human Regular (Humulin R Med) 0 units SC Q2H [facility]; Protocol Last Admin: 06/26/18 21:16 Dose: Not Given Pantoprazole Sodium (Protonix Inj) 40 mg IVP DAILY [facility] Last Admin: 06/26/18 09:12 Dose: 40 mg Physical Exam - Constitutional Appears: Other (intubated, unresponsive) - ENT Exam Additional comments: ET tube in place - Respiratory Exam Respiratory Exam: Decreased Breath Sounds - Cardiovascular Exam Cardiovascular Exam: +S1, +S2 - GI/Abdominal Exam GI & Abdominal Exam: Soft. absent: Tenderness Results - Vital Signs Recent Vital Signs: Last Vital Signs Temp 94.1 F L 06/26/18 18:59 Pulse 78 06/26/18 21:06 Resp 20 06/26/18 06:54 BP 119/70 06/26/18 21:06 Pulse Ox 97 06/26/18 18:59 - Labs Result Diagrams: 06/26/18 05:30 06/26/18 05:30 Labs: Laboratory Results - last 24 hr 06/25/18 06/25/18 06/25/18 16:50 21:21 22:40 WBC 15.5 H D RBC 4.70 Hgb 14.3 Hct 42.5 MCV 90.4 D MCH 30.4 MCHC 33.6 RDW 14.2 Plt Count 99 L MPV 12.8 H Gran % 87.3 H Lymph % (Auto) 5.6 L Crook % (Auto) 7.0 H Eos % (Auto) 0.0 L Baso % (Auto) 0.1 Gran # 13.50 H Lymph # (Auto) 0.9 L Crook # (Auto) 1.1 H Eos # (Auto) 0.0 Baso # (Auto) 0.01 Neutrophils % (Manual) Band Neutrophils % Lymphocytes % (Manual) Monocytes % (Manual) Platelet Evaluation pCO2 pO2 HCO3 ABG pH ABG Total CO2 ABG O2 Saturation ABG O2 Content ABG Base Excess ABG Hemoglobin ABG Carboxyhemoglobin POC ABG HHb (Measured) ABG Methemoglobin ABG O2 Capacity Hgb O2 Saturation FiO2 Sodium Potassium Chloride Carbon Dioxide Anion Gap BUN Creatinine Est GFR ( Amer) Est GFR (Non-Af Amer) POC Glucose (mg/dL) 135 H Random Glucose Hemoglobin A1c Calcium Phosphorus Magnesium Total Bilirubin AST ALT Alkaline Phosphatase Total Protein Albumin Globulin Albumin/Globulin Ratio Triglycerides Cholesterol LDL Cholesterol Direct HDL Cholesterol Lipase Procalcitonin 0.22 Ur L.pneumophila Ag 06/25/18 06/26/18 06/26/18 23:22 00:05 03:37 WBC RBC Hgb Hct MCV MCH MCHC RDW Plt Count MPV Gran % Lymph % (Auto) Crook % (Auto) Eos % (Auto) Baso % (Auto) Gran # Lymph # (Auto) Crook # (Auto) Eos # (Auto) Baso # (Auto) Neutrophils % (Manual) Band Neutrophils % Lymphocytes % (Manual) Monocytes % (Manual) Platelet Evaluation pCO2 pO2 HCO3 ABG pH ABG Total CO2 ABG O2 Saturation ABG O2 Content ABG Base Excess ABG Hemoglobin ABG Carboxyhemoglobin POC ABG HHb (Measured) ABG Methemoglobin ABG O2 Capacity Hgb O2 Saturation FiO2 Sodium 137 Potassium 3.8 Chloride 97 L Carbon Dioxide 29 Anion Gap 15 BUN 20 Creatinine 0.8 Est GFR ( Amer) > 60 Est GFR (Non-Af Amer) > 60 POC Glucose (mg/dL) 150 H 132 H Random Glucose 134 H Hemoglobin A1c Calcium 8.8 Phosphorus 4.6 H Magnesium 1.8 Total Bilirubin AST ALT Alkaline Phosphatase Total Protein Albumin Globulin Albumin/Globulin Ratio Triglycerides Cholesterol LDL Cholesterol Direct HDL Cholesterol Lipase Procalcitonin Ur L.pneumophila Ag 06/26/18 06/26/18 06/26/18 05:29 05:30 05:30 WBC 17.9 H RBC 4.90 Hgb 15.1 Hct 44.7 MCV 91.2 MCH 30.8 MCHC 33.8 RDW 14.3 Plt Count 180 MPV 12.5 H Gran % 84.5 H Lymph % (Auto) 4.2 L Crook % (Auto) 11.2 H Eos % (Auto) 0.0 L Baso % (Auto) 0.1 Gran # 15.17 H Lymph # (Auto) 0.8 L Crook # (Auto) 2.0 H Eos # (Auto) 0.0 Baso # (Auto) 0.01 Neutrophils % (Manual) 89 H Band Neutrophils % 3 H Lymphocytes % (Manual) 7 L Monocytes % (Manual) 1 Platelet Evaluation Normal pCO2 pO2 HCO3 ABG pH ABG Total CO2 ABG O2 Saturation ABG O2 Content ABG Base Excess ABG Hemoglobin ABG Carboxyhemoglobin POC ABG HHb (Measured) ABG Methemoglobin ABG O2 Capacity Hgb O2 Saturation FiO2 Sodium 133 Potassium 3.8 Chloride 97 L Carbon Dioxide 26 Anion Gap 15 BUN 18 Creatinine 0.7 Est GFR ( Amer) > 60 Est GFR (Non-Af Amer) > 60 POC Glucose (mg/dL) 161 H Random Glucose 134 H Hemoglobin A1c Calcium 8.2 L Phosphorus 3.6 Magnesium 1.7 Total Bilirubin 1.3 AST 60 H D ALT 28 Alkaline Phosphatase 62 Total Protein 7.3 Albumin 3.7 Globulin 3.5 Albumin/Globulin Ratio 1.1 Triglycerides 1994 H Cholesterol 160 LDL Cholesterol Direct 71 HDL Cholesterol 35 Lipase Procalcitonin Ur L.pneumophila Ag 06/26/18 06/26/18 06/26/18 05:30 06:00 07:33 WBC RBC Hgb Hct MCV MCH MCHC RDW Plt Count MPV Gran % Lymph % (Auto) Crook % (Auto) Eos % (Auto) Baso % (Auto) Gran # Lymph # (Auto) Crook # (Auto) Eos # (Auto) Baso # (Auto) Neutrophils % (Manual) Band Neutrophils % Lymphocytes % (Manual) Monocytes % (Manual) Platelet Evaluation pCO2 29 L pO2 151.0 H HCO3 22.6 ABG pH 7.50 H ABG Total CO2 23.5 ABG O2 Saturation 99.7 H ABG O2 Content 21.8 ABG Base Excess 0.6 ABG Hemoglobin 15.8 ABG Carboxyhemoglobin 1.5 POC ABG HHb (Measured) 0.3 ABG Methemoglobin 1.1 ABG O2 Capacity 21.9 Hgb O2 Saturation 97.1 FiO2 80.0 Sodium Potassium Chloride Carbon Dioxide Anion Gap BUN Creatinine Est GFR ( Amer) Est GFR (Non-Af Amer) POC Glucose (mg/dL) 195 H Random Glucose Hemoglobin A1c 6.5 Calcium Phosphorus Magnesium Total Bilirubin AST ALT Alkaline Phosphatase Total Protein Albumin Globulin Albumin/Globulin Ratio Triglycerides Cholesterol LDL Cholesterol Direct HDL Cholesterol Lipase Procalcitonin Ur L.pneumophila Ag 06/26/18 06/26/18 06/26/18 10:45 11:41 12:50 WBC RBC Hgb Hct MCV MCH MCHC RDW Plt Count MPV Gran % Lymph % (Auto) Crook % (Auto) Eos % (Auto) Baso % (Auto) Gran # Lymph # (Auto) Crook # (Auto) Eos # (Auto) Baso # (Auto) Neutrophils % (Manual) Band Neutrophils % Lymphocytes % (Manual) Monocytes % (Manual) Platelet Evaluation pCO2 pO2 HCO3 ABG pH ABG Total CO2 ABG O2 Saturation ABG O2 Content ABG Base Excess ABG Hemoglobin ABG Carboxyhemoglobin POC ABG HHb (Measured) ABG Methemoglobin ABG O2 Capacity Hgb O2 Saturation FiO2 Sodium Potassium Chloride Carbon Dioxide Anion Gap BUN Creatinine Est GFR ( Amer) Est GFR (Non-Af Amer) POC Glucose (mg/dL) 214 H Random Glucose Hemoglobin A1c Calcium Phosphorus Magnesium Total Bilirubin AST ALT Alkaline Phosphatase Total Protein Albumin Globulin Albumin/Globulin Ratio Triglycerides Cholesterol LDL Cholesterol Direct HDL Cholesterol Lipase 89 Procalcitonin Ur L.pneumophila Ag Negative 06/26/18 06/26/18 06/26/18 13:16 15:58 18:00 WBC RBC Hgb Hct MCV MCH MCHC RDW Plt Count MPV Gran % Lymph % (Auto) Crook % (Auto) Eos % (Auto) Baso % (Auto) Gran # Lymph # (Auto) Crook # (Auto) Eos # (Auto) Baso # (Auto) Neutrophils % (Manual) Band Neutrophils % Lymphocytes % (Manual) Monocytes % (Manual) Platelet Evaluation pCO2 pO2 HCO3 ABG pH ABG Total CO2 ABG O2 Saturation ABG O2 Content ABG Base Excess ABG Hemoglobin ABG Carboxyhemoglobin POC ABG HHb (Measured) ABG Methemoglobin ABG O2 Capacity Hgb O2 Saturation FiO2 Sodium Potassium Chloride Carbon Dioxide Anion Gap BUN Creatinine Est GFR ( Amer) Est GFR (Non-Af Amer) POC Glucose (mg/dL) 177 H 160 H 140 H Random Glucose Hemoglobin A1c Calcium Phosphorus Magnesium Total Bilirubin AST ALT Alkaline Phosphatase Total Protein Albumin Globulin Albumin/Globulin Ratio Triglycerides Cholesterol LDL Cholesterol Direct HDL Cholesterol Lipase Procalcitonin Ur L.pneumophila Ag 06/26/18 06/26/18 19:57 21:14 WBC RBC Hgb Hct MCV MCH MCHC RDW Plt Count MPV Gran % Lymph % (Auto) Crook % (Auto) Eos % (Auto) Baso % (Auto) Gran # Lymph # (Auto) Crook # (Auto) Eos # (Auto) Baso # (Auto) Neutrophils % (Manual) Band Neutrophils % Lymphocytes % (Manual) Monocytes % (Manual) Platelet Evaluation pCO2 pO2 HCO3 ABG pH ABG Total CO2 ABG O2 Saturation ABG O2 Content ABG Base Excess ABG Hemoglobin ABG Carboxyhemoglobin POC ABG HHb (Measured) ABG Methemoglobin ABG O2 Capacity Hgb O2 Saturation FiO2 Sodium Potassium Chloride Carbon Dioxide Anion Gap BUN Creatinine Est GFR ( Amer) Est GFR (Non-Af Amer) POC Glucose (mg/dL) 125 H 107 Random Glucose Hemoglobin A1c Calcium Phosphorus Magnesium Total Bilirubin AST ALT Alkaline Phosphatase Total Protein Albumin Globulin Albumin/Globulin Ratio Triglycerides Cholesterol LDL Cholesterol Direct HDL Cholesterol Lipase Procalcitonin Ur L.pneumophila Ag Assessment & Plan - Assessment and Plan (Free Text) Plan: Assessment Systemic inflammatory response syndrome with VDRF due to cardiopulmonary arrest R/O acute coronary syndrome, with probable anoxic encephalopathy, R/O severe sepsis from aspiration pneumonia chronic CHF HTN DM COPD atrial fibrillation morbid obesity with BMI 40 Plan Started Vancomycin, Cefepime, Flagyl ,Doxycycline pending blood, urine , sputum cx, PCT; reviewed CT A/P and CXR overall prognosis is poor follow up further recommendations of GI, Neuro, Cardio
[2018-06-26] MEDS: Vancomycin 1gm in NS 250ml 1 GM/250 ML BAG IVPB SCH (21:47)
--- NOTE | 2018-06-26 22:58 | CON ---
DATE: 06/26/2018 INPATIENT ELECTROPHYSIOLOGY CONSULTATION REFERRING PHYSICIAN: Lizz Harrell MD. REASON FOR EVALUATION: 1. Bradycardia. 2. PEA arrest. HISTORY OF PRESENT ILLNESS: Ms. Bren Gómez is an unfortunate 62-year-old female with past medical history significant for congestive heart failure, hypertension, diabetes, COPD, paroxysmal atrial fibrillation, who initially presented to the [facility], status post cardiac arrest. She was intubated, brought to the Emergency Department for further evaluation and management. Patient was shocked and it was felt that she did have an ST-elevation myocardial infarction. Patient was coded and resumption of circulation was regained in 4 to 10 minutes, at which point, the patient was taken to the cardiac catheterization laboratory and was found to have nonobstructive coronary artery disease. Did have a single region in the circumflex of 60% to 70%. Patient remains intubated and sedated. Patient has appeared to sustain significant anoxic insult. I was asked to see her in regards to her having undergone cardiac arrest and was treated for a shockable rhythm, currently is on amiodarone IV. CURRENT MEDICATIONS: Include amiodarone 400 mg p.o. t.i.d., which has been initiated through the OG tube, aspirin 81 mg p.o. daily, Lipitor 40 mg p.o. daily, gemfibrozil 600 mg b.i.d., dobutamine has been given and was at baseline bradycardia with heart rate in the 40's. Patient was also given levetiracetam/Keppra 500 mg p.o. daily. LABORATORY DATA: On review of in regard to lab work, patient has a white count of 17.9, H and H of 15.1 and 44.7, platelets of 188. Potassium is 3.8. BUN and creatinine are 18 and 0.7, glucose of 154. INR is 1.1. PHYSICAL EXAMINATION: GENERAL: Patient is intubated, sedated, in no acute distress. Examination is limited secondary to patient undergone EEG. Patient is again intubated, sedated. NG tube is in. CARDIOVASCULAR: Regular rate and rhythm. S1, S2. No S3 or S4. ABDOMEN: Soft, nontender, nondistended. Positive bowel sounds. EXTREMITIES: No cyanosis, clubbing, or edema. Patient during catheterization was found to have a diminished ejection fraction of around 15% to 20%. EKG, which was done late last night, did show at that time sinus tachycardia, left axis deviation. Left ventricular hypertrophy is noted. QT, QTc appear to be somewhat prolonged 358 and 504 respectively. Echocardiogram which was done on 01/07/2018 at 11:22 a.m. shows left ventricle which is severely dilated, mild concentric left ventricular hypertrophy, systolic function is severely impaired. There is global kinesis of left ventricle with transmitral flow pattern, is consistent with grade 1 dysfunction. Right ventricle appears mildly dilated. Left atrium is really dilated. Aortic valve is mildly thickened with moderate aortic regurgitation. No aortic valvular stenosis. ASSESSMENT AND PLAN: 1. Patient is currently bradycardic. May require ionotropic support with IV dobutamine. At this point, patient is now requiring chronotropic support in the form of a permanent pacemaker. Given patient's poor prognosis with what appears to have anoxic injury, patient is likely not a candidate for long-term management with a defibrillator unless there is significant neurologic improvement. We will continue to watch her carefully. This patient is requiring aggressive clinical care should be made in the next coming 24 to 48 hours. 2. Pulseless electrical activity arrest is of unclear reasons. Patient may have had a pneumonia causing hypoxia, worsening of her clinical status. Supportive measures are currently being employed. I have discussed the case with Dr. Harrell. He will contact me if there is any further developments. We will continue amiodarone currently at its current dosing. We will continue watching her EKG carefully. If there is significant QT prolongation or evidence of amiodarone proarrhythmia, amiodarone can and should be stopped. Thank you for allowing me to participate in the care of this patient in the ICU. Please do not hesitate to call if you have any questions in regards to her care. Edvin Nuñez MD
[2018-06-26] MEDS ORDERED: Dextrose 50% SYRINGE Inj (50 ml) IVP ONE (23:09)
[2018-06-27] MEDS: Insulin Reg-MEDIUM-Coverage SC SCH ×3 (05:02→17:38)
[2018-06-27] MEDS: Cefepime IV 2 gm in NS 2 GM/100 ML BAG IVPB SCH ×3 (05:03→22:06)
[2018-06-27] MEDS: metroNIDAZOLE IV 500 mg/100 ml 500 MG/100 ML BAG IVPB SCH ×3 (05:07→21:00)
[2018-06-27 06:18] LABS: ARTERIAL BLOOD GAS HCO3 25.4 mmol/L (21-28); ARTERIAL BLOOD GAS HEMOGLOBIN 14.2 g/dL (11.7-17.4); ARTERIAL BLOOD GAS O2 CAPACITY 19.5 mL/dl (16-24); ARTERIAL BLOOD GAS O2 CONTENT 18.6 ML/dl (15-23); ARTERIAL BLOOD GAS O2 SAT 95.3 % (95-98); ARTERIAL BLOOD GAS PCO2 40 mm/Hg (35-45); ARTERIAL BLOOD GAS PH 7.41 (7.35-7.45); ARTERIAL BLOOD GAS TCO2 26.6 mmol.L (22-28)
[2018-06-27 06:50] LABS: EOS % 0.1 % (1.5-5.0); GRAN # 12.79 (1.4-6.5); GRAN % 89.2 % (50.0-68.0); HEMOGLOBIN 13.2 g/dL (12.0-16.0); LYMPH # 0.9 (1.2-3.4); LYMPH % 6.3 % (22.0-35.0); MEAN CELL VOLUME 91.2 fl (80.0-105.0); MEAN CORPUSCULAR HEMOGLOBIN 29.9 pg (25.0-35.0); MEAN CORPUSCULAR HGB CONC 32.8 g/dl (31.0-37.0); MEAN PLATELET VOLUME 12.6 fl (7.0-11.0); MONO # 0.6 (0.1-0.6); MONO % 4.4 % (1.0-6.0); RBC 4.42 10^6/uL (3.5-6.1); WHITE BLOOD COUNT 14.3 10^3/ul (4.5-11.0)
--- NOTE | 2018-06-27 09:22 | PCM.VEEG ---
Video EEG - Procedure Start Date: 06/26/18 Start Time: 07:20 End Date: 06/27/18 End Time: 07:05 Technical Summary: DATA ACQUISITION: This was a multichannel inpatient video-EEG, a minimum of 22 channels were uti lized, performed in accordance with recommendations specified by the [place] [employer] (Pepe Pederson et al. ACNS Guideline 1: Minimum Technical Requirements for Performing Clinical Electroencephalography. Journal of Clinical Neurophysiology 2016;33:303-7). The 10-20 electrode placement system was utilized in accordance with guidelines detailed by the International Federation of Clinical Neurophysiology (Antonino Perkins et al. The Ten-Twenty Electrode System of the International Federation. Recommendations for the Practice of Clinical Neurophysiology: Guidelines of the International Federation of Clinical Physiology 1999; EEG Suppl. 52.). DATA REVIEW / SPIKE DETECTION / DIGITAL ANALYSIS: The entire EEG was scanned and reviewed. Synchronized audio and video recording were reviewed at the time of each alarm and whenever an abnormality or suspicious activity was noted. The entire recording was analyzed utilizing an automated digital spike and seizure analysis program and all automatic spike and seizure detections were manually reviewed. A compressed spectral array was displayed and reviewed alongside the raw EEG tracings. In addition, further analysis of the EEG was performed when abnormalities were identified, including montage changes, dipole source localization, and frequency band identification. Video portion of the study is necessary to correlate abnormal EEG activity with clinical behavior. This study was attended 24 hours per day. - Interpretation Description of the study: 62 y/o woman s/p cardiac arrest, working diagnosis non convulsive status epilepticus. EEG Finding during wakefulness: There was no awake architecture seen, the EEG showed a diffuse bilateral 3 to4 Hz slowing that was non reactive to stimulation, In addition; there was a burst attenuation pattern characterized by high amplitude burst of sharp activity with inter bursts periods of relative EEG attenuation. They were also runs of generalized epileptifornm paroxysmal discharges (GPEDs) at 2 to 3 Hz, seen in prolonged runs, at times giving the impression of ictal progression, especially during stimulation, however clear ictal activity was not seen. EEG Finding during sleep: Normal sleep architecture was not seen. Interictal non-epileptiform abnormalities: None Interictal epileptiform abnormalities: They were very frequent runs of generalized epileptifornm paroxysmal discharges (GPEDs) at 2 to 3 Hz, seen in prolonged runs, at times giving the impression of ictal progression, especially during stimulation, however clear ictal activity was not seen. On 06/27 this became periodic at 1 hz. Ictal epileptiform abnormalities: none Induction procedures: none - Impression Impression: IMPRESSION: This was an abnormal video EEG, monitoring study, due to the presence of: 1- Severe background slowing/attenuation . 2- Burst suprresion pattern. 3- GPEds (generalzied paroxysmal epileptiform discharges) that are nearly continuous this morning. INTERPRETATION: This findings are in keeping with a severe non specific diffuse disturbance of cortical activity. This is in keeping with a diffuse wallis matter dysfunction. The findings do not suggest a specific etiology. Findings are also in consistent with the diagnosis of mycolonic status epilepticus.
[2018-06-27] MEDS: levETIRAcetam 500mg IVPB 500 MG/100 ML BAG IVPB SCH (10:00)
[2018-06-27] MEDS ORDERED: Potassium Chloride 20 mEq/15 ml LIQ UD PO STA (10:31)
[2018-06-27] MEDS ORDERED: DOBUTamine 500mg/250ml D5W 500 MG/250 ML BAG IV PRN (10:31)
--- NOTE | 2018-06-27 10:55 | CARD ---
APPROVED REPORT Date of service: 06/27/2018 EKG Measurement Heart [id number] <Conclusion> Sinus tachycardia with premature atrial complexes with aberrant conduction Possible Left atrial enlargement Left ventricular hypertrophy with repolarization abnormality Marked ST abnormality, possible anterior subendocardial injury Abnormal ECG
--- NOTE | 2018-06-27 11:03 | CP.CCUPN ---
<Rajesh Vasquez - Last Filed: 06/27/18 11:18> CCU Subjective - Physician Review Subjective (Free Text): Rajesh Vasquez DO, PGY-1 ICU Progress Note for Dr. Galicia Patient is a 62 year old female with PMH of DM2, HTN, COPD, and chronic AFib who presented to ED following witnessed syncopal episode and cardiac arrest. The initial rhythm was found to be PEA. Compressions were started immediately per EMS. After 2 minutes of compressions and single dose of epinephrine, ROSC was a chieved. She was subsequently admitted to ICU for further management. Cooling protocol and continuous EEG were started in ICU. Overnight, continuous EEG was completed. Some seizure like movements were noted this AM and EEG readings were discussed with neurology. CCU Objective - Vital Signs / Intake & Output Vital Signs (Last 4 hours): Vital Signs Temp Pulse Resp BP Pulse Ox 06/27/18 09:00 97.9 F 100 H 107/63 91 L 06/27/18 08:50 97.9 F 105 H 92 L 06/27/18 08:45 99/55 L 06/27/18 08:44 97.7 F 87 89 L 06/27/18 08:40 97.7 F 98 H 91 L 06/27/18 08:30 97.7 F 91 H 118/51 L 93 L 06/27/18 08:26 97.7 F 103 H 40 H 94 L 06/27/18 08:20 97.5 F L 95 H 93 L 06/27/18 08:15 97.5 F L 87 103/62 93 L 06/27/18 08:10 97.5 F L 92 H 93 L 06/27/18 08:02 95.9 F L 93 H 113/62 93 L 06/27/18 08:00 95.5 F L 99 H 108/64 95 06/27/18 07:53 101/46 L 06/27/18 07:50 97.9 F 94 H 94 L 06/27/18 07:48 97.7 F 86 101/46 L 95 06/27/18 07:40 97.5 F L 91 H 97 06/27/18 07:30 97.0 F L 90 97 06/27/18 07:20 97.5 F L 89 93 L 06/27/18 07:10 97.7 F 89 93 L Intake and Output (Last 8hrs): Intake & Output 06/26/18 06/27/18 06/27/18 22:59 06:59 14:59 Intake Total 1069 1350 0 Output Total 1810 2310 Balance -741 -960 0 Intake: IV 1039 1350 0 Left Hand 100 850 Left Wrist 400 Right Antecubital 184 348 Right Hand 283 Oral 0 0 Tube Feeding 30 Output: Gastric Amount 150 Left Nares 150 Urine 1810 1810 2-way Urethral 1810 1810 Urine/Stool Mix 350 Other: # Bowel Movements 0 0 - Physical Exam Head: Positive for: Atraumatic, Other (Intubated) Pupils: Positive for: Sluggish Conjunctiva: Positive for: Normal Mouth: Positive for: Moist Mucous Membranes Neck: Negative for: JVD Respiratory/Chest: Positive for: Clear to Auscultation, Good Air Exchange. Negative for: Respiratory Distress, Accessory Muscle Use, Wheezes, Rales, Rhonchi Cardiovascular: Positive for: Regular Rate and Rhythm, Normal S1, S2. Negative for: Murmurs, Rub, Gallop Abdomen: Negative for: Distention, Mass/Organomegaly Upper Extremity: Positive for: NORMAL PULSES. Negative for: Cyanosis, Edema Lower Extremity: Positive for: Edema (2+ LE pitting edema bilaterally), NORMAL PULSES Neurological: Positive for: Other (Gag and pupillary reflexes elicited, pupillary reflexes sluggish, no doll's eyes or corneal reflexes noted) Skin: Positive for: Warm, Dry, Normal Color. Negative for: Rashes - Medications Active Medications: Active Medications Generic Name Dose Route Start Last Admin Trade Name Levq PRN Reason Stop Dose Admin Amiodarone HCl 400 mg 06/26/18 10:00 06/26/18 21:06 Cordarone PO 06/28/18 23:59 400 mg TID LYNDA Administration Amiodarone HCl 200 mg 06/29/18 10:00 Cordarone PO DAILY LYNDA Aspirin 81 mg 06/26/18 06:00 06/26/18 19:50 Aspirin Chewable NG 81 mg DAILY LYNDA Administration Atorvastatin Calcium 80 mg 06/25/18 17:00 06/26/18 18:06 Lipitor NG 80 mg DIN LYNDA Administration Furosemide 40 mg 06/27/18 10:00 Lasix IVP BID LYNDA Gemfibrozil 600 mg 06/26/18 10:15 06/26/18 18:07 Lopid PO 600 mg BID LYNDA Administration Heparin Sodium (Porcine) 5,000 units 06/25/18 20:00 06/27/18 05:06 Heparin SC 5,000 units Q8 LYNDA Administration Protocol Heparin Sodium/Sodium Chloride 25,000 units in 250 mls @ 15.241 mls/hr 01/07 11:30 06/25/18 11:30 Heparin 54601 Units/250ml 1/2 Normal Saline IV Not Given .[id number] LYNDA Protocol 12 UNITS/KG/HR Levetiracetam 500 mg in 100 mls @ 400 mls/hr 06/25/18 11:30 06/26/18 21:10 Keppra 500mg Ivpb IVPB 400 mls/hr Q12 LYNDA Administration Cisatracurium Besylate 200 mg/ 270 mls @ 4.66 mls/hr 06/25/18 16:05 06/27/18 07:30 Sodium Chloride IV 0 mcg/kg/min .Q24H PRN 0 mls/hr TITRATE PER MD ORDER Titration Protocol 0.5 MCG/KG/MIN Acetaminophen 1,000 mg in 100 mls @ 400 mls/hr 06/25/18 16:16 Ofirmev IVPB 06/27/18 16:17 Q6H PRN for T>100F Doxycycline Hyclate 100 mg/ 100 mls @ 100 mls/hr 06/25/18 22:00 06/26/18 21 :25 Sodium Chloride IVPB 100 mls/hr Q12 LYNDA Administration Protocol Metronidazole 500 mg in 100 mls @ 100 mls/hr 06/25/18 22:00 06/27/18 05:07 Flagyl IVPB 100 mls/hr Q8 LYNDA Administration Protocol Cefepime HCl 2 gm in 100 mls @ 100 mls/hr 06/26/18 08:00 06/27/18 05:03 Maxipime 2gm IVPB 07/01/18 08:01 100 mls/hr Q8 LYNDA Administration Protocol Fentanyl Citrate 1,000 mcg in 100 mls @ 10 mls/hr 06/26/18 10:05 06/27/18 07:30 Fentanyl Citrate/Sodium Chloride 1 Mg/100 Ml IV 0 mcg/hr .Q10H PRN 0 mls/hr TITRATE PER MD ORDER Titration Protocol 100 MCG/HR Midazolam 100 mg/100ml in NS 100 mg in 100 mls @ 1 mls/hr 06/26/18 10:06 06/27/18 07:30 Midazolam 100 Mg/100ml In Ns IV 0 mg/hr .Q24H PRN 0 mls/hr Sedation Titration Protocol 1 MG/HR Vancomycin HCl 1 gm in 250 mls @ 167 mls/hr 06/26/18 21:30 06/26/18 21:47 Vancomycin 1gm IVPB 167 mls/hr Q12H LYNDA Administration Protocol Dobutamine HCl/Dextrose 500 mg in 250 mls @ 17.25 mls/hr 06/27/18 10:47 Dobutamine/Dextrose 5% 500mg/250ml IV .[id number] PRN TITRATE PER PROTOCOL Protocol 5 MCG/KG/MIN Insulin Human Regular 0 units 06/25/18 13:00 06/27/18 08:23 Humulin R Med SC Not Given Q2H LYNDA Protocol Magnesium Oxide 400 mg 06/27/18 10:45 Mag-Ox PO 06/28/18 23:59 BID LYNDA Pantoprazole Sodium 40 mg 06/25/18 11:30 06/26/18 09:12 Protonix Inj IVP 40 mg DAILY LYNDA Administration - Patient Studies Lab Studies: Microbiology Studies 06/25/18 23:00 Gram Stain - Final Trachasp 06/25/18 12:45 Blood Culture - Preliminary Blood-Venous NO GROWTH AFTER 24 HOURS 06/25/18 12:33 Blood Culture - Preliminary Blood-Venous NO GROWTH AFTER 24 HOURS Lab Studies 06/27/18 06/27/18 06/27/18 Range/Units 07:39 06:30 06:00 WBC 14.3 H D (4.5-11.0) 10^3/ul RBC 4.42 (3.5-6.1) 10^6/uL Hgb 13.2 (12.0-16.0) g/dL Hct 40.3 (36.0-48.0) % MCV 91.2 (80.0-105.0) fl MCH 29.9 (25.0-35.0) pg MCHC 32.8 (31.0-37.0) g/dl RDW 15.0 H (11.5-14.5) % Plt Count 168 (120.0-450.0) 10^3/uL MPV 12.6 H (7.0-11.0) fl Gran % 89.2 H (50.0-68.0) % Lymph % (Auto) 6.3 L (22.0-35.0) % Latimer % (Auto) 4.4 (1.0-6.0) % Eos % (Auto) 0.1 L (1.5-5.0) % Baso % (Auto) 0.0 (0.0-3.0) % Gran # 12.79 H (1.4-6.5) Lymph # (Auto) 0.9 L (1.2-3.4) Latimer # (Auto) 0.6 (0.1-0.6) Eos # (Auto) 0.0 (0.0-0.7) Baso # (Auto) 0.00 (0.0-2.0) K/mm3 pCO2 40 (35-45) mm/Hg pO2 66.0 L (80-100) mm/Hg HCO3 25.4 (21-28) mmol/L ABG pH 7.41 (7.35-7.45) ABG Total CO2 26.6 (22-28) mmol.L ABG O2 Saturation 95.3 (95-98) % ABG O2 Content 18.6 (15-23) ML/dl ABG Base Excess 0.7 (-2.0-3.0) mmol/L ABG Hemoglobin 14.2 (11.7-17.4) g/dL ABG Carboxyhemoglobin 1.7 H (0.5-1.5) % POC ABG HHb (Measured) 4.6 (0-5) % ABG Methemoglobin 0.7 (0.0-3.0) % ABG O2 Capacity 19.5 (16-24) mL/dl Hgb O2 Saturation 93.1 L (95.0-98.0) % FiO2 50.0 % POC Glucose (mg/dL) 160 H (65-110) mg/dL Hemoglobin A1c (4.2-6.5) % Magnesium (1.7-2.2) mg/dL Lipase (23-300) U/L HIV 1&2 Ag/Ab, 4th Gen (Nonreactive) Ur L.pneumophila Ag (NEGATIVE) Ur Strep pneumoniae Ag (Not Detected) 06/27/18 06/27/18 06/27/18 Range/Units 04:25 02:15 00:57 WBC (4.5-11.0) 10^3/ul RBC (3.5-6.1) 10^6/uL Hgb (12.0-16.0) g/dL Hct (36.0-48.0) % MCV (80.0-105.0) fl MCH (25.0-35.0) pg MCHC (31.0-37.0) g/dl RDW (11.5-14.5) % Plt Count (120.0-450.0) 10^3/uL MPV (7.0-11.0) fl Gran % (50.0-68.0) % Lymph % (Auto) (22.0-35.0) % Latimer % (Auto) (1.0-6.0) % Eos % (Auto) (1.5-5.0) % Baso % (Auto) (0.0-3.0) % Gran # (1.4-6.5) Lymph # (Auto) (1.2-3.4) Latimer # (Auto) (0.1-0.6) Eos # (Auto) (0.0-0.7) Baso # (Auto) (0.0-2.0) K/mm3 pCO2 (35-45) mm/Hg pO2 (80-100) mm/Hg HCO3 (21-28) mmol/L ABG pH (7.35-7.45) ABG Total CO2 (22-28) mmol.L ABG O2 Saturation (95-98) % ABG O2 Content (15-23) ML/dl ABG Base Excess (-2.0-3.0) mmol/L ABG Hemoglobin (11.7-17.4) g/dL ABG Carboxyhemoglobin (0.5-1.5) % POC ABG HHb (Measured) (0-5) % ABG Methemoglobin (0.0-3.0) % ABG O2 Capacity (16-24) mL/dl Hgb O2 Saturation (95.0-98.0) % FiO2 % POC Glucose (mg/dL) 131 H 107 87 (65-110) mg/dL Hemoglobin A1c (4.2-6.5) % Magnesium (1.7-2.2) mg/dL Lipase (23-300) U/L HIV 1&2 Ag/Ab, 4th Gen (Nonreactive) Ur L.pneumophila Ag (NEGATIVE) Ur Strep pneumoniae Ag (Not Detected) 06/27/18 06/26/18 06/26/18 Range/Units 00:30 22:37 21:14 WBC (4.5-11.0) 10^3/ul RBC (3.5-6.1) 10^6/uL Hgb (12.0-16.0) g/dL Hct (36.0-48.0) % MCV (80.0-105.0) fl MCH (25.0-35.0) pg MCHC (31.0-37.0) g/dl RDW (11.5-14.5) % Plt Count (120.0-450.0) 10^3/uL MPV (7.0-11.0) fl Gran % (50.0-68.0) % Lymph % (Auto) (22.0-35.0) % Latimer % (Auto) (1.0-6.0) % Eos % (Auto) (1.5-5.0) % Baso % (Auto) (0.0-3.0) % Gran # (1.4-6.5) Lymph # (Auto) (1.2-3.4) Latimer # (Auto) (0.1-0.6) Eos # (Auto) (0.0-0.7) Baso # (Auto) (0.0-2.0) K/mm3 pCO2 (35-45) mm/Hg pO2 (80-100) mm/Hg HCO3 (21-28) mmol/L ABG pH (7.35-7.45) ABG Total CO2 (22-28) mmol.L ABG O2 Saturation (95-98) % ABG O2 Content (15-23) ML/dl ABG Base Excess (-2.0-3.0) mmol/L ABG Hemoglobin (11.7-17.4) g/dL ABG Carboxyhemoglobin (0.5-1.5) % POC ABG HHb (Measured) (0-5) % ABG Methemoglobin (0.0-3.0) % ABG O2 Capacity (16-24) mL/dl Hgb O2 Saturation (95.0-98.0) % FiO2 % POC Glucose (mg/dL) 88 107 (65-110) mg/dL Hemoglobin A1c (4.2-6.5) % Magnesium 1.7 (1.7-2.2) mg/dL Lipase (23-300) U/L HIV 1&2 Ag/Ab, 4th Gen (Nonreactive) Ur L.pneumophila Ag (NEGATIVE) Ur Strep pneumoniae Ag (Not Detected) 06/26/18 06/26/18 06/26/18 Range/Units 19:57 18:00 15:58 WBC (4.5-11.0) 10^3/ul RBC (3.5-6.1) 10^6/uL Hgb (12.0-16.0) g/dL Hct (36.0-48.0) % MCV (80.0-105.0) fl MCH (25.0-35.0) pg MCHC (31.0-37.0) g/dl RDW (11.5-14.5) % Plt Count (120.0-450.0) 10^3/uL MPV (7.0-11.0) fl Gran % (50.0-68.0) % Lymph % (Auto) (22.0-35.0) % Latimer % (Auto) (1.0-6.0) % Eos % (Auto) (1.5-5.0) % Baso % (Auto) (0.0-3.0) % Gran # (1.4-6.5) Lymph # (Auto) (1.2-3.4) Latimer # (Auto) (0.1-0.6) Eos # (Auto) (0.0-0.7) Baso # (Auto) (0.0-2.0) K/mm3 pCO2 (35-45) mm/Hg pO2 (80-100) mm/Hg HCO3 (21-28) mmol/L ABG pH (7.35-7.45) ABG Total CO2 (22-28) mmol.L ABG O2 Saturation (95-98) % ABG O2 Content (15-23) ML/dl ABG Base Excess (-2.0-3.0) mmol/L ABG Hemoglobin (11.7-17.4) g/dL ABG Carboxyhemoglobin (0.5-1.5) % POC ABG HHb (Measured) (0-5) % ABG Methemoglobin (0.0-3.0) % ABG O2 Capacity (16-24) mL/dl Hgb O2 Saturation (95.0-98.0) % FiO2 % POC Glucose (mg/dL) 125 H 140 H 160 H (65-110) mg/dL Hemoglobin A1c (4.2-6.5) % Magnesium (1.7-2.2) mg/dL Lipase (23-300) U/L HIV 1&2 Ag/Ab, 4th Gen (Nonreactive) Ur L.pneumophila Ag (NEGATIVE) Ur Strep pneumoniae Ag (Not Detected) 06/26/18 06/26/18 06/26/18 Range/Units 13:16 12:50 11:41 WBC (4.5-11.0) 10^3/ul RBC (3.5-6.1) 10^6/uL Hgb (12.0-16.0) g/dL Hct (36.0-48.0) % MCV (80.0-105.0) fl MCH (25.0-35.0) pg MCHC (31.0-37.0) g/dl RDW (11.5-14.5) % Plt Count (120.0-450.0) 10^3/uL MPV (7.0-11.0) fl Gran % (50.0-68.0) % Lymph % (Auto) (22.0-35.0) % Latimer % (Auto) (1.0-6.0) % Eos % (Auto) (1.5-5.0) % Baso % (Auto) (0.0-3.0) % Gran # (1.4-6.5) Lymph # (Auto) (1.2-3.4) Latimer # (Auto) (0.1-0.6) Eos # (Auto) (0.0-0.7) Baso # (Auto) (0.0-2.0) K/mm3 pCO2 (35-45) mm/Hg pO2 (80-100) mm/Hg HCO3 (21-28) mmol/L ABG pH (7.35-7.45) ABG Total CO2 (22-28) mmol.L ABG O2 Saturation (95-98) % ABG O2 Content (15-23) ML/dl ABG Base Excess (-2.0-3.0) mmol/L ABG Hemoglobin (11.7-17.4) g/dL ABG Carboxyhemoglobin (0.5-1.5) % POC ABG HHb (Measured) (0-5) % ABG Methemoglobin (0.0-3.0) % ABG O2 Capacity (16-24) mL/dl Hgb O2 Saturation (95.0-98.0) % FiO2 % POC Glucose (mg/dL) 177 H 214 H (65-110) mg/dL Hemoglobin A1c (4.2-6.5) % Magnesium (1.7-2.2) mg/dL Lipase (23-300) U/L HIV 1&2 Ag/Ab, 4th Gen (Nonreactive) Ur L.pneumophila Ag Negative (NEGATIVE) Ur Strep pneumoniae Ag (Not Detected) 06/26/18 06/26/18 06/26/18 Range/Units 10:45 05:30 05:30 WBC (4.5-11.0) 10^3/ul RBC (3.5-6.1) 10^6/uL Hgb (12.0-16.0) g/dL Hct (36.0-48.0) % MCV (80.0-105.0) fl MCH (25.0-35.0) pg MCHC (31.0-37.0) g/dl RDW (11.5-14.5) % Plt Count (120.0-450.0) 10^3/uL MPV (7.0-11.0) fl Gran % (50.0-68.0) % Lymph % (Auto) (22.0-35.0) % Latimer % (Auto) (1.0-6.0) % Eos % (Auto) (1.5-5.0) % Baso % (Auto) (0.0-3.0) % Gran # (1.4-6.5) Lymph # (Auto) (1.2-3.4) Latimer # (Auto) (0.1-0.6) Eos # (Auto) (0.0-0.7) Baso # (Auto) (0.0-2.0) K/mm3 pCO2 (35-45) mm/Hg pO2 (80-100) mm/Hg HCO3 (21-28) mmol/L ABG pH (7.35-7.45) ABG Total CO2 (22-28) mmol.L ABG O2 Saturation (95-98) % ABG O2 Content (15-23) ML/dl ABG Base Excess (-2.0-3.0) mmol/L ABG Hemoglobin (11.7-17.4) g/dL ABG Carboxyhemoglobin (0.5-1.5) % POC ABG HHb (Measured) (0-5) % ABG Methemoglobin (0.0-3.0) % ABG O2 Capacity (16-24) mL/dl Hgb O2 Saturation (95.0-98.0) % FiO2 % POC Glucose (mg/dL) (65-110) mg/dL Hemoglobin A1c 6.5 (4.2-6.5) % Magnesium (1.7-2.2) mg/dL Lipase 89 (23-300) U/L HIV 1&2 Ag/Ab, 4th Gen Nonreactive (Nonreactive) Ur L.pneumophila Ag (NEGATIVE) Ur Strep pneumoniae Ag (Not Detected) 06/25/18 Range/Units 13:00 WBC (4.5-11.0) 10^3/ul RBC (3.5-6.1) 10^6/uL Hgb (12.0-16.0) g/dL Hct (36.0-48.0) % MCV (80.0-105.0) fl MCH (25.0-35.0) pg MCHC (31.0-37.0) g/dl RDW (11.5-14.5) % Plt Count (120.0-450.0) 10^3/uL MPV (7.0-11.0) fl Gran % (50.0-68.0) % Lymph % (Auto) (22.0-35.0) % Latimer % (Auto) (1.0-6.0) % Eos % (Auto) (1.5-5.0) % Baso % (Auto) (0.0-3.0) % Gran # (1.4-6.5) Lymph # (Auto) (1.2-3.4) Latimer # (Auto) (0.1-0.6) Eos # (Auto) (0.0-0.7) Baso # (Auto) (0.0-2.0) K/mm3 pCO2 (35-45) mm/Hg pO2 (80-100) mm/Hg HCO3 (21-28) mmol/L ABG pH (7.35-7.45) ABG Total CO2 (22-28) mmol.L ABG O2 Saturation (95-98) % ABG O2 Content (15-23) ML/dl ABG Base Excess (-2.0-3.0) mmol/L ABG Hemoglobin (11.7-17.4) g/dL ABG Carboxyhemoglobin (0.5-1.5) % POC ABG HHb (Measured) (0-5) % ABG Methemoglobin (0.0-3.0) % ABG O2 Capacity (16-24) mL/dl Hgb O2 Saturation (95.0-98.0) % FiO2 % POC Glucose (mg/dL) (65-110) mg/dL Hemoglobin A1c (4.2-6.5) % Magnesium (1.7-2.2) mg/dL Lipase (23-300) U/L HIV 1&2 Ag/Ab, 4th Gen (Nonreactive) Ur L.pneumophila Ag (NEGATIVE) Ur Strep pneumoniae Ag Not detected (Not Detected) Laboratory Results - last 24 hr 06/25/18 06/26/18 06/26/18 13:00 05:30 05:30 WBC RBC Hgb Hct MCV MCH MCHC RDW Plt Count MPV Gran % Lymph % (Auto) Latimer % (Auto) Eos % (Auto) Baso % (Auto) Gran # Lymph # (Auto) Latimer # (Auto) Eos # (Auto) Baso # (Auto) pCO2 pO2 HCO3 ABG pH ABG Total CO2 ABG O2 Saturation ABG O2 Content ABG Base Excess ABG Hemoglobin ABG Carboxyhemoglobin POC ABG HHb (Measured) ABG Methemoglobin ABG O2 Capacity Hgb O2 Saturation FiO2 POC Glucose (mg/dL) Hemoglobin A1c 6.5 Magnesium Lipase HIV 1&2 Ag/Ab, 4th Gen Nonreactive Ur L.pneumophila Ag Ur Strep pneumoniae Ag Not detected 06/26/18 06/26/18 06/26/18 10:45 11:41 12:50 WBC RBC Hgb Hct MCV MCH MCHC RDW Plt Count MPV Gran % Lymph % (Auto) Latimer % (Auto) Eos % (Auto) Baso % (Auto) Gran # Lymph # (Auto) Latimer # (Auto) Eos # (Auto) Baso # (Auto) pCO2 pO2 HCO3 ABG pH ABG Total CO2 ABG O2 Saturation ABG O2 Content ABG Base Excess ABG Hemoglobin ABG Carboxyhemoglobin POC ABG HHb (Measured) ABG Methemoglobin ABG O2 Capacity Hgb O2 Saturation FiO2 POC Glucose (mg/dL) 214 H Hemoglobin A1c Magnesium Lipase 89 HIV 1&2 Ag/Ab, 4th Gen Ur L.pneumophila Ag Negative Ur Strep pneumoniae Ag 06/26/18 06/26/18 06/26/18 13:16 15:58 18:00 WBC RBC Hgb Hct MCV MCH MCHC RDW Plt Count MPV Gran % Lymph % (Auto) Latimer % (Auto) Eos % (Auto) Baso % (Auto) Gran # Lymph # (Auto) Latimer # (Auto) Eos # (Auto) Baso # (Auto) pCO2 pO2 HCO3 ABG pH ABG Total CO2 ABG O2 Saturation ABG O2 Content ABG Base Excess ABG Hemoglobin ABG Carboxyhemoglobin POC ABG HHb (Measured) ABG Methemoglobin ABG O2 Capacity Hgb O2 Saturation FiO2 POC Glucose (mg/dL) 177 H 160 H 140 H Hemoglobin A1c Magnesium Lipase HIV 1&2 Ag/Ab, 4th Gen Ur L.pneumophila Ag Ur Strep pneumoniae Ag 06/26/18 06/26/18 06/26/18 19:57 21:14 22:37 WBC RBC Hgb Hct MCV MCH MCHC RDW Plt Count MPV Gran % Lymph % (Auto) Latimer % (Auto) Eos % (Auto) Baso % (Auto) Gran # Lymph # (Auto) Latimer # (Auto) Eos # (Auto) Baso # (Auto) pCO2 pO2 HCO3 ABG pH ABG Total CO2 ABG O2 Saturation ABG O2 Content ABG Base Excess ABG Hemoglobin ABG Carboxyhemoglobin POC ABG HHb (Measured) ABG Methemoglobin ABG O2 Capacity Hgb O2 Saturation FiO2 POC Glucose (mg/dL) 125 H 107 88 Hemoglobin A1c Magnesium Lipase HIV 1&2 Ag/Ab, 4th Gen Ur L.pneumophila Ag Ur Strep pneumoniae Ag 06/27/18 06/27/18 06/27/18 00:30 00:57 02:15 WBC RBC Hgb Hct MCV MCH MCHC RDW Plt Count MPV Gran % Lymph % (Auto) Latimer % (Auto) Eos % (Auto) Baso % (Auto) Gran # Lymph # (Auto) Latimer # (Auto) Eos # (Auto) Baso # (Auto) pCO2 pO2 HCO3 ABG pH ABG Total CO2 ABG O2 Saturation ABG O2 Content ABG Base Excess ABG Hemoglobin ABG Carboxyhemoglobin POC ABG HHb (Measured) ABG Methemoglobin ABG O2 Capacity Hgb O2 Saturation FiO2 POC Glucose (mg/dL) 87 107 Hemoglobin A1c Magnesium 1.7 Lipase HIV 1&2 Ag/Ab, 4th Gen Ur L.pneumophila Ag Ur Strep pneumoniae Ag 06/27/18 06/27/18 06/27/18 04:25 06:00 06:30 WBC 14.3 H D RBC 4.42 Hgb 13.2 Hct 40.3 MCV 91.2 MCH 29.9 MCHC 32.8 RDW 15.0 H Plt Count 168 MPV 12.6 H Gran % 89.2 H Lymph % (Auto) 6.3 L [place] % (Auto) 4.4 Eos % (Auto) 0.1 L Baso % (Auto) 0.0 Gran # 12.79 H Lymph # (Auto) 0.9 L Latimer # (Auto) 0.6 Eos # (Auto) 0.0 Baso # (Auto) 0.00 pCO2 40 pO2 66.0 L HCO3 25.4 ABG pH 7.41 ABG Total CO2 26.6 ABG O2 Saturation 95.3 ABG O2 Content 18.6 ABG Base Excess 0.7 ABG Hemoglobin 14.2 ABG Carboxyhemoglobin 1.7 H POC ABG HHb (Measured) 4.6 ABG Methemoglobin 0.7 ABG O2 Capacity 19.5 Hgb O2 Saturation 93.1 L FiO2 50.0 POC Glucose (mg/dL) 131 H Hemoglobin A1c Magnesium Lipase HIV 1&2 Ag/Ab, 4th Gen Ur L.pneumophila Ag Ur Strep pneumoniae Ag 06/27/18 07:39 WBC RBC Hgb Hct MCV MCH MCHC RDW Plt Count MPV Gran % Lymph % (Auto) Latimer % (Auto) Eos % (Auto) Baso % (Auto) Gran # Lymph # (Auto) Latimer # (Auto) Eos # (Auto) Baso # (Auto) pCO2 pO2 HCO3 ABG pH ABG Total CO2 ABG O2 Saturation ABG O2 Content ABG Base Excess ABG Hemoglobin ABG Carboxyhemoglobin POC ABG HHb (Measured) ABG Methemoglobin ABG O2 Capacity Hgb O2 Saturation FiO2 POC Glucose (mg/dL) 160 H Hemoglobin A1c Magnesium Lipase HIV 1&2 Ag/Ab, 4th Gen Ur L.pneumophila Ag Ur Strep pneumoniae Ag EKG/Cardiology Studies: Cardiology / EKG Studies 06/27/18 09:16 EKG [ELECTROCARDIOGRAM] Stat Comment: Reason For Exam: prolonged QT Fingerstick Blood Sugar Results: 160 Review of Systems - Review of Systems Systems not reviewed;Unavailable: Intubated Critical Care Progress Note - Ventilator Checklist Head of Bed 30 Degrees: Yes Daily Sedation Vacation: Yes Daily Assessment of Readiness to Wean: Yes Daily Spontaneous Breathing Trial: Yes PUD Prophalyxis: Yes DVT Prophylaxis: Yes - Vent Settings MODE:: PRVC TIDAL VOLUME:: 400 RESP RATE:: 20 FIO2:: 60 PEEP:: 15 - Extremities/Vascular Does the Patient have a Central Venous Catheter?: No Does the Patient have a Mackey Catheter?: Yes - Prophylaxis GI Prophylaxis GI: PPI Assessment/Plan - Assessment and Plan (Free Text) Assessment: 62 yo F with PMH of DM2, HTN, COPD, and chronic AFib presented in [facility] via [facility] with ROSC achieved after 2 minutes of CPR and one dose of epinephrine. Patient had spontaneous, seizure-like movements this AM with some activity on EEG. Plan: Neuro: -Patient is currently non-responsive to sternal rub, trapezius pinch -Gag and pupillary reflexes elicited but sluggish, doll's eyes and corneals absent -Case and EEG results discussed with Dr. Zavala -EEG, including seizure-like activity, is consistent with severe anoxic brain injury -Poor prognosis -Neurology will see her today -F/u neurology recs Cardio: -Currently RRR, normotensive, no longer requiring pressure support -PCI shortly after arrival in ED showed no significant stenosis, no stents were placed -LVEF found to be between 15-20% on cath -Amiodarone discontinued, dobutamine continued -Patient has hx of AFib -Cardiac arrest likely 2/2 arrhythmia -F/u cardiology recs Pulm: -Intubated and sedated with fentanyl, versed -Diffuse rhonchi auscultated b/l -CXR with bilateral pulmonary edema, but improved from yesterday -Give additional dose of Lasix 40 mg IVP, continue BID -Vent Settings: TV 400 RR 15 PEEP 15 O2 50 -Protective lung ventilation strategy -Keep head of bed elevated to 30 degrees -Aspiration pxns -Daily ABG, CXR GI: -NPO on vent -NG in place, no suction needed, may use for meds -Consider tube feedings if needed /Nephro: -BUN/Cr stable -UOP low at 350 cc despite lasix -Continue to monitor -Maintain euvolemia Endocrine: -Maintain euglycemia -Patient has hx of DM2 -ISS as needed ID: -Leukocytosis improved from yesterday -Urine legionella, strep pneumoniae, and HIV negative -On empiric cefepime and flagyl -ID following, recs appreciated Heme/Onc: -H/H stable at 13.2/40.3 -No signs of HD compromise -Continue monitoring H/H DVT/GI PPX: Protonix and SC heparin Full Code Monitor in MICU Case and plan reviewed and discussed with my attending Dr. Frida Vasquez, DO IM Resident PGY-1 <Kenyon Galicia - Last Filed: 06/27/18 11:35> CCU Objective - Vital Signs / Intake & Output Vital Signs (Last 4 hours): Vital Signs Temp Pulse Resp BP Pulse Ox 06/27/18 09:00 97.9 F 100 H 107/63 91 L 06/27/18 08:50 97.9 F 105 H 92 L 06/27/18 08:45 99/55 L 06/27/18 08:44 97.7 F 87 89 L 06/27/18 08:40 97.7 F 98 H 91 L 06/27/18 08:30 97.7 F 91 H 118/51 L 93 L 06/27/18 08:26 97.7 F 103 H 40 H 94 L 06/27/18 08:20 97.5 F L 95 H 93 L 06/27/18 08:15 97.5 F L 87 103/62 93 L 06/27/18 08:10 97.5 F L 92 H 93 L 06/27/18 08:02 95.9 F L 93 H 113/62 93 L 06/27/18 08:00 95.5 F L 99 H 108/64 95 06/27/18 07:53 101/46 L 06/27/18 07:50 97.9 F 94 H 94 L 06/27/18 07:48 97.7 F 86 101/46 L 95 06/27/18 07:40 97.5 F L 91 H 97 Intake and Output (Last 8hrs): Intake & Output 06/26/18 06/27/18 06/27/18 22:59 06:59 14:59 Intake Total 1069 1350 0 Output Total 1810 2310 Balance -741 -960 0 Intake: IV 1039 1350 0 Left Hand 100 850 Left Wrist 400 Right Antecubital 184 348 Right Hand 283 Oral 0 0 Tube Feeding 30 Output: Gastric Amount 150 Left Nares 150 Urine 1810 1810 2-way Urethral 1810 1810 Urine/Stool Mix 350 Other: # Bowel Movements 0 0 - Medications Active Medications: Active Medications Generic Name Dose Route Start Last Admin Trade Name Carlos PRN Reason Stop Dose Admin Amiodarone HCl 400 mg 06/26/18 10:00 06/26/18 21:06 Cordarone PO 06/28/18 23:59 400 mg TID LYNDA Administration Amiodarone HCl 200 mg 06/29/18 10:00 Cordarone PO DAILY LYNDA Aspirin 81 mg 06/26/18 06:00 06/26/18 19:50 Aspirin Chewable NG 81 mg DAILY LYNDA Administration Atorvastatin Calcium 80 mg 06/25/18 17:00 06/26/18 18:06 Lipitor NG 80 mg DIN LYNDA Administration Furosemide 40 mg 06/27/18 10:00 Lasix IVP BID LYNDA Gemfibrozil 600 mg 06/26/18 10:15 06/26/18 18:07 Lopid PO 600 mg BID LYNDA Administration Heparin Sodium (Porcine) 5,000 units 06/25/18 20:00 06/27/18 05:06 Heparin SC 5,000 units Q8 LYNDA Administration Protocol Heparin Sodium/Sodium Chloride 25,000 units in 250 mls @ 15.241 mls/hr 06/25/18 11:30 06/25/18 11:30 Heparin 76799 Units/250ml 1/2 Normal Saline IV Not Given .[id number] LYNDA Protocol 12 UNITS/KG/HR Levetiracetam 500 mg in 100 mls @ 400 mls/hr 06/25/18 11:30 06/26/18 21:10 Keppra 500mg Ivpb IVPB 400 mls/hr Q12 LYNDA Administration Cisatracurium Besylate 200 mg/ 270 mls @ 4.66 mls/hr 06/25/18 16:05 06/27/18 07:30 Sodium Chloride IV 0 mcg/kg/min .Q24H PRN 0 mls/hr TITRATE PER MD ORDER Titration Protocol 0.5 MCG/KG/MIN Acetaminophen 1,000 mg in 100 mls @ 400 mls/hr 06/25/18 16:16 Ofirmev IVPB 06/27/18 16:17 Q6H PRN for T>100F Doxycycline Hyclate 100 mg/ 100 mls @ 100 mls/hr 06/25/18 22:00 06/26/18 21:25 Sodium Chloride IVPB 100 mls/hr Q12 LYNDA Administration Protocol Metronidazole 500 mg in 100 mls @ 100 mls/hr 06/25/18 22:00 06/27/18 05:07 Flagyl IVPB 100 mls/hr Q8 LYNDA Administration Protocol Cefepime HCl 2 gm in 100 mls @ 100 mls/hr 06/26/18 08:00 06/27/18 05:03 Maxipime 2gm IVPB 07/01/18 08:01 100 mls/hr Q8 LYNDA Administration Protocol Fentanyl Citrate 1,000 mcg in 100 mls @ 10 mls/hr 06/26/18 10:05 06/27/18 07:30 Fentanyl Citrate/Sodium Chloride 1 Mg/100 Ml IV 0 mcg/hr .Q10H PRN 0 mls/hr TITRATE PER MD ORDER Titration Protocol 100 MCG/HR Midazolam 100 mg/100ml in NS 100 mg in 100 mls @ 1 mls/hr 06/26/18 10:06 06/27/18 07:30 Midazolam 100 Mg/100ml In Ns IV 0 mg/hr .Q24H PRN 0 mls/hr Sedation Titration Protocol 1 MG/HR Vancomycin HCl 1 gm in 250 mls @ 167 mls/hr 06/26/18 21:30 06/26/18 21:47 Vancomycin 1gm IVPB 167 mls/hr Q12H LYNDA Administration Protocol Dobutamine HCl/Dextrose 500 mg in 250 mls @ 17.25 mls/hr 06/27/18 10:47 Dobutamine/Dextrose 5% 500mg/250ml IV .[id number] PRN TITRATE PER PROTOCOL Protocol 5 MCG/KG/MIN Insulin Human Regular 0 units 06/25/18 13:00 06/27/18 08:23 Humulin R Med SC Not Given Q2H LYNDA Protocol Magnesium Oxide 400 mg 06/27/18 10:45 Mag-Ox PO 06/28/18 23:59 BID LYNDA Pantoprazole Sodium 40 mg 06/25/18 11:30 06/26/18 09:12 Protonix Inj IVP 40 mg DAILY LYNDA Administration - Patient Studies Lab Studies: Microbiology Studies 06/25/18 23:00 Gram Stain - Final Trachasp 06/25/18 12:45 Blood Culture - Preliminary Blood-Venous NO GROWTH AFTER 24 HOURS 06/25/18 12:33 Blood Culture - Preliminary Blood-Venous NO GROWTH AFTER 24 HOURS Lab Studies 06/27/18 06/27/18 06/27/18 Range/Units 11:08 07:39 06:30 WBC 14.3 H D (4.5-11.0) 10^3/ul RBC 4.42 (3.5-6.1) 10^6/uL Hgb 13.2 (12.0-16.0) g/dL Hct 40.3 (36.0-48.0) % MCV 91.2 (80.0-105.0) fl MCH 29.9 (25.0-35.0) pg MCHC 32.8 (31.0-37.0) g/dl RDW 15.0 H (11.5-14.5) % Plt Count 168 (120.0-450.0) 10^3/uL MPV 12.6 H (7.0-11.0) fl Gran % 89.2 H (50.0-68.0) % Lymph % (Auto) 6.3 L (22.0-35.0) % Latimer % (Auto) 4.4 (1.0-6.0) % Eos % (Auto) 0.1 L (1.5-5.0) % Baso % (Auto) 0.0 (0.0-3.0) % Gran # 12.79 H (1.4-6.5) Lymph # (Auto) 0.9 L (1.2-3.4) Latimer # (Auto) 0.6 (0.1-0.6) Eos # (Auto) 0.0 (0.0-0.7) Baso # (Auto) 0.00 (0.0-2.0) K/mm3 pCO2 (35-45) mm/Hg pO2 (80-100) mm/Hg HCO3 (21-28) mmol/L ABG pH (7.35-7.45) ABG Total CO2 (22-28) mmol.L ABG O2 Saturation (95-98) % ABG O2 Content (15-23) ML/dl ABG Base Excess (-2.0-3.0) mmol/L ABG Hemoglobin (11.7-17.4) g/dL ABG Carboxyhemoglobin (0.5-1.5) % POC ABG HHb (Measured) (0-5) % ABG Methemoglobin (0.0-3.0) % ABG O2 Capacity (16-24) mL/dl Hgb O2 Saturation (95.0-98.0) % FiO2 % POC Glucose (mg/dL) 152 H 160 H (65-110) mg/dL Hemoglobin A1c (4.2-6.5) % Magnesium (1.7-2.2) mg/dL Lipase (23-300) U/L HIV 1&2 Ag/Ab, 4th Gen (Nonreactive) Ur L.pneumophila Ag (NEGATIVE) Ur Strep pneumoniae Ag (Not Detected) 06/27/18 06/27/18 06/27/18 Range/Units 06:00 04:25 02:15 WBC (4.5-11.0) 10^3/ul RBC (3.5-6.1) 10^6/uL Hgb (12.0-16.0) g/dL Hct (36.0-48.0) % MCV (80.0-105.0) fl MCH (25.0-35.0) pg MCHC (31.0-37.0) g/dl RDW (11.5-14.5) % Plt Count (120.0-450.0) 10^3/uL MPV (7.0-11.0) fl Gran % (50.0-68.0) % Lymph % (Auto) (22.0-35.0) % Latimer % (Auto) (1.0-6.0) % Eos % (Auto) (1.5-5.0) % Baso % (Auto) (0.0-3.0) % Gran # (1.4-6.5) Lymph # (Auto) (1.2-3.4) Latimer # (Auto) (0.1-0.6) Eos # (Auto) (0.0-0.7) Baso # (Auto) (0.0-2.0) K/mm3 pCO2 40 (35-45) mm/Hg pO2 66.0 L (80-100) mm/Hg HCO3 25.4 (21-28) mmol/L ABG pH 7.41 (7.35-7.45) ABG Total CO2 26.6 (22-28) mmol.L ABG O2 Saturation 95.3 (95-98) % ABG O2 Content 18.6 (15-23) ML/dl ABG Base Excess 0.7 (-2.0-3.0) mmol/L ABG Hemoglobin 14.2 (11.7-17.4) g/dL ABG Carboxyhemoglobin 1.7 H (0.5-1.5) % POC ABG HHb (Measured) 4.6 (0-5) % ABG Methemoglobin 0.7 (0.0-3.0) % ABG O2 Capacity 19.5 (16-24) mL/dl Hgb O2 Saturation 93.1 L (95.0-98.0) % FiO2 50.0 % POC Glucose (mg/dL) 131 H 107 (65-110) mg/dL Hemoglobin A1c (4.2-6.5) % Magnesium (1.7-2.2) mg/dL Lipase (23-300) U/L HIV 1&2 Ag/Ab, 4th Gen (Nonreactive) Ur L.pneumophila Ag (NEGATIVE) Ur Strep pneumoniae Ag (Not Detected) 06/27/18 06/27/18 06/26/18 Range/Units 00:57 00:30 22:37 WBC (4.5-11.0) 10^3/ul RBC (3.5-6.1) 10^6/uL Hgb (12.0-16.0) g/dL Hct (36.0-48.0) % MCV (80.0-105.0) fl MCH (25.0-35.0) pg MCHC (31.0-37.0) g/dl RDW (11.5-14.5) % Plt Count (120.0-450.0) 10^3/uL MPV (7.0-11.0) fl Gran % (50.0-68.0) % Lymph % (Auto) (22.0-35.0) % Latimer % (Auto) (1.0-6.0) % Eos % (Auto) (1.5-5.0) % Baso % (Auto) (0.0-3.0) % Gran # (1.4-6.5) Lymph # (Auto) (1.2-3.4) Latimer # (Auto) (0.1-0.6) Eos # (Auto) (0.0-0.7) Baso # (Auto) (0.0-2.0) K/mm3 pCO2 (35-45) mm/Hg pO2 (80-100) mm/Hg HCO3 (21-28) mmol/L ABG pH (7.35-7.45) ABG Total CO2 (22-28) mmol.L ABG O2 Saturation (95-98) % ABG O2 Content (15-23) ML/dl ABG Base Excess (-2.0-3.0) mmol/L ABG Hemoglobin (11.7-17.4) g/dL ABG Carboxyhemoglobin (0.5-1.5) % POC ABG HHb (Measured) (0-5) % ABG Methemoglobin (0.0-3.0) % ABG O2 Capacity (16-24) mL/dl Hgb O2 Saturation (95.0-98.0) % FiO2 % POC Glucose (mg/dL) 87 88 (65-110) mg/dL Hemoglobin A1c (4.2-6.5) % Magnesium 1.7 (1.7-2.2) mg/dL Lipase (23-300) U/L HIV 1&2 Ag/Ab, 4th Gen (Nonreactive) Ur L.pneumophila Ag (NEGATIVE) Ur Strep pneumoniae Ag (Not Detected) 06/26/18 06/26/18 06/26/18 Range/Units 21:14 19:57 18:00 WBC (4.5-11.0) 10^3/ul RBC (3.5-6.1) 10^6/uL Hgb (12.0-16.0) g/dL Hct (36.0-48.0) % MCV (80.0-105.0) fl MCH (25.0-35.0) pg MCHC (31.0-37.0) g/dl RDW (11.5-14.5) % Plt Count (120.0-450.0) 10^3/uL MPV (7.0-11.0) fl Gran % (50.0-68.0) % Lymph % (Auto) (22.0-35.0) % Latimer % (Auto) (1.0-6.0) % Eos % (Auto) (1.5-5.0) % Baso % (Auto) (0.0-3.0) % Gran # (1.4-6.5) Lymph # (Auto) (1.2-3.4) Latimer # (Auto) (0.1-0.6) Eos # (Auto) (0.0-0.7) Baso # (Auto) (0.0-2.0) K/mm3 pCO2 (35-45) mm/Hg pO2 (80-100) mm/Hg HCO3 (21-28) mmol/L ABG pH (7.35-7.45) ABG Total CO2 (22-28) mmol.L ABG O2 Saturation (95-98) % ABG O2 Content (15-23) ML/dl ABG Base Excess (-2.0-3.0) mmol/L ABG Hemoglobin (11.7-17.4) g/dL ABG Carboxyhemoglobin (0.5-1.5) % POC ABG HHb (Measured) (0-5) % ABG Methemoglobin (0.0-3.0) % ABG O2 Capacity (16-24) mL/dl Hgb O2 Saturation (95.0-98.0) % FiO2 % POC Glucose (mg/dL) 107 125 H 140 H (65-110) mg/dL Hemoglobin A1c (4.2-6.5) % Magnesium (1.7-2.2) mg/dL Lipase (23-300) U/L HIV 1&2 Ag/Ab, 4th Gen (Nonreactive) Ur L.pneumophila Ag (NEGATIVE) Ur Strep pneumoniae Ag (Not Detected) 06/26/18 06/26/18 06/26/18 Range/Units 15:58 13:16 12:50 WBC (4.5-11.0) 10^3/ul RBC (3.5-6.1) 10^6/uL Hgb (12.0-16.0) g/dL Hct (36.0-48.0) % MCV (80.0-105.0) fl MCH (25.0-35.0) pg MCHC (31.0-37.0) g/dl RDW (11.5-14.5) % Plt Count (120.0-450.0) 10^3/uL MPV (7.0-11.0) fl Gran % (50.0-68.0) % Lymph % (Auto) (22.0-35.0) % Latimer % (Auto) (1.0-6.0) % Eos % (Auto) (1.5-5.0) % Baso % (Auto) (0.0-3.0) % Gran # (1.4-6.5) Lymph # (Auto) (1.2-3.4) Latimer # (Auto) (0.1-0.6) Eos # (Auto) (0.0-0.7) Baso # (Auto) (0.0-2.0) K/mm3 pCO2 (35-45) mm/Hg pO2 (80-100) mm/Hg HCO3 (21-28) mmol/L ABG pH (7.35-7.45) ABG Total CO2 (22-28) mmol.L ABG O2 Saturation (95-98) % ABG O2 Content (15-23) ML/dl ABG Base Excess (-2.0-3.0) mmol/L ABG Hemoglobin (11.7-17.4) g/dL ABG Carboxyhemoglobin (0.5-1.5) % POC ABG HHb (Measured) (0-5) % ABG Methemoglobin (0.0-3.0) % ABG O2 Capacity (16-24) mL/dl Hgb O2 Saturation (95.0-98.0) % FiO2 % POC Glucose (mg/dL) 160 H 177 H (65-110) mg/dL Hemoglobin A1c (4.2-6.5) % Magnesium (1.7-2.2) mg/dL Lipase (23-300) U/L HIV 1&2 Ag/Ab, 4th Gen (Nonreactive) Ur L.pneumophila Ag Negative (NEGATIVE) Ur Strep pneumoniae Ag (Not Detected) 06/26/18 06/26/18 06/26/18 Range/Units 11:41 10:45 05:30 WBC (4.5-11.0) 10^3/ul RBC (3.5-6.1) 10^6/uL Hgb (12.0-16.0) g/dL Hct (36.0-48.0) % MCV (80.0-105.0) fl MCH (25.0-35.0) pg MCHC (31.0-37.0) g/dl RDW (11.5-14.5) % Plt Count (120.0-450.0) 10^3/uL MPV (7.0-11.0) fl Gran % (50.0-68.0) % Lymph % (Auto) (22.0-35.0) % Latimer % (Auto) (1.0-6.0) % Eos % (Auto) (1.5-5.0) % Baso % (Auto) (0.0-3.0) % Gran # (1.4-6.5) Lymph # (Auto) (1.2-3.4) Latimer # (Auto) (0.1-0.6) Eos # (Auto) (0.0-0.7) Baso # (Auto) (0.0-2.0) K/mm3 pCO2 (35-45) mm/Hg pO2 (80-100) mm/Hg HCO3 (21-28) mmol/L ABG pH (7.35-7.45) ABG Total CO2 (22-28) mmol.L ABG O2 Saturation (95-98) % ABG O2 Content (15-23) ML/dl ABG Base Excess (-2.0-3.0) mmol/L ABG Hemoglobin (11.7-17.4) g/dL ABG Carboxyhemoglobin (0.5-1.5) % POC ABG HHb (Measured) (0-5) % ABG Methemoglobin (0.0-3.0) % ABG O2 Capacity (16-24) mL/dl Hgb O2 Saturation (95.0-98.0) % FiO2 % POC Glucose (mg/dL) 214 H (65-110) mg/dL Hemoglobin A1c 6.5 (4.2-6.5) % Magnesium (1.7-2.2) mg/dL Lipase 89 (23-300) U/L HIV 1&2 Ag/Ab, 4th Gen (Nonreactive) Ur L.pneumophila Ag (NEGATIVE) Ur Strep pneumoniae Ag (Not Detected) 06/26/18 06/25/18 Range/Units 05:30 13:00 WBC (4.5-11.0) 10^3/ul RBC (3.5-6.1) 10^6/uL Hgb (12.0-16.0) g/dL Hct (36.0-48.0) % MCV (80.0-105.0) fl MCH (25.0-35.0) pg MCHC (31.0-37.0) g/dl RDW (11.5-14.5) % Plt Count (120.0-450.0) 10^3/uL MPV (7.0-11.0) fl Gran % (50.0-68.0) % Lymph % (Auto) (22.0-35.0) % Latimer % (Auto) (1.0-6.0) % Eos % (Auto) (1.5-5.0) % Baso % (Auto) (0.0-3.0) % Gran # (1.4-6.5) Lymph # (Auto) (1.2-3.4) Latimer # (Auto) (0.1-0.6) Eos # (Auto) (0.0-0.7) Baso # (Auto) (0.0-2.0) K/mm3 pCO2 (35-45) mm/Hg pO2 (80-100) mm/Hg HCO3 (21-28) mmol/L ABG pH (7.35-7.45) ABG Total CO2 (22-28) mmol.L ABG O2 Saturation (95-98) % ABG O2 Content (15-23) ML/dl ABG Base Excess (-2.0-3.0) mmol/L ABG Hemoglobin (11.7-17.4) g/dL ABG Carboxyhemoglobin (0.5-1.5) % POC ABG HHb (Measured) (0-5) % ABG Methemoglobin (0.0-3.0) % ABG O2 Capacity (16-24) mL/dl Hgb O2 Saturation (95.0-98.0) % FiO2 % POC Glucose (mg/dL) (65-110) mg/dL Hemoglobin A1c (4.2-6.5) % Magnesium (1.7-2.2) mg/dL Lipase (23-300) U/L HIV 1&2 Ag/Ab, 4th Gen Nonreactive (Nonreactive) Ur L.pneumophila Ag (NEGATIVE) Ur Strep pneumoniae Ag Not detected (Not Detected) Laboratory Results - last 24 hr 06/25/18 06/26/18 06/26/18 13:00 05:30 05:30 WBC RBC Hgb Hct MCV MCH MCHC RDW Plt Count MPV Gran % Lymph % (Auto) Latimer % (Auto) Eos % (Auto) Baso % (Auto) Gran # Lymph # (Auto) Latimer # (Auto) Eos # (Auto) Baso # (Auto) pCO2 pO2 HCO3 ABG pH ABG Total CO2 ABG O2 Saturation ABG O2 Content ABG Base Excess ABG Hemoglobin ABG Carboxyhemoglobin POC ABG HHb (Measured) ABG Methemoglobin ABG O2 Capacity Hgb O2 Saturation FiO2 POC Glucose (mg/dL) Hemoglobin A1c 6.5 Magnesium Lipase HIV 1&2 Ag/Ab, 4th Gen Nonreactive Ur L.pneumophila Ag Ur Strep pneumoniae Ag Not detected 06/26/18 06/26/18 06/26/18 10:45 11:41 12:50 WBC RBC Hgb Hct MCV MCH MCHC RDW Plt Count MPV Gran % Lymph % (Auto) Latimer % (Auto) Eos % (Auto) Baso % (Auto) Gran # Lymph # (Auto) Latimer # (Auto) Eos # (Auto) Baso # (Auto) pCO2 pO2 HCO3 ABG pH ABG Total CO2 ABG O2 Saturation ABG O2 Content ABG Base Excess ABG Hemoglobin ABG Carboxyhemoglobin POC ABG HHb (Measured) ABG Methemoglobin ABG O2 Capacity Hgb O2 Saturation FiO2 POC Glucose (mg/dL) 214 H Hemoglobin A1c Magnesium Lipase 89 HIV 1&2 Ag/Ab, 4th Gen Ur L.pneumophila Ag Negative Ur Strep pneumoniae Ag 06/26/18 06/26/18 06/26/18 13:16 15:58 18:00 WBC RBC Hgb Hct MCV MCH MCHC RDW Plt Count MPV Gran % Lymph % (Auto) Latimer % (Auto) Eos % (Auto) Baso % (Auto) Gran # Lymph # (Auto) Latimer # (Auto) Eos # (Auto) Baso # (Auto) pCO2 pO2 HCO3 ABG pH ABG Total CO2 ABG O2 Saturation ABG O2 Content ABG Base Excess ABG Hemoglobin ABG Carboxyhemoglobin POC ABG HHb (Measured) ABG Methemoglobin ABG O2 Capacity Hgb O2 Saturation FiO2 POC Glucose (mg/dL) 177 H 160 H 140 H Hemoglobin A1c Magnesium Lipase HIV 1&2 Ag/Ab, 4th Gen Ur L.pneumophila Ag Ur Strep pneumoniae Ag 06/26/18 06/26/18 06/26/18 19:57 21:14 22:37 WBC RBC Hgb Hct MCV MCH MCHC RDW Plt Count MPV Gran % Lymph % (Auto) Latimer % (Auto) Eos % (Auto) Baso % (Auto) Gran # Lymph # (Auto) Latimer # (Auto) Eos # (Auto) Baso # (Auto) pCO2 pO2 HCO3 ABG pH ABG Total CO2 ABG O2 Saturation ABG O2 Content ABG Base Excess ABG Hemoglobin ABG Carboxyhemoglobin POC ABG HHb (Measured) ABG Methemoglobin ABG O2 Capacity Hgb O2 Saturation FiO2 POC Glucose (mg/dL) 125 H 107 88 Hemoglobin A1c Magnesium Lipase HIV 1&2 Ag/Ab, 4th Gen Ur L.pneumophila Ag Ur Strep pneumoniae Ag 06/27/18 06/27/18 06/27/18 00:30 00:57 02:15 WBC RBC Hgb Hct MCV MCH MCHC RDW Plt Count MPV Gran % Lymph % (Auto) Latimer % (Auto) Eos % (Auto) Baso % (Auto) Gran # Lymph # (Auto) Latimer # (Auto) Eos # (Auto) Baso # (Auto) pCO2 pO2 HCO3 ABG pH ABG Total CO2 ABG O2 Saturation ABG O2 Content ABG Base Excess ABG Hemoglobin ABG Carboxyhemoglobin POC ABG HHb (Measured) ABG Methemoglobin ABG O2 Capacity Hgb O2 Saturation FiO2 POC Glucose (mg/dL) 87 107 Hemoglobin A1c Magnesium 1.7 Lipase HIV 1&2 Ag/Ab, 4th Gen Ur L.pneumophila Ag Ur Strep pneumoniae Ag 06/27/18 06/27/18 06/27/18 04:25 06:00 06:30 WBC 14.3 H D RBC 4.42 Hgb 13.2 Hct 40.3 MCV 91.2 MCH 29.9 MCHC 32.8 RDW 15.0 H Plt Count 168 MPV 12.6 H Gran % 89.2 H Lymph % (Auto) 6.3 L [place] % (Auto) 4.4 Eos % (Auto) 0.1 L Baso % (Auto) 0.0 Gran # 12.79 H Lymph # (Auto) 0.9 L [place] # (Auto) 0.6 Eos # (Auto) 0.0 Baso # (Auto) 0.00 pCO2 40 pO2 66.0 L HCO3 25.4 ABG pH 7.41 ABG Total CO2 26.6 ABG O2 Saturation 95.3 ABG O2 Content 18.6 ABG Base Excess 0.7 ABG Hemoglobin 14.2 ABG Carboxyhemoglobin 1.7 H POC ABG HHb (Measured) 4.6 ABG Methemoglobin 0.7 ABG O2 Capacity 19.5 Hgb O2 Saturation 93.1 L FiO2 50.0 POC Glucose (mg/dL) 131 H Hemoglobin A1c Magnesium Lipase HIV 1&2 Ag/Ab, 4th Gen Ur L.pneumophila Ag Ur Strep pneumoniae Ag 06/27/18 06/27/18 07:39 11:08 WBC RBC Hgb Hct MCV MCH MCHC RDW Plt Count MPV Gran % Lymph % (Auto) Latimer % (Auto) Eos % (Auto) Baso % (Auto) Gran # Lymph # (Auto) Latimer # (Auto) Eos # (Auto) Baso # (Auto) pCO2 pO2 HCO3 ABG pH ABG Total CO2 ABG O2 Saturation ABG O2 Content ABG Base Excess ABG Hemoglobin ABG Carboxyhemoglobin POC ABG HHb (Measured) ABG Methemoglobin ABG O2 Capacity Hgb O2 Saturation FiO2 POC Glucose (mg/dL) 160 H 152 H Hemoglobin A1c Magnesium Lipase HIV 1&2 Ag/Ab, 4th Gen Ur L.pneumophila Ag Ur Strep pneumoniae Ag EKG/Cardiology Studies: Cardiology / EKG Studies 06/27/18 09:16 EKG [ELECTROCARDIOGRAM] Stat Comment: Reason For Exam: prolonged QT Assessment/Plan - Assessment and Plan (Free Text) Plan: Patient seen and examined on rounds with resident, agree with note with following additions/exceptions: Patient is 62yo female with PMHx of DM2, HTN, COPD, and chronic AFib, mobsairad viki stewart, presented s/p PEA cardiac arrest in the field, unclear down time, and CPR time, intubated Patient had cardiac cath done, NICM, EF 25%, no stents placed CT PE protocol negative for PE Currently intubated sedated, on Fentanyl, Versed, underwent hypothermic protocol Cardiology, Neurology following, ID following On exam difficult to assess neurological function due to sedation Labs, imaging, chart reviewed CXR today with improvement in pulmonary edema VEEG today read as seizure activity, will adjust AED accordingly, increase Versed drip Cardiac Arrest NICM DM HTN COPD Afib Morbid Obesity Pulm edema Recommend: - cont with vent support, low tidal volume ventilation,daily ABG, CXR - Lasix 40mg IV BID - Cont with Dobutamine drip - Amio PO - follow up ECHO - follow up cardiology - Versed, Fentanyl - increase dose of Keppra 1g BID - follow neurology, VEEG - Adequate sedation - FS control - GI ppx - DVT ppx - Monitor in MICU Prognosis is extremely poor Family, daughter, son at bedside yesterday and today, updated of clinical findings Critical care time 35 minutes
--- NOTE | 2018-06-27 11:09 | CP.PCM.PN ---
<SaeedFiona gandara - Last Filed: 06/27/18 11:04> Subjective - Date & Time of Evaluation Date of Evaluation: 06/27/18 Time of Evaluation: 10:30 - Subjective Subjective: PGY-1 Medicine Progress Note for Dr. Fernandez's service Patient seen and examined at bedside. Patient intubated and sedated. 12 point ROS limited. Likely poor prognosis however too early to tell. Objective - Vital Signs/Intake and Output Vital Signs (last 24 hours): Temp Pulse Resp BP Pulse Ox 97.9 F 100 H 40 H 107/63 91 L 06/27/18 09:00 06/27/18 09:00 06/27/18 08:26 06/27/18 09:00 06/27/18 09:00 Intake and Output: 06/27/18 06/27/18 06:59 18:59 Intake Total 1410 0 Output Total 2310 Balance -900 0 - Medications Medications: Current Medications Amiodarone HCl (Cordarone) 400 mg PO TID [facility] Stop: 06/28/18 23:59 Last Admin: 06/26/18 21:06 Dose: 400 mg Amiodarone HCl (Cordarone) 200 mg PO DAILY [facility] Aspirin (Aspirin Chewable) 81 mg NG DAILY [facility] Last Admin: 06/26/18 19:50 Dose: 81 mg Atorvastatin Calcium (Lipitor) 80 mg NG DIN [facility] Last Admin: 06/26/18 18:06 Dose: 80 mg Furosemide (Lasix) 40 mg IVP BID [facility] Gemfibrozil (Lopid) 600 mg PO BID [facility] Last Admin: 06/26/18 18:07 Dose: 600 mg Heparin Sodium (Porcine) (Heparin) 5,000 units SC Q8 [facility]; Protocol Last Admin: 06/27/18 05:06 Dose: 5,000 units Heparin Sodium/Sodium Chloride (Heparin 51702 Units/250ml 1/2 Normal Saline) 25,000 units in 250 mls @ 15.241 mls/hr IV .[id number] [facility]; Protocol Last Admin: 06/25/18 11:30 Dose: Not Given Levetiracetam (Keppra 500mg Ivpb) 500 mg in 100 mls @ 400 mls/hr IVPB Q12 [facility] Last Admin: 06/26/18 21:10 Dose: 400 mls/hr Cisatracurium Besylate 200 mg/ (Sodium Chloride) 270 mls @ 4.66 mls/hr IV .Q24H PRN; Protocol PRN Reason: TITRATE PER MD ORDER Last Titration: 06/27/18 07:30 Dose: 0 mcg/kg/min, 0 mls/hr Acetaminophen (Ofirmev) 1,000 mg in 100 mls @ 400 mls/hr IVPB Q6H PRN PRN Reason: for T>100F Stop: 06/27/18 16:17 Doxycycline Hyclate 100 mg/ (Sodium Chloride) 100 mls @ 100 mls/hr IVPB Q12 [facility]; Protocol Last Admin: 06/26/18 21:25 Dose: 100 mls/hr Metronidazole (Flagyl) 500 mg in 100 mls @ 100 mls/hr IVPB Q8 [facility]; Protocol Last Admin: 06/27/18 05:07 Dose: 100 mls/hr Cefepime HCl (Maxipime 2gm) 2 gm in 100 mls @ 100 mls/hr IVPB Q8 [facility]; Protocol Stop: 07/01/18 08:01 Last Admin: 06/27/18 05:03 Dose: 100 mls/hr Fentanyl Citrate (Fentanyl Citrate/Sodium Chloride 1 Mg/100 Ml) 1,000 mcg in 100 mls @ 10 mls/hr IV .Q10H PRN; Protocol PRN Reason: TITRATE PER MD ORDER Last Titration: 06/27/18 07:30 Dose: 0 mcg/hr, 0 mls/hr Midazolam 100 mg/100ml in NS (Midazolam 100 Mg/100ml In Ns) 100 mg in 100 mls @ 1 mls/hr IV .Q24H PRN; Protocol PRN Reason: Sedation Last Titration: 06/27/18 07:30 Dose: 0 mg/hr, 0 mls/hr Vancomycin HCl (Vancomycin 1gm) 1 gm in 250 mls @ 167 mls/hr IVPB Q12H [facility]; Protocol Last Admin: 06/26/18 21:47 Dose: 167 mls/hr Dobutamine HCl/Dextrose (Dobutamine/Dextrose 5% 500mg/250ml) 500 mg in 250 mls @ 17.25 mls/hr IV .[id number] PRN; Protocol PRN Reason: TITRATE PER PROTOCOL Insulin Human Regular (Humulin R Med) 0 units SC Q2H [facility]; Protocol Last Admin: 06/27/18 08:23 Dose: Not Given Magnesium Oxide (Mag-Ox) 400 mg PO BID [facility] Stop: 06/28/18 23:59 Pantoprazole Sodium (Protonix Inj) 40 mg IVP DAILY [facility] Last Admin: 06/26/18 09:12 Dose: 40 mg - Labs Labs: 06/27/18 06:30 06/26/18 05:30 PT 12.7 SECONDS (9.4-12.5) H 06/25/18 09:15 INR 1.10 06/25/18 09:15 APTT 27.3 Seconds (25.1-36.5) 06/25/18 09:15 - Constitutional Appears: Non-toxic, No Acute Distress - Head Exam Head Exam: NORMAL INSPECTION, NORMOCEPHALIC - Eye Exam Eye Exam: EOMI, Normal appearance. absent: Nystagmus, Scleral icterus - ENT Exam Additional comments: W/ ET tube or NG tube - Respiratory Exam Respiratory Exam: Clear to Ausculation Bilateral, NORMAL BREATHING PATTERN. absent: Rhonchi, Wheezes, Respiratory Distress - Cardiovascular Exam Cardiovascular Exam: REGULAR RHYTHM, +S1, +S2 - GI/Abdominal Exam GI & Abdominal Exam: Soft, Normal Bowel Sounds. absent: Distended, Firm, Guarding, Tenderness Additional comments: shah cather in place - Extremities Exam Extremities Exam: Normal Inspection. absent: Calf Tenderness, Pedal Edema - Neurological Exam Neurological Exam: absent: Alert, Awake - Psychiatric Exam Psychiatric exam: Normal Affect, Normal Mood - Skin Skin Exam: Intact, Normal Color Assessment and Plan - Assessment and Plan (Free Text) Assessment: Patient is a 62 yo female with PMH of systolic CHF, HTN, DM, COPD, AFib who presents to hospital s/p cardiac arrest. Patient currently intubated/sedated. Cardiac cath showed no thrombus, mild nonobstructive CAD only in mid circumflex 60-70%; EF 15-20%; CT chest showed aspiration pneumonia; PNA studies negative currently Plan: Cardiac Arrest Unknown etiology Cardio Consult- Dr. Harrell- Cardiac cath performed- showing mild CAD and EF of 10- 15% Neuro Consult- Dr. Yee- Video EEG inconclusive study; anoxic brain injury vs siezures (less likely) ICU consult- Dr. Lopez- Keppra 500mg for seizure ppx EKG- sinus tachycardia with T wave inversions CT head no acute findings Patient intubated with ET tube; NG tube; Propofol drip Dobutamine drip; Amiodarone 400 mg po tid Aspirin 81 NG Venous dopplers full read pending Aspiration Pneumonia ID consulted- recs appreciated Cefepime, Flagyl, Doxycycline, Vancomycin for empiric coverage 06-26-18 Cxray shows resolution of upper lobe infiltrate PNA studies negative Bcx, Ucx, Sputum cx pending Leukocytosis trending down; Repeat CMP in AM Hypertriglycredemia Lopoid 600mg po bid Lipitor 80 mg NG din HTN Normotensive continue to monitor DM2 ISS low dose ACHS Hx of COPD Patient currently vented on Versed Resp settings as per ICU PPx GI ppx- Protonix 40mg IVP daily DVT ppx- Heparin 5000 units sc Medical Management discussed with Dr. Fernandez PGY-1 Fiona Tipton <Lizz Fernandez - Last Filed: 06/27/18 19:09> Objective - Vital Signs/Intake and Output Vital Signs (last 24 hours): Temp Pulse Resp BP Pulse Ox 100.6 F H 107 H 20 98/48 L 96 06/27/18 18:25 06/27/18 18:22 06/27/18 17:55 06/27/18 18:22 06/27/18 17:55 Intake and Output: 06/27/18 06/28/18 18:59 06:59 Intake Total 958 Output Total 1150 Balance -192 - Medications Medications: Current Medications Amiodarone HCl (Cordarone) 400 mg PO TID [facility] Stop: 06/28/18 23:59 Last Admin: 06/27/18 18:22 Dose: 400 mg Amiodarone HCl (Cordarone) 200 mg PO DAILY [facility] Aspirin (Aspirin Chewable) 81 mg NG DAILY [facility] Last Admin: 06/27/18 11:30 Dose: 81 mg Atorvastatin Calcium (Lipitor) 80 mg NG DIN [facility] Last Admin: 06/27/18 17:34 Dose: 80 mg Furosemide (Lasix) 40 mg IVP BID [facility] Last Admin: 06/27/18 17:38 Dose: 40 mg Gemfibrozil (Lopid) 600 mg PO BID [facility] Last Admin: 06/27/18 17:37 Dose: 600 mg Heparin Sodium (Porcine) (Heparin) 5,000 units SC Q8 [facility]; Protocol Last Admin: 06/27/18 13:48 Dose: 5,000 units Heparin Sodium/Sodium Chloride (Heparin 00085 Units/250ml 1/2 Normal Saline) 25,000 units in 250 mls @ 15.241 mls/hr IV .[id number] [facility]; Protocol Last Admin: 06/25/18 11:30 Dose: Not Given Cisatracurium Besylate 200 mg/ (Sodium Chloride) 270 mls @ 4.66 mls/hr IV .Q24H [facility]; Protocol PRN Reason: TITRATE PER MD ORDER Last Titration: 06/27/18 07:30 Dose: 0 mcg/kg/min, 0 mls/hr Doxycycline Hyclate 100 mg/ (Sodium Chloride) 100 mls @ 100 mls/hr IVPB Q12 [facility]; Protocol Last Admin: 06/27/18 12:56 Dose: 100 mls/hr Metronidazole (Flagyl) 500 mg in 100 mls @ 100 mls/hr IVPB Q8 [facility]; Protocol Last Admin: 06/27/18 13:48 Dose: 100 mls/hr Cefepime HCl (Maxipime 2gm) 2 gm in 100 mls @ 100 mls/hr IVPB Q8 [facility]; Protocol Stop: 07/01/18 08:01 Last Admin: 06/27/18 17:39 Dose: 100 mls/hr Vancomycin HCl (Vancomycin 1gm) 1 gm in 250 mls @ 167 mls/hr IVPB Q12H [facility]; Protocol Last Admin: 06/27/18 12:58 Dose: 167 mls/hr Dobutamine HCl/Dextrose (Dobutamine/Dextrose 5% 500mg/250ml) 500 mg in 250 mls @ 17.25 mls/hr IV .[id number] PRN; Protocol PRN Reason: TITRATE PER PROTOCOL Last Titration: 06/27/18 15:35 Dose: 5 mcg/kg/min, 17.25 mls/hr Midazolam 100 mg/100ml in NS (Midazolam 100 Mg/100ml In Ns) 100 mg in 100 mls @ 5 mls/hr IV .Q20H PRN; Protocol PRN Reason: Sedation Last Admin: 06/27/18 15:00 Dose: 5 mg/hr, 5 mls/hr Levetiracetam 1,500 mg/ Sodium (Chloride) 115 mls @ 460 mls/hr IV Q12 [facility] Insulin Human Regular (Humulin R Med) 0 units SC Q6H [facility]; Protocol Last Admin: 06/27/18 17:38 Dose: Not Given Magnesium Oxide (Mag-Ox) 400 mg PO BID [facility] Stop: 06/28/18 23:59 Last Admin: 06/27/18 17:36 Dose: 400 mg Pantoprazole Sodium (Protonix Inj) 40 mg IVP DAILY [facility] Last Admin: 06/27/18 10:00 Dose: 40 mg - Labs Labs: 06/27/18 06:30 06/27/18 06:30 PT 12.7 SECONDS (9.4-12.5) H 06/25/18 09:15 INR 1.10 06/25/18 09:15 APTT 27.3 Seconds (25.1-36.5) 06/25/18 09:15 Attending/Attestation - Attestation I have personally seen and examined this patient.: Yes I have fully participated in the care of the patient.: Yes I have reviewed all pertinent clinical information, including history, physical exam and plan: Yes Notes (Text): 06/27/18 19:05 Medical record note made by the resident after discussion with my direction and input after the patient was personally seen and examined by me. I have reviewed the chart and agree that the record accurately reflects by personal performance of the history, physical exam, data review, and medical decision-making, in the course for the patient. I have also personally directed the plan of care. 62 yrs old female with PMH of systolic CHF EF 17%, HTN, DM, COPD, AFib and Obesity who presents to hospital s/p cardiac arrest. Cardiac cath showed no thrombus, mild nonobstructive CAD only in mid circumflex 60-70%; EF 15-20%; CT chest showed aspiration pneumonia; PNA studies negative currently.Patient is SP hypothermia protocol treatment.She is on Amiodrone , dobutamine and IV lasix She is also on broad spectrum antibiotics as per ID. Patient has severe cortical injury caused by anoxia, on Keppra for possible seizure.. Prognosis is guarded. 06/27/18 19:08
--- NOTE | 2018-06-27 11:17 | RAD ---
Date of service: 06/27/2018 HISTORY: Intubated COMPARISON: 06/26/2018 FINDINGS: LUNGS: There is improved vascular congestion PLEURA: No significant pleural effusion identified, no pneumothorax apparent. CARDIOVASCULAR: Mild cardiomegaly OSSEOUS STRUCTURES: No significant abnormalities. VISUALIZED UPPER ABDOMEN: Normal. OTHER FINDINGS: Endotracheal tube and nasogastric tube in satisfactory position IMPRESSION: Improved vascular congestion
[2018-06-27] MEDS: DOBUTamine 500mg/250ml D5W 500 MG/250 ML BAG IV PRN (11:28)
[2018-06-27] MEDS: Magnesium Oxide 400 mg Tab UD PO SCH ×2 (11:29→17:36)
[2018-06-27] MEDS ORDERED: levETIRAcetam 1000mg/100ml NS 100 ML IV SCH ×2 (11:45→22:00)
--- NOTE | 2018-06-27 12:49 | PN ---
DATE: 06/27/2018 REASON FOR CONSULTATION: Followup status post code STEMI, status post collapse, VFib arrest, status post intubated, status post cardiac catheterization, rule out anoxic encephalopathy. SUBJECTIVE: Patient remains on vent, intubated, minimal reflexes. PHYSICAL EXAMINATION: VITAL SIGNS: Temperature afebrile, heart rate 80, blood pressure 107/63. HEENT: PERRLA. Extraocular muscles intact. NECK: Supple. No carotid bruits or thyromegaly. CHEST: Clear to auscultation. HEART: S1, S2 regular. ABDOMEN: Soft. EXTREMITIES: Clubbing and cyanosis negative. LABORATORY DATA: Blood workup: WBC 14.3, hemoglobin 13.2, hematocrit 40.3, platelet count 168. Chemistry shows sodium 130, potassium 3.8, chloride 97, carbon dioxide 15, anion gap of 18, BUN 18, creatinine 0.7. IMPRESSION: A 62-year-old female with history of diabetes, hypertension, hyperlipidemia, history of possibly nonischemic cardiomyopathy, admitted after being collapsed. Status post CPR done and status post cardiac catheterization done, nonobstructive coronary artery disease limited only to circ 60-70% stenosis mid segment, severely decreased LV function, ejection fraction 15-20% on ventilator, rule out anoxic encephalopathy. RECOMMENDATIONS: Continue aspirin, continue DVT prophylaxis, increase Dobutrex to 5. Initially patient was code chill, now is going to reverse that. Continue amiodarone 200 mg. Once the patient gets extubated, we will reassess mentally if the patient is salvageable. Consider defibrillator. Discussed with Dr. Satnam NUNEZ. Overall the patient's condition is critical. director of technology prognosis is extremely poor. We will follow with you. We will increase Dobutrex to 5 mcg as heart rate and blood pressure is tolerated. We will put mag and potassium through the NG tube. We will give 40 of potassium stat and mag oxide 400 mg p.o. 3 times a day. Thank you, Dr. Fernandez, for providing us the opportunity in taking care of the patient, Bren Gómez. Lizz Harrell MD
[2018-06-27] MEDS: Vancomycin 1gm in NS 250ml 1 GM/250 ML BAG IVPB SCH ×2 (12:58→22:06)
[2018-06-27] MEDS ORDERED: levETIRAcetam 500mg IVPB 500 MG/100 ML BAG IVPB ONE ×2 (12:59→14:48)
[2018-06-27 13:00] LABS: ALB/GLOB RATIO 1.1 (1.1-1.8); ALBUMIN 3.1 g/dL (3.0-4.8); ALT/SGPT 35 U/L (7-56); AST/SGOT 47 U/L (14-36); BLOOD UREA NITROGEN 22 mg/dL (7-21); CALCIUM 8.2 mg/dL (8.4-10.5); GFR NON-AFRICAN AMERICAN 57
[2018-06-27] MEDS ORDERED: Insulin Reg-MEDIUM-Coverage SC SCH ×3 (13:00→13:23)
[2018-06-27] MEDS ORDERED: Potassium Chloride 40 mEq/30 ml LIQ UD PO ONE (13:05)
[2018-06-27] MEDS: Midazolam 100 mg/100ml in NS 100 MG/100 ML SOL IV PRN (15:00)
--- NOTE | 2018-06-27 15:13 | CP.PCM.PN ---
Subjective - Date & Time of Evaluation Date of Evaluation: 06/27/18 Time of Evaluation: 10:50 - Subjective Subjective: Continues to be on the ventilator, unresponsive but has gag reflex. No fevers. Objective - Vital Signs/Intake and Output Vital Signs (last 24 hours): Temp Pulse Resp BP Pulse Ox 95.5 F L 95 H 20 101/46 L 96 06/27/18 02:00 06/27/18 06:00 06/26/18 06:54 06/27/18 07:53 06/27/18 02:40 Intake and Output: 06/27/18 06/27/18 06:59 18:59 Intake Total 1410 0 Output Total 2310 Balance -900 0 - Medications Medications: Current Medications Amiodarone HCl (Cordarone) 400 mg PO TID [facility] Stop: 06/28/18 23:59 Last Admin: 06/26/18 21:06 Dose: 400 mg Amiodarone HCl (Cordarone) 200 mg PO DAILY [facility] Aspirin (Aspirin Chewable) 81 mg NG DAILY [facility] Last Admin: 06/26/18 19:50 Dose: 81 mg Atorvastatin Calcium (Lipitor) 80 mg NG DIN [facility] Last Admin: 06/26/18 18:06 Dose: 80 mg Furosemide (Lasix) 40 mg IVP DAILY [facility] Gemfibrozil (Lopid) 600 mg PO BID [facility] Last Admin: 06/26/18 18:07 Dose: 600 mg Heparin Sodium (Porcine) (Heparin) 5,000 units SC Q8 [facility]; Protocol Last Admin: 06/27/18 05:06 Dose: 5,000 units Dobutamine HCl/Dextrose (Dobutamine/Dextrose 5% 500mg/250ml) 500 mg in 250 mls @ 7.62 mls/hr IV .Q24H PRN; Protocol PRN Reason: TITRATE PER PROTOCOL Last Titration: 06/27/18 07:30 Dose: 0 mcg/kg/min, 0 mls/hr Heparin Sodium/Sodium Chloride (Heparin 31736 Units/250ml 1/2 Normal Saline) 25,000 units in 250 mls @ 15.241 mls/hr IV .[id number] [facility]; Protocol Last Admin: 06/25/18 11:30 Dose: Not Given Levetiracetam (Keppra 500mg Ivpb) 500 mg in 100 mls @ 400 mls/hr IVPB Q12 [facility] Last Admin: 06/26/18 21:10 Dose: 400 mls/hr Cisatracurium Besylate 200 mg/ (Sodium Chloride) 270 mls @ 4.66 mls/hr IV .Q24H PRN; Protocol PRN Reason: TITRATE PER MD ORDER Last Titration: 06/27/18 07:30 Dose: 0 mcg/kg/min, 0 mls/hr Acetaminophen (Ofirmev) 1,000 mg in 100 mls @ 400 mls/hr IVPB Q6H PRN PRN Reason: for T>100F Stop: 06/27/18 16:17 Doxycycline Hyclate 100 mg/ (Sodium Chloride) 100 mls @ 100 mls/hr IVPB Q12 [facility]; Protocol Last Admin: 06/26/18 21:25 Dose: 100 mls/hr Metronidazole (Flagyl) 500 mg in 100 mls @ 100 mls/hr IVPB Q8 [facility]; Protocol Last Admin: 06/27/18 05:07 Dose: 100 mls/hr Cefepime HCl (Maxipime 2gm) 2 gm in 100 mls @ 100 mls/hr IVPB Q8 [facility]; Protocol Stop: 07/01/18 08:01 Last Admin: 06/27/18 05:03 Dose: 100 mls/hr Fentanyl Citrate (Fentanyl Citrate/Sodium Chloride 1 Mg/100 Ml) 1,000 mcg in 100 mls @ 10 mls/hr IV .Q10H PRN; Protocol PRN Reason: TITRATE PER MD ORDER Last Titration: 06/27/18 07:30 Dose: 0 mcg/hr, 0 mls/hr Midazolam 100 mg/100ml in NS (Midazolam 100 Mg/100ml In Ns) 100 mg in 100 mls @ 1 mls/hr IV .Q24H PRN; Protocol PRN Reason: Sedation Last Titration: 06/27/18 07:30 Dose: 0 mg/hr, 0 mls/hr Vancomycin HCl (Vancomycin 1gm) 1 gm in 250 mls @ 167 mls/hr IVPB Q12H [facility]; Protocol Last Admin: 06/26/18 21:47 Dose: 167 mls/hr Insulin Human Regular (Humulin R Med) 0 units SC Q2H [facility]; Protocol Last Admin: 06/27/18 08:23 Dose: Not Given Pantoprazole Sodium (Protonix Inj) 40 mg IVP DAILY [facility] Last Admin: 06/26/18 09:12 Dose: 40 mg - Labs Labs: 06/27/18 06:30 06/26/18 05:30 PT 12.7 SECONDS (9.4-12.5) H 06/25/18 09:15 INR 1.10 06/25/18 09:15 APTT 27.3 Seconds (25.1-36.5) 06/25/18 09:15 - Constitutional Appears: Chronically Ill, Other (intubated, unresponsive but positive gag reflex) - ENT Exam Additional comments: ET tube in place - Respiratory Exam Respiratory Exam: Decreased Breath Sounds - Cardiovascular Exam Cardiovascular Exam: +S1, +S2 - GI/Abdominal Exam GI & Abdominal Exam: Soft. absent: Tenderness Assessment and Plan - Assessment and Plan (Free Text) Plan: Assessment Systemic inflammatory response syndrome with VDRF due to cardiopulmonary arrest R/O acute coronary syndrome, with probable anoxic encephalopathy, R/O severe sepsis from aspiration pneumonia chronic CHF HTN DM COPD atrial fibrillation morbid obesity with BMI 40 Plan continue Vancomycin, Cefepime, Flagyl ,Doxycycline day 2 pending final culture results; reviewed CT A/P and CXR overall prognosis is poor follow up further recommendations of GI, Neuro, Cardio
--- NOTE | 2018-06-27 17:54 | CP.PCM.PN ---
Subjective - Date & Time of Evaluation Date of Evaluation: 06/27/18 Time of Evaluation: 13:00 - Subjective Subjective: Mrs. Gómez was seen and examined today in the ICU. I reviewed her EEG results and discussed the case with her family. Clinically, the patient had a few episodes of facial twitching. There were no acute events overnight. Objective - Vital Signs/Intake and Output Vital Signs (last 24 hours): Temp Pulse Resp BP Pulse Ox 100.4 F H 109 H 40 H 100/52 L 95 06/27/18 17:10 06/27/18 17:10 06/27/18 08:26 06/27/18 17:38 06/27/18 17:10 Intake and Output: 06/27/18 06/27/18 06:59 18:59 Intake Total 1410 938 Output Total 2310 1150 Balance -900 -212 - Medications Medications: Current Medications Amiodarone HCl (Cordarone) 400 mg PO TID [facility] Stop: 06/28/18 23:59 Last Admin: 06/27/18 16:09 Dose: 400 mg Amiodarone HCl (Cordarone) 200 mg PO DAILY [facility] Aspirin (Aspirin Chewable) 81 mg NG DAILY [facility] Last Admin: 06/27/18 11:30 Dose: 81 mg Atorvastatin Calcium (Lipitor) 80 mg NG DIN [facility] Last Admin: 06/27/18 17:34 Dose: 80 mg Furosemide (Lasix) 40 mg IVP BID [facility] Last Admin: 06/27/18 17:38 Dose: 40 mg Gemfibrozil (Lopid) 600 mg PO BID [facility] Last Admin: 06/27/18 17:37 Dose: 600 mg Heparin Sodium (Porcine) (Heparin) 5,000 units SC Q8 [facility]; Protocol Last Admin: 06/27/18 13:48 Dose: 5,000 units Heparin Sodium/Sodium Chloride (Heparin 26515 Units/250ml 1/2 Normal Saline) 25,000 units in 250 mls @ 15.241 mls/hr IV .[id number] [facility]; Protocol Last Admin: 06/25/18 11:30 Dose: Not Given Cisatracurium Besylate 200 mg/ (Sodium Chloride) 270 mls @ 4.66 mls/hr IV .Q24H PRN; Protocol PRN Reason: TITRATE PER MD ORDER Last Titration: 06/27/18 07:30 Dose: 0 mcg/kg/min, 0 mls/hr Doxycycline Hyclate 100 mg/ (Sodium Chloride) 100 mls @ 100 mls/hr IVPB Q12 [facility]; Protocol Last Admin: 06/27/18 12:56 Dose: 100 mls/hr Metronidazole (Flagyl) 500 mg in 100 mls @ 100 mls/hr IVPB Q8 [facility]; Protocol Last Admin: 06/27/18 13:48 Dose: 100 mls/hr Cefepime HCl (Maxipime 2gm) 2 gm in 100 mls @ 100 mls/hr IVPB Q8 [facility]; Protocol Stop: 07/01/18 08:01 Last Admin: 06/27/18 17:39 Dose: 100 mls/hr Fentanyl Citrate (Fentanyl Citrate/Sodium Chloride 1 Mg/100 Ml) 1,000 mcg in 100 mls @ 10 mls/hr IV .Q10H PRN; Protocol PRN Reason: TITRATE PER MD ORDER Last Titration: 06/27/18 07:30 Dose: 0 mcg/hr, 0 mls/hr Vancomycin HCl (Vancomycin 1gm) 1 gm in 250 mls @ 167 mls/hr IVPB Q12H [facility]; Protocol Last Admin: 06/27/18 12:58 Dose: 167 mls/hr Dobutamine HCl/Dextrose (Dobutamine/Dextrose 5% 500mg/250ml) 500 mg in 250 mls @ 17.25 mls/hr IV .[id number] PRN; Protocol PRN Reason: TITRATE PER PROTOCOL Last Admin: 06/27/18 11:28 Dose: 5 mcg/kg/min, 17.25 mls/hr Midazolam 100 mg/100ml in NS (Midazolam 100 Mg/100ml In Ns) 100 mg in 100 mls @ 5 mls/hr IV .Q20H PRN; Protocol PRN Reason: Sedation Levetiracetam 1,500 mg/ Sodium (Chloride) 115 mls @ 460 mls/hr IV Q12 [facility] Insulin Human Regular (Humulin R Med) 0 units SC Q6H [facility]; Protocol Last Admin: 06/27/18 17:38 Dose: Not Given Magnesium Oxide (Mag-Ox) 400 mg PO BID [facility] Stop: 06/28/18 23:59 Last Admin: 06/27/18 17:36 Dose: 400 mg Pantoprazole Sodium (Protonix Inj) 40 mg IVP DAILY [facility] Last Admin: 06/27/18 10:00 Dose: 40 mg - Labs Labs: 06/27/18 06:30 06/27/18 06:30 PT 12.7 SECONDS (9.4-12.5) H 06/25/18 09:15 INR 1.10 06/25/18 09:15 APTT 27.3 Seconds (25.1-36.5) 06/25/18 09:15 - Constitutional Appears: Non-toxic - Head Exam Head Exam: ATRAUMATIC, NORMAL INSPECTION, NORMOCEPHALIC Additional comments: intubated - ENT Exam ENT Exam: Mucous Membranes Moist - Respiratory Exam Additional comments: on mechanical ventilation - Cardiovascular Exam Cardiovascular Exam: Tachycardia - GI/Abdominal Exam GI & Abdominal Exam: Distended - Neurological Exam Neuro motor strength exam: Left Upper Extremity: 0, Right Upper Extremity: 0, Left Lower Extremity: 0, Right Lower Extremity: 0 Additional comments: sluggish pupils that are about 2-3 mm. Slight corneal response, breathing over the ventilator. GCS 5T. No response to painful stimulus. Opens eyes spontaneously. Assessment and Plan (1) Anoxic brain injury Assessment & Plan: Will repeat CT head and continue conservative management. Based on the EEG, the patient has a poor prognosis Status: Acute (2) Status epilepticus Assessment & Plan: THis is likely due to the severe cortical injury caused by anoxia. Will increase Keppra to 1500 Q12 and increase Versed to 10 mg/hr after a 10 mg bouls. Repeat EEG tomorrow. Status: Acute
[2018-06-27] MEDS: levETIRAcetam 1,500 MG in Sodium Chloride 0.9% 100 ML IV SCH (22:05)
[2018-06-28] MEDS: DOBUTamine 500mg/250ml D5W 500 MG/250 ML BAG IV PRN ×2 (00:10→15:55)
[2018-06-28] MEDS: Insulin Reg-MEDIUM-Coverage SC SCH ×4 (00:30→17:43)
[2018-06-28] MEDS: metroNIDAZOLE IV 500 mg/100 ml 500 MG/100 ML BAG IVPB SCH ×3 (05:49→21:34)
[2018-06-28 05:50] LABS: ARTERIAL BLOOD GAS HCO3 27.1 mmol/L (21-28); ARTERIAL BLOOD GAS HEMOGLOBIN 13.1 g/dL (11.7-17.4); ARTERIAL BLOOD GAS O2 CONTENT 17.9 ML/dl (15-23); ARTERIAL BLOOD GAS O2 SAT 99.2 % (95-98); ARTERIAL BLOOD GAS PCO2 39 mm/Hg (35-45); ARTERIAL BLOOD GAS PH 7.45 (7.35-7.45); ARTERIAL BLOOD GAS TCO2 28.3 mmol.L (22-28)
[2018-06-28] MEDS: Cefepime IV 2 gm in NS 2 GM/100 ML BAG IVPB SCH ×3 (05:51→21:29)
[2018-06-28 06:12] LABS: BASO # 0.01 K/mm3 (0.0-2.0); BASO % 0.1 % (0.0-3.0); EOS % 0.1 % (1.5-5.0); GRAN # 9.42 (1.4-6.5); GRAN % 79.9 % (50.0-68.0); HEMOGLOBIN 13.1 g/dL (12.0-16.0); LYMPH # 1.2 (1.2-3.4); LYMPH % 10.5 % (22.0-35.0); MEAN CELL VOLUME 91.2 fl (80.0-105.0); MEAN CORPUSCULAR HEMOGLOBIN 29.6 pg (25.0-35.0); MEAN CORPUSCULAR HGB CONC 32.5 g/dl (31.0-37.0); MEAN PLATELET VOLUME 12.6 fl (7.0-11.0); MONO # 1.1 (0.1-0.6); MONO % 9.4 % (1.0-6.0); RBC 4.42 10^6/uL (3.5-6.1); RED CELL DISTRIBUTION WIDTH 15.1 % (11.5-14.5); WHITE BLOOD COUNT 11.8 10^3/ul (4.5-11.0)
--- NOTE | 2018-06-28 06:25 | CP.PCM.PN ---
Subjective - Date & Time of Evaluation Date of Evaluation: 06/28/18 Time of Evaluation: 08:20 - Subjective Subjective: PGY-1 Medicine Progress Note for Dr. Fernandez's service Patient seen and examined at bedside. Patient intubated and sedated. 12 point ROS limited. Family was at bedside. Discussion was had about possible palliative care to discuss goals of care. Objective - Vital Signs/Intake and Output Vital Signs (last 24 hours): Temp Pulse Resp BP Pulse Ox 100.6 F H 98 H 20 120/65 96 06/27/18 18:25 06/28/18 00:10 06/27/18 17:55 06/28/18 00:10 06/27/18 17:55 Intake and Output: 06/27/18 06/28/18 18:59 06:59 Intake Total 958 230 Output Total 1150 Balance -192 230 - Medications Medications: Current Medications Amiodarone HCl (Cordarone) 400 mg PO TID [facility] Stop: 06/28/18 23:59 Last Admin: 06/27/18 18:22 Dose: 400 mg Amiodarone HCl (Cordarone) 200 mg PO DAILY [facility] Aspirin (Aspirin Chewable) 81 mg NG DAILY [facility] Last Admin: 06/27/18 11:30 Dose: 81 mg Atorvastatin Calcium (Lipitor) 80 mg NG DIN [facility] Last Admin: 06/27/18 17:34 Dose: 80 mg Furosemide (Lasix) 40 mg IVP BID [facility] Last Admin: 06/27/18 17:38 Dose: 40 mg Gemfibrozil (Lopid) 600 mg PO BID [facility] Last Admin: 06/27/18 17:37 Dose: 600 mg Heparin Sodium (Porcine) (Heparin) 5,000 units SC Q8 [facility]; Protocol Last Admin: 06/28/18 05:49 Dose: 5,000 units Heparin Sodium/Sodium Chloride (Heparin 18898 Units/250ml 1/2 Normal Saline) 25,000 units in 250 mls @ 15.241 mls/hr IV .[id number] [facility]; Protocol Last Admin: 06/25/18 11:30 Dose: Not Given Cisatracurium Besylate 200 mg/ (Sodium Chloride) 270 mls @ 4.66 mls/hr IV .Q24H PRN; Protocol PRN Reason: TITRATE PER MD ORDER Last Titration: 10/06/18 07:30 Dose: 0 mcg/kg/min, 0 mls/hr Doxycycline Hyclate 100 mg/ (Sodium Chloride) 100 mls @ 100 mls/hr IVPB Q12 [facility]; Protocol Last Admin: 06/27/18 22:06 Dose: 100 mls/hr Metronidazole (Flagyl) 500 mg in 100 mls @ 100 mls/hr IVPB Q8 [facility]; Protocol Last Admin: 06/28/18 05:49 Dose: 100 mls/hr Cefepime HCl (Maxipime 2gm) 2 gm in 100 mls @ 100 mls/hr IVPB Q8 [facility]; Protocol Stop: 07/01/18 08:01 Last Admin: 06/28/18 05:51 Dose: 100 mls/hr Vancomycin HCl (Vancomycin 1gm) 1 gm in 250 mls @ 167 mls/hr IVPB Q12H [facility]; Protocol Last Admin: 06/27/18 22:06 Dose: 167 mls/hr Dobutamine HCl/Dextrose (Dobutamine/Dextrose 5% 500mg/250ml) 500 mg in 250 mls @ 17.25 mls/hr IV .[id number] PRN; Protocol PRN Reason: TITRATE PER PROTOCOL Last Admin: 06/28/18 00:10 Dose: 5 mcg/kg/min, 17.25 mls/hr Midazolam 100 mg/100ml in NS (Midazolam 100 Mg/100ml In Ns) 100 mg in 100 mls @ 5 mls/hr IV .Q20H PRN; Protocol PRN Reason: Sedation Last Admin: 06/27/18 15:00 Dose: 5 mg/hr, 5 mls/hr Levetiracetam 1,500 mg/ Sodium (Chloride) 115 mls @ 460 mls/hr IV Q12 [facility] Last Admin: 06/27/18 22:05 Dose: 460 mls/hr Insulin Human Regular (Humulin R Med) 0 units SC Q6H [facility]; Protocol Last Admin: 06/28/18 00:30 Dose: Not Given Magnesium Oxide (Mag-Ox) 400 mg PO BID [facility] Stop: 06/28/18 23:59 Last Admin: 06/27/18 17:36 Dose: 400 mg Pantoprazole Sodium (Protonix Inj) 40 mg IVP DAILY [facility] Last Admin: 06/27/18 10:00 Dose: 40 mg - Labs Labs: 06/28/18 05:30 06/27/18 06:30 PT 12.7 SECONDS (9.4-12.5) H 06/25/18 09:15 INR 1.10 06/25/18 09:15 APTT 27.3 Seconds (25.1-36.5) 06/25/18 09:15 - Additional Findings Additional findings: - Constitutional Appears: Non-toxic, No Acute Distress - Head Exam Head Exam: NORMAL INSPECTION, NORMOCEPHALIC - Eye Exam Eye Exam: EOMI, Normal appearance. absent: Nystagmus, Scleral icterus - ENT Exam Additional comments: W/ ET tube or NG tube - Respiratory Exam Respiratory Exam: Clear to Ausculation Bilateral, NORMAL BREATHING PATTERN. absent: Rhonchi, Wheezes, Respiratory Distress - Cardiovascular Exam Cardiovascular Exam: REGULAR RHYTHM, +S1, +S2 - GI/Abdominal Exam GI & Abdominal Exam: Soft, Normal Bowel Sounds. absent: Distended, Firm, Guarding, Tenderness Additional comments: shah cather in place - Extremities Exam Extremities Exam: Normal Inspection. absent: Calf Tenderness, Pedal Edema - Neurological Exam Neurological Exam: absent: Alert, Awake - Psychiatric Exam Psychiatric exam: Normal Affect, Normal Mood - Skin Skin Exam: Intact, Normal Color Assessment and Plan - Assessment and Plan (Free Text) Assessment: Patient is a 62 yo female with PMH of systolic CHF, HTN, DM, COPD, AFib who presents to hospital s/p cardiac arrest. Patient currently intubated/sedated. Cardiac cath showed no thrombus, mild nonobstructive CAD only in mid circumflex 60-70%; EF 15-20%; CT chest showed aspiration pneumonia; PNA studies negative c urrently; CT head showed acute abnormalities; On keppra for questionable seizures Plan: Cardiac Arrest Unknown etiology Cardio Consult- Dr. Harrell- Cardiac cath performed- showing mild CAD and EF of 10- 15% Neuro Consult- Dr. Yee- Video EEG inconclusive study; anoxic brain injury vs siezures (less likely) ICU consult- Dr. Lopez- Keppra 500mg for seizure ppx 06-28-18 CT head no acute findings Patient intubated with ET tube; NG tube; Propofol drip Dobutamine drip; Amiodarone 400 mg po tid Aspirin 81 NG Pending doppler full read Aspiration Pneumonia ID consulted- DC IV vanc 06-28-18 - No focal consolidation 06-26-18 Cxray shows resolution of upper lobe infiltrate Cefepime 2mg (10-5), Flagyl 500mg (10-6), Doxycycline 100mg (10-4) for empiric coverage PNA studies negative Bcx, Ucx, Sputum cx negative currently Leukocytosis trending down; Repeat CMP in AM Hypertriglycredemia Lopoid 600mg po bid Lipitor 80 mg NG din HTN coreg 3.125 mg po bid DM2 ISS low dose ACHS Hx of COPD Patient currently vented on Versed Resp settings as per ICU PPx GI ppx- Protonix 40mg IVP daily DVT ppx- Heparin 5000 units sc Medical Management discussed with Dr. Fernandez PGY-1 Fiona Tipton
[2018-06-28 06:32] LABS: ALB/GLOB RATIO 1.1 (1.1-1.8); ALBUMIN 3.1 g/dL (3.0-4.8); CALCIUM 8.1 mg/dL (8.4-10.5)
[2018-06-28] MEDS ORDERED: Potassium Chloride 40 mEq/30 ml LIQ UD PO STA (06:47)
[2018-06-28] MEDS: Midazolam 100 mg/100ml in NS 100 MG/100 ML SOL IV PRN (08:00)
--- NOTE | 2018-06-28 08:46 | CT ---
Date of service: 06/28/2018 PROCEDURE: CT HEAD WITHOUT CONTRAST. HISTORY: F/u cardiac arrest COMPARISON: None available. TECHNIQUE: Axial computed tomography images were obtained through the head/brain without intravenous contrast. Radiation dose: Total exam DLP = 943 mGy-cm. This CT exam was performed using one or more of the following dose reduction techniques: Automated exposure control, adjustment of the mA and/or kV according to patient size, and/or use of iterative reconstruction technique. FINDINGS: HEMORRHAGE: No intracranial hemorrhage. BRAIN: No mass effect or edema. Mild chronic microvascular changes. VENTRICLES: Unremarkable. No hydrocephalus. CALVARIUM: Unremarkable. PARANASAL SINUSES: Unremarkable as visualized. No significant inflammatory changes. MASTOID AIR CELLS: Unremarkable as visualized. No inflammatory changes. OTHER FINDINGS: None. IMPRESSION: No acute intracranial findings
[2018-06-28] MEDS ORDERED: Potassium Chloride 20 mEq/15 ml LIQ UD PO STA (09:21)
[2018-06-28] MEDS: Potassium Chloride 40 mEq/30 ml LIQ UD PO SCH ×2 (10:00→17:56)
--- NOTE | 2018-06-28 10:40 | CP.CCUPN ---
<Rajesh Vasquez - Last Filed: 06/28/18 11:02> CCU Subjective - Physician Review Subjective (Free Text): Rajesh Vasquez DO, PGY-1 ICU Progress Note for Dr. Galicia Patient is a 62 year old female with PMH of DM2, HTN, COPD, and chronic AFib who presented to ED following witnessed syncopal episode and cardiac arrest. The initial rhythm was found to be PEA. Compressions were started immediately per EMS. Unclear from records exactly how long she was in cardiac arrest prior to E [facility] arrival. Per EMS, ROSC was achieved after 2 minutes of CPR. CCU Objective - Vital Signs / Intake & Output Vital Signs (Last 4 hours): Vital Signs Temp Pulse Resp BP Pulse Ox 06/28/18 08:45 145/78 06/28/18 08:44 97.0 F L 75 96 06/28/18 08:40 97.0 F L 79 96 06/28/18 08:30 97.0 F L 79 157/77 H 95 06/28/18 08:22 97.0 F L 78 21 95 06/28/18 08:20 97.0 F L 77 20 96 06/28/18 08:18 76 23 153/87 H 95 06/28/18 07:50 97.2 F L 06/28/18 07:40 97.3 F L 100 06/28/18 07:30 97.5 F L 77 131/75 99 06/28/18 07:20 97.5 F L 75 100 06/28/18 07:15 97.7 F 75 127/70 99 06/28/18 07:10 97.9 F 76 99 06/28/18 07:00 98.1 F 77 125/69 98 06/28/18 06:50 98.2 F 78 99 06/28/18 06:45 98.4 F 81 116/66 98 06/28/18 06:40 98.4 F 83 99 Intake and Output (Last 8hrs): Intake & Output 06/27/18 06/28/18 06/28/18 22:59 06:59 14:59 Intake Total 958 1464 Output Total 1150 750 Balance -192 714 Weight 245 lb 11.2 oz Intake: IV 958 230 Right Antecubital 938 Oral 0 Tube Feeding 0 TPN/PPN 0 Blood Product 0 Lipid 0 Albumin 0 Other 1234 Output: Gastric Amount 50 Left Nares 50 Urine 1150 700 2-way Urethral 1150 700 Stool 0 Urine/Stool Mix 0 Emesis 0 Oral Regurgitation 0 Other 0 Other: # Voids 2-way Urethral 0 # Bowel Movements 0 0 - Physical Exam Head: Positive for: Atraumatic, Other (Intubated) Pupils: Positive for: Non-Reactive, Other (Doll's eyes, gag, corneal, pupillary reflexes all absent) Conjunctiva: Positive for: Normal Mouth: Positive for: Moist Mucous Membranes Neck: Negative for: JVD Respiratory/Chest: Positive for: Clear to Auscultation, Good Air Exchange. Negative for: Respiratory Distress, Accessory Muscle Use, Wheezes, Rales, Rhonchi Cardiovascular: Positive for: Regular Rate and Rhythm, Normal S1, S2. Negative for: Murmurs, Rub, Gallop Abdomen: Negative for: Distention, Mass/Organomegaly Back: Positive for: Normal Inspection Upper Extremity: Positive for: NORMAL PULSES. Negative for: Cyanosis, Edema Lower Extremity: Positive for: Edema (LE pitting edema improved from yesterday), NORMAL PULSES Neurological: Positive for: Other (No spontaneous movements, non-responsive to sternal rub or trapezius pinch, no doll's eyes, gag, pupillary, or corneal reflexes) Skin: Positive for: Warm, Dry, Normal Color. Negative for: Rashes - Medications Active Medications: Active Medications Generic Name Dose Route Start Last Admin Trade Name Freq PRN Reason Stop Dose Admin Amiodarone HCl 400 mg 06/26/18 10:00 06/27/18 18:22 Cordarone PO 06/28/18 23:59 400 mg TID LYNDA Administration Amiodarone HCl 200 mg 06/29/18 10:00 Cordarone PO DAILY LYNDA Aspirin 81 mg 06/26/18 06:00 06/27/18 11:30 Aspirin Chewable NG 81 mg DAILY LYNDA Administration Atorvastatin Calcium 80 mg 06/25/18 17:00 06/27/18 17:34 Lipitor NG 80 mg DIN LYNDA Administration Carvedilol 3.125 mg 06/28/18 10:00 Coreg PO BID LYNDA Furosemide 40 mg 06/28/18 10:00 Lasix IVP DAILY LYNDA Gemfibrozil 600 mg 06/26/18 10:15 06/27/18 17:37 Lopid PO 600 mg BID LYNDA Administration Heparin Sodium (Porcine) 5,000 units 06/25/18 20:00 06/28/18 05:49 Heparin SC 5,000 units Q8 LYNDA Administration Protocol Heparin Sodium/Sodium Chloride 25,000 units in 250 mls @ 15.241 mls/hr 06/25/18 11:30 06/25/18 11:30 Heparin 22344 Units/250ml 1/2 Normal Saline IV Not Given .[id number] LYNDA Protocol 12 UNITS/KG/HR Cisatracurium Besylate 200 mg/ 270 mls @ 4.66 mls/hr 06/25/18 16:05 06/27/18 07:30 Sodium Chloride IV 0 mcg/kg/min .Q24H PRN 0 mls/hr TITRATE PER MD ORDER Titration Protocol 0.5 MCG/KG/MIN Doxycycline Hyclate 100 mg/ 100 mls @ 100 mls/hr 06/25/18 22:00 06/27/18 22:06 Sodium Chloride IVPB 100 mls/hr Q12 LYNDA Administration Protocol Metronidazole 500 mg in 100 mls @ 100 mls/hr 06/25/18 22:00 06/28/18 05:49 Flagyl IVPB 100 mls/hr Q8 LYNDA Administration Protocol Cefepime HCl 2 gm in 100 mls @ 100 mls/hr 06/26/18 08:00 06/28/18 05:51 Maxipime 2gm IVPB 07/01/18 08:01 100 mls/hr Q8 LYNDA Administration Protocol Dobutamine HCl/Dextrose 500 mg in 250 mls @ 17.25 mls/hr 06/27/18 10:47 06/28/18 00:10 Dobutamine/Dextrose 5% 500mg/250ml IV 5 mcg/kg/min .[id number] PRN 17.25 mls/hr TITRATE PER PROTOCOL Administration Protocol 5 MCG/KG/MIN Midazolam 100 mg/100ml in NS 100 mg in 100 mls @ 5 mls/hr 06/27/18 11:35 06/27/18 15:00 Midazolam 100 Mg/100ml In Ns IV 5 mg/hr .Q20H PRN 5 mls/hr Sedation Administration Protocol 5 MG/HR Levetiracetam 1,500 mg/ Sodium 115 mls @ 460 mls/hr 06/27/18 22:00 06/27/18 22:05 Chloride IV 460 mls/hr Q12 LYNDA Administration Insulin Human Regular 0 units 06/27/18 18:00 06/28/18 06:30 Humulin R Med SC Not Given Q6H [facility] Protocol Lisinopril 2.5 mg 06/28/18 10:00 Zestril PO DAILY [facility] Magnesium Oxide 400 mg 06/27/18 10:45 06/27/18 17:36 Mag-Ox PO 06/28/18 23:59 400 mg BID LYNDA Administration Pantoprazole Sodium 40 mg 06/25/18 11:30 06/27/18 10:00 Protonix Inj IVP 40 mg DAILY [facility] Administration Potassium Chloride 40 meq 06/28/18 11:00 Potassium Chloride Oral Soln PO 06/28/18 15:01 Q4H [facility] Spironolactone 25 mg 06/28/18 10:00 Aldactone PO BID [facility] - Patient Studies Lab Studies: Microbiology Studies 06/25/18 23:06 MRSA Culture (Admit) - Final Nose MRSA NOT DETECTED 06/26/18 12:50 Urine Culture - Final Urine,Catheterized No Growth (<1,000 CFU/ML) 06/25/18 12:45 Blood Culture - Preliminary Blood-Venous NO GROWTH AFTER 48 HOURS 06/25/18 12:33 Blood Culture - Preliminary Blood-Venous NO GROWTH AFTER 48 HOURS Lab Studies 06/28/18 06/28/18 06/28/18 Range/Units 06:04 05:30 05:30 WBC 11.8 H (4.5-11.0) 10^3/ul RBC 4.42 (3.5-6.1) 10^6/uL Hgb 13.1 (12.0-16.0) g/dL Hct 40.3 (36.0-48.0) % MCV 91.2 (80.0-105.0) fl MCH 29.6 (25.0-35.0) pg MCHC 32.5 (31.0-37.0) g/dl RDW 15.1 H (11.5-14.5) % Plt Count 178 (120.0-450.0) 10^3/uL MPV 12.6 H (7.0-11.0) fl Gran % 79.9 H (50.0-68.0) % Lymph % (Auto) 10.5 L (22.0-35.0) % [place] % (Auto) 9.4 H (1.0-6.0) % Eos % (Auto) 0.1 L (1.5-5.0) % Baso % (Auto) 0.1 (0.0-3.0) % Gran # 9.42 H (1.4-6.5) Lymph # (Auto) 1.2 (1.2-3.4) [place] # (Auto) 1.1 H (0.1-0.6) Eos # (Auto) 0.0 (0.0-0.7) Baso # (Auto) 0.01 (0.0-2.0) K/mm3 pCO2 (35-45) mm/Hg pO2 (80-100) mm/Hg HCO3 (21-28) mmol/L ABG pH (7.35-7.45) ABG Total CO2 (22-28) mmol.L ABG O2 Saturation (95-98) % ABG O2 Content (15-23) ML/dl ABG Base Excess (-2.0-3.0) mmol/L ABG Hemoglobin (11.7-17.4) g/dL ABG Carboxyhemoglobin (0.5-1.5) % POC ABG HHb (Measured) (0-5) % ABG Methemoglobin (0.0-3.0) % ABG O2 Capacity (16-24) mL/dl Hgb O2 Saturation (95.0-98.0) % FiO2 % Sodium 139 (132-148) mmol/L Potassium 3.0 L (3.6-5.0) mmol/L Chloride 105 (98-107) mmol/L Carbon Dioxide 28 (21-33) mmol/L Anion Gap 9 L (10-20) BUN 28 H (7-21) mg/dL Creatinine 1.3 H (0.7-1.2) mg/dl Est GFR ( Amer) 51 Est GFR (Non-Af Amer) 42 POC Glucose (mg/dL) 121 H (65-110) mg/dL Random Glucose 117 H (70-110) mg/dL Calcium 8.1 L (8.4-10.5) mg/dL Phosphorus 3.8 (2.5-4.5) mg/dL Magnesium 1.9 (1.7-2.2) mg/dL Total Bilirubin 0.8 (0.2-1.3) mg/dL AST 43 H (14-36) U/L ALT 32 (7-56) U/L Alkaline Phosphatase 51 (38-126) U/L Total Protein 5.9 (5.8-8.3) g/dL Albumin 3.1 (3.0-4.8) g/dL Globulin 2.8 gm/dL Albumin/Globulin Ratio 1.1 (1.1-1.8) 06/28/18 06/27/18 06/27/18 Range/Units 05:00 23:19 17:33 WBC (4.5-11.0) 10^3/ul RBC (3.5-6.1) 10^6/uL Hgb (12.0-16.0) g/dL Hct (36.0-48.0) % MCV (80.0-105.0) fl MCH (25.0-35.0) pg MCHC (31.0-37.0) g/dl RDW (11.5-14.5) % Plt Count (120.0-450.0) 10^3/uL MPV (7.0-11.0) fl Gran % (50.0-68.0) % Lymph % (Auto) (22.0-35.0) % [place] % (Auto) (1.0-6.0) % Eos % (Auto) (1.5-5.0) % Baso % (Auto) (0.0-3.0) % Gran # (1.4-6.5) Lymph # (Auto) (1.2-3.4) [place] # (Auto) (0.1-0.6) Eos # (Auto) (0.0-0.7) Baso # (Auto) (0.0-2.0) K/mm3 pCO2 39 (35-45) mm/Hg pO2 88.0 (80-100) mm/Hg HCO3 27.1 (21-28) mmol/L ABG pH 7.45 (7.35-7.45) ABG Total CO2 28.3 H (22-28) mmol.L ABG O2 Saturation 99.2 H (95-98) % ABG O2 Content 17.9 (15-23) ML/dl ABG Base Excess 3.0 (-2.0-3.0) mmol/L ABG Hemoglobin 13.1 (11.7-17.4) g/dL ABG Carboxyhemoglobin 1.8 H (0.5-1.5) % POC ABG HHb (Measured) 0.8 (0-5) % ABG Methemoglobin 0.6 (0.0-3.0) % ABG O2 Capacity 18.0 (16-24) mL/dl Hgb O2 Saturation 96.8 (95.0-98.0) % FiO2 60.0 % Sodium (132-148) mmol/L Potassium (3.6-5.0) mmol/L Chloride (98-107) mmol/L Carbon Dioxide (21-33) mmol/L Anion Gap (10-20) BUN (7-21) mg/dL Creatinine (0.7-1.2) mg/dl Est GFR ( Amer) Est GFR (Non-Af Amer) POC Glucose (mg/dL) 117 H 140 H (65-110) mg/dL Random Glucose (70-110) mg/dL Calcium (8.4-10.5) mg/dL Phosphorus (2.5-4.5) mg/dL Magnesium (1.7-2.2) mg/dL Total Bilirubin (0.2-1.3) mg/dL AST (14-36) U/L ALT (7-56) U/L Alkaline Phosphatase (38-126) U/L Total Protein (5.8-8.3) g/dL Albumin (3.0-4.8) g/dL Globulin gm/dL Albumin/Globulin Ratio (1.1-1.8) 06/27/18 06/27/18 Range/Units 11:08 06:30 WBC (4.5-11.0) 10^3/ul RBC (3.5-6.1) 10^6/uL Hgb (12.0-16.0) g/dL Hct (36.0-48.0) % MCV (80.0-105.0) fl MCH (25.0-35.0) pg MCHC (31.0-37.0) g/dl RDW (11.5-14.5) % Plt Count (120.0-450.0) 10^3/uL MPV (7.0-11.0) fl Gran % (50.0-68.0) % Lymph % (Auto) (22.0-35.0) % [place] % (Auto) (1.0-6.0) % Eos % (Auto) (1.5-5.0) % Baso % (Auto) (0.0-3.0) % Gran # (1.4-6.5) Lymph # (Auto) (1.2-3.4) [place] # (Auto) (0.1-0.6) Eos # (Auto) (0.0-0.7) Baso # (Auto) (0.0-2.0) K/mm3 pCO2 (35-45) mm/Hg pO2 (80-100) mm/Hg HCO3 (21-28) mmol/L ABG pH (7.35-7.45) ABG Total CO2 (22-28) mmol.L ABG O2 Saturation (95-98) % ABG O2 Content (15-23) ML/dl ABG Base Excess (-2.0-3.0) mmol/L ABG Hemoglobin (11.7-17.4) g/dL ABG Carboxyhemoglobin (0.5-1.5) % POC ABG HHb (Measured) (0-5) % ABG Methemoglobin (0.0-3.0) % ABG O2 Capacity (16-24) mL/dl Hgb O2 Saturation (95.0-98.0) % FiO2 % Sodium 136 (132-148) mmol/L Potassium 3.5 L (3.6-5.0) mmol/L Chloride 105 (98-107) mmol/L Carbon Dioxide 18 L (21-33) mmol/L Anion Gap 17 (10-20) BUN 22 H (7-21) mg/dL Creatinine 1.0 (0.7-1.2) mg/dl Est GFR ( Amer) > 60 Est GFR (Non-Af Amer) 57 POC Glucose (mg/dL) 152 H (65-110) mg/dL Random Glucose 132 H (70-110) mg/dL Calcium 8.2 L (8.4-10.5) mg/dL Phosphorus 4.8 H (2.5-4.5) mg/dL Magnesium 1.6 L (1.7-2.2) mg/dL Total Bilirubin 1.0 (0.2-1.3) mg/dL AST 47 H D (14-36) U/L ALT 35 (7-56) U/L Alkaline Phosphatase 51 (38-126) U/L Total Protein 6.1 (5.8-8.3) g/dL Albumin 3.1 (3.0-4.8) g/dL Globulin 2.9 gm/dL Albumin/Globulin Ratio 1.1 (1.1-1.8) Laboratory Results - last 24 hr 06/27/18 06/27/18 06/27/18 06:30 11:08 17:33 WBC RBC Hgb Hct MCV MCH MCHC RDW Plt Count MPV Gran % Lymph % (Auto) [place] % (Auto) Eos % (Auto) Baso % (Auto) Gran # Lymph # (Auto) [place] # (Auto) Eos # (Auto) Baso # (Auto) pCO2 pO2 HCO3 ABG pH ABG Total CO2 ABG O2 Saturation ABG O2 Content ABG Base Excess ABG Hemoglobin ABG Carboxyhemoglobin POC ABG HHb (Measured) ABG Methemoglobin ABG O2 Capacity Hgb O2 Saturation FiO2 Sodium 136 Potassium 3.5 L Chloride 105 Carbon Dioxide 18 L Anion Gap 17 BUN 22 H Creatinine 1.0 Est GFR ( Amer) > 60 Est GFR (Non-Af Amer) 57 POC Glucose (mg/dL) 152 H 140 H Random Glucose 132 H Calcium 8.2 L Phosphorus 4.8 H Magnesium 1.6 L Total Bilirubin 1.0 AST 47 H D ALT 35 Alkaline Phosphatase 51 Total Protein 6.1 Albumin 3.1 Globulin 2.9 Albumin/Globulin Ratio 1.1 06/27/18 06/28/18 06/28/18 23:19 05:00 05:30 WBC 11.8 H RBC 4.42 Hgb 13.1 Hct 40.3 MCV 91.2 MCH 29.6 MCHC 32.5 RDW 15.1 H Plt Count 178 MPV 12.6 H Gran % 79.9 H Lymph % (Auto) 10.5 L [place] % (Auto) 9.4 H Eos % (Auto) 0.1 L Baso % (Auto) 0.1 Gran # 9.42 H Lymph # (Auto) 1.2 [place] # (Auto) 1.1 H Eos # (Auto) 0.0 Baso # (Auto) 0.01 pCO2 39 pO2 88.0 HCO3 27.1 ABG pH 7.45 ABG Total CO2 28.3 H ABG O2 Saturation 99.2 H ABG O2 Content 17.9 ABG Base Excess 3.0 ABG Hemoglobin 13.1 ABG Carboxyhemoglobin 1.8 H POC ABG HHb (Measured) 0.8 ABG Methemoglobin 0.6 ABG O2 Capacity 18.0 Hgb O2 Saturation 96.8 FiO2 60.0 Sodium Potassium Chloride Carbon Dioxide Anion Gap BUN Creatinine Est GFR ( Amer) Est GFR (Non-Af Amer) POC Glucose (mg/dL) 117 H Random Glucose Calcium Phosphorus Magnesium Total Bilirubin AST ALT Alkaline Phosphatase Total Protein Albumin Globulin Albumin/Globulin Ratio 06/28/18 06/28/18 05:30 06:04 WBC RBC Hgb Hct MCV MCH MCHC RDW Plt Count MPV Gran % Lymph % (Auto) [place] % (Auto) Eos % (Auto) Baso % (Auto) Gran # Lymph # (Auto) [place] # (Auto) Eos # (Auto) Baso # (Auto) pCO2 pO2 HCO3 ABG pH ABG Total CO2 ABG O2 Saturation ABG O2 Content ABG Base Excess ABG Hemoglobin ABG Carboxyhemoglobin POC ABG HHb (Measured) ABG Methemoglobin ABG O2 Capacity Hgb O2 Saturation FiO2 Sodium 139 Potassium 3.0 L Chloride 105 Carbon Dioxide 28 Anion Gap 9 L BUN 28 H Creatinine 1.3 H Est GFR ( Amer) 51 Est GFR (Non-Af Amer) 42 POC Glucose (mg/dL) 121 H Random Glucose 117 H Calcium 8.1 L Phosphorus 3.8 Magnesium 1.9 Total Bilirubin 0.8 AST 43 H ALT 32 Alkaline Phosphatase 51 Total Protein 5.9 Albumin 3.1 Globulin 2.8 Albumin/Globulin Ratio 1.1 Fingerstick Blood Sugar Results: 121 Review of Systems - Review of Systems Systems not reviewed;Unavailable: Intubated Critical Care Progress Note - Ventilator Checklist Head of Bed 30 Degrees: Yes Daily Sedation Vacation: Yes Daily Assessment of Readiness to Wean: Yes Daily Spontaneous Breathing Trial: Yes PUD Prophalyxis: Yes DVT Prophylaxis: Yes - Vent Settings MODE:: PRVC - Extremities/Vascular Does the Patient have a Central Venous Catheter?: No Does the Patient need a Central Venous Catheter?: No Does the Patient have a Mackey Catheter?: Yes Does the Patient need a Mackey Catheter?: Yes - Prophylaxis GI Prophylaxis GI: PPI - Prophylaxis DVT Prophylaxis DVT: Heparin SQ Assessment/Plan - Assessment and Plan (Free Text) Assessment: 62 yo F with PMH of DM2, HTN, COPD, and chronic AFib presented in [facility] via EMS with ROSC achieved after 2 minutes of CPR and one dose of epinephrine. Patient had spontaneous, seizure-like movements yesterday. Per neurology, EEG activity is consistent with severe anoxic brain injury with poor prognosis. Plan: Neuro: -Patient is currently non-responsive to sternal rub, trapezius pinch -No gag, pupillary, corneal, or doll's eyes reflexes -EEG is consistent with severe anoxic brain injury -Poor prognosis -Repeat CT head without acute findings -Discussed results and prognosis with family yesterday -Plan is to observe for another 24 hours -Keppra 1500 mg BID for seizure ppx -F/u further neurology recs Cardio: -Cardiac arrest likely 2/2 arrhythmia, hx of AFib -Currently RRR, normotensive, no longer requiring pressure support -PCI shortly after arrival in ED showed no significant stenosis, no stents were placed -LVEF found to be between 15-20% on cath -Amiodarone, coreg, and dobutamine per cardiology recs -F/u cardiology recs Pulm: -Intubated and sedated with versed alone -CTA b/l -CXR improved with less edema -Vent Settings: TV 400 RR 15 PEEP 15 O2 50 -Protective lung ventilation strategy -Keep head of bed elevated to 30 degrees -Aspiration pxns -Stop daily abg, cxr GI: -NPO on vent -NG in place, no suction needed, may use for meds -Consider tube feedings if needed /Nephro: -BUN/Cr stable -UOP > 4 L yesterday with BID lasix -Continue to monitor -Maintain euvolemia Endocrine: -Maintain euglycemia -Patient has hx of DM2 -ISS as needed ID: -Leukocytosis down trending -On empiric cefepime and flagyl -ID following, recs appreciated Heme/Onc: -H/H stable at 13.1/40.3 -No signs of HD compromise -Continue monitoring H/H DVT/GI PPX: Protonix and SC heparin Full Code Monitor in MICU Case and plan reviewed and discussed with my attending Dr. Frida Vasquez, DO IM Resident PGY-1 <Kenyon Galicia - Last Filed: 06/28/18 12:30> CCU Objective - Vital Signs / Intake & Output Vital Signs (Last 4 hours): Vital Signs Temp Pulse BP Pulse Ox 06/28/18 10:47 150/80 06/28/18 10:46 84 150/80 06/28/18 08:45 145/78 06/28/18 08:44 97.0 F L 75 96 06/28/18 08:40 97.0 F L 79 96 06/28/18 08:30 97.0 F L 79 157/77 H 95 Intake and Output (Last 8hrs): Intake & Output 06/27/18 06/28/18 06/28/18 22:59 06:59 14:59 Intake Total 958 1464 100 Output Total 1150 750 Balance -192 714 100 Weight 245 lb 11.2 oz Intake: IV 958 230 100 Right Antecubital 938 Oral 0 Tube Feeding 0 TPN/PPN 0 Blood Product 0 Lipid 0 Albumin 0 Other 1234 Output: Gastric Amount 50 Left Nares 50 Urine 1150 700 2-way Urethral 1150 700 Stool 0 Urine/Stool Mix 0 Emesis 0 Oral Regurgitation 0 Other 0 Other: # Voids 2-way Urethral 0 # Bowel Movements 0 0 - Medications Active Medications: Active Medications Generic Name Dose Route Start Last Admin Trade Name Levq PRN Reason Stop Dose Admin Amiodarone HCl 400 mg 06/26/18 10:00 06/28/18 10:46 Cordarone PO 06/28/18 23:59 400 mg TID LYNDA Administration Amiodarone HCl 200 mg 06/29/18 10:00 Cordarone PO DAILY [facility] Aspirin 81 mg 06/26/18 06:00 06/28/18 10:45 Aspirin Chewable NG 81 mg DAILY [facility] Administration Atorvastatin Calcium 80 mg 06/25/18 17:00 06/27/18 17:34 Lipitor NG 80 mg DIN [facility] Administration Carvedilol 3.125 mg 06/28/18 10:00 Coreg PO BID [facility] Furosemide 40 mg 06/28/18 10:00 06/28/18 10:47 Lasix IVP 40 mg DAILY [facility] Administration Gemfibrozil 600 mg 06/26/18 10:15 06/28/18 10:45 Lopid PO 600 mg BID [facility] Administration Heparin Sodium (Porcine) 5,000 units 06/25/18 20:00 06/28/18 05:49 Heparin SC 5,000 units Q8 [facility] Administration Protocol Heparin Sodium/Sodium Chloride 25,000 units in 250 mls @ 15.241 mls/hr 06/25 11:30 06/25/18 11:30 Heparin 88114 Units/250ml 1/2 Normal Saline IV Not Given .[id number] [facility] Protocol 12 UNITS/KG/HR Cisatracurium Besylate 200 mg/ 270 mls @ 4.66 mls/hr 06/25/18 16:05 06/27/18 07:30 Sodium Chloride IV 0 mcg/kg/min .Q24H PRN 0 mls/hr TITRATE PER MD ORDER Titration Protocol 0.5 MCG/KG/MIN Doxycycline Hyclate 100 mg/ 100 mls @ 100 mls/hr 06/25/18 22:00 06/27/18 22:06 Sodium Chloride IVPB 100 mls/hr Q12 [facility] Administration Protocol Metronidazole 500 mg in 100 mls @ 100 mls/hr 06/25/18 22:00 06/28/18 05:49 Flagyl IVPB 100 mls/hr Q8 [facility] Administration Protocol Cefepime HCl 2 gm in 100 mls @ 100 mls/hr 06/26/18 08:00 06/28/18 05:51 Maxipime 2gm IVPB 07/01/18 08:01 100 mls/hr Q8 [facility] Administration Protocol Dobutamine HCl/Dextrose 500 mg in 250 mls @ 17.25 mls/hr 06/27/18 10:47 06/28/18 00:10 Dobutamine/Dextrose 5% 500mg/250ml IV 5 mcg/kg/min .[id number] PRN 17.25 mls/hr TITRATE PER PROTOCOL Administration Protocol 5 MCG/KG/MIN Midazolam 100 mg/100ml in NS 100 mg in 100 mls @ 5 mls/hr 06/27/18 11:35 06/28/18 08:00 Midazolam 100 Mg/100ml In Ns IV 5 mg/hr .Q20H PRN 5 mls/hr Sedation Administration Protocol 5 MG/HR Levetiracetam 1,500 mg/ Sodium 115 mls @ 460 mls/hr 06/27/18 22:00 06/28/18 10:45 Chloride IV 460 mls/hr Q12 [facility] Administration Insulin Human Regular 0 units 06/27/18 18:00 06/28/18 06:30 Humulin R Med SC Not Given Q6H [facility] Protocol Lisinopril 2.5 mg 06/28/18 10:00 Zestril PO DAILY [facility] Magnesium Oxide 400 mg 06/27/18 10:45 06/28/18 10:45 Mag-Ox PO 06/28/18 23:59 400 mg BID [facility] Administration Pantoprazole Sodium 40 mg 06/25/18 11:30 06/28/18 10:58 Protonix Inj IVP 40 mg DAILY [facility] Administration Potassium Chloride 40 meq 06/28/18 11:00 Potassium Chloride Oral Soln PO 06/28/18 15:01 Q4H [facility] Spironolactone 25 mg 06/28/18 10:00 Aldactone PO BID [facility] - Patient Studies Lab Studies: Microbiology Studies 06/25/18 23:00 Gram Stain - Final Trachasp Sputum Culture - Final NORMAL ORAL LAUREN 06/25/18 23:06 MRSA Culture (Admit) - Final Nose MRSA NOT DETECTED 06/26/18 12:50 Urine Culture - Final Urine,Catheterized No Growth (<1,000 CFU/ML) 06/25/18 12:45 Blood Culture - Preliminary Blood-Venous NO GROWTH AFTER 48 HOURS 06/25/18 12:33 Blood Culture - Preliminary Blood-Venous NO GROWTH AFTER 48 HOURS Lab Studies 06/28/18 06/28/18 06/28/18 Range/Units 11:57 06:04 05:30 WBC (4.5-11.0) 10^3/ul RBC (3.5-6.1) 10^6/uL Hgb (12.0-16.0) g/dL Hct (36.0-48.0) % MCV (80.0-105.0) fl MCH (25.0-35.0) pg MCHC (31.0-37.0) g/dl RDW (11.5-14.5) % Plt Count (120.0-450.0) 10^3/uL MPV (7.0-11.0) fl Gran % (50.0-68.0) % Lymph % (Auto) (22.0-35.0) % [place] % (Auto) (1.0-6.0) % Eos % (Auto) (1.5-5.0) % Baso % (Auto) (0.0-3.0) % Gran # (1.4-6.5) Lymph # (Auto) (1.2-3.4) [place] # (Auto) (0.1-0.6) Eos # (Auto) (0.0-0.7) Baso # (Auto) (0.0-2.0) K/mm3 pCO2 (35-45) mm/Hg pO2 (80-100) mm/Hg HCO3 (21-28) mmol/L ABG pH (7.35-7.45) ABG Total CO2 (22-28) mmol.L ABG O2 Saturation (95-98) % ABG O2 Content (15-23) ML/dl ABG Base Excess (-2.0-3.0) mmol/L ABG Hemoglobin (11.7-17.4) g/dL ABG Carboxyhemoglobin (0.5-1.5) % POC ABG HHb (Measured) (0-5) % ABG Methemoglobin (0.0-3.0) % ABG O2 Capacity (16-24) mL/dl Hgb O2 Saturation (95.0-98.0) % FiO2 % Sodium 139 (132-148) mmol/L Potassium 3.0 L (3.6-5.0) mmol/L Chloride 105 (98-107) mmol/L Carbon Dioxide 28 (21-33) mmol/L Anion Gap 9 L (10-20) BUN 28 H (7-21) mg/dL Creatinine 1.3 H (0.7-1.2) mg/dl Est GFR ( Amer) 51 Est GFR (Non-Af Amer) 42 POC Glucose (mg/dL) 132 H 121 H (65-110) mg/dL Random Glucose 117 H (70-110) mg/dL Calcium 8.1 L (8.4-10.5) mg/dL Phosphorus 3.8 (2.5-4.5) mg/dL Magnesium 1.9 (1.7-2.2) mg/dL Total Bilirubin 0.8 (0.2-1.3) mg/dL AST 43 H (14-36) U/L ALT 32 (7-56) U/L Alkaline Phosphatase 51 (38-126) U/L Total Protein 5.9 (5.8-8.3) g/dL Albumin 3.1 (3.0-4.8) g/dL Globulin 2.8 gm/dL Albumin/Globulin Ratio 1.1 (1.1-1.8) 06/28/18 06/28/18 06/27/18 Range/Units 05:30 05:00 23:19 WBC 11.8 H (4.5-11.0) 10^3/ul RBC 4.42 (3.5-6.1) 10^6/uL Hgb 13.1 (12.0-16.0) g/dL Hct 40.3 (36.0-48.0) % MCV 91.2 (80.0-105.0) fl MCH 29.6 (25.0-35.0) pg MCHC 32.5 (31.0-37.0) g/dl RDW 15.1 H (11.5-14.5) % Plt Count 178 (120.0-450.0) 10^3/uL MPV 12.6 H (7.0-11.0) fl Gran % 79.9 H (50.0-68.0) % Lymph % (Auto) 10.5 L (22.0-35.0) % [place] % (Auto) 9.4 H (1.0-6.0) % Eos % (Auto) 0.1 L (1.5-5.0) % Baso % (Auto) 0.1 (0.0-3.0) % Gran # 9.42 H (1.4-6.5) Lymph # (Auto) 1.2 (1.2-3.4) [place] # (Auto) 1.1 H (0.1-0.6) Eos # (Auto) 0.0 (0.0-0.7) Baso # (Auto) 0.01 (0.0-2.0) K/mm3 pCO2 39 (35-45) mm/Hg pO2 88.0 (80-100) mm/Hg HCO3 27.1 (21-28) mmol/L ABG pH 7.45 (7.35-7.45) ABG Total CO2 28.3 H (22-28) mmol.L ABG O2 Saturation 99.2 H (95-98) % ABG O2 Content 17.9 (15-23) ML/dl ABG Base Excess 3.0 (-2.0-3.0) mmol/L ABG Hemoglobin 13.1 (11.7-17.4) g/dL ABG Carboxyhemoglobin 1.8 H (0.5-1.5) % POC ABG HHb (Measured) 0.8 (0-5) % ABG Methemoglobin 0.6 (0.0-3.0) % ABG O2 Capacity 18.0 (16-24) mL/dl Hgb O2 Saturation 96.8 (95.0-98.0) % FiO2 60.0 % Sodium (132-148) mmol/L Potassium (3.6-5.0) mmol/L Chloride (98-107) mmol/L Carbon Dioxide (21-33) mmol/L Anion Gap (10-20) BUN (7-21) mg/dL Creatinine (0.7-1.2) mg/dl Est GFR ( Amer) Est GFR (Non-Af Amer) POC Glucose (mg/dL) 117 H (65-110) mg/dL Random Glucose (70-110) mg/dL Calcium (8.4-10.5) mg/dL Phosphorus (2.5-4.5) mg/dL Magnesium (1.7-2.2) mg/dL Total Bilirubin (0.2-1.3) mg/dL AST (14-36) U/L ALT (7-56) U/L Alkaline Phosphatase (38-126) U/L Total Protein (5.8-8.3) g/dL Albumin (3.0-4.8) g/dL Globulin gm/dL Albumin/Globulin Ratio (1.1-1.8) 06/27/18 06/27/18 Range/Units 17:33 06:30 WBC (4.5-11.0) 10^3/ul RBC (3.5-6.1) 10^6/uL Hgb (12.0-16.0) g/dL Hct (36.0-48.0) % MCV (80.0-105.0) fl MCH (25.0-35.0) pg MCHC (31.0-37.0) g/dl RDW (11.5-14.5) % Plt Count (120.0-450.0) 10^3/uL MPV (7.0-11.0) fl Gran % (50.0-68.0) % Lymph % (Auto) (22.0-35.0) % [place] % (Auto) (1.0-6.0) % Eos % (Auto) (1.5-5.0) % Baso % (Auto) (0.0-3.0) % Gran # (1.4-6.5) Lymph # (Auto) (1.2-3.4) [place] # (Auto) (0.1-0.6) Eos # (Auto) (0.0-0.7) Baso # (Auto) (0.0-2.0) K/mm3 pCO2 (35-45) mm/Hg pO2 (80-100) mm/Hg HCO3 (21-28) mmol/L ABG pH (7.35-7.45) ABG Total CO2 (22-28) mmol.L ABG O2 Saturation (95-98) % ABG O2 Content (15-23) ML/dl ABG Base Excess (-2.0-3.0) mmol/L ABG Hemoglobin (11.7-17.4) g/dL ABG Carboxyhemoglobin (0.5-1.5) % POC ABG HHb (Measured) (0-5) % ABG Methemoglobin (0.0-3.0) % ABG O2 Capacity (16-24) mL/dl Hgb O2 Saturation (95.0-98.0) % FiO2 % Sodium 136 (132-148) mmol/L Potassium 3.5 L (3.6-5.0) mmol/L Chloride 105 (98-107) mmol/L Carbon Dioxide 18 L (21-33) mmol/L Anion Gap 17 (10-20) BUN 22 H (7-21) mg/dL Creatinine 1.0 (0.7-1.2) mg/dl Est GFR ( Amer) > 60 Est GFR (Non-Af Amer) 57 POC Glucose (mg/dL) 140 H (65-110) mg/dL Random Glucose 132 H (70-110) mg/dL Calcium 8.2 L (8.4-10.5) mg/dL Phosphorus 4.8 H (2.5-4.5) mg/dL Magnesium 1.6 L (1.7-2.2) mg/dL Total Bilirubin 1.0 (0.2-1.3) mg/dL AST 47 H D (14-36) U/L ALT 35 (7-56) U/L Alkaline Phosphatase 51 (38-126) U/L Total Protein 6.1 (5.8-8.3) g/dL Albumin 3.1 (3.0-4.8) g/dL Globulin 2.9 gm/dL Albumin/Globulin Ratio 1.1 (1.1-1.8) Laboratory Results - last 24 hr 06/27/18 06/27/18 06/27/18 06:30 17:33 23:19 WBC RBC Hgb Hct MCV MCH MCHC RDW Plt Count MPV Gran % Lymph % (Auto) [place] % (Auto) Eos % (Auto) Baso % (Auto) Gran # Lymph # (Auto) [place] # (Auto) Eos # (Auto) Baso # (Auto) pCO2 pO2 HCO3 ABG pH ABG Total CO2 ABG O2 Saturation ABG O2 Content ABG Base Excess ABG Hemoglobin ABG Carboxyhemoglobin POC ABG HHb (Measured) ABG Methemoglobin ABG O2 Capacity Hgb O2 Saturation FiO2 Sodium 136 Potassium 3.5 L Chloride 105 Carbon Dioxide 18 L Anion Gap 17 BUN 22 H Creatinine 1.0 Est GFR ( Amer) > 60 Est GFR (Non-Af Amer) 57 POC Glucose (mg/dL) 140 H 117 H Random Glucose 132 H Calcium 8.2 L Phosphorus 4.8 H Magnesium 1.6 L Total Bilirubin 1.0 AST 47 H D ALT 35 Alkaline Phosphatase 51 Total Protein 6.1 Albumin 3.1 Globulin 2.9 Albumin/Globulin Ratio 1.1 06/28/18 06/28/18 06/28/18 05:00 05:30 05:30 WBC 11.8 H RBC 4.42 Hgb 13.1 Hct 40.3 MCV 91.2 MCH 29.6 MCHC 32.5 RDW 15.1 H Plt Count 178 MPV 12.6 H Gran % 79.9 H Lymph % (Auto) 10.5 L [place] % (Auto) 9.4 H Eos % (Auto) 0.1 L Baso % (Auto) 0.1 Gran # 9.42 H Lymph # (Auto) 1.2 [place] # (Auto) 1.1 H Eos # (Auto) 0.0 Baso # (Auto) 0.01 pCO2 39 pO2 88.0 HCO3 27.1 ABG pH 7.45 ABG Total CO2 28.3 H ABG O2 Saturation 99.2 H ABG O2 Content 17.9 ABG Base Excess 3.0 ABG Hemoglobin 13.1 ABG Carboxyhemoglobin 1.8 H POC ABG HHb (Measured) 0.8 ABG Methemoglobin 0.6 ABG O2 Capacity 18.0 Hgb O2 Saturation 96.8 FiO2 60.0 Sodium 139 Potassium 3.0 L Chloride 105 Carbon Dioxide 28 Anion Gap 9 L BUN 28 H Creatinine 1.3 H Est GFR ( Amer) 51 Est GFR (Non-Af Amer) 42 POC Glucose (mg/dL) Random Glucose 117 H Calcium 8.1 L Phosphorus 3.8 Magnesium 1.9 Total Bilirubin 0.8 AST 43 H ALT 32 Alkaline Phosphatase 51 Total Protein 5.9 Albumin 3.1 Globulin 2.8 Albumin/Globulin Ratio 1.1 06/28/18 06/28/18 06:04 11:57 WBC RBC Hgb Hct MCV MCH MCHC RDW Plt Count MPV Gran % Lymph % (Auto) [place] % (Auto) Eos % (Auto) Baso % (Auto) Gran # Lymph # (Auto) [place] # (Auto) Eos # (Auto) Baso # (Auto) pCO2 pO2 HCO3 ABG pH ABG Total CO2 ABG O2 Saturation ABG O2 Content ABG Base Excess ABG Hemoglobin ABG Carboxyhemoglobin POC ABG HHb (Measured) ABG Methemoglobin ABG O2 Capacity Hgb O2 Saturation FiO2 Sodium Potassium Chloride Carbon Dioxide Anion Gap BUN Creatinine Est GFR ( Amer) Est GFR (Non-Af Amer) POC Glucose (mg/dL) 121 H 132 H Random Glucose Calcium Phosphorus Magnesium Total Bilirubin AST ALT Alkaline Phosphatase Total Protein Albumin Globulin Albumin/Globulin Ratio Assessment/Plan - Assessment and Plan (Free Text) Plan: Patient seen and examined on rounds with resident, agree with note with following additions/exceptions: Patient is 62yo female with PMHx of DM2, HTN, COPD, and chronic AFib, mobird obesity, presented s/p PEA cardiac arrest in the field, unclear down time, and CPR time, intubated Patient had cardiac cath done, NICM, EF 25%, no stents placed CT PE protocol negative for PE Currently intubated sedated, on Versed, underwent hypothermic protocol Cardiology, Neurology following, ID following Labs, imaging, chart reviewed CXR today with improvement in pulmonary edema VEEG today read as seizure activity, adjusted AED accordingly, increased Versed drip Exam is consistent with no cortical function, and minimal brainstem function Family meeting yesterday held with neurology and family, updates and information provided, family deciding next course of action Cardiac Arrest NICM DM HTN COPD Afib Morbid Obesity Pulm edema Recommend: - cont with vent support, low tidal volume ventilation,daily ABG, CXR - Lasix 40mg IV BID - Cont with Dobutamine drip - Amio PO - follow up ECHO - follow up cardiology - Versed, Fentanyl - increase dose of Keppra 1.5g BID - follow neurology, VEEG - Adequate sedation - FS control - GI ppx - DVT ppx - Monitor in MICU Prognosis is extremely poor Critical care time 35 minutes
[2018-06-28] MEDS: Magnesium Oxide 400 mg Tab UD PO SCH ×2 (10:45→17:35)
[2018-06-28] MEDS: levETIRAcetam 1,500 MG in Sodium Chloride 0.9% 100 ML IV SCH ×2 (10:45→21:27)
--- NOTE | 2018-06-28 10:46 | RAD ---
Date of service: 06/28/2018 HISTORY: Intubated COMPARISON: 06/27/2018 FINDINGS: LUNGS: Endotracheal tube and nasogastric tube in satisfactory position. No focal consolidation PLEURA: No significant pleural effusion identified, no pneumothorax apparent. CARDIOVASCULAR: Moderate cardiomegaly OSSEOUS STRUCTURES: No significant abnormalities. VISUALIZED UPPER ABDOMEN: Normal. OTHER FINDINGS: None. IMPRESSION: Endotracheal tube and nasogastric tube in satisfactory position. No focal consolidation
--- NOTE | 2018-06-28 12:32 | CP.PCM.PN ---
Subjective - Date & Time of Evaluation Date of Evaluation: 06/28/18 Time of Evaluation: 09:40 - Subjective Subjective: Continues to be on the ventilator, with low grade fevers, has some non- purposeful movements. Objective - Vital Signs/Intake and Output Vital Signs (last 24 hours): Temp Pulse Resp BP Pulse Ox 100.6 F H 98 H 20 120/65 96 06/27/18 18:25 06/28/18 00:10 06/27/18 17:55 06/28/18 00:10 06/27/18 17:55 Intake and Output: 06/28/18 06/28/18 06:59 18:59 Intake Total 230 Balance 230 - Medications Medications: Current Medications Amiodarone HCl (Cordarone) 400 mg PO TID [facility] Stop: 06/28/18 23:59 Last Admin: 06/27/18 18:22 Dose: 400 mg Amiodarone HCl (Cordarone) 200 mg PO DAILY [facility] Aspirin (Aspirin Chewable) 81 mg NG DAILY [facility] Last Admin: 06/27/18 11:30 Dose: 81 mg Atorvastatin Calcium (Lipitor) 80 mg NG DIN [facility] Last Admin: 06/27/18 17:34 Dose: 80 mg Furosemide (Lasix) 40 mg IVP BID [facility] Last Admin: 06/27/18 17:38 Dose: 40 mg Gemfibrozil (Lopid) 600 mg PO BID [facility] Last Admin: 06/27/18 17:37 Dose: 600 mg Heparin Sodium (Porcine) (Heparin) 5,000 units SC Q8 [facility]; Protocol Last Admin: 06/28/18 05:49 Dose: 5,000 units Heparin Sodium/Sodium Chloride (Heparin 36795 Units/250ml 1/2 Normal Saline) 25,000 units in 250 mls @ 15.241 mls/hr IV .[id number] [facility]; Protocol Last Admin: 06/25/18 11:30 Dose: Not Given Cisatracurium Besylate 200 mg/ (Sodium Chloride) 270 mls @ 4.66 mls/hr IV .Q24H PRN; Protocol PRN Reason: TITRATE PER MD ORDER Last Titration: 06/27/18 07:30 Dose: 0 mcg/kg/min, 0 mls/hr Doxycycline Hyclate 100 mg/ (Sodium Chloride) 100 mls @ 100 mls/hr IVPB Q12 [facility]; Protocol Last Admin: 06/27/18 22:06 Dose: 100 mls/hr Metronidazole (Flagyl) 500 mg in 100 mls @ 100 mls/hr IVPB Q8 [facility]; Protocol Last Admin: 06/28/18 05:49 Dose: 100 mls/hr Cefepime HCl (Maxipime 2gm) 2 gm in 100 mls @ 100 mls/hr IVPB Q8 [facility]; Protocol Stop: 07/01/18 08:01 Last Admin: 06/28/18 05:51 Dose: 100 mls/hr Dobutamine HCl/Dextrose (Dobutamine/Dextrose 5% 500mg/250ml) 500 mg in 250 mls @ 17.25 mls/hr IV .[id number] PRN; Protocol PRN Reason: TITRATE PER PROTOCOL Last Admin: 06/28/18 00:10 Dose: 5 mcg/kg/min, 17.25 mls/hr Midazolam 100 mg/100ml in NS (Midazolam 100 Mg/100ml In Ns) 100 mg in 100 mls @ 5 mls/hr IV .Q20H PRN; Protocol PRN Reason: Sedation Last Admin: 06/27/18 15:00 Dose: 5 mg/hr, 5 mls/hr Levetiracetam 1,500 mg/ Sodium (Chloride) 115 mls @ 460 mls/hr IV Q12 [facility] Last Admin: 06/27/18 22:05 Dose: 460 mls/hr Insulin Human Regular (Humulin R Med) 0 units SC Q6H [facility]; Protocol Last Admin: 06/28/18 00:30 Dose: Not Given Magnesium Oxide (Mag-Ox) 400 mg PO BID [facility] Stop: 06/28/18 23:59 Last Admin: 06/27/18 17:36 Dose: 400 mg Pantoprazole Sodium (Protonix Inj) 40 mg IVP DAILY [facility] Last Admin: 06/27/18 10:00 Dose: 40 mg Potassium Chloride (Potassium Chloride Oral Soln) 40 meq PO Q4H [facility] Stop: 06/28/18 15:01 - Labs Labs: 06/28/18 05:30 06/28/18 05:30 PT 12.7 SECONDS (9.4-12.5) H 06/25/18 09:15 INR 1.10 06/25/18 09:15 APTT 27.3 Seconds (25.1-36.5) 06/25/18 09:15 - Constitutional Appears: Other (intubated, poorly responsive) - ENT Exam Additional comments: ET tube in place - Respiratory Exam Respiratory Exam: Decreased Breath Sounds - Cardiovascular Exam Cardiovascular Exam: +S1, +S2 - GI/Abdominal Exam GI & Abdominal Exam: Soft. absent: Tenderness Assessment and Plan - Assessment and Plan (Free Text) Plan: Assessment Systemic inflammatory response syndrome with VDRF due to cardiopulmonary arrest R/O acute coronary syndrome, with probable anoxic encephalopathy, R/O severe sepsis from aspiration pneumonia chronic CHF HTN DM COPD atrial fibrillation morbid obesity with BMI 40 Plan continue Cefepime, Flagyl ,Doxycycline day 3; cultures and MRSA nares are negative, will d/c IV Vancomycin; reviewed CT A/P and CXR overall prognosis is poor follow up further recommendations of GI, Neuro, Cardio
[2018-06-28] MEDS ORDERED: Lubricant Eye Drops UD OU PRN (13:18)
[2018-06-28 13:55] LABS: URINE APPEARANCE CLEAR (CLEAR); URINE BILIRUBIN NEGATIVE (NEGATIVE); URINE COLOR YELLOW (YELLOW); URINE GLUCOSE (UA) NEGATIVE (NEGATIVE)
[2018-06-28 13:56] LABS: URINE BLOOD MODERATE (NEGATIVE); URINE LEUKOCYTE ESTERASE NEGATIVE Leu/uL (NEGATIVE); URINE PROTEIN NEGATIVE mg/dL (<30 mg/dL); URINE UROBILINOGEN 0.2 E.U./dL (<1 E.U./dL)
--- NOTE | 2018-06-28 13:58 | PN ---
DATE: 06/28/2018 REASON FOR THE CONSULTATION AND FOLLOWUP: Status post code STEMI, status post collapse, ventricular fibrillation arrest, status post intubated, rule out anoxic encephalopathy, status post cardiac catheterization, nonobstructive coronary artery disease, nonischemic cardiomyopathy. SUBJECTIVE: The patient remains intubated. No significant pharyngeal gag reflux. OBJECTIVE: GENERAL: Not in any apparent distress, being intubated. Going for head CT. VITAL SIGNS: Temperature afebrile, heart rate 75, blood pressure 145/78. HEENT: PERRLA. Extraocular muscles intact. NECK: Supple. No carotid bruit. No thyromegaly. CHEST: Clear to auscultation. HEART: S1 and S2 regular. ABDOMEN: Soft. EXTREMITIES: Clubbing and cyanosis negative. LABORATORY DATA: Blood workup as follows: WBC 11.8, hemoglobin 13.1, hematocrit of 40.3, platelet count 178. Chemistry shows sodium 139, potassium 3, chloride 105, carbon dioxide 28, anion gap of 9, BUN 28, creatinine 1.3. IMPRESSION: This is a 62-year-old female with past medical history significant for cardiomyopathy, admitted after having collapse, ventricular fibrillation arrest, status post intubated. code ST-elevation myocardial infarction was called after CAT scan of the head done. The patient was brought to the laboratory equipment cleaner and had cardiac catheterization, nonobstructive coronary artery disease, limited only to the mid circumflex, 60-70% stenosis. Nonischemic cardiomyopathy. The patient is poorly responding to the painful stimuli, possibly anoxic encephalopathy. RECOMMENDATIONS: Supplement potassium. Continue low dose of Dobutrex because the ejection fraction severely decreased. Continue p.o. amiodarone. Continue deep venous thrombosis prophylaxis. Continue gentle diuretics. We will put Coreg and supplement potassium. Overall, the patient's condition is critical. Long-term prognosis is extremely poor. Follow up with neurologist. We will add heart failure therapy. If the patient is okay, we will add Coreg, spironolactone as well as low doses of TASH inhibitors as blood pressure, heart rate and renal function is tolerated. Discussed with the family. We will cut down the Lasix to once a day. Magnesium is 1.9. Overall, as mentioned, the patient's condition is critical. Long-term prognosis is extremely poor. Lizz Harrell MD [facility] # [id number]
[2018-06-28 14:29] LABS: URINE EPITHELIAL CELLS 0 - 2 /hpf (0-5); URINE WBC 0 - 2 /hpf (0-6)
--- NOTE | 2018-06-28 17:59 | CP.PCM.PN ---
Subjective - Date & Time of Evaluation Date of Evaluation: 06/28/18 Time of Evaluation: 17:56 - Subjective Subjective: Mrs. Gómez was seen and examined today at bedside in the ICU. Clinically, she appeared significantly worse than yesterday. She did not have any brainstem reflexes and was not responsive to painful stimulus. This was discussed with karen arvizu. Objective - Vital Signs/Intake and Output Vital Signs (last 24 hours): Temp Pulse Resp BP Pulse Ox 99.3 F 84 21 150/81 96 06/28/18 16:50 06/28/18 17:42 06/28/18 08:22 06/28/18 17:42 06/28/18 16:50 Intake and Output: 06/28/18 06/28/18 06:59 18:59 Intake Total 1464 350 Output Total 750 1000 Balance 714 -650 - Medications Medications: Current Medications Amiodarone HCl (Cordarone) 400 mg PO TID [facility] Stop: 06/28/18 23:59 Last Admin: 06/28/18 17:42 Dose: 400 mg Amiodarone HCl (Cordarone) 200 mg PO DAILY [facility] [place] Artificial Tears (Refresh Opth Soln) 0.3 ml OU Q4H PRN PRN Reason: Dry eyes Aspirin (Aspirin Chewable) 81 mg NG DAILY [facility] [place] Last Admin: 06/28/18 10:45 Dose: 81 mg Atorvastatin Calcium (Lipitor) 80 mg NG DIN [facility] [place] Last Admin: 06/28/18 16:22 Dose: 80 mg Carvedilol (Coreg) 3.125 mg PO BID [facility] [place] Last Admin: 06/28/18 17:41 Dose: 3.125 mg Furosemide (Lasix) 40 mg IVP DAILY [facility] [place] Last Admin: 06/28/18 10:47 Dose: 40 mg Gemfibrozil (Lopid) 600 mg PO BID [facility] [place] Last Admin: 06/28/18 17:35 Dose: 600 mg Heparin Sodium (Porcine) (Heparin) 5,000 units SC Q8 [facility]; Protocol Last Admin: 06/28/18 14:11 Dose: 5,000 units Heparin Sodium/Sodium Chloride (Heparin 19986 Units/250ml 1/2 Normal Saline) 25,000 units in 250 mls @ 15.241 mls/hr IV .[id number] [facility]; Protocol Last Admin: 06/25/18 11:30 Dose: Not Given Cisatracurium Besylate 200 mg/ (Sodium Chloride) 270 mls @ 4.66 mls/hr IV .Q24H PRN; Protocol PRN Reason: TITRATE PER MD ORDER Last Titration: 06/27/18 07:30 Dose: 0 mcg/kg/min, 0 mls/hr Doxycycline Hyclate 100 mg/ (Sodium Chloride) 100 mls @ 100 mls/hr IVPB Q12 [facility]; Protocol Last Admin: 06/28/18 12:34 Dose: 100 mls/hr Metronidazole (Flagyl) 500 mg in 100 mls @ 100 mls/hr IVPB Q8 [facility]; Protocol Last Admin: 06/28/18 14:11 Dose: 100 mls/hr Cefepime HCl (Maxipime 2gm) 2 gm in 100 mls @ 100 mls/hr IVPB Q8 [facility]; Protocol Stop: 07/01/18 08:01 Last Admin: 06/28/18 14:11 Dose: 100 mls/hr Dobutamine HCl/Dextrose (Dobutamine/Dextrose 5% 500mg/250ml) 500 mg in 250 mls @ 17.25 mls/hr IV .[id number] PRN; Protocol PRN Reason: TITRATE PER PROTOCOL Last Admin: 06/28/18 15:55 Dose: 5 mcg/kg/min, 17.25 mls/hr Midazolam 100 mg/100ml in NS (Midazolam 100 Mg/100ml In Ns) 100 mg in 100 mls @ 5 mls/hr IV .Q20H PRN; Protocol PRN Reason: Sedation Last Admin: 06/28/18 08:00 Dose: 5 mg/hr, 5 mls/hr Levetiracetam 1,500 mg/ Sodium (Chloride) 115 mls @ 460 mls/hr IV Q12 [facility] Last Admin: 06/28/18 10:45 Dose: 460 mls/hr Insulin Human Regular (Humulin R Med) 0 units SC Q6H [facility]; Protocol Last Admin: 06/28/18 17:43 Dose: Not Given Lisinopril (Zestril) 2.5 mg PO DAILY [facility] [place] Last Admin: 06/28/18 12:31 Dose: 2.5 mg Magnesium Oxide (Mag-Ox) 400 mg PO BID [facility] Stop: 06/28/18 23:59 Last Admin: 06/28/18 17:35 Dose: 400 mg Pantoprazole Sodium (Protonix Inj) 40 mg IVP DAILY [facility] [place] Last Admin: 06/28/18 10:58 Dose: 40 mg Spironolactone (Aldactone) 25 mg PO BID [facility] [place] Last Admin: 06/28/18 17:35 Dose: 25 mg - Labs Labs: 06/28/18 05:30 06/28/18 05:30 PT 12.7 SECONDS (9.4-12.5) H 06/25/18 09:15 INR 1.10 06/25/18 09:15 APTT 27.3 Seconds (25.1-36.5) 06/25/18 09:15 - Constitutional Appears: Chronically Ill - Head Exam Additional comments: intubated, off sedation. - Eye Exam Eye Exam: Conjunctival injection - Respiratory Exam Additional comments: Not breathing over the ventilator - Cardiovascular Exam Cardiovascular Exam: REGULAR RHYTHM, +S1, +S2. absent: Murmur - GI/Abdominal Exam GI & Abdominal Exam: Soft, Normal Bowel Sounds. absent: Tenderness - Neurological Exam Neuro motor strength exam: Left Upper Extremity: 0, Right Upper Extremity: 0, Left Lower Extremity: 0, Right Lower Extremity: 0 Additional comments: GCS 3T: no pupillary response, no corneal response and not breathing over the vent Assessment and Plan (1) Anoxic brain injury Assessment & Plan: The patient appears to be nearly brain at this time. I discussed confirmatory testing with brain blood flow and EEG. Will discuss with family after results. Status: Acute (2) Status epilepticus Assessment & Plan: AEDs were increased. Will repeat EEG. Status: Acute
[2018-06-28 18:25] LABS: BLOOD UREA NITROGEN 24 mg/dL (7-21); CALCIUM 8.5 mg/dL (8.4-10.5); GFR NON-AFRICAN AMERICAN 51; HDL CHOLESTEROL 41 mg/dL (29-60)
[2018-06-28 18:35] LABS: LDL CHOLESTEROL 62 mg/dL (0-129)
--- NOTE | 2018-06-28 20:20 | US ---
HISTORY: Leg pain and swelling. Evaluate for DVT PHYSICIAN(S): Dom Mcfarland MD. TECHNIQUE: Duplex sonography and color-flow Doppler with graded compression were used to evaluate the deep venous systems of both lower extremities. The exam is very limited by body habitus and edema. FINDINGS: Hypoechoic acute occlusive thrombus is noted in the left popliteal vein. The left femoral vein and left common femoral vein are patent and compressible. There is no sonographic evidence for deep venous thrombosis the visualized segments of the right lower extremity IMPRESSION: Hypoechoic acute thrombus in the left popliteal vein
[2018-06-29] MEDS: Insulin Reg-MEDIUM-Coverage SC SCH ×4 (00:29→18:09)
[2018-06-29] MEDS: Midazolam 100 mg/100ml in NS 100 MG/100 ML SOL IV PRN (00:30)
[2018-06-29] MEDS: DOBUTamine 500mg/250ml D5W 500 MG/250 ML BAG IV PRN ×2 (04:55→23:01)
[2018-06-29] MEDS: Cefepime IV 2 gm in NS 2 GM/100 ML BAG IVPB SCH ×3 (04:59→23:09)
[2018-06-29 07:34] LABS: BASO # 0.01 K/mm3 (0.0-2.0); BASO % 0.1 % (0.0-3.0); EOS % 0.1 % (1.5-5.0); GRAN # 8.34 (1.4-6.5); GRAN % 76.1 % (50.0-68.0); HEMOGLOBIN 13.4 g/dL (12.0-16.0); LYMPH # 1.3 (1.2-3.4); LYMPH % 11.7 % (22.0-35.0); MEAN CELL VOLUME 91.8 fl (80.0-105.0); MEAN CORPUSCULAR HEMOGLOBIN 29.7 pg (25.0-35.0); MEAN CORPUSCULAR HGB CONC 32.4 g/dl (31.0-37.0); MEAN PLATELET VOLUME 11.9 fl (7.0-11.0); MONO # 1.3 (0.1-0.6); RBC 4.51 10^6/uL (3.5-6.1); RED CELL DISTRIBUTION WIDTH 15.1 % (11.5-14.5)
[2018-06-29 07:46] LABS: ALB/GLOB RATIO 1.1 (1.1-1.8); ALBUMIN 3.4 g/dL (3.0-4.8); ALT/SGPT 31 U/L (7-56); AST/SGOT 40 U/L (14-36); BLOOD UREA NITROGEN 26 mg/dL (7-21); CALCIUM 8.8 mg/dL (8.4-10.5); GFR NON-AFRICAN AMERICAN 57
--- NOTE | 2018-06-29 09:11 | CP.PCM.PN ---
<Myla Quiñones - Last Filed: 06/29/18 15:37> Subjective - Date & Time of Evaluation Date of Evaluation: 06/29/18 Time of Evaluation: 09:11 - Subjective Subjective: Myla Quiñones, PGY2, Neurology Progress Note for Dr Zavala: Patient seen and examined at bedside. No acute events overnight. Patient off Versed drip today around 8 AM. Patient noted to have + hand and eye twitching movements. + Corneals reflex, responds to sternal rub, pain (upper extremities and left lower extremity), no gag reflex, mildly breathing over the vent, pupils dilated but reactive to light. Spot EEG obtained, which showed status epilepticus. Discussed extensively with patient's family regarding patient's prognosis. All questions answered. ROS unable to obtain due to patient's condition. Objective - Vital Signs/Intake and Output Vital Signs (last 24 hours): Temp Pulse Resp BP Pulse Ox 99.9 F H 87 21 142/90 97 06/29/18 05:50 06/29/18 05:50 06/28/18 08:22 06/29/18 05:30 06/29/18 05:50 Intake and Output: 06/29/18 06/29/18 06:59 18:59 Intake Total 2698 64 Output Total 400 Balance 2298 64 - Medications Medications: Current Medications Amiodarone HCl (Cordarone) 200 mg PO DAILY [facility] Artificial Tears (Refresh Opth Soln) 0.3 ml OU Q4H PRN PRN Reason: Dry eyes Last Admin: 06/28/18 17:47 Dose: 2 drop Aspirin (Aspirin Chewable) 81 mg NG DAILY [facility] Last Admin: 06/28/18 10:45 Dose: 81 mg Atorvastatin Calcium (Lipitor) 80 mg NG DIN [facility] Last Admin: 06/28/18 16:22 Dose: 80 mg Carvedilol (Coreg) 3.125 mg PO BID [facility] Last Admin: 06/28/18 17:41 Dose: 3.125 mg Furosemide (Lasix) 40 mg IVP DAILY [facility] Last Admin: 06/28/18 10:47 Dose: 40 mg Gemfibrozil (Lopid) 600 mg PO BID [facility] Last Admin: 06/28/18 17:35 Dose: 600 mg Heparin Sodium (Porcine) (Heparin) 5,000 units SC Q8 [facility]; Protocol Last Admin: 06/29/18 06:43 Dose: 5,000 units Heparin Sodium/Sodium Chloride (Heparin 11933 Units/250ml 1/2 Normal Saline) 25,000 units in 250 mls @ 15.241 mls/hr IV .[id number] [facility]; Protocol Last Admin: 06/25/18 11:30 Dose: Not Given Cisatracurium Besylate 200 mg/ (Sodium Chloride) 270 mls @ 4.66 mls/hr IV .Q24H PRN; Protocol PRN Reason: TITRATE PER MD ORDER Last Titration: 06/27/18 07:30 Dose: 0 mcg/kg/min, 0 mls/hr Cefepime HCl (Maxipime 2gm) 2 gm in 100 mls @ 100 mls/hr IVPB Q8 [facility]; Protocol Stop: 07/01/18 08:01 Last Admin: 06/29/18 04:59 Dose: 100 mls/hr Dobutamine HCl/Dextrose (Dobutamine/Dextrose 5% 500mg/250ml) 500 mg in 250 mls @ 17.25 mls/hr IV .[id number] PRN; Protocol PRN Reason: TITRATE PER PROTOCOL Last Admin: 06/29/18 04:55 Dose: 5 mcg/kg/min, 17.25 mls/hr Midazolam 100 mg/100ml in NS (Midazolam 100 Mg/100ml In Ns) 100 mg in 100 mls @ 5 mls/hr IV .Q20H PRN; Protocol PRN Reason: Sedation Last Titration: 06/29/18 08:52 Dose: 1.25 mg/hr, 1.25 mls/hr Levetiracetam 1,500 mg/ Sodium (Chloride) 115 mls @ 460 mls/hr IV Q12 [facility] Last Admin: 06/28/18 21:27 Dose: 460 mls/hr Insulin Human Regular (Humulin R Med) 0 units SC Q6H [facility]; Protocol Last Admin: 06/29/18 06:06 Dose: Not Given Lisinopril (Zestril) 2.5 mg PO DAILY [facility] Last Admin: 06/28/18 12:31 Dose: 2.5 mg Pantoprazole Sodium (Protonix Inj) 40 mg IVP DAILY [facility] Last Admin: 06/28/18 10:58 Dose: 40 mg Spironolactone (Aldactone) 25 mg PO BID [facility] Last Admin: 06/28/18 17:35 Dose: 25 mg - Labs Labs: 06/29/18 07:15 06/29/18 07:15 PT 12.7 SECONDS (9.4-12.5) H 06/25/18 09:15 INR 1.10 06/25/18 09:15 APTT 27.3 Seconds (25.1-36.5) 06/25/18 09:15 - Constitutional Appears: Toxic, Chronically Ill - Head Exam Head Exam: ATRAUMATIC, NORMOCEPHALIC - Eye Exam Pupil Exam: absent: Fixed Additional comments: pupils 4+ dilated, briskly reactive to light - Respiratory Exam Respiratory Exam: Decreased Breath Sounds, Rhonchi - Cardiovascular Exam Cardiovascular Exam: +S1, +S2. absent: Murmur - GI/Abdominal Exam GI & Abdominal Exam: Soft, Normal Bowel Sounds. absent: Rigid - Extremities Exam Extremities Exam: Normal Capillary Refill. absent: Full ROM, Pedal Edema - Neurological Exam Neurological Exam: Altered, Reflexes Normal Additional comments: Responds to painful stimuli. + corneals, breathing over the vent, pupils dilated, but briskly reactive. No gag, dolls eyes. - Skin Skin Exam: Warm Assessment and Plan - Assessment and Plan (Free Text) Assessment: 62 year old female with PMH of systolic CHF with EF 15-20%, HTN, DM, COPD, AFib, presents s/p cardiac arrest. Cardiac cath showed nonobstructive CAD. Neurology consulted for anoxic brain injury: - Spot EEG today showed status epilepticus - C/w Keppra 1500 mg IV q12 for now - Discussed prognosis with family extensively, would like to have family come in tonight, leaning towards terminal extubation/comfort care. - Poor prognosis Case discussed with Dr Zavala. <Allen Zavala - Last Filed: 07/01/18 17:43> Objective - Vital Signs/Intake and Output Vital Signs (last 24 hours): Temp Pulse Resp BP Pulse Ox 99.9 F H 55 L 17 80/39 L 76 L 06/30/18 07:59 06/30/18 07:44 06/30/18 07:57 06/30/18 07:00 06/30/18 07:35 - Labs Labs: 06/29/18 07:15 06/30/18 05:40 PT 12.7 SECONDS (9.4-12.5) H 06/25/18 09:15 INR 1.10 06/25/18 09:15 APTT 27.3 Seconds (25.1-36.5) 06/25/18 09:15 Assessment and Plan (1) Anoxic brain injury Status: Acute (2) Status epilepticus Status: Acute Attending/Attestation - Attestation I have personally seen and examined this patient.: Yes I have fully participated in the care of the patient.: Yes I have reviewed all pertinent clinical information, including history, physical exam and plan: Yes Notes (Text): 07/01/18 17:43 I agree with the assessment and plan. As mentioned, the prognosis is poor; however, we will continue to treat the active seizures.
[2018-06-29] MEDS: levETIRAcetam 1,500 MG in Sodium Chloride 0.9% 100 ML IV SCH ×2 (10:54→22:00)
--- NOTE | 2018-06-29 10:57 | CP.CCUPN ---
CCU Subjective - Physician Review Subjective (Free Text): Rajesh Vasquez DO, PGY-1 ICU Progress Note for Dr. Galicia Patient is a 62 year old female with PMH of DM2, HTN, COPD, and chronic AFib who presented to ED following witnessed syncopal episode and cardiac arrest. The initial rhythm was found to be PEA. Compressions were started immediately per EMS. Unclear from records exactly how long she was in cardiac arrest prior to EMS arrival. Per EMS, ROSC was achieved after 2 minutes of CPR. Overnight, patient has remained stable on vent with same settings. She is still not requiring pressor support. CCU Objective - Vital Signs / Intake & Output Intake and Output (Last 8hrs): Intake & Output 06/28/18 06/29/18 06/29/18 22:59 06:59 14:59 Intake Total 615 2698 64 Output Total 700 400 Balance -85 2298 64 Weight 250 lb Intake: IV 615 1464 64 Left Wrist 615 Right Antecubital 1114 Oral 0 Tube Feeding 0 TPN/PPN 0 Blood Product 0 Lipid 0 Albumin 0 Other 1234 Output: Urine 700 400 2-way Urethral 700 400 Stool 0 Emesis 0 Oral Regurgitation 0 Other 0 Other: # Bowel Movements 0 0 - Physical Exam Head: Positive for: Atraumatic, Other (Intubated) Pupils: Positive for: Non-Reactive, Other (eye twitching noted on exam, doll's eyes and pupillary reflexes absent, slight gag reflex elicited by RN) Conjunctiva: Positive for: Normal Mouth: Positive for: Moist Mucous Membranes Neck: Negative for: JVD Respiratory/Chest: Positive for: Clear to Auscultation, Good Air Exchange. Negative for: Respiratory Distress, Accessory Muscle Use, Wheezes, Rales, Rhonchi Cardiovascular: Positive for: Regular Rate and Rhythm, Normal S1, S2. Negative for: Murmurs, Rub, Gallop Abdomen: Negative for: Distention, Mass/Organomegaly Back: Positive for: Normal Inspection Upper Extremity: Positive for: NORMAL PULSES. Negative for: Cyanosis, Edema Lower Extremity: Positive for: Edema (trace LE edema improved from prior exams), NORMAL PULSES Neurological: Positive for: Other (non responsive to sternal rub and trapezius pinch, doll's eyes pupillary reflexes absent, slight gag reflex elicited by RN) Skin: Positive for: Warm, Dry, Normal Color. Negative for: Rashes - Medications Active Medications: Active Medications Generic Name Dose Route Start Last Admin Trade Name Freq PRN Reason Stop Dose Admin Amiodarone HCl 200 mg 06/29/18 10:00 Cordarone PO DAILY LYNDA Artificial Tears 0.3 ml 06/28/18 13:18 06/28/18 17:47 Refresh Opth Soln OU 2 drop Q4H PRN Administration Dry eyes Aspirin 81 mg 06/26/18 06:00 06/28/18 10:45 Aspirin Chewable NG 81 mg DAILY LYNDA Administration Atorvastatin Calcium 80 mg 06/25/18 17:00 06/28/18 16:22 Lipitor NG 80 mg DIN LYNDA Administration Carvedilol 3.125 mg 06/28/18 10:00 06/28/18 17:41 Coreg PO 3.125 mg BID LYNDA Administration Furosemide 40 mg 06/28/18 10:00 06/28/18 10:47 Lasix IVP 40 mg DAILY LYNDA Administration Gemfibrozil 600 mg 06/26/18 10:15 06/28/18 17:35 Lopid PO 600 mg BID LYNDA Administration Heparin Sodium (Porcine) 5,000 units 06/25/18 20:00 06/29/18 06:43 Heparin SC 5,000 units Q8 LYNDA Administration Protocol Heparin Sodium/Sodium Chloride 25,000 units in 250 mls @ 15.241 mls/hr 06/25/18 11:30 06/25/18 11:30 Heparin 83442 Units/250ml 1/2 Normal Saline IV Not Given .[id number] LYNDA Protocol 12 UNITS/KG/HR Cisatracurium Besylate 200 mg/ 270 mls @ 4.66 mls/hr 06/25/18 16:05 06/27/18 07:30 Sodium Chloride IV 0 mcg/kg/min .Q24H PRN 0 mls/hr TITRATE PER MD ORDER Titration Protocol 0.5 MCG/KG/MIN Cefepime HCl 2 gm in 100 mls @ 100 mls/hr 06/26/18 08:00 06/29/18 04:59 Maxipime 2gm IVPB 07/01/18 08:01 100 mls/hr Q8 LYNDA Administration Protocol Dobutamine HCl/Dextrose 500 mg in 250 mls @ 17.25 mls/hr 06/27/18 10:47 06/29/18 04:55 Dobutamine/Dextrose 5% 500mg/250ml IV 5 mcg/kg/min .[id number] PRN 17.25 mls/hr TITRATE PER PROTOCOL Administration Protocol 5 MCG/KG/MIN Midazolam 100 mg/100ml in NS 100 mg in 100 mls @ 5 mls/hr 06/27/18 11:35 06/29/18 08:52 Midazolam 100 Mg/100ml In Ns IV 1.25 mg/hr .Q20H PRN 1.25 mls/hr Sedation Titration Protocol 5 MG/HR Levetiracetam 1,500 mg/ Sodium 115 mls @ 460 mls/hr 06/27/18 22:00 06/28/18 21:27 Chloride IV 460 mls/hr Q12 LYNDA Administration Insulin Human Regular 0 units 06/27/18 18:00 06/29/18 06:06 Humulin R Med SC Not Given Q6H LYNDA Protocol Lisinopril 2.5 mg 06/28/18 10:00 06/28/18 12:31 Zestril PO 2.5 mg DAILY LYNDA Administration Pantoprazole Sodium 40 mg 06/25/18 11:30 06/28/18 10:58 Protonix Inj IVP 40 mg DAILY LYNDA Administration Spironolactone 25 mg 06/28/18 10:00 06/28/18 17:35 Aldactone PO 25 mg BID LYNDA Administration - Patient Studies Lab Studies: Microbiology Studies 06/28/18 13:46 Urine Culture - Final Urine,Catheterized No Growth (<1,000 CFU/ML) 06/25/18 12:45 Blood Culture - Preliminary Blood-Venous NO GROWTH AFTER 3 DAYS 06/25/18 12:33 Blood Culture - Preliminary Blood-Venous NO GROWTH AFTER 3 DAYS 06/25/18 23:00 Gram Stain - Final Trachasp Sputum Culture - Final NORMAL ORAL LAUREN Lab Studies 06/29/18 06/29/18 06/29/18 Range/Units 07:15 07:15 06:06 WBC 11.0 (4.5-11.0) 10^3/ul RBC 4.51 (3.5-6.1) 10^6/uL Hgb 13.4 (12.0-16.0) g/dL Hct 41.4 (36.0-48.0) % MCV 91.8 (80.0-105.0) fl MCH 29.7 (25.0-35.0) pg MCHC 32.4 (31.0-37.0) g/dl RDW 15.1 H (11.5-14.5) % Plt Count 189 (120.0-450.0) 10^3/uL MPV 11.9 H (7.0-11.0) fl Gran % 76.1 H (50.0-68.0) % Lymph % (Auto) 11.7 L (22.0-35.0) % [place] % (Auto) 12.0 H (1.0-6.0) % Eos % (Auto) 0.1 L (1.5-5.0) % Baso % (Auto) 0.1 (0.0-3.0) % Gran # 8.34 H (1.4-6.5) Lymph # (Auto) 1.3 (1.2-3.4) [place] # (Auto) 1.3 H (0.1-0.6) Eos # (Auto) 0.0 (0.0-0.7) Baso # (Auto) 0.01 (0.0-2.0) K/mm3 Sodium 142 (132-148) mmol/L Potassium 4.2 (3.6-5.0) mmol/L Chloride 109 H (98-107) mmol/L Carbon Dioxide 27 (21-33) mmol/L Anion Gap 10 (10-20) BUN 26 H (7-21) mg/dL Creatinine 1.0 (0.7-1.2) mg/dl Est GFR ( Amer) > 60 Est GFR (Non-Af Amer) 57 POC Glucose (mg/dL) 115 H (65-110) mg/dL Random Glucose 114 H (70-110) mg/dL Calcium 8.8 (8.4-10.5) mg/dL Phosphorus 3.1 (2.5-4.5) mg/dL Magnesium 2.4 H (1.7-2.2) mg/dL Total Bilirubin 0.6 (0.2-1.3) mg/dL AST 40 H (14-36) U/L ALT 31 (7-56) U/L Alkaline Phosphatase 51 (38-126) U/L Total Protein 6.5 (5.8-8.3) g/dL Albumin 3.4 (3.0-4.8) g/dL Globulin 3.1 gm/dL Albumin/Globulin Ratio 1.1 (1.1-1.8) Triglycerides (35-160) mg/dL Cholesterol (130-200) mg/dL LDL Cholesterol Direct (0-129) mg/dL HDL Cholesterol (29-60) mg/dL Urine Color (YELLOW) Urine Appearance (CLEAR) Urine pH (4.7-8.0) Ur Specific [place] (1.005-1.035) Urine Protein (<30 mg/dL) mg/dL Urine Glucose (UA) (NEGATIVE) mg/dL Urine Ketones (NEGATIVE) mg/dL Urine Blood (NEGATIVE) Urine Nitrate (NEGATIVE) Urine Bilirubin (NEGATIVE) Urine Urobilinogen (<1 E.U./dL) E.U./dL Ur Leukocyte Esterase (NEGATIVE) Tio/uL Urine RBC (0-2) /hpf Urine WBC (0-6) /hpf Ur Epithelial Cells (0-5) /hpf Influenza Typ A,B (EIA) (NEGATIVE) 06/28/18 06/28/18 06/28/18 Range/Units 23:49 18:04 16:00 WBC (4.5-11.0) 10^3/ul RBC (3.5-6.1) 10^6/uL Hgb (12.0-16.0) g/dL Hct (36.0-48.0) % MCV (80.0-105.0) fl MCH (25.0-35.0) pg MCHC (31.0-37.0) g/dl RDW (11.5-14.5) % Plt Count (120.0-450.0) 10^3/uL MPV (7.0-11.0) fl Gran % (50.0-68.0) % Lymph % (Auto) (22.0-35.0) % [place] % (Auto) (1.0-6.0) % Eos % (Auto) (1.5-5.0) % Baso % (Auto) (0.0-3.0) % Gran # (1.4-6.5) Lymph # (Auto) (1.2-3.4) [place] # (Auto) (0.1-0.6) Eos # (Auto) (0.0-0.7) Baso # (Auto) (0.0-2.0) K/mm3 Sodium 140 (132-148) mmol/L Potassium 3.6 (3.6-5.0) mmol/L Chloride 104 (98-107) mmol/L Carbon Dioxide 30 (21-33) mmol/L Anion Gap 10 (10-20) BUN 24 H (7-21) mg/dL Creatinine 1.1 (0.7-1.2) mg/dl Est GFR ( Amer) > 60 Est GFR (Non-Af Amer) 51 POC Glucose (mg/dL) 121 H 111 H (65-110) mg/dL Random Glucose 122 H (70-110) mg/dL Calcium 8.5 (8.4-10.5) mg/dL Phosphorus (2.5-4.5) mg/dL Magnesium (1.7-2.2) mg/dL Total Bilirubin (0.2-1.3) mg/dL AST (14-36) U/L ALT (7-56) U/L Alkaline Phosphatase (38-126) U/L Total Protein (5.8-8.3) g/dL Albumin (3.0-4.8) g/dL Globulin gm/dL Albumin/Globulin Ratio (1.1-1.8) Triglycerides 96 (35-160) mg/dL Cholesterol 130 (130-200) mg/dL LDL Cholesterol Direct 62 (0-129) mg/dL HDL Cholesterol 41 (29-60) mg/dL Urine Color (YELLOW) Urine Appearance (CLEAR) Urine pH (4.7-8.0) Ur Specific [place] (1.005-1.035) Urine Protein (<30 mg/dL) mg/dL Urine Glucose (UA) (NEGATIVE) mg/dL Urine Ketones (NEGATIVE) mg/dL Urine Blood (NEGATIVE) Urine Nitrate (NEGATIVE) Urine Bilirubin (NEGATIVE) Urine Urobilinogen (<1 E.U./dL) E.U./dL Ur Leukocyte Esterase (NEGATIVE) Tio/uL Urine RBC (0-2) /hpf Urine WBC (0-6) /hpf Ur Epithelial Cells (0-5) /hpf Influenza Typ A,B (EIA) (NEGATIVE) 06/28/18 06/28/18 06/28/18 Range/Units 13:46 13:46 11:57 WBC (4.5-11.0) 10^3/ul RBC (3.5-6.1) 10^6/uL Hgb (12.0-16.0) g/dL Hct (36.0-48.0) % MCV (80.0-105.0) fl MCH (25.0-35.0) pg MCHC (31.0-37.0) g/dl RDW (11.5-14.5) % Plt Count (120.0-450.0) 10^3/uL MPV (7.0-11.0) fl Gran % (50.0-68.0) % Lymph % (Auto) (22.0-35.0) % [place] % (Auto) (1.0-6.0) % Eos % (Auto) (1.5-5.0) % Baso % (Auto) (0.0-3.0) % Gran # (1.4-6.5) Lymph # (Auto) (1.2-3.4) [place] # (Auto) (0.1-0.6) Eos # (Auto) (0.0-0.7) Baso # (Auto) (0.0-2.0) K/mm3 Sodium (132-148) mmol/L Potassium (3.6-5.0) mmol/L Chloride (98-107) mmol/L Carbon Dioxide (21-33) mmol/L Anion Gap (10-20) BUN (7-21) mg/dL Creatinine (0.7-1.2) mg/dl Est GFR ( Amer) Est GFR (Non-Af Amer) POC Glucose (mg/dL) 132 H (65-110) mg/dL Random Glucose (70-110) mg/dL Calcium (8.4-10.5) mg/dL Phosphorus (2.5-4.5) mg/dL Magnesium (1.7-2.2) mg/dL Total Bilirubin (0.2-1.3) mg/dL AST (14-36) U/L ALT (7-56) U/L Alkaline Phosphatase (38-126) U/L Total Protein (5.8-8.3) g/dL Albumin (3.0-4.8) g/dL Globulin gm/dL Albumin/Globulin Ratio (1.1-1.8) Triglycerides (35-160) mg/dL Cholesterol (130-200) mg/dL LDL Cholesterol Direct (0-129) mg/dL HDL Cholesterol (29-60) mg/dL Urine Color Yellow (YELLOW) Urine Appearance Clear (CLEAR) Urine pH 6.0 (4.7-8.0) Ur Specific [place] 1.010 (1.005-1.035) Urine Protein Negative (<30 mg/dL) mg/dL Urine Glucose (UA) Negative (NEGATIVE) mg/dL Urine Ketones Negative (NEGATIVE) mg/dL Urine Blood Moderate H (NEGATIVE) Urine Nitrate Negative (NEGATIVE) Urine Bilirubin Negative (NEGATIVE) Urine Urobilinogen 0.2 (<1 E.U./dL) E.U./dL Ur Leukocyte Esterase Negative (NEGATIVE) Tio/uL Urine RBC 5 - 10 (0-2) /hpf Urine WBC 0 - 2 (0-6) /hpf Ur Epithelial Cells 0 - 2 (0-5) /hpf Influenza Typ A,B (EIA) Negative for flu a/b (NEGATIVE) Laboratory Results - last 24 hr 06/28/18 06/28/18 06/28/18 11:57 13:46 13:46 WBC RBC Hgb Hct MCV MCH MCHC RDW Plt Count MPV Gran % Lymph % (Auto) [place] % (Auto) Eos % (Auto) Baso % (Auto) Gran # Lymph # (Auto) [place] # (Auto) Eos # (Auto) Baso # (Auto) Sodium Potassium Chloride Carbon Dioxide Anion Gap BUN Creatinine Est GFR ( Amer) Est GFR (Non-Af Amer) POC Glucose (mg/dL) 132 H Random Glucose Calcium Phosphorus Magnesium Total Bilirubin AST ALT Alkaline Phosphatase Total Protein Albumin Globulin Albumin/Globulin Ratio Triglycerides Cholesterol LDL Cholesterol Direct HDL Cholesterol Urine Color Yellow Urine Appearance Clear Urine pH 6.0 Ur Specific [place] 1.010 Urine Protein Negative Urine Glucose (UA) Negative Urine Ketones Negative Urine Blood Moderate H Urine Nitrate Negative Urine Bilirubin Negative Urine Urobilinogen 0.2 Ur Leukocyte Esterase Negative Urine RBC 5 - 10 Urine WBC 0 - 2 Ur Epithelial Cells 0 - 2 Influenza Typ A,B (EIA) Negative for flu a/b 06/28/18 06/28/18 06/28/18 16:00 18:04 23:49 WBC RBC Hgb Hct MCV MCH MCHC RDW Plt Count MPV Gran % Lymph % (Auto) [place] % (Auto) Eos % (Auto) Baso % (Auto) Gran # Lymph # (Auto) [place] # (Auto) Eos # (Auto) Baso # (Auto) Sodium 140 Potassium 3.6 Chloride 104 Carbon Dioxide 30 Anion Gap 10 BUN 24 H Creatinine 1.1 Est GFR ( Amer) > 60 Est GFR (Non-Af Amer) 51 POC Glucose (mg/dL) 111 H 121 H Random Glucose 122 H Calcium 8.5 Phosphorus Magnesium Total Bilirubin AST ALT Alkaline Phosphatase Total Protein Albumin Globulin Albumin/Globulin Ratio Triglycerides 96 Cholesterol 130 LDL Cholesterol Direct 62 HDL Cholesterol 41 Urine Color Urine Appearance Urine pH Ur Specific [place] Urine Protein Urine Glucose (UA) Urine Ketones Urine Blood Urine Nitrate Urine Bilirubin Urine Urobilinogen Ur Leukocyte Esterase Urine RBC Urine WBC Ur Epithelial Cells Influenza Typ A,B (EIA) 06/29/18 06/29/18 06/29/18 06:06 07:15 07:15 WBC 11.0 RBC 4.51 Hgb 13.4 Hct 41.4 MCV 91.8 MCH 29.7 MCHC 32.4 RDW 15.1 H Plt Count 189 MPV 11.9 H Gran % 76.1 H Lymph % (Auto) 11.7 L [place] % (Auto) 12.0 H Eos % (Auto) 0.1 L Baso % (Auto) 0.1 Gran # 8.34 H Lymph # (Auto) 1.3 [place] # (Auto) 1.3 H Eos # (Auto) 0.0 Baso # (Auto) 0.01 Sodium 142 Potassium 4.2 Chloride 109 H Carbon Dioxide 27 Anion Gap 10 BUN 26 H Creatinine 1.0 Est GFR ( Amer) > 60 Est GFR (Non-Af Amer) 57 POC Glucose (mg/dL) 115 H Random Glucose 114 H Calcium 8.8 Phosphorus 3.1 Magnesium 2.4 H Total Bilirubin 0.6 AST 40 H ALT 31 Alkaline Phosphatase 51 Total Protein 6.5 Albumin 3.4 Globulin 3.1 Albumin/Globulin Ratio 1.1 Triglycerides Cholesterol LDL Cholesterol Direct HDL Cholesterol Urine Color Urine Appearance Urine pH Ur Specific [place] Urine Protein Urine Glucose (UA) Urine Ketones Urine Blood Urine Nitrate Urine Bilirubin Urine Urobilinogen Ur Leukocyte Esterase Urine RBC Urine WBC Ur Epithelial Cells Influenza Typ A,B (EIA) Fingerstick Blood Sugar Results: 115 Review of Systems - Review of Systems Systems not reviewed;Unavailable: Intubated Critical Care Progress Note - Ventilator Checklist Head of Bed 30 Degrees: Yes Daily Sedation Vacation: Yes Daily Assessment of Readiness to Wean: Yes Daily Spontaneous Breathing Trial: Yes PUD Prophalyxis: Yes DVT Prophylaxis: Yes - Vent Settings MODE:: PRVC TIDAL VOLUME:: 400 Assessment/Plan - Assessment and Plan (Free Text) Assessment: 62 yo F with PMH of DM2, HTN, COPD, and chronic AFib presented in [facility] via EMS with ROSC achieved after 2 minutes of CPR and one dose of epinephrine. She is s/p cooling protocol. Per neurology, EEG activity is consistent with severe anoxic brain injury with poor prognosis. Plan: Neuro: -Patient is currently non-responsive to sternal rub, trapezius pinch -No gag, pupillary, corneal, or doll's eyes reflexes -EEG is consistent with severe anoxic brain injury -Poor prognosis -Repeat CT head without acute findings -Keppra 1500 mg BID for seizure ppx -Cerebral flow study showed activity only in the brainstem, not cerebral cortex which may explain why she has some brainstem reflexes -Repeat EEG pending per neurology recs -F/u further neurology recs Cardio: -Cardiac arrest likely 2/2 arrhythmia, hx of AFib -Currently RRR, normotensive, no longer requiring pressure support -PCI shortly after arrival in ED showed no significant stenosis, no stents were placed -LVEF found to be between 15-20% on cath -Amiodarone, coreg, and dobutamine per cardiology recs -F/u cardiology recs Pulm: -Intubated and sedated with versed alone -CTA b/l -CXR improved with less edema -Vent Settings: TV 400 RR 15 PEEP 15 O2 50 -Protective lung ventilation strategy -Keep head of bed elevated to 30 degrees -Aspiration pxns -Continue daily ABG, CXR GI: -NPO on vent -NG in place, no suction needed, may use for meds -Consider tube feedings if needed /Nephro: -BUN/Cr stable -UOP > 2 L yesterday -Lasix changed to 40 mg daily -Continue to monitor -Maintain euvolemia Endocrine: -Maintain euglycemia -Patient has hx of DM2 -ISS as needed ID: -Leukocytosis down trending -On empiric cefepime and flagyl -ID following, recs appreciated Heme/Onc: -H/H stable at 13.4/41.4 -No signs of HD compromise -Continue monitoring H/H DVT/GI PPX: Protonix and SC heparin Full Code Monitor in MICU Case and plan reviewed and discussed with my attending Dr. Brianna Vasquez, DO IM Resident PGY-1
--- NOTE | 2018-06-29 11:38 | PN ---
DATE: 06/29/2018 REASON FOR THE CONSULTATION AND FOLLOWUP: Status post code STEMI, status post collapse, ventricular arrest, status post intubated, rule out anoxic encephalopathy, status post cardiac catheterization, nonobstructive coronary artery disease, nonischemic cardiomyopathy. SUBJECTIVE: The patient remains on the vent. Today, nurse mentioned that the patient had some pharyngeal gag reflex on suction. PHYSICAL EXAMINATION: VITAL SIGNS: Temperature 99, heart rate 87, blood pressure 142/90. HEENT: PERRLA. Extraocular muscles intact. NECK: Supple. No carotid bruit. No thyromegaly. CHEST: Clear to auscultation. HEART: S1 and S2 regular. ABDOMEN: Soft. EXTREMITIES: Clubbing and cyanosis negative. LABORATORY DATA: Blood workup as follows: WBC 11, hemoglobin 13.4, hematocrit 41.4, platelet count of 189. Chemistry shows sodium 142, potassium 4.2, chloride 109, carbon dioxide 27, anion gap of 10, BUN 26, creatinine 1. IMPRESSION: A 62-year-old female with past medical history significant for cardiomyopathy, admitted after having collapse, ventricular tachycardia, ventricular fibrillation arrest, status post cardiopulmonary resuscitation, status post emergent cardiac catheterization done for code ST-elevation myocardial infarction. Found to be nonobstructive coronary artery disease, limited only to mid circumflex, 60% stenosis, severely decreased left ventricular function. The patient is still on the vent. Neurologically, initially the patient was not responding, but today, they said that the patient has some gag reflex. RECOMMENDATION: Continue amiodarone p.o. Continue vent management. Continue aspirin. Continue spironolactone. Continue Coreg. The patient is on dobutamine. Continue Lasix. Dobutamine for increased pump activity because the patient has severely decreased LV function. Continue TASH inhibitor, heart failure therapy. Overall, the patient's condition is critical. Prognosis is extremely guarded. Rule out anoxic encephalopathy further as neuro workup and brain flow, follow up the brain flow study. We will follow with you. Thank you, Dr. Fernandez, for providing us opportunity in taking care of the patient, Bren Jama. Lizz Harrell MD Psychiatric # [id number]
--- NOTE | 2018-06-29 14:50 | NM ---
Date of service: 06/28/2018 PROCEDURE: Cerebral blood flow HISTORY: non-responsive, likely anoxic brain injury COMPARISON: CT 06/28/2018 TECHNIQUE: 24.2 mCi of technetium 99 M pertechnetate were injected and sequential imaging was performed FINDINGS: There is no significant blood flow seen to the brain. Normal activity in the salivary glands and nasal region can be seen. Clinical correlation is recommended The report concurs with the preliminary [facility] report IMPRESSION: Findings compatible with anoxic and brain .
--- NOTE | 2018-06-29 14:53 | CP.PCM.PN ---
Subjective - Date & Time of Evaluation Date of Evaluation: 06/29/18 Time of Evaluation: 08:30 - Subjective Subjective: Patient is a little more awake today but still does not respond appropriately, no fevers, still on the ventilator. Objective - Vital Signs/Intake and Output Vital Signs (last 24 hours): Temp Pulse Resp BP Pulse Ox 99.9 F H 87 20 147/84 99 06/29/18 05:50 06/29/18 10:54 06/29/18 07:45 06/29/18 10:54 06/29/18 07:45 Intake and Output: 06/29/18 06/29/18 06:59 18:59 Intake Total 2698 64 Output Total 400 Balance 2298 64 - Medications Medications: Current Medications Amiodarone HCl (Cordarone) 200 mg PO DAILY [facility] [place] Last Admin: 06/29/18 10:53 Dose: 200 mg Artificial Tears (Refresh Opth Soln) 0.3 ml OU Q4H PRN PRN Reason: Dry eyes Last Admin: 06/28/18 17:47 Dose: 2 drop Aspirin (Aspirin Chewable) 81 mg NG DAILY [facility] [place] Last Admin: 06/29/18 10:54 Dose: 81 mg Atorvastatin Calcium (Lipitor) 80 mg NG DIN [facility] [place] Last Admin: 06/28/18 16:22 Dose: 80 mg Carvedilol (Coreg) 3.125 mg PO BID [facility] [place] Last Admin: 06/29/18 10:35 Dose: 3.125 mg Furosemide (Lasix) 40 mg IVP DAILY [facility] [place] Last Admin: 06/29/18 10:52 Dose: 40 mg Gemfibrozil (Lopid) 600 mg PO BID [facility] [place] Last Admin: 06/29/18 10:53 Dose: 600 mg Heparin Sodium (Porcine) (Heparin) 5,000 units SC Q8 [facility] [place]; Protocol Last Admin: 06/29/18 06:43 Dose: 5,000 units Heparin Sodium/Sodium Chloride (Heparin 13560 Units/250ml 1/2 Normal Saline) 25,000 units in 250 mls @ 15.241 mls/hr IV .[id number] [facility] [place]; Protocol Last Admin: 06/25/18 11:30 Dose: Not Given Cisatracurium Besylate 200 mg/ (Sodium Chloride) 270 mls @ 4.66 mls/hr IV .Q24H PRN; Protocol PRN Reason: TITRATE PER MD ORDER Last Titration: 06/27/18 07:30 Dose: 0 mcg/kg/min, 0 mls/hr Cefepime HCl (Maxipime 2gm) 2 gm in 100 mls @ 100 mls/hr IVPB Q8 LYNDA; Protocol Stop: 07/01/18 08:01 Last Admin: 06/29/18 04:59 Dose: 100 mls/hr Dobutamine HCl/Dextrose (Dobutamine/Dextrose 5% 500mg/250ml) 500 mg in 250 mls @ 17.25 mls/hr IV .[id number] PRN; Protocol PRN Reason: TITRATE PER PROTOCOL Last Admin: 06/29/18 04:55 Dose: 5 mcg/kg/min, 17.25 mls/hr Midazolam 100 mg/100ml in NS (Midazolam 100 Mg/100ml In Ns) 100 mg in 100 mls @ 5 mls/hr IV .Q20H PRN; Protocol PRN Reason: Sedation Last Titration: 06/29/18 08:52 Dose: 1.25 mg/hr, 1.25 mls/hr Levetiracetam 1,500 mg/ Sodium (Chloride) 115 mls @ 460 mls/hr IV Q12 [facility]YNDA Last Admin: 06/29/18 10:54 Dose: 460 mls/hr Insulin Human Regular (Humulin R Med) 0 units SC Q6H LYNDA; Protocol Last Admin: 06/29/18 06:06 Dose: Not Given Lisinopril (Zestril) 2.5 mg PO DAILY [facility] [place] Last Admin: 06/29/18 10:54 Dose: 2.5 mg Pantoprazole Sodium (Protonix Inj) 40 mg IVP DAILY [facility] [place] Last Admin: 06/29/18 10:52 Dose: 40 mg Spironolactone (Aldactone) 25 mg PO BID [facility] [place] Last Admin: 06/29/18 10:54 Dose: 25 mg - Labs Labs: 06/29/18 07:15 06/29/18 07:15 PT 12.7 SECONDS (9.4-12.5) H 06/25/18 09:15 INR 1.10 06/25/18 09:15 APTT 27.3 Seconds (25.1-36.5) 06/25/18 09:15 - Constitutional Appears: Chronically Ill, Other (intubated) - Head Exam Head Exam: NORMAL INSPECTION - ENT Exam Additional comments: ET tube in place - Respiratory Exam Respiratory Exam: Decreased Breath Sounds - Cardiovascular Exam Cardiovascular Exam: +S1, +S2 - GI/Abdominal Exam GI & Abdominal Exam: Soft. absent: Tenderness Assessment and Plan - Assessment and Plan (Free Text) Plan: Assessment Systemic inflammatory response syndrome with VDRF due to cardiopulmonary arrest R/O acute coronary syndrome, with probable anoxic encephalopathy, R/O severe sepsis from aspiration pneumonia chronic CHF HTN DM COPD atrial fibrillation morbid obesity with BMI 40 Plan continue Cefepime, Flagyl ,Doxycycline day 4; cultures and MRSA nares are negat deep, will d/c IV Vancomycin; reviewed CT A/P and CXR - complete 4-7 days of antibiotics overall prognosis is poor follow up further recommendations of GI, Neuro, Cardio
--- NOTE | 2018-06-29 15:24 | CP.PCM.CON ---
History of Present Illness - History of Present Illness History of Present Illness: Palliative consult requested by Reason: Goals of care 62m year old female with history of CHF, HTN, COPD and A fib who on 06/25 became unresponsive at home. EMS called and found the patient in PEA> ACL> intubated > ROSC in [address] elevations. Remains intubated, no gag or pupillary reflexes,off sedation.GCS [address] on 06/25 and 06/28 showed no acute abnormalities. Chest x ray 06/25: NOVA atelectasis and consolidation with volume loss, no PE EEG 06/25: Flat no cerebral activity. Doppler lower extremities 06/28: Hypoechoic acute thrombus in left popliteal vein PMHx:COPD, HTN, DM, hypothyroidism, systolic CHF, dilated cardiomyopathy, TIA PSH: C sections x4, appendectomy, tonsillectomy Family History: Mother > DM, . Social History: Former heavy smoker, no alcohol or drug use. Advance Care Planning: The patient does not have an Advanced Directive Review of Systems: Unable to obtain, unresponsive, intubated Past Patient History - Infectious Disease Hx of Infectious Diseases: None - Tetanus Immunizations Tetanus Immunization: Unknown - Past Social History Smoking Status: Former Smoker - CARDIAC Hx Congestive Heart Failure: Yes Hx Hypertension: Yes - PULMONARY Hx Respiratory Disorders: Yes (USED TO SMOKE CIGARETTES 3 CIG A DAY FOR 15 YRS.) - NEUROLOGICAL HX Cerebrovascular Accident: Yes (TIA) - HEENT Hx HEENT Problems: No - RENAL Hx Chronic Kidney Disease: No - ENDOCRINE/METABOLIC Hx Diabetes Mellitus Type 2: Yes Hx Hypothyroidism: Yes - HEMATOLOGICAL/ONCOLOGICAL Hx Blood Disorders: No - INTEGUMENTARY Hx Dermatological Problems: No - MUSCULOSKELETAL/RHEUMATOLOGICAL Hx Arthritis: Yes - GASTROINTESTINAL Hx Gastrointestinal Disorders: Yes (APPENDECTOMY,TONSILLECTOMY) Hx Gall Bladder Disease: Yes (CHOLEYCYSTECTOMY) - GENITOURINARY/GYNECOLOGICAL Hx Genitourinary Disorders: No - PSYCHIATRIC Hx Psychophysiologic Disorder: Yes Hx Anxiety: Yes Hx Depression: Yes Hx Substance Use: No - SURGICAL HISTORY Hx Appendectomy: Yes Hx Cholecystectomy: Yes Meds Allergies/Adverse Reactions: Allergies Allergy/AdvReac Type Severity Reaction Status Date / Time No Known Allergies Allergy Verified 06/25/18 14:47 - Medications Medications: Current Medications Amiodarone HCl (Cordarone) 200 mg PO DAILY [facility] Last Admin: 06/29/18 10:53 Dose: 200 mg Artificial Tears (Refresh Opth Soln) 0.3 ml OU Q4H PRN PRN Reason: Dry eyes Last Admin: 06/28/18 17:47 Dose: 2 drop Aspirin (Aspirin Chewable) 81 mg NG DAILY [facility] Last Admin: 06/29/18 10:54 Dose: 81 mg Atorvastatin Calcium (Lipitor) 80 mg NG DIN [facility] Last Admin: 06/28/18 16:22 Dose: 80 mg Carvedilol (Coreg) 3.125 mg PO BID [facility] Last Admin: 06/29/18 10:35 Dose: 3.125 mg Furosemide (Lasix) 40 mg IVP DAILY [facility] Last Admin: 06/29/18 10:52 Dose: 40 mg Gemfibrozil (Lopid) 600 mg PO BID [facility] Last Admin: 06/29/18 10:53 Dose: 600 mg Heparin Sodium (Porcine) (Heparin) 5,000 units SC Q8 [facility]; Protocol Last Admin: 06/29/18 14:52 Dose: 5,000 units Heparin Sodium/Sodium Chloride (Heparin 35801 Units/250ml 1/2 Normal Saline) 25,000 units in 250 mls @ 15.241 mls/hr IV .[id number] [facility]; Protocol Last Admin: 06/25/18 11:30 Dose: Not Given Cisatracurium Besylate 200 mg/ (Sodium Chloride) 270 mls @ 4.66 mls/hr IV .Q24H PRN; Protocol PRN Reason: TITRATE PER MD ORDER Last Titration: 06/27/18 07:30 Dose: 0 mcg/kg/min, 0 mls/hr Cefepime HCl (Maxipime 2gm) 2 gm in 100 mls @ 100 mls/hr IVPB Q8 [facility]; Protocol Stop: 07/01/18 08:01 Last Admin: 06/29/18 14:48 Dose: 100 mls/hr Dobutamine HCl/Dextrose (Dobutamine/Dextrose 5% 500mg/250ml) 500 mg in 250 mls @ 17.25 mls/hr IV .[id number] PRN; Protocol PRN Reason: TITRATE PER PROTOCOL Last Admin: 06/29/18 04:55 Dose: 5 mcg/kg/min, 17.25 mls/hr Midazolam 100 mg/100ml in NS (Midazolam 100 Mg/100ml In Ns) 100 mg in 100 mls @ 5 mls/hr IV .Q20H PRN; Protocol PRN Reason: Sedation Last Titration: 06/29/18 08:52 Dose: 1.25 mg/hr, 1.25 mls/hr Levetiracetam 1,500 mg/ Sodium (Chloride) 115 mls @ 460 mls/hr IV Q12 [facility] Last Admin: 06/29/18 10:54 Dose: 460 mls/hr Doxycycline Hyclate 100 mg/ (Sodium Chloride) 100 mls @ 100 mls/hr IVPB Q12 [facility]; Protocol Metronidazole (Flagyl) 500 mg in 100 mls @ 100 mls/hr IVPB Q8 [facility]; Protocol Insulin Human Regular (Humulin R Med) 0 units SC Q6H [facility]; Protocol Last Admin: 06/29/18 14:49 Dose: Not Given Lisinopril (Zestril) 2.5 mg PO DAILY [facility] Last Admin: 06/29/18 10:54 Dose: 2.5 mg Pantoprazole Sodium (Protonix Inj) 40 mg IVP DAILY [facility] Last Admin: 06/29/18 10:52 Dose: 40 mg Spironolactone (Aldactone) 25 mg PO BID [facility] Last Admin: 06/29/18 10:54 Dose: 25 mg Physical Exam - Constitutional Appears: No Acute Distress Additional comments: obese - Head Exam Head Exam: NORMOCEPHALIC - ENT Exam ENT Exam: Mucous Membranes Moist - Respiratory Exam Respiratory Exam: Decreased Breath Sounds, Rhonchi - Cardiovascular Exam Cardiovascular Exam: Tachycardia, Irregular Rhythm, +S1, +S2 - GI/Abdominal Exam GI & Abdominal Exam: Normal Bowel Sounds, Soft - Skin Skin Exam: Dry, Pallor - Additional Findings Additional findings: palliative performance scale rating 10% Results - Vital Signs Recent Vital Signs: Last Vital Signs Temp 99.9 F H 06/29/18 05:50 Pulse 87 06/29/18 10:54 Resp 20 06/29/18 07:45 BP 147/84 06/29/18 10:54 Pulse Ox 99 06/29/18 07:45 - Labs Result Diagrams: 06/29/18 07:15 06/30/18 05:40 Labs: Laboratory Results - last 24 hr 06/28/18 06/28/18 06/28/18 16:00 18:04 23:49 WBC RBC Hgb Hct MCV MCH MCHC RDW Plt Count MPV Gran % Lymph % (Auto) [place] % (Auto) Eos % (Auto) Baso % (Auto) Gran # Lymph # (Auto) [place] # (Auto) Eos # (Auto) Baso # (Auto) Sodium 140 Potassium 3.6 Chloride 104 Carbon Dioxide 30 Anion Gap 10 BUN 24 H Creatinine 1.1 Est GFR ( Amer) > 60 Est GFR (Non-Af Amer) 51 POC Glucose (mg/dL) 111 H 121 H Random Glucose 122 H Calcium 8.5 Phosphorus Magnesium Total Bilirubin AST ALT Alkaline Phosphatase Total Protein Albumin Globulin Albumin/Globulin Ratio Triglycerides 96 Cholesterol 130 LDL Cholesterol Direct 62 HDL Cholesterol 41 06/29/18 06/29/18 06/29/18 06:06 07:15 07:15 WBC 11.0 RBC 4.51 Hgb 13.4 Hct 41.4 MCV 91.8 MCH 29.7 MCHC 32.4 RDW 15.1 H Plt Count 189 MPV 11.9 H Gran % 76.1 H Lymph % (Auto) 11.7 L [place] % (Auto) 12.0 H Eos % (Auto) 0.1 L Baso % (Auto) 0.1 Gran # 8.34 H Lymph # (Auto) 1.3 [place] # (Auto) 1.3 H Eos # (Auto) 0.0 Baso # (Auto) 0.01 Sodium 142 Potassium 4.2 Chloride 109 H Carbon Dioxide 27 Anion Gap 10 BUN 26 H Creatinine 1.0 Est GFR ( Amer) > 60 Est GFR (Non-Af Amer) 57 POC Glucose (mg/dL) 115 H Random Glucose 114 H Calcium 8.8 Phosphorus 3.1 Magnesium 2.4 H Total Bilirubin 0.6 AST 40 H ALT 31 Alkaline Phosphatase 51 Total Protein 6.5 Albumin 3.4 Globulin 3.1 Albumin/Globulin Ratio 1.1 Triglycerides Cholesterol LDL Cholesterol Direct HDL Cholesterol 06/29/18 14:40 WBC RBC Hgb Hct MCV MCH MCHC RDW Plt Count MPV Gran % Lymph % (Auto) [place] % (Auto) Eos % (Auto) Baso % (Auto) Gran # Lymph # (Auto) [place] # (Auto) Eos # (Auto) Baso # (Auto) Sodium Potassium Chloride Carbon Dioxide Anion Gap BUN Creatinine Est GFR ( Amer) Est GFR (Non-Af Amer) POC Glucose (mg/dL) 129 H Random Glucose Calcium Phosphorus Magnesium Total Bilirubin AST ALT Alkaline Phosphatase Total Protein Albumin Globulin Albumin/Globulin Ratio Triglycerides Cholesterol LDL Cholesterol Direct HDL Cholesterol Assessment & Plan - Assessment and Plan (Free Text) Assessment: 62 year old female with dilated cardiomyopathy, PAT, HTN, systolic CHF who is s/p cardiopulmonary arrest and anoxic brain injury Brain flow study showing anoxic brain injury consistent with brain . EEG's abnormal> GCS 3T, no gag or corneal reflexes, does not react to pain EEG pending.Family not at bedside, in light of brain flow studies/poor prognos is, Will contact them to discuss goals of care. Spoke with Dottie(daughter) by phone, states she understands patients medical situation and extremely poor prognosis. Family coming to hospital later this evening, will make decision once all together. Psychosocial support provided. Spiritual support offered, but declined at this time Time spent in goals of care discussion with family,15 minutes Plan: Respiratory failure: Intubated, SA02 >95%,daily ABG's Cardio: EF 20 %, Continue Cordarone, Dobutamine, Coreg, Lasix, Spirinalactone,ASA. Neuro: EEG pending, past EEG's abnormal secondary to severe hypoxic brain injury. Nuclear flow study consistent with cerebral cortex brain . DVT: Continue Heparin SIRS/sepsis: Continue Vancomycin,Doxycycline, Flagyl. ID recs Goals of care and advance care planning
[2018-06-29] MEDS: Propofol 10 mg/ml 1,000 MG/100 ML VIAL IV PRN (16:19)
--- NOTE | 2018-06-29 17:59 | CP.PCM.PN ---
Subjective - Date & Time of Evaluation Date of Evaluation: 06/29/18 Time of Evaluation: 17:58 - Subjective Subjective: Pt seen and examined in the ICU. Pt intubated. Objective - Vital Signs/Intake and Output Vital Signs (last 24 hours): Temp Pulse Resp BP Pulse Ox 99.9 F H 96 H 20 151/98 H 98 06/29/18 16:31 06/29/18 16:31 06/29/18 07:45 06/29/18 16:31 06/29/18 16:31 Intake and Output: 06/29/18 06/29/18 06:59 18:59 Intake Total 2698 64 Output Total 400 Balance 2298 64 - Medications Medications: Current Medications Amiodarone HCl (Cordarone) 200 mg PO DAILY [facility] Last Admin: 06/29/18 10:53 Dose: 200 mg Artificial Tears (Refresh Opth Soln) 0.3 ml OU Q4H PRN PRN Reason: Dry eyes Last Admin: 06/28/18 17:47 Dose: 2 drop Aspirin (Aspirin Chewable) 81 mg NG DAILY [facility] Last Admin: 06/29/18 10:54 Dose: 81 mg Atorvastatin Calcium (Lipitor) 80 mg NG DIN [facility] Last Admin: 06/28/18 16:22 Dose: 80 mg Carvedilol (Coreg) 3.125 mg PO BID [facility] Last Admin: 06/29/18 10:35 Dose: 3.125 mg Furosemide (Lasix) 40 mg IVP DAILY [facility] Last Admin: 06/29/18 10:52 Dose: 40 mg Gemfibrozil (Lopid) 600 mg PO BID [facility] Last Admin: 06/29/18 10:53 Dose: 600 mg Heparin Sodium (Porcine) (Heparin) 5,000 units SC Q8 [facility]; Protocol Last Admin: 06/29/18 14:52 Dose: 5,000 units Heparin Sodium/Sodium Chloride (Heparin 53877 Units/250ml 1/2 Normal Saline) 25,000 units in 250 mls @ 15.241 mls/hr IV .[id number] [facility]; Protocol Last Admin: 06/25/18 11:30 Dose: Not Given Cisatracurium Besylate 200 mg/ (Sodium Chloride) 270 mls @ 4.66 mls/hr IV .Q24H PRN; Protocol PRN Reason: TITRATE PER MD ORDER Last Titration: 06/27/18 07:30 Dose: 0 mcg/kg/min, 0 mls/hr Cefepime HCl (Maxipime 2gm) 2 gm in 100 mls @ 100 mls/hr IVPB Q8 [facility]; Protocol Stop: 07/01/18 08:01 Last Admin: 06/29/18 14:48 Dose: 100 mls/hr Dobutamine HCl/Dextrose (Dobutamine/Dextrose 5% 500mg/250ml) 500 mg in 250 mls @ 17.25 mls/hr IV .[id number] PRN; Protocol PRN Reason: TITRATE PER PROTOCOL Last Admin: 06/29/18 04:55 Dose: 5 mcg/kg/min, 17.25 mls/hr Midazolam 100 mg/100ml in NS (Midazolam 100 Mg/100ml In Ns) 100 mg in 100 mls @ 5 mls/hr IV .Q20H PRN; Protocol PRN Reason: Sedation Last Titration: 06/29/18 08:52 Dose: 1.25 mg/hr, 1.25 mls/hr Levetiracetam 1,500 mg/ Sodium (Chloride) 115 mls @ 460 mls/hr IV Q12 [facility] Last Admin: 06/29/18 10:54 Dose: 460 mls/hr Doxycycline Hyclate 100 mg/ (Sodium Chloride) 100 mls @ 100 mls/hr IVPB Q12 [facility]; Protocol Metronidazole (Flagyl) 500 mg in 100 mls @ 100 mls/hr IVPB Q8 [facility]; Protocol Propofol (Diprivan) 1,000 mg in 100 mls @ 3.402 mls/hr IV .Q24H PRN; Protocol PRN Reason: TITRATE PER MD ORDER Last Admin: 06/29/18 16:19 Dose: 5 mcg/kg/min, 3.402 mls/hr Insulin Human Regular (Humulin R Med) 0 units SC Q6H [facility]; Protocol Last Admin: 06/29/18 14:49 Dose: Not Given Lisinopril (Zestril) 2.5 mg PO DAILY [facility] Last Admin: 06/29/18 10:54 Dose: 2.5 mg Pantoprazole Sodium (Protonix Inj) 40 mg IVP DAILY [facility] Last Admin: 06/29/18 10:52 Dose: 40 mg Spironolactone (Aldactone) 25 mg PO BID [facility] Last Admin: 06/29/18 10:54 Dose: 25 mg - Labs Labs: 06/29/18 07:15 06/29/18 07:15 PT 12.7 SECONDS (9.4-12.5) H 06/25/18 09:15 INR 1.10 06/25/18 09:15 APTT 27.3 Seconds (25.1-36.5) 06/25/18 09:15 - Constitutional Appears: No Acute Distress - Head Exam Head Exam: ATRAUMATIC, NORMOCEPHALIC - Respiratory Exam Respiratory Exam: Clear to Ausculation Bilateral, NORMAL BREATHING PATTERN Assessment and Plan - Assessment and Plan (Free Text) Assessment: Pt is a 62 yo female with PMH of systolic CHF, HTN, DM, COPD, AFib who presents to hospital s/p cardiac arrest. Patient currently intubated/sedated. Cardiac cath showed no thrombus, mild nonobstructive CAD only in mid circumflex 60-70%; EF 15-20%; CT chest showed aspiration pneumonia; PNA studies negative currently; CT head showed acute abnormalities; On keppra for questionable seizures Plan: Cardiac Arrest - 06-28-18 CT head no acute findings - ET tube, NG tube, Propofol drip - Dobutamine drip - Amiodarone 400 mg po tid - Aspirin 81 NG - Doppler: hypoechoic acute thrombus in left popliteal vein - Cardio Consult- Dr. Harrell- Cardiac cath performed- showing mild CAD and EF of 10-15% - Neuro Consult- Dr. Yee- Video EEG inconclusive study; anoxic brain injury vs siezures (less likely) - ICU consult- Dr. Lopez- Keppra 500mg for seizure ppx - Pallitive care: plan to contact family to discuss goals of care Aspiration Pneumonia 06-26-18 Cxray shows resolution of upper lobe infiltrate Cefepime 2mg (10-5) Flagyl 500mg (10-6) Doxycycline 100mg (10-4) Leukocytosis resolved ID consulted- DC IV vanc Hypertriglycredemia Lopoid 600mg po bid Lipitor 80 mg NG din HTN coreg 3.125 mg po bid DM2 ISS low dose ACHS Hx of COPD - Patient currently intubated PPx GI ppx- Protonix 40mg IVP daily DVT ppx- Heparin 5000 units sc Pt seen, examined, assessment and plan discussed with Dr Kalina Muniz PGY1
--- NOTE | 2018-06-29 21:13 | CP.PCM.PN ---
Subjective - Date & Time of Evaluation Date of Evaluation: 06/29/18 Time of Evaluation: 21:08 - Subjective Subjective: It was requested by daughter and multiple family members who are bedside to extubate patient. Donna said that she has been in talks with neurologist , she understands the poor prognosis. She signed the consent form. I spoke to also .I placed an order to terminally extubate patient. Objective - Vital Signs/Intake and Output Vital Signs (last 24 hours): Temp Pulse Resp BP Pulse Ox 99.9 F H 88 20 209/109 H 98 06/29/18 16:31 06/29/18 20:15 06/29/18 07:45 06/29/18 18:14 06/29/18 16:31 Intake and Output: 06/29/18 06/30/18 18:59 06:59 Intake Total 104 448 Output Total 200 Balance 104 248 - Medications Medications: Current Medications Amiodarone HCl (Cordarone) 200 mg PO DAILY [facility] Last Admin: 06/29/18 10:53 Dose: 200 mg Artificial Tears (Refresh Opth Soln) 0.3 ml OU Q4H PRN PRN Reason: Dry eyes Last Admin: 06/28/18 17:47 Dose: 2 drop Aspirin (Aspirin Chewable) 81 mg NG DAILY [facility] Last Admin: 06/29/18 10:54 Dose: 81 mg Atorvastatin Calcium (Lipitor) 80 mg NG DIN [facility] Last Admin: 06/29/18 18:15 Dose: 80 mg Carvedilol (Coreg) 3.125 mg PO BID [facility] Last Admin: 06/29/18 18:14 Dose: 3.125 mg Furosemide (Lasix) 40 mg IVP DAILY [facility] Last Admin: 06/29/18 10:52 Dose: 40 mg Gemfibrozil (Lopid) 600 mg PO BID [facility] Last Admin: 06/29/18 18:14 Dose: 600 mg Heparin Sodium (Porcine) (Heparin) 5,000 units SC Q8 [facility]; Protocol Last Admin: 06/29/18 14:52 Dose: 5,000 units Heparin Sodium/Sodium Chloride (Heparin 58091 Units/250ml 1/2 Normal Saline) 25,000 units in 250 mls @ 15.241 mls/hr IV .[id number] [facility]; Protocol Last Admin: 06/25/18 11:30 Dose: Not Given Cisatracurium Besylate 200 mg/ (Sodium Chloride) 270 mls @ 4.66 mls/hr IV .Q24H PRN; Protocol PRN Reason: TITRATE PER MD ORDER Last Titration: 06/27/18 07:30 Dose: 0 mcg/kg/min, 0 mls/hr Cefepime HCl (Maxipime 2gm) 2 gm in 100 mls @ 100 mls/hr IVPB Q8 [facility]; Protocol Stop: 07/01/18 08:01 Last Admin: 06/29/18 14:48 Dose: 100 mls/hr Dobutamine HCl/Dextrose (Dobutamine/Dextrose 5% 500mg/250ml) 500 mg in 250 mls @ 17.25 mls/hr IV .[id number] PRN; Protocol PRN Reason: TITRATE PER PROTOCOL Last Admin: 06/29/18 04:55 Dose: 5 mcg/kg/min, 17.25 mls/hr Midazolam 100 mg/100ml in NS (Midazolam 100 Mg/100ml In Ns) 100 mg in 100 mls @ 5 mls/hr IV .Q20H PRN; Protocol PRN Reason: Sedation Last Titration: 06/29/18 08:52 Dose: 1.25 mg/hr, 1.25 mls/hr Levetiracetam 1,500 mg/ Sodium (Chloride) 115 mls @ 460 mls/hr IV Q12 [facility] Last Admin: 06/29/18 10:54 Dose: 460 mls/hr Doxycycline Hyclate 100 mg/ (Sodium Chloride) 100 mls @ 100 mls/hr IVPB Q12 [facility]; Protocol Metronidazole (Flagyl) 500 mg in 100 mls @ 100 mls/hr IVPB Q8 [facility]; Protocol Propofol (Diprivan) 1,000 mg in 100 mls @ 3.402 mls/hr IV .Q24H PRN; Protocol PRN Reason: TITRATE PER MD ORDER Last Titration: 06/29/18 18:10 Dose: 10 mcg/kg/min, 6.804 mls/hr Insulin Human Regular (Humulin R Med) 0 units SC Q6H [facility]; Protocol Last Admin: 06/29/18 18:09 Dose: Not Given Lisinopril (Zestril) 2.5 mg PO DAILY [facility] Last Admin: 06/29/18 10:54 Dose: 2.5 mg Pantoprazole Sodium (Protonix Inj) 40 mg IVP DAILY [facility] Last Admin: 06/29/18 10:52 Dose: 40 mg Spironolactone (Aldactone) 25 mg PO BID [facility] Last Admin: 06/29/18 18:14 Dose: 25 mg - Labs Labs: 06/29/18 07:15 06/29/18 07:15 PT 12.7 SECONDS (9.4-12.5) H 06/25/18 09:15 INR 1.10 06/25/18 09:15 APTT 27.3 Seconds (25.1-36.5) 06/25/18 09:15
[2018-06-29] MEDS: metroNIDAZOLE IV 500 mg/100 ml 500 MG/100 ML BAG IVPB SCH (22:05)
[2018-06-30] MEDS: Propofol 10 mg/ml 1,000 MG/100 ML VIAL IV PRN (05:36)
[2018-06-30] MEDS: metroNIDAZOLE IV 500 mg/100 ml 500 MG/100 ML BAG IVPB SCH (05:38)
[2018-06-30] MEDS: Cefepime IV 2 gm in NS 2 GM/100 ML BAG IVPB SCH (05:39)
[2018-06-30 07:17] LABS: ALB/GLOB RATIO 1.1 (1.1-1.8); ALBUMIN 3.9 g/dL (3.0-4.8); CALCIUM 9.3 mg/dL (8.4-10.5)
--- NOTE | 2018-06-30 08:03 | CP.PCM.PRO ---
Pronouncement of Note - Clinical Findings Physical Exam: No Response Verbal/Painful Stimuli, Absent Heart & Breath Sounds, No Pupillary Light Reflex, No Corneal Reflex, Pupils Fixed & Dilated, Absence of Vital Signs - Pronouncement Time Time of Pronouncement of : 08:00 - Notifications Pronouncement Notifications: Family Notified, Atending Notified - Chavez Certificate N.BrittanyEDRS Number: [id number]
--- NOTE | 2018-06-30 13:40 | CP.PCM.DIS ---
Provider - Provider Date of Admission: 06/25/18 10:59 Attending physician: Lizz Fernandez MD Time Spent in preparation of Discharge (in minutes): 30 Diagnosis - Discharge Diagnosis (1) Anoxic brain damage Status: Acute Priority: High (2) Congestive heart failure Status: Chronic Priority: High (3) Diabetes Status: Chronic Priority: Medium (4) COPD (chronic obstructive pulmonary disease) Status: Chronic Priority: Medium Hospital Course - Lab Results Lab Results: Micro Results 06/25/18 12:45 Blood-Venous Blood Culture - Final NO GROWTH AFTER 5 DAYS 06/25/18 12:45 Blood-Venous Gram Stain - Final TEST NOT PERFORMED 06/25/18 12:33 Blood-Venous Blood Culture - Final NO GROWTH AFTER 5 DAYS 06/25/18 12:33 Blood-Venous Gram Stain - Final TEST NOT PERFORMED 06/28/18 19:00 Sputum Induced Gram Stain - Final 06/28/18 13:46 Urine,Catheterized Urine Culture - Final No Growth (<1,000 CFU/ML) 06/25/18 23:00 Trachasp Gram Stain - Final 06/25/18 23:00 Trachasp Sputum Culture - Final NORMAL ORAL LAUREN 06/25/18 23:06 Nose MRSA Culture (Admit) - Final MRSA NOT DETECTED 06/26/18 12:50 Urine,Catheterized Urine Culture - Final No Growth (<1,000 CFU/ML) Most Recent Lab Values WBC 11.0 10^3/ul (4.5-11.0) 06/29/18 07:15 RBC 4.51 10^6/uL (3.5-6.1) 06/29/18 07:15 Hgb 13.4 g/dL (12.0-16.0) 06/29/18 07:15 Hct 41.4 % (36.0-48.0) 06/29/18 07:15 MCV 91.8 fl (80.0-105.0) 06/29/18 07:15 MCH 29.7 pg (25.0-35.0) 06/29/18 07:15 MCHC 32.4 g/dl (31.0-37.0) 06/29/18 07:15 RDW 15.1 % (11.5-14.5) H 06/29/18 07:15 Plt Count 189 10^3/uL (120.0-450.0) 06/29/18 07:15 MPV 11.9 fl (7.0-11.0) H 06/29/18 07:15 Gran % 76.1 % (50.0-68.0) H 06/29/18 07:15 Lymph % (Auto) 11.7 % (22.0-35.0) L 06/29/18 07:15 Converse % (Auto) 12.0 % (1.0-6.0) H 06/29/18 07:15 Eos % (Auto) 0.1 % (1.5-5.0) L 06/29/18 07:15 Baso % (Auto) 0.1 % (0.0-3.0) 06/29/18 07:15 Gran # 8.34 (1.4-6.5) H 06/29/18 07:15 Lymph # (Auto) 1.3 (1.2-3.4) 06/29/18 07:15 Converse # (Auto) 1.3 (0.1-0.6) H 06/29/18 07:15 Eos # (Auto) 0.0 (0.0-0.7) 06/29/18 07:15 Baso # (Auto) 0.01 K/mm3 (0.0-2.0) 06/29/18 07:15 Neutrophils % (Manual) 89 % (50.0-70.0) H 06/26/18 05:30 Band Neutrophils % 3 % (0-2) H 06/26/18 05:30 Lymphocytes % (Manual) 7 % (22.0-35.0) L 06/26/18 05:30 Monocytes % (Manual) 1 % (1.0-6.0) 06/26/18 05:30 Platelet Evaluation Normal (NORMAL) 06/26/18 05:30 PT 12.7 SECONDS (9.4-12.5) H 06/25/18 09:15 INR 1.10 06/25/18 09:15 APTT 27.3 Seconds (25.1-36.5) 06/25/18 09:15 pCO2 39 mm/Hg (35-45) 06/28/18 05:00 pO2 88.0 mm/Hg (80-100) 06/28/18 05:00 HCO3 27.1 mmol/L (21-28) 06/28/18 05:00 ABG pH 7.45 (7.35-7.45) 06/28/18 05:00 ABG Total CO2 28.3 mmol.L (22-28) H 06/28/18 05:00 ABG O2 Saturation 99.2 % (95-98) H 06/28/18 05:00 ABG O2 Content 17.9 ML/dl (15-23) 06/28/18 05:00 ABG Base Excess 3.0 mmol/L (-2.0-3.0) 06/28/18 05:00 ABG Hemoglobin 13.1 g/dL (11.7-17.4) 06/28/18 05:00 ABG Carboxyhemoglobin 1.8 % (0.5-1.5) H 06/28/18 05:00 POC ABG HHb (Measured) 0.8 % (0-5) 06/28/18 05:00 ABG Methemoglobin 0.6 % (0.0-3.0) 06/28/18 05:00 ABG O2 Capacity 18.0 mL/dl (16-24) 06/28/18 05:00 ABG Potassium 3.3 mmol/L (3.6-5.2) L 06/25/18 16:15 VBG pH 7.39 (7.32-7.43) 06/25/18 16:50 VBG pCO2 47.0 (40-60) 06/25/18 16:50 VBG HCO3 28.5 mmol/l (21-28) H 06/25/18 16:50 VBG Total CO2 29.9 mmol.L (22-28) H 06/25/18 16:50 VBG O2 Sat (Calc) 89.4 % (40-65) H 06/25/18 16:50 VBG Base Excess 2.8 mmol/L (0.0-2.0) H 06/25/18 16:50 VBG Potassium 3.6 mmol/L (3.6-5.2) 06/25/18 16:50 Hgb O2 Saturation 96.8 % (95.0-98.0) 06/28/18 05:00 Sodium 138.0 mmol/L (132-148) 06/25/18 16:50 Chloride 101.0 mmol/L (98-107) 06/25/18 16:50 Glucose 136 mg/dl (65-105) H 06/25/18 16:50 Lactate 1.6 mmol/L (0.7-2.1) 06/25/18 16:50 Mechanical Rate 30 06/25/18 16:15 FiO2 60.0 % 06/28/18 05:00 Tidal Volume 400 06/25/18 16:15 PEEP 10 06/25/18 16:15 Sodium 148 mmol/L (132-148) 06/30/18 05:40 Potassium 5.2 mmol/L (3.6-5.0) H 06/30/18 05:40 Chloride 108 mmol/L (98-107) H 06/30/18 05:40 Carbon Dioxide 32 mmol/L (21-33) 06/30/18 05:40 Anion Gap 14 (10-20) 06/30/18 05:40 BUN 37 mg/dL (7-21) H 06/30/18 05:40 Creatinine 1.8 mg/dl (0.7-1.2) H 06/30/18 05:40 Est GFR ( Amer) 35 06/30/18 05:40 Est GFR (Non-Af Amer) 29 06/30/18 05:40 POC Glucose (mg/dL) 141 mg/dL (65-110) H 06/29/18 22:11 Random Glucose 143 mg/dL (70-110) H 06/30/18 05:40 Hemoglobin A1c 6.5 % (4.2-6.5) 06/26/18 05:30 Calcium 9.3 mg/dL (8.4-10.5) 06/30/18 05:40 Phosphorus 3.1 mg/dL (2.5-4.5) 06/29/18 07:15 Magnesium 2.4 mg/dL (1.7-2.2) H 06/29/18 07:15 Total Bilirubin 0.5 mg/dL (0.2-1.3) 06/30/18 05:40 AST 54 U/L (14-36) H D 06/30/18 05:40 ALT 32 U/L (7-56) 06/30/18 05:40 Alkaline Phosphatase 54 U/L (38-126) 06/30/18 05:40 Troponin I 0.08 ng/mL D 06/25/18 16:50 NT-Pro-B Natriuret Pep 5280 pg/mL (0-450) H 06/25/18 09:15 Total Protein 7.5 g/dL (5.8-8.3) 06/30/18 05:40 Albumin 3.9 g/dL (3.0-4.8) 06/30/18 05:40 Globulin 3.6 gm/dL 06/30/18 05:40 Albumin/Globulin Ratio 1.1 (1.1-1.8) 06/30/18 05:40 Triglycerides 96 mg/dL (35-160) 06/28/18 18:04 Cholesterol 130 mg/dL (130-200) 06/28/18 18:04 LDL Cholesterol Direct 62 mg/dL (0-129) 06/28/18 18:04 HDL Cholesterol 41 mg/dL (29-60) 06/28/18 18:04 Lipase 89 U/L (23-300) 06/26/18 10:45 Procalcitonin 0.22 NG/ML (0.19-0.49) 06/25/18 16:50 Arterial Blood Potassium 3.3 mmol/L (3.6-5.2) L 06/25/18 16:15 Venous Blood Potassium 3.6 mmol/L (3.6-5.2) 06/25/18 16:50 Urine Color Yellow (YELLOW) 06/28/18 13:46 Urine Appearance Clear (CLEAR) 06/28/18 13:46 Urine pH 6.0 (4.7-8.0) 06/28/18 13:46 Ur Specific Alexis 1.010 (1.005-1.035) 06/28/18 13:46 Urine Protein Negative mg/dL (<30 mg/dL) 06/28/18 13:46 Urine Glucose (UA) Negative mg/dL (NEGATIVE) 06/28/18 13:46 Urine Ketones Negative mg/dL (NEGATIVE) 06/28/18 13:46 Urine Blood Moderate (NEGATIVE) H 06/28/18 13:46 Urine Nitrate Negative (NEGATIVE) 06/28/18 13:46 Urine Bilirubin Negative (NEGATIVE) 06/28/18 13:46 Urine Urobilinogen 0.2 E.U./dL (<1 E.U./dL) 06/28/18 13:46 Ur Leukocyte Esterase Negative Tio/uL (NEGATIVE) 06/28/18 13:46 Urine RBC 5 - 10 /hpf (0-2) 06/28/18 13:46 Urine WBC 0 - 2 /hpf (0-6) 06/28/18 13:46 Ur Epithelial Cells 0 - 2 /hpf (0-5) 06/28/18 13:46 Amorphous Sediment Few 06/25/18 11:21 Urine Bacteria Many (NEG) 06/25/18 11:21 Hyaline Casts 0 - 2 /hpf 06/25/18 11:21 Fine Granular Casts 0 - 2 /hpf (0-2) 06/25/18 11:21 Coarse Granular Casts Trace /hpf (0-2) H 06/25/18 11:21 Urine Other Uyeast 06/25/18 11:21 Digoxin < 0.4 ng/mL (0.8-2.0) L 06/25/18 16:50 HIV 1&2 Ag/Ab, 4th Gen Nonreactive (Nonreactive) 06/26/18 05:30 Influenza Typ A,B (EIA) Negative for flu a/b (NEGATIVE) 06/28/18 13:46 Ur L.pneumophila Ag Negative (NEGATIVE) 06/26/18 12:50 Ur Strep pneumoniae Ag Not detected (Not Detected) 06/25/18 13:00 - Hospital Course Hospital Course: Pt is a 62 yo female with PMH of systolic CHF, HTN, DM, COPD, AFib who presents to hospital s/p cardiac arrest. Patient was sedated/intubated. Patient was at home when she experienced chest pain and called EMS. By the time of arrival of EMS patient was noted to be pulseless and diaphoretic. Patient was found to have PEA. Patient was given 4 aspirins and CPR was started. ROSC was obtained after 2 minutes of chest compressions and patient was intubated in the field. No epinephrine was obtained. Pt was found to have had an anoxic brain injury secondary to cardiac arrest. Head CT showed acute cerebral abnormalities as well as aspiration pneumonia. The decision was made to terminally extubate the pt last night while in the ICU. Pt subsequently this morning. - Date & Time of H&P Date of H&P: 06/30/18 Time of H&P: 13:41 Discharge Exam - Head Exam Head Exam: NORMOCEPHALIC Discharge Plan - Follow Up Plan Condition: GOOD Disposition: HOME/ ROUTINE
[2018-06-30 15:51] VITALS: BP 80/39; PULSE 55; RESP 17; TEMP 99.9; O2SAT 76
--- NOTE | 2018-07-01 11:58 | PCM.EEG ---
Electroencephalogram Report - Electroencephalogram Report Procedure Date: 06/30/18 Interpretation: Indication; Coma. Technical Information: This was a 16-channel EEG, 1-channel EKG , performed using an Bevvy machine., electrodes were applied according to the 10/20 international placement system, impedances were less than 5 K Ohm. There was no awake architecture seen, the EEG showed ongoing 1 to 1.5 Hz, generalized epileptifornm paroxysmal discharges (GPEDs) in a periodic fashion. , however clear ictal activity was not seen. No awake/sleep architecture. No HV or Photic performed. Impression: This was an abnormal routine EEG, due to the presence of: 1-Se lizzy background slowing/attenuation . 2-GPEds (periodic generalzied interictal epileptifrom discharges). INTERPRETATION: This findings are in keeping with a sever non specific diffuse disturbance of cortical activity. This is in keeping with a diffuse wallis matter dysfunction. The findings do not suggest a specific etiology. Findings, given the history, are consistent with myoclonic status epilepticus.
== END 2018-06-30 08:00 | DRG 123 ==
LOC: ED 09:03 → ERH 10:59 → ICU 15:40
PROVIDERS: ADMIT Internal Medicine; ATTEND Internal Medicine
PROC: 5A1955Z Respiratory Ventilation, Greater than 96 Consecutive Hours (ICD-10-PCS; principal; 2018-06-25)
PROC: 4A023N8 Measurement of Cardiac Sampling and Pressure, Bilateral, Percutaneous Approach (ICD-10-PCS; 2018-06-25)
PROC: B2111ZZ Fluoroscopy of Multiple Coronary Arteries using Low Osmolar Contrast (ICD-10-PCS; 2018-06-25)
PROC: B2151ZZ Fluoroscopy of Left Heart using Low Osmolar Contrast (ICD-10-PCS; 2018-06-25)
PROC: 0BH17EZ Insertion of Endotracheal Airway into Trachea, Via Natural or Artificial Opening (ICD-10-PCS; 2018-06-25)
DX: I21.3 ST elevation (STEMI) myocardial infarction of unspecified site (principal); G93.1 Anoxic brain damage, not elsewhere classified; I50.22 Chronic systolic (congestive) heart failure; I82.432 Acute embolism and thrombosis of left popliteal vein; J69.0 Pneumonitis due to inhalation of food and vomit; R65.10 Systemic inflammatory response syndrome (SIRS) of non-infectious origin without acute organ dysfunction; Z99.11 Dependence on respirator [ventilator] status; J96.91 Respiratory failure, unspecified with hypoxia; I46.2 Cardiac arrest due to underlying cardiac condition; E87.5 Hyperkalemia; I11.0 Hypertensive heart disease with heart failure; J44.9 Chronic obstructive pulmonary disease, unspecified; I42.0 Dilated cardiomyopathy; J98.11 Atelectasis; I49.01 Ventricular fibrillation; I47.2 Ventricular tachycardia; I48.2 Chronic atrial fibrillation; E03.9 Hypothyroidism, unspecified; E11.9 Type 2 diabetes mellitus without complications; E66.01 Morbid (severe) obesity due to excess calories; E78.5 Hyperlipidemia, unspecified; G40.901 Epilepsy, unspecified, not intractable, with status epilepticus; Z86.73 Personal history of transient ischemic attack (TIA), and cerebral infarction without residual deficits; I25.10 Atherosclerotic heart disease of native coronary artery without angina pectoris; I48.0 Paroxysmal atrial fibrillation; Z68.41 Body mass index [BMI] 40.0-44.9, adult; Z83.3 Family history of diabetes mellitus; Z86.79 Personal history of other diseases of the circulatory system; Z87.891 Personal history of nicotine dependence; Z90.49 Acquired absence of other specified parts of digestive tract